=== PATIENT | male | born 1965 | race Caucasian/White ===

== ENCOUNTER 2016-10-07 21:38 | Observation (INO) | payer OTHER ==
[~2016-10-07] VITALS: Ht 182.9 cm; Wt 147.1 kg
[~2016-10-07 21:38] MED LIST: AMOXICILLIN500 M1 PO; ASPIR 8181 MG PO; ASPIRIN EC325 MG PO; ASPIRIN81 M2 PO; ATORVASTATIN CA20 MG PO; ATORVASTATIN CA40 MG PO; ATORVASTATIN CA80 M1 PO; AUGMENTIN 875-1 EACH PO; AUGMENTIN 875875 MG PO; BACTRIM DS 8001 TAB PO; BENTYL20 MG PO; CARDIZEM 30 MG30 MG PO; CARDIZEM CD120 MG PO; CLOPIDOGREL75 MG PO; COMBIVENT RESPI1 SPR INH; COMBIVENT1 ARO INH; DILTIAZEM HCL30 MG; DILTIAZEM30 MG PO; DIPHENOXYLATE-ATROP PO; ELIQUIS5 MG PO; FENOFIBRATE145 MG PO; FERROUS SULFAT325 M1 PO; FLU VACCINE 0.0.5 ML IM; FUROSEMIDE40 MG PO; GABAPENTIN300 MG PO; GEMFIBROZIL600 MG PO; IMODIUM A-1 MG/7.5 M PO; IMODIUM2 MG PO; JANUMET 1000 MG1 TAB PO; K-DUR 20MEQ TA20 MEQ PO; KEFLEX500 MG PO; KLOR-CON 10MEQ10 MEQ PO; LANTUS INS100 UNITS/ SC; LANTUS SOLOS100 U/ML SC; LANTUS100 U/ML SC; LASIX20 MG PO; LASIX40 M1 PO; LASIX40 MG PO; LASIX80 MG PO; LEVEMIR 10100 UNITS/ SC; LIDODERM 5% PAT1 PAT TOP; LISINOPRIL2.5 MG PO; LISINOPRIL20 MG PO; LOMOTIL 0.025 M1 TAB PO; LOPERAMIDE2 MG PO; LOPRESSOR 25MG25 MG PO; LOPRESSOR50 MG PO; LYRICA50 MG PO; LYRICA75 MG PO; MAGNESIUM OXID400 MG PO; METFORMIN1000 MG PO; METOPROLOL SUCC25 M1 PO; NITRO-BID OINT0.5 GM TOP; NITRO-BID2% TOP; NOVOLOG100 U/ML SC; Nitro-Bid TOP; OXYCODONE-ACET1 EACH PO; PERCOCET 325 MG-5 MG PO; PERCOCET 325 MG1 TA2 PO; PRILOSEC40 MG PO; PRINIVIL 5MG5 MG PO; PROTONIX 40MG T40 MG PO; SANTYL250 U/GM TOP; TYLENOL XSTR500 MG PO; ULTRAM(MONOGRAP50 MG PO; VENTOLIN1 PUF INH
--- NOTE | 2016-10-07 21:48 | ED CARDIAC/CP/PALPITATIONS ---
History of Present Illness General Chief Complaint: Chest Pain Stated Complaint: BIBA CHEST PAIN Source: patient, old records Exam Limitations: no limitations Vital Signs & Intake/Output Vital Signs & Intake/Output Vital Signs Date Time Temp Pulse Resp B/P Pulse O2 O2 Flow FiO2 Ox Delivery Rate 10/07 2250 68 114/55 10/07 2237 68 117/56 10/07 2159 97 Nasal 1.0L Cannula 10/07 2151 97.8 67 18 135/64 99 ED Intake and Output 10/08 0000 10/07 1200 Intake Total Output Total 400 Balance -400 Output, Urine 400 Allergies Coded Allergies: erythromycin base (Intermediate, ?GI UPSET 03/13/16) gluten (Intermediate, GI UPSET 03/13/16) venom-honey bee (BEE VENOM (HONEY BEE)) (Intermediate, VOMITING 03/13/16) lactose (Mild, GI UPSET 03/13/16) Reconcile Medications Acetaminophen (Tylenol Xstr) 500 MG TAB 2 TAB PO AD PRN Pain (Reported) Aspirin 81 MG TAB 1 TAB PO DAILY HEART HEALTH Atorvastatin Calcium 80 MG TABLET 80 MG PO 1700 HYPERLIPIDEMIA CLOPIDOGREL BISULFATE (Clopidogrel) 75 MG TABLET 1 TAB PO DAILY BLOOD THINNER (Reported) Collagenase (Santyl) 250 U/GM OIN 1 AMY TOP PRN PRN Skin ulcer Dicyclomine Hydrochloride (Bentyl) 20 MG TAB 1 TAB PO Q6P PRN ABD PAIN DILTIAZEM HCL (Cardizem Cd) 120 MG CER 1 CAP PO DAILY Heart (Reported) FENOFIBRATE NANOCRYSTALLIZED (Fenofibrate) 145 MG TABLET 1 TAB PO DAILY CHOLESTEROL (Reported) Ferrous Sulfate 325 MG TAB 1 TAB PO DAILY SUPPLEMENT Furosemide (Lasix) 40 MG TABLET 1 TAB PO DAILY leg edema Insulin Glargine, Recombinan (Lantus) 100 U/ML MINI 24 UNITS SC QAM DIABETES ( Reported) IPRATROPIUM/ALBUTEROL SULFATE (Combivent Inhaler) 14.7 GM AER.W.ADAP 2 PUF INH 4 TIMES/DAY PRN SOB (Reported) IPRATROPIUM/ALBUTEROL SULFATE (Combivent Respimat Inhal [place]) 1 SPR SPR 2 PUFF INH 4 TIMES/DAY RESPIRATORY (Reported) Lidocaine HCl (Lidoderm Patch) 5 % PAT 1 PAT TOP DAILY RIGHT BACK (Reported) may wear up to 12 hours Lisinopril (Prinivil) 5 MG TAB 1 TAB PO DAILY HYPERTENSION Metformin Hydrochloride/Nela (Janumet 1000 MG-50 MG) 1 TAB TAB 1 TAB PO DAILY DIABETES (Reported) Metoprolol Succinate 25 MG TAB 75 MG PO BID BLOOD PRESSURE Nitroglycerin (Nitro-Bid) 2% OIN 1 AMY TOP PRN ANGINA (Reported) Omeprazole (Prilosec) 40 MG ECC 1 TAB PO DAILY AC GI (Reported) Oxycodone HCl/Acetaminophen (Oxycodone-Acetaminophen 5-325) 1 EACH TABLET 1 TAB PO Q4 HRS NEEDED pain control (Reported) POTASSIUM CHLORIDE (KLOR-CON 10mEq TAB) (Unknown Strength) TAB (Unknown Dose) PO DAILY SUPPLEMENT (Reported) Pregabalin (Lyrica) 50 MG CAPSULE 1 CAP PO TID NEUROPATHIC PAIN Tramadol HCl (Ultram) 50 MG TAB 1 TAB PO Q6 PRN severe pain Triage Nurses Notes Reviewed? yes Onset: Abrupt Duration: better Timing: single episode today Quality/Severity: moderate, pressure Location: substernal Radiation: arms Activities at Onset: none Prior Chest Pain/Card Workup: stress test Modifying Factors: Improves With: nitroglycerin. Nitro Today/Relief: 0.4 mg x 2 Aspirin Today: 325 mg x 1 HPI: Patient is a 51-year-old male with a past medical history of CVA, TIA, peripheral neuropathy, chronic peripheral ulcers, paroxysmal atrial fibrillation , coronary artery disease, CHF, hypertension, hyperlipidemia myocardial infarction status post CABG in 2013, COPD obstructive sleep apnea, diabetes obesity in which patient was recently admitted to [facility] approximately 2 weeks ago for concerns of chest pain and elevated troponins however patient had cardiac stress test showing no ischemia concerns. Patient does state that currently he is in short-term rehabilitation at [facility] in which on September 30 a week ago patient was admitted for observation for concerns of recurrent chest pain he was discharged the following day patient presents today stating that one hour prior to arrival he had at rest substernal chest pressure with radiation of pain to his left upper extremity diaphoresis shortness of breath and nausea. Patient was given 2 sprays of nitroglycerin and 325 mg of aspirin in route and states that he feels significantly improved. Currently point to 1 out of 10 chest pain. (EDGAR PRIDE,HELENA) Past History Travel History Traveled to [place] past 21 day No Medical History Any Pertinent Medical History? 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 MOTHER (CAD, DM, DLD and HTN). Hx Contributory? No (HELENA CHAMPION) Review of Systems Review of Systems Constitutional: Reports: no symptoms. EENTM: Reports: no symptoms. Respiratory: Reports: see HPI, short of breath. Cardiovascular: Reports: see HPI, chest pain. GI: Reports: no symptoms. Genitourinary: Reports: no symptoms. Musculoskeletal: Reports: no symptoms. Skin: Reports: see HPI. Neurological/Psychological: Reports: no symptoms. Hematologic/Endocrine: Reports: no symptoms. Immunologic/Allergic: Reports: no symptoms. All Other Systems: Reviewed and Negative (HELENA CHAMPION) Physical Exam Physical Exam General Appearance: no apparent distress, obese Head: atraumatic Eyes: Bilateral: normal appearance, PERRL, EOMI. Ears, Nose, Throat: normal pharynx, normal ENT inspection Neck: normal inspection, supple, full range of motion Respiratory: normal breath sounds, chest non-tender, no respiratory distress Cardiovascular: regular rate/rhythm Gastrointestinal: normal bowel sounds, soft, non-tender Rectal: heme negative stool Extremities: pedal edema Neurologic/Psych: no motor/sensory deficits, awake, alert, oriented x 3 Skin: warm/dry Lymphatic: no anterior cervical charles Comments: Noted chronic 1 cm circular right foot ulcer 2 No active discharge no surrounding erythema Core Measures ACS in differential dx? Yes ASA ordered for poss ACS? ASPIRIN WAS ADMINISTERED PRIOR TO ARRIVAL Severe Sepsis Present: No Septic Shock Present: No (HELENA CHAMPION) Progress Differential Diagnosis: AMI, aortic dissection, atrial fibrillation, cholecystitis, CHF/pulm edema, costochondritis, hyperkalemia, hypovolemia, hyperthyroid, hyperventilation, intracranial hemorrhage, musculoskeletal pain, myocarditis, pancreatitis, pericarditis, pneumonia, pneumothorax, PSVT, pulmonary embolism, PUD/GERD, PVCs/PACs, respiratory failure, rib fracture, sepsis, unstable angina, V-fib/V-Tach, WPW syndrome Plan of Care: Orders Procedure Date/time Status Nothing by Mouth 10/08 B Active TROPONIN LEVEL 10/08 1000 Active EKG 10/08 1000 Active CBC WITHOUT DIFFERENTIAL 10/08 06 Active BASIC ELECTROLYTES PLUS BUN&CR 10/08 0600 Active TROPONIN LEVEL 10/08 0400 Active EKG 10/08 0400 Active Admit to inpatient 10/08 0012 Active Pathway - chart 10/07 2328 Active House Staff 10/07 2328 Active Patient Data 10/078 Active Code Status 10/07 2328 Active Patient Data 10/07 232 Active MAGNESIUM 10/07 2215 Complete Intake & Output 10/07 2156 Active D-DIMER 10/07 2154 Complete Telemetry/Vice President Quality 10/07 2153 Active TROPONIN LEVEL 10/07 215 Complete COMPREHENSIVE METABOLIC PANEL 10/07 2153 Complete CBC WITHOUT DIFFERENTIAL 10/07 2153 Complete EKG 10/07 2139 Active VTE Mechanical Prophylaxis 10/07 UNK Active Telemetry/Vice President Quality 10/07 UNK Active Current Medications Sig/Ysabel Start time Last Medication Dose Stop Time Status Admin Atorvastatin Calcium 80 MG 1700 10/08 1700 UNVr (Lipitor) Clopidogrel Bisulfate 75 MG DAILY 10/08 1000 UNVr (Plavix) Diltiazem HCl 120 MG DAILY 10/08 1000 UNVr (Cardizem CD) Fenofibrate 145 MG DAILY 10/08 1000 UNVr (Tricor) Ferrous Sulfate 325 MG DAILY 10/08 1000 UNVr (Feosol) Furosemide 40 MG DAILY 10/08 1000 UNVr (Lasix) Omeprazole 40 MG DAILY AC 10/08 0700 UNVr (Prilosec) Dicyclomine HCl 20 MG 4 TIMES/DAY PRN 10/08 0030 UNVr (Bentyl) Lidocaine 1 PAT DAILY PRN 10/08 0030 UNVr (Lidoderm) Oxycodone/ 1 TAB Q4 HRS NEEDED PRN 10/08 0030 UNVr Acetaminophen (Percocet) Tramadol HCl 50 MG Q6 PRN 10/08 003 UNVr (Ultram) Metoprolol Tartrate 75 MG BID 10/08 22 UNVr (Lopressor) Pregabalin 50 MG TID 10/08 22 UNVr (Lyrica) Acetaminophen 650 MG Q6P PRN 10/07 2330 AC (Tylenol) Magnesium Sulfate 1 GM Q1H 10/07 2330 AC (Mag Sulfate in D5) 10/08 128 Dextrose/Water 100 ML (D5W) Heparin Sodium 5,000 UNIT ONCE ONE 10/07 2315 UNVr (Porcine) 10/07 2316 (Heparin Bolus) Heparin Sodium 25,000 UNIT Q24H 10/07 2315 UNVr (Porcine) (Heparin) Sodium Chloride 500 ML Laboratory Tests 10/07/162214: Anion Gap 13, Estimated GFR 49 L, BUN/Creatinine Ratio 21.3, Glucose 118 H, Calcium 8.9, Magnesium 1.1 L, Total Bilirubin 0.8, AST 27, ALT 25, Alkaline Phosphatase 130 H, Troponin I 0.02, Total Protein 6.7, Albumin 3.8, Globulin 2.9, Albumin/Globulin Ratio 1.3, D-Dimer 372 H, CBC w Diff NO MAN DIFF REQ, RBC 3.74 L, MCV 78.2 L, MCH 25.8 L, RDW 19.4 H, MPV 10.4, Gran % 79.4 H, Lymphocytes % 8.8 L, Monocytes % 9.2, Eosinophils % 1.5, Basophils % 1.1, Absolute Granulocytes 7.6 H, Absolute Lymphocytes 0.8 L, Absolute Monocytes 0.9 H, Absolute Eosinophils 0.1, Absolute Basophils 0.1, PUBS MCHC 33.0 10/07/16 2154: Magnesium Cancelled Patient currently has concerns of unstable angina in which patient has had significant resolution of his chest pain with vasodilators of nitroglycerin. Nitroglycerin paste was administered due to persistent chest pain while in the emergency room. EKG was unremarkable cardiac enzyme unremarkable however d- dimer was elevated however creatinine levels were too high to obtain CT angiogram to rule out pulmonary embolism. Discussed patient with Dr. Sage since patient is going to telemetry He discussed admission with Dr. Downing who advised patient to be prophylactically anticoagulated with heparin (HELENA CHAMPION) Diagnostic Imaging: Viewed by Me: Radiology Read. CXR Impression: no acute abnormality, no infiltrates Initial ED EKG: SINUS RHYTHM NOTED AT 66 BPM UNCHANGED SINCE september Prior EKG: unchanged Comments: PATIENT: WILLIAM WRIGHT PRESENT AGE: 51 PATIENT ACCOUNT NO: [id number] : 64 LOCATION: [facility] ORDERING PHYSICIAN: HELENA PRIDE SERVICE DATE: 10/07/16 EXAM TYPE: RAD - XRY-CHEST XRAY, PA AND LATERAL EXAMINATION: XR CHEST CLINICAL INFORMATION: Chest pain. COMPARISON: CTA chest 09/14/2016. Portable chest x-ray 09/13/2016. TECHNIQUE: PA and lateral views of the chest were obtained. FINDINGS: AP and lateral views of the chest demonstrate mild pulmonary hypoinflation. There are linear opacities within the left midlung and lingula, favored to represent subsegmental atelectasis. No new airspace consolidation is identified. Cardiac mediastinal contours are stable and there is stable prominence of the cardiac silhouette, without overt pulmonary edema. Redemonstrated are median sternotomy wires and evidence of prior CABG. IMPRESSION: Stable cardiomegaly, without overt pulmonary edema. Subsegmental atelectasis within the left midlung and left lung base. (HELENA CHAMPION) Departure Departure Disposition: STILL A PATIENT Condition: Fair Clinical Impression Primary Impression: Unstable angina Secondary Impressions: Foot ulcer, Kidney failure Referrals: ARCELIA MARIA,TIM Hernandez (PCP/Family) Referred to [facility] as new patient No Departure Forms: Customer Survey General Discharge Information Admission Note Spoke With: MARIA T DOWNING MD Documentation of Exam: Documentation of any treatments & extenuating circumstances including Concerns Regarding Discharge (functional status, medication knowledge or non-compliance, living conditions, etc.) that warrant an admission rather than observation: [Dr. SAGE discussed admission with Dr. Downing and which HE ADVISED the patient TO BE ADMITTED under telemetry for concerns of unstable angina patient will be prophylactically administered heparin which patient requires cardiology consultation, repeat labs, telemetry monitoring, and further evaluation to rule out pulmonary embolism and possible cardiac catheterization. Outpatient treatment at this time would be medically harmful.] (HELENA CHAMPION) PA/[employer] Co-Sign Statement Statement: ED Attending supervision documentation- [x] I saw and evaluated the patient. I have also reviewed all the pertinent lab results and diagnostic results. I agree with the findings and the plan of care as documented in the PA's/[employer]'s documentation. 10/07/16, 23:00... Pt is chest pain free after supportive medications. dimer positive, but elevated cr precludes cta. Pt signed out to me. 10/07/16, 23:20... discussed with dr. downing who accepts patient... will start heparin given his unstable angina and elevated dimer. [] I have reviewed the ED Record and agree with the PA's/[employer]'s documentation. [] Additions or exceptions (if any) to the PAs/SUPER[employer]'s note and plan are summarized below: [] (RAY MARIA,LILIAN Pineda) Critical Care Note Critical Care Note Critical Care Time: 30-74 min (EDGAR PRIDE,HELENA)
--- NOTE | 2016-10-07 21:56 | NUR ---
51 YEAR OLD MALE BIBA FROM [facility] C/O SUBSTERNAL CHEST PAIN 5/10 RADIATING DOWN LEFT ARM. PT REPORTS MINIMAL PAIN AT THIS TIME 2/10. PT RECIEVED 1 ASPIRIN AND 2 SL NITRO EN ROUTE WITH MEDIC. PT ALERT AND ORIENTED X3, EKG IN PROGRESS.
--- NOTE | 2016-10-07 22:14 | NUR ---
PT BLOOD SENT TO THE LAB LAV ABEBA,BLUE
--- NOTE | 2016-10-07 22:17 | NUR ---
SHANNEN HERNÁNDEZ TO BEDSIDE TO EVALUATE PT.
[2016-10-07 22:32] LABS: ABSOLUTE BASOPHIL COUNT 0.1 /CUMM (0.0-0.2); ABSOLUTE EOSINOPHIL COUNT 0.1 /CUMM (0.0-0.7); ABSOLUTE GRANULOCYTE CT 7.6 /CUMM (1.4-6.5); ABSOLUTE LYMPH COUNT 0.8 /CUMM (1.2-3.4); ABSOLUTE MONOCYTE COUNT 0.9 /CUMM (0.10-0.60); BASOPHIL % 1.1 % (0.0-2.0); EOSINOPHIL % 1.5 % (0-5); GRANULOCYTE % 79.4 % (42.2-75.2); HEMATOCRIT 29.2 % (42-52); MEAN CORPUSCULAR HGB 25.8 PG (27.0-31.0); MEAN CORPUSCULAR VOLUME 78.2 FL (80.0-94.0); MEAN PLATELET VOLUME 10.4 FL (7.4-10.4); PLATELET COUNT 220 /CUMM (130-400); RBC DISTRIBUTION WIDTH 19.4 % (11.5-14.5); RED BLOOD CELL CT 3.74 /CUMM (4.70-6.10); WHITE BLOOD CELL COUNT 9.5 /CUMM (4.8-10.8)
--- NOTE | 2016-10-07 22:36 | NUR ---
NITRO PATCH APPLIED PER EMAR BP 117/56. PT TO RADIOLOGY FOR X-RAY.
--- NOTE | 2016-10-07 22:47 | NUR ---
PT RETURN FROM X-RAY VIA STRETCHER.
--- NOTE | 2016-10-07 23:25 | RADIOLOGY REPORT ---
EXAMINATION: XR CHEST CLINICAL INFORMATION: Chest pain. COMPARISON: CTA chest 09/14/2016. Portable chest x-ray 09/13/2016. TECHNIQUE: PA and lateral views of the chest were obtained. FINDINGS: AP and lateral views of the chest demonstrate mild pulmonary hypoinflation. There are linear opacities within the left midlung and lingula, favored to represent subsegmental atelectasis. No new airspace consolidation is identified. Cardiac mediastinal contours are stable and there is stable prominence of the cardiac silhouette, without overt pulmonary edema. Redemonstrated are median sternotomy wires and evidence of prior CABG. IMPRESSION: Stable cardiomegaly, without overt pulmonary edema. Subsegmental atelectasis within the left midlung and left lung base.
--- NOTE | 2016-10-08 01:00 | History & Physical ---
MARQUES MARIA,DAVID 10/08/16 0100: General Information and HPI MD Statement: I have seen and personally examined WILLIAM WRIGHT and documented this H&P. The patient is a 51 year old M who presented with a patient stated chief complaint of []. Source of Information: patient, old records Exam Limitations: no limitations History of Present Illness: Patient is a 51-year-old male with a significant past medical history of CVA, TIA, CAD, AR, CABG in May 2014, CHF, hypertension, hyperlipidemia,COPD, obstructive sleep apnea, chronic leg ulcer status post skin grafting, type 2 diabetes, diabetic peripheral neuropathy, obesity, presented with the chief complaints of sudden onset of chest pain. According to the patient, he was all right and was talking to nursing staff at facility and suudenly are having chest pain, 5/10, sharp in nature, radiating to the left arm, and Jaw. He was given 4 tablets of aspirin and 2 tablets at the nitroglycerin which made him more comfortable. But because of the chest pain he was brought here for further management. Patient is having cellulitis of both lower extremity. He claims that it is there since last 1 year.Even he had skin graft for ulcers on the left foot. Allergies - Dilaudid, erythromycin Allergies/Medications Allergies: Coded Allergies: erythromycin base (Intermediate, ?GI UPSET 03/13/16) gluten (Intermediate, GI UPSET 03/13/16) venom-honey bee (BEE VENOM (HONEY BEE)) (Intermediate, VOMITING 03/13/16) lactose (Mild, GI UPSET 03/13/16) Past History Travel History Traveled to [place] past 21 day No Medical History Neurological: CVA, TIA, PERIPHERAL NEUROPATHY EENT: NONE Cardiovascular: AFIB (paroxysmal), CAD, CHF, hypertension, hyperlipidemia, myocardial infarction (s/p AR) Respiratory: COPD, ANA USES CPAP Gastrointestinal: ENTERITIS Hepatic: NONE Renal: nephrolithiasis Musculoskeletal: LEG WOUNDS WOUND VAC SKIN GRAFTS TO R LEG Psychiatric: NONE Endocrine: diabetes (with neuropathy), obesity Blood Disorders: NONE Cancer(s): NONE 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 MOTHER (CAD, DM, DLD and HTN). Psychosocial History Who Do You Live With? sister Services at Home: Nursing, Oxygen, Physical Therapy Living Will? no Functional Ability ADLs Independent: eating. Needs Assist: dressing, toileting, bathing. Ambulation: walker IADLs Independent: telephone, medication admin. Needs Assist: shopping, housework, food prep, transportation. Unknown: finances. Review of Systems Review of Systems Constitutional: Reports: malaise, weakness. Denies: chills, diaphoresis, fever. EENTM: Denies: no symptoms, blurred vision, double vision. Cardiovascular: Reports: chest pain, edema, orthopena, palpitations, peripheral edema. Denies: syncope. Respiratory: Reports: orthopnea, short of breath. Denies: cough, hemoptysis, sputum production, stridor, wheezing. GI: Reports: distention, nausea. Denies: abdominal pain, bloating, constipation, diarrhea, bowel incontinence, melena, bloody stool, changes in stool, vomiting. Genitourinary: Denies: dysuria, frequency, hematuria, hesitation, nocturia. Musculoskeletal: Denies: back pain, gout, joint pain, muscle pain. Neurological/Psychological: Reports: anxiety, depressed, emotional problems. Exam & Diagnostic Data Last 24 Hrs of Vital Signs/I&O Vital Signs Date Time Temp Pulse Resp B/P Pulse O2 O2 Flow FiO2 Ox Delivery Rate 10/08 0122 Nasal 2.0L Cannula 10/08 0043 68 114/55 10/07 2250 68 114/55 10/07 2237 68 117/56 10/07 2159 97 Nasal 1.0L Cannula 10/07 2151 97.8 67 18 135/64 99 Intake & Output 10/08 0800 10/08 0000 10/07 1600 Intake Total Output Total 400 Balance -400 Output, Urine 400 Patient 150.593 kg Weight Physical Exam General Appearance Alert, Oriented X3, Cooperative, No Acute Distress Skin bilateral lower leg cellulitis, unstageable decubitus ulcer on bith bucttock HEENT Atraumatic, PERRLA, EOMI Neck Supple, No JVD Cardiovascular Regular Rate, Normal S1, Normal S2 Lungs Clear to Auscultation, Normal Air Movement Abdomen Soft, No Tenderness, distended Neurological Normal Speech Extremities edema,redness, tenderness, ozzing ulcer on the left foot Vascular Normal Pulses, Pulses Symmetrical Assessment/Plan Assessment: Assessment and plan - Vital signs at the time of admission-temperature 97.8, pulse 67, respiratory rate 18, blood pressure 135/64, SPO2 99%. CXR -Stable cardiomegaly, without overt pulmonary edema. Subsegmental atelectasis within the left midlung and left lung base Problem list - Acute coronary syndrome, coronary artery disease, AR, CABG in May 2014, Hypertension Hyperlipidemia Atrial fibrillation COPD Obstructive sleep apnea Bilateral lower leg cellulitis Type 2 diabetes, diabetic neuropathy Obesity Decubitus ulcer CVA/TIA Plan - Acute coronary syndrome * Patient presented with chest pain with a history of coronary artery disease and a CABG * We'll trend the troponins/EKG * We'll admit the patient to telemetry * Start the patient on IV heparin therapy * We'll discuss the patient with Dr. Downing. Anemia - * Hemoglobin is 9.6, hematocrit 29.2 * It seems that the patient is having iron deficiency anemia as MCV is only 78.2 * We will check stool for occult blood and also the iron indices to rule out iron deficiency anemia. * We will regularly follow H&H SPIKE * BUN is 32 and creatinine is 1.5 * It seems that the patient is having prerenal dehydration * We'll give gentle IV fluids * We will regularly follow BUN/creatinine * Strict intake output charting Hypomagnesemia - Mg -1.1 * We will supplement IV magnesium with the goal of 2 Type 2 diabetes * We will regularly check the blood sugar level. Pre-meal and at the bedtime * We'll adjust the blood sugar level by giving NovoLog according to sliding scale * Continue Levemir at the home dose Diet-diabetic carbohydrate 2. Diet DVT prophylaxis-ALP S/heparin Code Status - full code As Ranked By This Provider Problem List: 1. Foot ulcer 2. Chest pain at rest 3. Acute hypoxemic respiratory failure 4. CHF (congestive heart failure) 5. CVA (cerebral vascular accident) 6. Hypertension 7. Diabetes 8. Cellulitis 9. Atrial fibrillation 10. NSTEMI (non-ST elevated myocardial infarction) Core Measures/Miscellaneous Acute Coronary Syndrome ACS Diagnosis: No Cerebrovascular Accident CVA/TIA Diagnosis: No Congestive Heart Failure CHF Diagnosis: No Venous Thromboembolism VTE Risk Factors: Age > 40, Immobility, paresis, Obesity VTE Prophylaxis Ordered Inpt: Mechanical (ALPS/TEDS) No Mech VTE prophylaxis d/t: LE Edema, LE Injury, current, Peripheral vascular Dx No VTE Pharm Prophylaxis d/t: No contraindications VTE Diagnosis: No VTE Type: NONE VTE Confirmed by (Test): NONE Severe Sepsis Severe Sepsis Present: No Septic Shock Septic Shock Present: No Miscellaneous Documentation Attending Case Discussed With: MARIA T DOWNING MD Primary Care Physician: TIM PANIAGUA MD Patient sees these Specialists mds manager Level of Patient Care: Telemetry TAYLOR GREER 10/08/16 0153: Resident Review Statement Resident Statement: examined this patient, discussed with business development intern, agreed with business development intern Other Findings: Patient is a 51-year-old gentleman with a past medical history significant for CAD s/p PCI (LAD, RCA) & CABG(2013), HTN, HLD, paroxysmal A.fib not on anticoagulation,chronic diastolic heart failure, , TIA, ANA (not on CPAP), chronic leg wound status post skin grafting, diabetes complicated with neuropathy, obesity presented from [facility] with chief complaints of sudden onset chest discomfort. As per patient he was doing okay until this evening he started having chest discomfort on rest, substernal,without any radiation, associated with shortness of breath, nausea and palpitations. In the facility patient was given 1 dose of sublingual nitroglycerin, that's slightly relieved his chest discomfort.Patient also desaturated in the facility and was put on oxygen. Because of his extensive cardiac historyEMS was called and and he was brought to the ER for further assessment. On his way to the hospital he was given 325 mg of aspirin and 2 more doses of sublingual nitroglycerin and his symptoms improved. Of note patient was recently admitted to [facility] to unstable angina( elevated troponins), nuclear stress test was done that ruled out any underlying ischemia, Cardiac cath was not done due to acute kidney injury at that time and was discharged last ER. Patient reported that he had similar chest discomfort on September 30, he was seen in [facility], remained in the hospital for one day and was discharged to the [facility]. Patient denied any recent fever or infections. He has bilateral lower extremity weeping wounds, with swelling of the right foot seems to begin worse as per patient. Vitals on admission temperature 97.8, pulse 67, respiratory rate 18, blood pressure 135/64 on 2 L. General Appearance:alert oriented 3 not in acute distress. Skin: Grossly normal HEENT: PEERLA Neck: Supple, No JVD Cardiovascular: Regular Rate, Normal S1, Normal S2, systolic murmur in the second right intercostal space. Lungs: Equal breath sounds bilaterally on lung exam without any rhonchi or wheeze Abdomen: Normal Bowel Sounds, Soft, lower abdominal tenderness. Neurological: Normal Speech, Strength at 5/5 X4 Ext, Cranial Nerves 3-12 NL, Reflexes 2+ Extremities:bilateral lower externally swelling, Vascular: Normal Pulses. Pertinent labs on admission: WBC count normal, H&H: 9.6/24.2, d-dimer elevated at 372 limited BUN and creatinine 32/1.5(baseline creatinine 1.3). Chest x-ray:Stable cardiomegaly, without overt pulmonary edema. Subsegmental atelectasis within the left midlung and left lung base. Assessment 1. Acute onset chest discomfort at rest with hypoxia(possible acute pulmonary embolism/unstable angina) * we'll admit the patient to telemetry floor. * Elevated d-dimer on admission, he cannot have the CTA done due to acute kidney injury, and patient himself is refusing to avoid any damage to the kidney through contrast. We'll start the patient prophylactically on heparin for possible PE. * PERRY score 3,we will do serial troponin and EKG to running underlying ACS.patient recently had a nuclear stress test done that showed No EKG evidence of stress induced myocardial ischemia. * Cardiology was Dr. Downing has been obtained will follow the recommendations. * continue aspirin, beta dylon, high-dose statins. * Sublingual nitroglycerin as needed for chest discomfort. * Continue oxygen keep saturations above 92%. * Will reassess the patient in 24 hours/ * Watch for any hemodynamic instability. 2.History of paroxysmal atrial fibrillation, * Not on anticoagulation, currently sinus rhythm. * continue Cardizem and metoprolol. 3. History of diabetes mellitus resulted in neuropathy * Continue with NovoLog sliding scale hold oral hypoglycemics 4. Chronic Bilateral leg swellings/ulcers:(weeping wounds on the left leg, with right foot appears to be more swollen)-possible underlying cellulitis/venous stasis/vasculitis * Will send blood cultures, as there is no leukocytosis will hold off any antibiotics for now. * Monitor vitals every 4 hours. * continue leg elevation and Santyl ointment/dressing change regularly. * continue pain control withoxycodone/tramadol and Lyrica. 5.Acute on chronic kidney disease * Repeat BEP in the morning * Avoid any nephrotoxic agents. * continue with gentle hydration. 6. Unstageable coccyx decubitus skin wound/ulcer on admission: * continue wound care with clean dry dressings and santyl cream. 7.Moderate to severe painpathway with oxycodone and tramadol. 8.DVT prophylaxis with heparin 9. Heart healthy diet 10. Patient is full code SALINA MARIAMARIA T 10/08/16 1337: General Information and HPI Allergies/Medications Home Med list Acetaminophen 325 MG TABLET 2 TAB PO Q6H PRN CONSTIPATION (Reported) Ammonium Lactate (Amlactin) 12 % LOTION 1 AMY TOP BID SKIN (Reported) Apixaban (Eliquis) 5 MG TABLET 1 TAB PO Q12H BLOOD THINNER (Reported) Aspirin 81 MG TAB 1 TAB PO DAILY HEART HEALTH Atorvastatin Calcium 80 MG TABLET 80 MG PO 1700 HYPERLIPIDEMIA Bisacodyl 10 MG SUPP.RECT 1 SUP RC PRN GI (Reported) CLOPIDOGREL BISULFATE (Clopidogrel) 75 MG TABLET 1 TAB PO DAILY BLOOD THINNER (Reported) Collagenase Clostridium Hist. (Santyl) 250 UNIT/GRAM OINT...G. 1 AMY TOP QPM OUTER/INNER RIGHT FT & LFT LEG (Reported) Dextrose (Glucose Gel) (Unknown Strength) GEL..GRAM. 24 GM PO PRN HYPOGLYCEMIA (Reported) Dicyclomine Hydrochloride (Bentyl) 20 MG TAB 1 TAB PO Q6P PRN ABD PAIN DILTIAZEM HCL (Cardizem Cd) 120 MG CER 1 CAP PO DAILY Heart (Reported) FENOFIBRATE NANOCRYSTALLIZED (Fenofibrate) 145 MG TABLET 1 TAB PO DAILY CHOLESTEROL (Reported) Ferrous Sulfate 325 MG TAB 1 TAB PO DAILY SUPPLEMENT Furosemide 20 MG TABLET 60 MG PO DAILY DIURETIC (Reported) Glucagon,Human Recombinant (Glucagon Emergency Kit) 1 MG KIT 1 MG IM AD PRN HYPOGLYCEMIA (Reported) Insulin Glargine, Recombinan (Lantus) 100 U/ML MINI 24 UNITS SC QAM DIABETES ( Reported) Insulin Lispro (Humalog) 100 UNIT/ML CARTRIDGE DM (Reported) Ipratropium/Albuterol Sulfate (Iprat-Albut 0.5-3(2.5) MG/3 Ml) 0.5 MG-3 MG (2.5 MG BASE)/3 ML AMPUL.NEB 3 ML PO Q8 SOB (Reported) Lactulose 10 GRAM/15 ML SOLUTION 15 ML PO DAILY PRN CONSTIPATION (Reported) Lidocaine HCl (Lidoderm Patch) 5 % PAT 1 PAT TOP DAILY RIGHT BACK (Reported) may wear up to 12 hours Lisinopril (Prinivil) 5 MG TABLET 2 TAB PO DAILY BP (Reported) Loperamide HCl (Loperamide) 2 MG CAPSULE 1 CAP PO PRN DIARRHEA (Reported) Magnesium Hydroxide (Milk Of Magnesia) 400 MG/5 ML ORAL.SUSP 30 ML PO PRN CONSTIPATION (Reported) Metoprolol Tartrate (Lopressor) 50 MG TABLET 1 TAB PO BID HR (Reported) Na Phos,M-B/Na Phos,Di-Ba (Fleet Enema) 19 GRAM-7 GRAM/118 ML ENEMA 1 E RC PRN CONSTIPATION (Reported) Nitroglycerin (Nitrostat) 0.4 MG TAB.SUBL 1 TAB SL AD PRN CHEST PAIN ( Reported) 1st sign of attack; may repeat every 5 minutes until relief; if pain persists after 3 tablets in 15 minutes, prompt medical att Nitroglycerin (Nitroglycerin Patch) 0.4 MG/HOUR PATCH.TD24 0.4 MG TOP DAILY CHEST PAIN APPLY FOR 12 HOURS THEN REMOVE APPLY PATCH SAME TIME EACH DAY Oxycodone HCl/Acetaminophen (Percocet 5-325 MG Tablet) 5 MG-325 MG TABLET 1 TAB PO Q6H PRN PAIN (Reported) Pantoprazole Sodium 40 MG TABLET.DR 1 TAB PO DAILY GERD (Reported) Potassium Chloride 10 MEQ TABLET.ER 1 TAB PO DAILY SUPPLEMENT (Reported) Pregabalin (Lyrica) 50 MG CAPSULE 1 CAP PO BID PAIN (Reported) Saccharomyces Boulardii (Probiotic) 250 MG CAPSULE 1 CAP PO BID PROBIOTIC ( Reported) Sitagliptin Phos/Metformin HCl (Janumet 50-1,000 MG Tablet) 50 MG-1,000 MG TABLET 1 TAB PO BID DM (Reported) Sodium Chloride (Deep Sea) 0.65 % SPRAY 2 SPRAY MARCI Q4P PRN CONGESTION Sulfamethoxazole/Trimethoprim (Sulfamethoxazole-Tmp Ds Tablet) 800 MG-160 MG TABLET 1 TAB PO BID UTI starting from tomorrow Attending MD Review Statement Attending Statement Attending MD Statement: examined this patient, discuss w/resident/PA/LACROSSE COACH, agreed w/resident/PA/LACROSSE COACH, discussed with family, reviewed EMR data (avail), discussed with nursing, reviewed images, amended to note Attending Assessment/Plan: Agree with housestaff note above. 51-year-old male with history of CVA, CAD, CABG, paroxysmal atrial fibrillation, diastolic heart failure recently admitted September 14 with group B strep sepsis and non-ST elevation myocardial infarction. He developed contrast nephropathy after a small dose of IV contrast, and his creatinine increased to 2.0. He was discharged home on September 19, and was readmitted September 20 with chest discomfort. During the second admission he had a nuclear stress test which revealed a large fixed perfusion abnormality at the apex extending into the adjacent anteroapical and apical lateral crocker. There was no reversible ischemia. The LV ejection fraction was normal. He was discharged to short-term rehabilitation on September 26. On September 30 he had recurrent chest discomfort for which she was observed overnight of [facility] and discharge back to short-term rehabilitation. He was sent back to the hospital last night after he developed a sharp 5 out of 10 pain on the left side of his chest radiating to his left arm and jaw. He was brought to the emergency department almost immediately with the pain resolved after he was treated with aspirin and nitroglycerin. He reports feeling better since that time. He was started on IV heparin after a positive d-dimer. He now reports that he is feeling better. Review of systems: No fever. No chills. No rash. No tremor. All other systems reviewed and are noted to be negative. Gen: The patient is in no acute distress HEENT: Normal nose, ears, and oropharynx. Pupils equal bilaterally. Conjunctiva normal. Neck: Supple with no JVD, no masses, and no thyromegaly Lungs: Clear to auscultation with normal respiratory effort Heart: RRR, S1, S2, no murmurs. 1+ peripheral edema, 2+ pulses in the lower extremities bilaterally Abdomen: Soft, nontender, no masses. No hepatomegaly. No splenomegaly Extremities: No clubbing or cyanosis. Normal muscle strength in the upper and lower extremities. Skin: Normal skin turgor with no skin ulcers or lesions noted. Neuro: Cranial nerves intact. Sensation intact Psych: Alert and oriented 3 with appropriate affect EKG tracing is independently reviewed, and reveals normal sinus rhythm at 71, left atrial abnormality, inferior infarct age indeterminate, possible anterior infarct Assessment: 1CAD, status post CABG 2. Paroxysmal atrial fibrillation 3. Recent non ST elevation myocardial infarction 4. Chest pain, rule out acute coronary syndrome Plan: * Placed on observation * Serial troponin 3 * Oxygen saturation is currently 99% on 2 L. Please discontinue oxygen and monitor on room air. * Continue IV heparin for now, however the likelihood of pulmonary embolism appears to be low at this time. * Given the recent nuclear stress test which revealed no ischemia, and the recent contrast nephropathy, there is not a strong indication for cardiac catheterization at this time. * Possible discharge to short-term rehabilitation tomorrow if stable.
[2016-10-08 01:19] LABS: PTT 37 SEC (25-37)
[2016-10-08 05:05] LABS: ABSOLUTE BASOPHIL COUNT 0.1 /CUMM (0.0-0.2); ABSOLUTE EOSINOPHIL COUNT 0.2 /CUMM (0.0-0.7); ABSOLUTE GRANULOCYTE CT 6.2 /CUMM (1.4-6.5); ABSOLUTE MONOCYTE COUNT 0.9 /CUMM (0.10-0.60); BASOPHIL % 0.9 % (0.0-2.0); EOSINOPHIL % 1.8 % (0-5); GRANULOCYTE % 74.8 % (42.2-75.2); HEMATOCRIT 26.5 % (42-52); MEAN CORPUSCULAR HGB 25.6 PG (27.0-31.0); MEAN CORPUSCULAR HGB CONC 32.6 G/DL (33.0-37.0); MEAN CORPUSCULAR VOLUME 78.5 FL (80.0-94.0); MEAN PLATELET VOLUME 9.7 FL (7.4-10.4); PLATELET COUNT 196 /CUMM (130-400); RBC DISTRIBUTION WIDTH 19.2 % (11.5-14.5); RED BLOOD CELL CT 3.38 /CUMM (4.70-6.10); WHITE BLOOD CELL COUNT 8.3 /CUMM (4.8-10.8)
--- NOTE | 2016-10-08 07:23 | NUR ---
PT TO ROOM 112.
--- NOTE | 2016-10-08 08:03 | NUR ---
PT AWAKE, ALERT, ORIENTED THIS AM, DENIES CHEST PAIN OR SOB. PT MOVED FROM HOSP BED TO STRETCHER, TOLERATED WELL. IV HEPARIN MAINTAINED PER PROTOCOL, POTASSIUM 10MEQ IV INFUSING ORDERED AT THIS TIME.
--- NOTE | 2016-10-08 08:20 | NUR ---
REPORT CALLED TO TELE NURSE MILES, AWAITING BED 174 TO BE AVAILABLE, AWAITING RETURN CALL FROM TELE NURSE.
--- NOTE | 2016-10-08 08:26 | PN- Housestaff ---
Subjective Follow-up For: Unstable angina Ruling out ACS Diabetes mellitus type 2 Complaints: pain scale (0-10) Tele-Events Since Last Visit: no events Subjective: She was seen and examined this morning. He is alert, awake and oriented to time place and person. No acute events monitored overnight. He denied any chest pain or pressure, shortness of breath, racing of heart, cough, fever or chills this morning He offers no complaints. Vitals were stable. Afebrile. Heart rate 66, blood pressure 120/80, saturating at 98% on 2 L nasal oxygen Review of Systems Constitutional: Denies: see HPI. Objective Last 24 Hrs of Vital Signs/I&O Vital Signs Date Time Temp Pulse Resp B/P Pulse O2 O2 Flow FiO2 Ox Delivery Rate 10/08 1500 98.2 66 20 128/62 98 Nasal 2.0L Cannula 10/08 1049 62 122/60 10/08 0923 97.8 62 20 122/60 99 Nasal 2.0L Cannula 10/08 0800 Nasal 2.0L Cannula 10/08 0730 96.0 62 12 121/58 99 Nasal 2.0L Cannula 10/08 0122 Nasal 2.0L Cannula 10/08 0043 68 114/55 10/07 2250 68 114/55 10/07 2237 68 117/56 10/07 2159 97 Nasal 1.0L Cannula 10/07 215 97.8 67 18 135/64 99 Intake & Output 10/08 1600 10/08 0800 10/08 0000 Intake Total 1173.6 525 Output Total 350 850 400 Balance 823.6 -325 -400 Intake, IV 693.6 525 Intake, Oral 480 Output, Urine 350 850 400 Patient 147.077 kg 150.593 kg Weight Physical Exam General Appearance: Alert, Oriented X3, Cooperative, No Acute Distress Skin: No Rashes, No Breakdown HEENT: Atraumatic, Mucous Membr. moist/pink Neck: Supple, No JVD Cardiovascular: Normal S1, Normal S2 Lungs: Normal Air Movement Abdomen: Normal Bowel Sounds, Soft, No Tenderness Extremities: No Clubbing, No Cyanosis, bilateral lower extremity swelling Vascular: Normal Pulses Current Medications: Current Medications Sig/Ysabel Start time Last Medication Dose Route Stop Time Status Admin Acetaminophen 650 MG Q6P PRN 10/07 2330 AC PO Atorvastatin Calcium 80 MG 1700 10/08 1700 AC 10/08 PO 1702 Clopidogrel Bisulfate 75 MG DAILY 10/08 1000 AC 10/08 PO 1049 Dicyclomine HCl 20 MG 4 TIMES/DAY PRN 10/08 0030 CAN PO Diltiazem HCl 120 MG DAILY 10/08 1000 AC 10/08 PO 1048 Fenofibrate 145 MG DAILY 10/08 1000 AC 10/08 PO 1049 Ferrous Sulfate 325 MG DAILY 10/08 1000 AC 10/08 PO 1048 Furosemide 40 MG DAILY 10/08 1000 AC 10/08 PO 1049 Heparin Sodium 4,400 UNIT ONE ONE 10/08 1200 DC 10/08 (Porcine) IV 10/08 1201 1221 Heparin Sodium 0 .STK-MED ONE 10/08 0023 DC (Porcine) .ROUTE Heparin Sodium 5,000 UNIT ONCE ONE 10/075 DC 10/08 (Porcine) IV 10/07 2316 0057 Heparin Sodium 25,000 UNIT Q24H 10/07 2315 AC 10/08 (Porcine) IV 0225 Sodium Chloride 500 ML Insulin Aspart 0 TIDAC/HS 10/08 0800 AC SC Lidocaine 1 PAT DAILY NEEDED PRN 10/08 0030 AC EXT Magnesium Sulfate 0 .STK-MED ONE 10/08 0023 DC .ROUTE Magnesium Sulfate 1 GM Q1H 10/07 2330 DC 10/08 Dextrose/Water 100 ML IV 10/08 0129 0120 Metoprolol Tartrate 75 MG BID 10/08 1000 AC 10/08 PO 1049 Metoprolol Tartrate 75 MG BID 10/08 1000 CAN PO Metoprolol Tartrate 0 .STK-MED ONE 10/08 0030 DC PO Metoprolol Tartrate 0 .STK-MED ONE 10/08 0029 DC PO Metoprolol Tartrate 75 MG BID 10/08 0023 DC 10/08 PO 0043 Nitroglycerin 0 .STK-MED ONE 10/07 2234 DC TOP Nitroglycerin 1 GM ONCE ONE 10/07 2215 DC 10/07 TOP 10/07 2216 2236 Omeprazole 40 MG DAILY AC 10/08 0700 AC 10/08 PO 0631 Omeprazole 0 .STK-MED ONE 10/08 0624 DC PO Oxycodone HCl 0 .STK-MED ONE 10/08 0023 DC PO Oxycodone HCl 5 MG Q6P PRN 10/07 2330 DC PO Oxycodone/ 0 .STK-MED ONE 10/08 0041 DC Acetaminophen PO Oxycodone/ 1 TAB Q4 HRS NEEDED PRN 10/08 0030 AC 10/08 Acetaminophen PO 0043 Potassium Chloride 10 MEQ ONCE ONE 10/08 0730 DC 10/08 IV 10/08 0731 0802 Potassium Chloride 10 MEQ ONCE ONE 10/08 0730 DC 10/08 IV 10/08 0731 1050 Pregabalin 0 .STK-MED ONE 10/08 0042 DC PO Pregabalin 50 MG TID 10/08 0023 AC 10/08 PO 1702 Sodium Chloride 1,000 ML Q13H 10/08 0145 AC 10/08 IV 1701 Tramadol HCl 50 MG Q6P PRN 10/08 0030 AC PO Last 24 Hrs of Lab/Tanvir Results Last 24 Hrs of Labs/Mics: Laboratory Tests 10/08/16 1830: APTT Pending 10/08/16 1210: Troponin I 0.06 10/08/16 0835: APTT 47 H 10/08/16 0456: Troponin I 0.02 10/08/16 0456: Anion Gap 10, Estimated GFR 46 L, BUN/Creatinine Ratio 19.4, CBC w Diff NO MAN DIFF REQ, RBC 3.38 L, MCV 78.5 L, MCH 25.6 L, RDW 19.2 H, MPV 9.7, Gran % 74.8, Lymphocytes % 11.8 L, Monocytes % 10.7 H, Eosinophils % 1.8, Basophils % 0.9, Absolute Granulocytes 6.2, Absolute Lymphocytes 1.0 L, Absolute Monocytes 0.9 H, Absolute Eosinophils 0.2, Absolute Basophils 0.1, PUBS MCHC 32.6 L 10/07/16 2215: Anion Gap 13, Estimated GFR 49 L, BUN/Creatinine Ratio 21.3, Glucose 118 H, Calcium 8.9, Magnesium 1.1 L, Total Bilirubin 0.8, AST 27, ALT 25, Alkaline Phosphatase 130 H, Troponin I 0.02, Total Protein 6.7, Albumin 3.8, Globulin 2.9, Albumin/Globulin Ratio 1.3, APTT 37, D-Dimer 372 H, CBC w Diff NO MAN DIFF REQ, RBC 3.74 L, MCV 78.2 L, MCH 25.8 L, RDW 19.4 H, MPV 10.4, Gran % 79.4 H, Lymphocytes % 8.8 L, Monocytes % 9.2, Eosinophils % 1.5, Basophils % 1.1, Absolute Granulocytes 7.6 H, Absolute Lymphocytes 0.8 L, Absolute Monocytes 0.9 H, Absolute Eosinophils 0.1, Absolute Basophils 0.1, PUBS MCHC 33.0 10/07/16 2154: Magnesium Cancelled Microbiology 10/08 1211 UPPER RESP: Surveillance Culture - RECD 10/08 121 GI: Surveillance Culture - RECD Assessment/Plan Assessment: 1. Acute onset chest discomfort at rest with hypoxia (possible acute pulmonary embolism/unstable angina) * admitted the patient to telemetry floor. * Elevated d-dimer on admission, he cannot have the CTA done due to acute kidney injury, and patient himself is refusing to avoid any damage to the kidney through contrast. * started the patient prophylactically on heparin for possible PE as per cardio. * PERRY score 3, serial troponin and EKG ruled out underlying ACS. * patient recently had a nuclear stress test done that showed No EKG evidence of stress induced myocardial ischemia. * Cardiology was Dr. Poe has been obtained. will follow the recommendations. * continue aspirin, beta dylon, high-dose statins. * Sublingual nitroglycerin as needed for chest discomfort. * Continue oxygen keep saturations above 92%. * Observation for 24 more hours * DC'd oxygen, monitor oxygen saturations * Likely to go to [facility] tomorrow * Watch for any hemodynamic instability. 2.History of paroxysmal atrial fibrillation, * Not on anticoagulation, * currently sinus rhythm. * continue Cardizem and metoprolol. 3. History of diabetes mellitus resulted in neuropathy * Continue with NovoLog sliding scale * hold oral hypoglycemics 4. Chronic Bilateral leg swellings/ulcers: (weeping wounds on the left leg, with right foot appears to be more swollen)- possible underlying cellulitis/venous stasis/vasculitis * Will send blood cultures, * as there is no leukocytosis will hold off any antibiotics for now. * Monitor vitals * continue leg elevation and Santyl ointment/dressing change regularly. * continue pain control withoxycodone/tramadol and Lyrica. 5.Acute on chronic kidney disease BUN 31 and creatinine 1.6 on admission * Repeat BEP in the morning * Avoid any nephrotoxic agents. * continue with gentle hydration. 6.Moderate to severe painpathway with oxycodone and tramadol. 7.DVT prophylaxis with heparin 7. Heart healthy diet 8. Patient is full code Problem List: 1. Diabetes mellitus 2. ANA (obstructive sleep apnea) 3. COPD (chronic obstructive pulmonary disease) 4. Chest pain at rest Pain Ratin Pain Location: NONE Pain Goal: Remain pain free Pain Plan: TYLINOL Tomorrow's Labs & Rationales: CBC in the setting of anemia BEP in the setting of hypokalemia and acute renal insufficiency
--- NOTE | 2016-10-08 08:39 | NUR ---
PT DIFFICULT STICK, BLUE TOP TUBE OBTAINED/SENT TO LAB AT THIS TIME.
[2016-10-08 08:55] LABS: PTT 47 SEC (25-37)
--- NOTE | 2016-10-08 08:57 | NUR ---
TO ROOM # [id number] VIA STRETCHER.
[2016-10-08 09:23] VITALS: BP 122/60
--- NOTE | 2016-10-08 11:29 | NUR ---
PT BLOOD SUGAR 69. PT ASYMPTOMATIC. PT WAS NPO BUT NOW GETTING READY TO EAT LUNCH. ADY BLACKWELLDY AWARE AND SAID TO LET PT EAT AND TO RECHECK BLOOD SUGAR AFTER THAT. WILL CONTINUE TO MONITOR PT.
[2016-10-08 15:00] VITALS: BP 128/62
[2016-10-08 20:01] LABS: PTT 58 SEC (25-37)
[2016-10-08 23:00] VITALS: BP 154/68
[2016-10-09 03:21] LABS: ABSOLUTE BASOPHIL COUNT 0.1 /CUMM (0.0-0.2); ABSOLUTE EOSINOPHIL COUNT 0.1 /CUMM (0.0-0.7); ABSOLUTE GRANULOCYTE CT 6.5 /CUMM (1.4-6.5); ABSOLUTE MONOCYTE COUNT 0.5 /CUMM (0.10-0.60); BASOPHIL % 0.8 % (0.0-2.0); EOSINOPHIL % 1.6 % (0-5); GRANULOCYTE % 79.1 % (42.2-75.2); HEMATOCRIT 27.6 % (42-52); MEAN CORPUSCULAR HGB 26.1 PG (27.0-31.0); MEAN CORPUSCULAR HGB CONC 33.3 G/DL (33.0-37.0); MEAN CORPUSCULAR VOLUME 78.4 FL (80.0-94.0); MEAN PLATELET VOLUME 9.6 FL (7.4-10.4); PLATELET COUNT 198 /CUMM (130-400); RBC DISTRIBUTION WIDTH 19.6 % (11.5-14.5); RED BLOOD CELL CT 3.52 /CUMM (4.70-6.10); WHITE BLOOD CELL COUNT 8.3 /CUMM (4.8-10.8)
[2016-10-09 03:29] LABS: PTT 66 SEC (25-37)
[2016-10-09 09:03] VITALS: BP 158/90
--- NOTE | 2016-10-09 09:18 | PN- Housestaff ---
Subjective Follow-up For: Chest pain ACS rule out Tele-Events Since Last Visit: SR. HR 70-90s. No events. Subjective: No acute events overnight. Patient seen and examined this morning. He complains of intermittent episodes of throbbing chest pain, lasting for a few minutes, 3/ 10 in terms of severity and with radiation down the arm. He says that he feels clammy during these episodes. He endorses SOB and nonproductive cough. He was nauseous this morning and could not eat his breakfast. He reports loose stools. Review of Systems Constitutional: Denies: chills, fever. Cardiovascular: Reports: chest pain. Denies: palpitations. Respiratory: Reports: cough, short of breath. Denies: sputum production. Gastrointestinal: Reports: nausea, changes in stool. Denies: abdominal pain, constipation, vomiting. Objective Last 24 Hrs of Vital Signs/I&O Vital Signs Date Time Temp Pulse Resp B/P Pulse O2 O2 Flow FiO2 Ox Delivery Rate 10/10 0000 Nasal 2.0L Cannula 10/09 2313 97.7 60 18 132/78 100 Nasal 2.0L Cannula 10/09 2105 132/78 10/09 1600 100 Nasal 2.0L Cannula 10/09 1538 97.6 60 18 128/82 100 Nasal 2.0L Cannula 10/09 1024 73 158/90 10/09 0903 97.4 73 18 158/90 99 Room Air 10/09 0800 99 Room Air Intake & Output 10/10 0800 10/10 0000 10/09 1600 Intake Total 1100 1155.2 Output Total 200 925 Balance 900 230.2 Intake, IV 600 255.2 Intake, Oral 500 900 Number 1 Bowel Movements Output, Urine 200 925 Physical Exam General Appearance: Alert, Oriented X3, No Acute Distress HEENT: Mucous Membr. moist/pink Cardiovascular: Regular Rate, Normal S1, Normal S2, No Murmurs, Gallops, Rubs Lungs: Clear to Auscultation, Normal Air Movement Abdomen: Soft, No Tenderness, Positive Bowel Sounds Extremities: No Clubbing, No Cyanosis, 1+ Edema and Chronic Venous Stasis Changes on Bilateral Lower Extremities Current Medications: Current Medications Sig/Ysabel Start time Last Medication Dose Route Stop Time Status Admin Acetaminophen 650 MG .STK-MED ONE 10/09 601 DC PO 10/09 602 Acetaminophen 650 MG Q6P PRN 10/07 2330 AC 10/09 PO 0604 Atorvastatin Calcium 80 MG 1700 10/08 1700 AC 10/09 PO 1534 Clopidogrel Bisulfate 75 MG DAILY 10/08 1000 AC 10/09 PO 1024 Diltiazem HCl 120 MG DAILY 10/08 1000 AC 10/09 PO 1024 Fenofibrate 145 MG DAILY 10/08 1000 AC 10/09 PO 1024 Ferrous Sulfate 325 MG DAILY 10/08 1000 AC 10/09 PO 1024 Furosemide 40 MG DAILY 10/08 1000 AC 10/09 PO 1024 Heparin Sodium 25,000 UNIT Q24H 10/07 2315 AC 10/09 (Porcine) IV 1712 Sodium Chloride 500 ML Insulin Aspart 0 TIDAC/HS 10/08 0800 AC SC Lactobacillus 1 CAP DAILY 10/09 1000 AC 10/09 Acidophilus PO 1024 Lidocaine 1 PAT DAILY NEEDED PRN 10/08 0030 AC EXT Magnesium Oxide 400 MG Q2H 10/09 1800 DC 10/09 PO 10/09 2000 210 Metoprolol Tartrate 75 MG BID 10/08 1000 AC 10/09 PO 2105 Omeprazole 40 MG DAILY AC 10/08 0700 AC 10/09 PO 0527 Oxycodone/ 1 TAB Q4 HRS NEEDED PRN 10/08 0030 AC 10/09 Acetaminophen PO 1534 Pregabalin 50 MG TID 10/08 0023 AC 10/09 PO 2102 Sodium Chloride 1,000 ML Q13H 10/08 0145 AC 10/09 IV 1800 Tramadol HCl 50 MG Q6P PRN 10/08 0030 AC 10/09 PO 2102 Last 24 Hrs of Lab/Tanvir Results Last 24 Hrs of Labs/Mics: Laboratory Tests 10/09/16 1500: APTT 73 H 10/09/16 0300: Anion Gap 16, Estimated GFR > 60, BUN/Creatinine Ratio 23.3, Magnesium 1.5 L, APTT 66 H, CBC w Diff NO MAN DIFF REQ, RBC 3.52 L, MCV 78.4 L, MCH 26.1 L, RDW 19.6 H, MPV 9.6, Gran % 79.1 H, Lymphocytes % 11.9 L, Monocytes % 6.6, Eosinophils % 1.6, Basophils % 0.8, Absolute Granulocytes 6.5, Absolute Lymphocytes 1.0 L, Absolute Monocytes 0.5, Absolute Eosinophils 0.1, Absolute Basophils 0.1, PUBS MCHC 33.3 Microbiology Stool C diff (10/09): Negative Assessment/Plan Assessment: 51 y/o M with PMHx of CAD s/p CABG, PAF and diastolic CHF who presents with chest pain. #Chest pain: Troponins x 3 negative. EKG with no ST-T elevation abnormalities concerning for ischemia. Recent NSTEMI 1 month ago which was treated medically. Recent nuclear test with no evidence of stress-induced myocardial ischemia. * Continue to monitor patient on telemetry. * Discontinue oxygen and monitor saturations on room air. * Discontinue IV heparin. * Continue atorvastatin 80 mg PO QD, clopidogrel 75 mg PO QD and diltiazem 120 mg PO QD. * Per Dr. Poe, given nuclear stress test without evidence of ischemia and recent contrast nephropathy, there is no indication for cardiac catheterization at this time. * Potential discharge to [facility] tomorrow if patient remains clinically stable. #Positive VRE culture: Positive GI surveillance culture. * ID contacted. Per Dr. Carlos, no further work-up or treatment is necessary and that patient should be placed on contact precautions. Diet: Heart Healthy DVT PPx: HSQ and ALPs CODE: FULL Problem List: 1. Chest pain 2. Stool culture positive for vancomycin-resistant Enterococcus Pain Ratin Pain Location: Chest Pain Goal: Remain pain free Pain Plan: Percocet 1 tab PO Q4H PRN for severe pain (scale 7-10) Ultram 50 mg PO Q6H PRN for moderate pain (scale 4-6) Lidocaine patch Lyrica 50 mg PO TID Tylenol 650 mg PO Q6H PRN for mild pain (scale 1-3) Tomorrow's Labs & Rationales: CBC to monitor H/H in the setting of anemia BMP and Mg to monitor lytes and kidney function in the setting of SPIKE on CKD
--- NOTE | 2016-10-09 12:10 | NUR ---
LATE ENTRY 1100 PT STATES HE'S HAVING CP WITH INHAILATION THAT IS RADIATING TO LEFT ARM. VSS. BP 136/72, O2 99%RA, HR 74, RR 18. 1105 IMGE CHADDR AWARE AND IN TO ASSESS PT. WILL CONTINUE TO MONITOR PT.
--- NOTE | 2016-10-09 12:42 | PN- Cardiology ---
Subjective Subjective: The patient continues to have multiple sharp pains in left side of his chest. Pains last a few minutes in duration, however they radiate at times to the left arm and the jaw. States that he does not feel well enough to be discharged. No palpitations. No diaphoresis. No syncope. Objective Vital Signs and I&Os Vital Signs Date Time Temp Pulse Resp B/P Pulse O2 O2 Flow FiO2 Ox Delivery Rate 10/09 1024 73 158/90 10/09 0903 97.4 73 18 158/90 99 Room Air 10/09 0800 99 Room Air 10/08 2300 98.1 83 20 154/68 94 Room Air 10/08 2225 83 154/68 10/08 1500 98.2 66 20 128/62 98 Nasal 2.0L Cannula Intake & Output 10/09 1600 10/09 0800 10/09 0000 10/08 1600 10/08 0810/08 0000 Intake Total 554.4 1683.6 1173.6 525 Output Total 550 2150 350 850 400 Balance 4.4 -466.4 823.6 -325 -400 Intake, IV 254.4 703.6 693.6 525 Intake, Oral 300 980 480 Number 1 Bowel Movements Output, Urine 550 2150 350 850 400 Patient 324 lb 332 lb Weight Physical Exam: Gen: NAD HEENT: normal Lungs: clear to auscultation, normal resp. effort Heart: RRR, S1, S2, no murmurs Abdomen: Soft, nontender, no masses Extremities: 1+ edema with venous stasis changes Neuro: Alert and oriented x 3, cranial nerves intact Current Medications: Current Medications Sig/Ysabel Start time Last Medication Dose Route Stop Time Status Admin Acetaminophen 650 MG Q6P PRN 10/07 2330 AC 10/09 PO 0604 Atorvastatin Calcium 80 MG 1700 10/08 1700 AC 10/08 PO 1702 Clopidogrel Bisulfate 75 MG DAILY 10/08 1000 AC 10/09 PO 1024 Diltiazem HCl 120 MG DAILY 10/08 1000 AC 10/09 PO 1024 Fenofibrate 145 MG DAILY 10/08 1000 AC 10/09 PO 1024 Ferrous Sulfate 325 MG DAILY 10/08 1000 AC 10/09 PO 1024 Furosemide 40 MG DAILY 10/08 1000 AC 10/09 PO 1024 Heparin Sodium 25,000 UNIT Q24H 10/07 2315 AC 10/09 (Porcine) IV 0127 Sodium Chloride 500 ML Insulin Aspart 0 TIDAC/HS 10/08 0800 AC SC Lactobacillus 1 CAP DAILY 10/09 1000 AC 10/09 Acidophilus PO 1024 Lidocaine 1 PAT DAILY NEEDED PRN 10/08 0030 AC EXT Metoprolol Tartrate 75 MG BID 10/08 1000 AC 10/09 PO 1024 Omeprazole 40 MG DAILY AC 10/08 0700 AC 10/09 PO 0527 Oxycodone/ 1 TAB Q4 HRS NEEDED PRN 10/08 0030 AC 10/09 Acetaminophen PO 1028 Pregabalin 50 MG TID 10/08 0023 AC 10/09 PO 1025 Sodium Chloride 1,000 ML Q13H 10/08 0145 AC 10/09 IV 0545 Tramadol HCl 50 MG Q6P PRN 10/08 0030 AC PO Results Last 48 Hrs of Labs/Mics: Laboratory Tests 10/09/16 0300: Anion Gap 16, Estimated GFR > 60, BUN/Creatinine Ratio 23.3, APTT 66 H, CBC w Diff NO MAN DIFF REQ, RBC 3.52 L, MCV 78.4 L, MCH 26.1 L, RDW 19.6 H, MPV 9.6, Gran % 79.1 H, Lymphocytes % 11.9 L, Monocytes % 6.6, Eosinophils % 1.6, Basophils % 0.8, Absolute Granulocytes 6.5, Absolute Lymphocytes 1.0 L, Absolute Monocytes 0.5, Absolute Eosinophils 0.1, Absolute Basophils 0.1, PUBS MCHC 33.3 10/08/16 1830: APTT 58 H 10/08/16 1210: Troponin I 0.06 10/08/16 0835: APTT 47 H 10/08/16 0456: Troponin I 0.02 10/08/16 0456: Anion Gap 10, Estimated GFR 46 L, BUN/Creatinine Ratio 19.4, CBC w Diff NO MAN DIFF REQ, RBC 3.38 L, MCV 78.5 L, MCH 25.6 L, RDW 19.2 H, MPV 9.7, Gran % 74.8, Lymphocytes % 11.8 L, Monocytes % 10.7 H, Eosinophils % 1.8, Basophils % 0.9, Absolute Granulocytes 6.2, Absolute Lymphocytes 1.0 L, Absolute Monocytes 0.9 H, Absolute Eosinophils 0.2, Absolute Basophils 0.1, PUBS MCHC 32.6 L 10/07/16 2215: Anion Gap 13, Estimated GFR 49 L, BUN/Creatinine Ratio 21.3, Glucose 118 H, Calcium 8.9, Magnesium 1.1 L, Total Bilirubin 0.8, AST 27, ALT 25, Alkaline Phosphatase 130 H, Troponin I 0.02, Total Protein 6.7, Albumin 3.8, Globulin 2.9, Albumin/Globulin Ratio 1.3, APTT 37, D-Dimer 372 H, CBC w Diff NO MAN DIFF REQ, RBC 3.74 L, MCV 78.2 L, MCH 25.8 L, RDW 19.4 H, MPV 10.4, Gran % 79.4 H, Lymphocytes % 8.8 L, Monocytes % 9.2, Eosinophils % 1.5, Basophils % 1.1, Absolute Granulocytes 7.6 H, Absolute Lymphocytes 0.8 L, Absolute Monocytes 0.9 H, Absolute Eosinophils 0.1, Absolute Basophils 0.1, PUBS MCHC 33.0 10/07/16 2154: Magnesium Cancelled Microbiology 10/08 1211 GI: Surveillance Culture - COMP VANC RESIST ENTEROCOCCUS Assessment/Plan Assessment/Plan Assessment: 1. CAD, status post CABG 2. Paroxysmal atrial fibrillation 3. Stool culture positive for VRE 4. Chest pain, mostly atypical with negative troponin 3. Recent non-ST elevation myocardial infarction earlier this month treated medically, with no ischemia on stress Plan: * Discontinue oxygen * Check pulse ox off oxygen * Discontinue IV heparin * Discharge to short-term rehabilitation today if stable. At this time the patient does not feel safe for discharge given the significant pain, and he requests to see another day. * Check with ID regarding positive culture for VRE * Continue other cardiac medications Continue telemetry? Yes
[2016-10-09 15:38] VITALS: BP 128/82
[2016-10-09 16:25] LABS: PTT 73 SEC (25-37)
[2016-10-09 23:13] VITALS: BP 132/78
[2016-10-10 03:54] LABS: ABSOLUTE BASOPHIL COUNT 0.1 /CUMM (0.0-0.2); ABSOLUTE EOSINOPHIL COUNT 0.1 /CUMM (0.0-0.7); ABSOLUTE GRANULOCYTE CT 6.4 /CUMM (1.4-6.5); ABSOLUTE MONOCYTE COUNT 0.5 /CUMM (0.10-0.60); BASOPHIL % 0.9 % (0.0-2.0); EOSINOPHIL % 1.7 % (0-5); GRANULOCYTE % 79.2 % (42.2-75.2); HEMATOCRIT 26.8 % (42-52); MEAN CORPUSCULAR HGB 25.8 PG (27.0-31.0); MEAN CORPUSCULAR HGB CONC 32.9 G/DL (33.0-37.0); MEAN CORPUSCULAR VOLUME 78.6 FL (80.0-94.0); MEAN PLATELET VOLUME 10.4 FL (7.4-10.4); PLATELET COUNT 204 /CUMM (130-400); RBC DISTRIBUTION WIDTH 19.6 % (11.5-14.5); RED BLOOD CELL CT 3.41 /CUMM (4.70-6.10); WHITE BLOOD CELL COUNT 8.1 /CUMM (4.8-10.8)
[2016-10-10 04:03] LABS: PTT 84 SEC (25-37)
--- NOTE | 2016-10-10 06:40 | PN- Housestaff ---
Subjective Follow-up For: Chest pain ACS rule out Tele-Events Since Last Visit: Sinus rhythm/sinus bradycardia heart rate 56-73 no events overnight Subjective: Patient was seen and examined this morning, no overnight events reported by the patient or the nurses. No acute distress, vital signs are stable. Oxygen saturation on 2 L oxygen is 100%, patient started to complain of chest pain when the nurse turned off the oxygen, will try again this morning to measure pulse oximetry off nasal cannula Patient denied any chest pain overnight, no nausea or vomiting, no abdominal pain. He slept well and had breakfast this morning without any issues. patient is off heparin drip since 3 AM this morning. Review of Systems Constitutional: Denies: see HPI. Objective Last 24 Hrs of Vital Signs/I&O Vital Signs Date Time Temp Pulse Resp B/P Pulse O2 O2 Flow FiO2 Ox Delivery Rate 10/10 0000 Nasal 2.0L Cannula 10/09 2313 97.7 60 18 132/78 100 Nasal 2.0L Cannula 10/09 2105 132/78 10/09 1600 100 Nasal 2.0L Cannula 10/09 1538 97.6 60 18 128/82 100 Nasal 2.0L Cannula 10/09 1024 73 158/90 10/09 0903 97.4 73 18 158/90 99 Room Air Intake & Output 10/10 1600 10/10 0800 10/10 0000 Intake Total 850 1100 Output Total 400 200 Balance 450 900 Intake, IV 600 600 Intake, Oral 250 500 Number 0 Bowel Movements Output, Urine 400 200 Physical Exam General Appearance: Alert, Oriented X3, Cooperative, No Acute Distress Skin: No Rashes HEENT: Atraumatic, PERRLA, EOMI, Mucous Membr. moist/pink Neck: Supple Cardiovascular: Regular Rate, Normal S1, Normal S2, No Murmurs Lungs: Clear to Auscultation, Normal Air Movement Abdomen: Normal Bowel Sounds, Soft, No Tenderness Neurological: Normal Speech, Strength at 5/5 X4 Ext, Normal Tone Extremities: bilateral pitting edema, right foot in dressing after debridement Current Medications: Current Medications Sig/Ysabel Start time Last Medication Dose Route Stop Time Status Admin Acetaminophen 650 MG Q6P PRN 10/07 2330 AC 10/09 PO 0604 Atorvastatin Calcium 80 MG 1700 10/08 1700 AC 10/10 PO 1654 Clopidogrel Bisulfate 75 MG DAILY 10/08 1000 AC 10/10 PO 1033 Diltiazem HCl 120 MG DAILY 10/08 1000 AC 10/10 PO 1033 Fenofibrate 145 MG DAILY 10/08 1000 AC 10/10 PO 1037 Ferrous Sulfate 325 MG DAILY 10/08 1000 AC 10/10 PO 1033 Furosemide 40 MG DAILY 10/08 1000 AC 10/10 PO 1033 Heparin Sodium 25,000 UNIT Q24H 10/07 2315 DC 10/09 (Porcine) IV 1712 Sodium Chloride 500 ML Insulin Aspart 0 TIDAC/HS 10/08 0800 AC 10/10 SC 1756 Lactobacillus 1 CAP DAILY 10/09 1000 AC 10/10 Acidophilus PO 1037 Lidocaine 1 PAT DAILY NEEDED PRN 10/08 0030 AC EXT Magnesium Oxide 400 MG ONE ONE 10/10 0815 DC 10/10 PO 10/10 0816 1033 Metoprolol Tartrate 75 MG BID 10/08 1000 AC 10/10 PO 2048 Omeprazole 40 MG DAILY AC 10/08 0700 AC 10/10 PO 0623 Oxycodone/ 1 TAB Q4 HRS NEEDED PRN 10/08 0030 10/09 Acetaminophen PO 1534 Patient Medication 1 ED .STK-MED ONE 10/10 1414 GA Teaching ED 10/10 1415 Pregabalin 50 MG TID 10/08 0023 AC 10/10 PO 1654 Sodium Chloride 1,000 ML Q13H 10/08 0145 AC 10/10 IV 1039 Tramadol HCl 50 MG Q6P PRN 10/08 0030 10/09 PO 2102 Last 24 Hrs of Lab/Tanvir Results Last 24 Hrs of Labs/Mics: Laboratory Tests 10/10/16 0315: Anion Gap 12, Estimated GFR > 60, BUN/Creatinine Ratio 20.9, Magnesium 1.5 L, APTT 84 H, CBC w Diff NO MAN DIFF REQ, RBC 3.41 L, MCV 78.6 L, MCH 25.8 L, RDW 19.6 H, MPV 10.4, Gran % 79.2 H, Lymphocytes % 12.4 L, Monocytes % 5.8, Eosinophils % 1.7, Basophils % 0.9, Absolute Granulocytes 6.4, Absolute Lymphocytes 1.0 L, Absolute Monocytes 0.5, Absolute Eosinophils 0.1, Absolute Basophils 0.1, PUBS MCHC 32.9 L Assessment/Plan Assessment: 51 y/o M with PMHx of CAD s/p CABG, PAF and diastolic CHF who presents with chest pain. #Chest pain: Troponins x 3 negative. EKG with no ST-T elevation abnormalities concerning for ischemia. Recent NSTEMI 1 month ago which was treated medically. Recent nuclear test with no evidence of stress-induced myocardial ischemia. * Continue to monitor patient on telemetry. * Discontinue oxygen and monitor saturations on room air. * Off Heparin drip * Continue atorvastatin 80 mg PO QD, clopidogrel 75 mg PO QD and diltiazem 120 mg PO QD. * Patient for possible cardic cath tomorrow morning per Dr. Loaiza. #Positive VRE culture: Positive GI surveillance culture. * ID contacted. Per Dr. Carlos, no further work-up or treatment is necessary and that patient should be placed on contact precautions. Diet: Heart Healthy DVT PPx: HSQ and ALPs CODE: FULL Problem List: 1. Chest pain 2. Stool culture positive for vancomycin-resistant Enterococcus Pain Ratin Pain Location: none Pain Goal: Remain pain free Pain Plan: Percocet 1 tab PO Q4H PRN for severe pain (scale 7-10) Ultram 50 mg PO Q6H PRN for moderate pain (scale 4-6) Lidocaine patch Lyrica 50 mg PO TID Tylenol 650 mg PO Q6H PRN for mild pain (scale 1-3) Tomorrow's Labs & Rationales: CBC to monitor H/H in the setting of anemia BMP and Mg to monitor lytes and kidney function in the setting of SPIKE on CKD
[2016-10-10 08:26] VITALS: BP 156/80
--- NOTE | 2016-10-10 11:31 | Discharge Summary ---
See Addendum Visit Information Visit Dates Admission Date: 10/07/16 Discharge Date: 10/18/16 Hospital Course Course Attending Physician: SALNIA MARIA,DANNY Primary Care Physician: ARCELIA MARIA,SURINDER Hernandez Hospital Course: Jim is a 1-year-old man with history of CVA TIA known coronary artery disease with myocardial infarction and CABG 1 05/08/2014, congestive heart failure hypertension dyslipidemia COPD obstructive sleep apnea chronic leg ulcer post contrast grafting type 2 diabetes diabetic peripheral neuropathy obesity who presented with sudden onset chest pain. Additionally had an elevated d- dimer, but could not have a CT done due to underlying kidney injury the patient declined any further contrast loads. Restrictive aspirin beta dylon, high- intensity statin and sublingual nitroglycerin for chest pain as well as morphine , and intravenous heparin for anticoagulation.On continuous telemetry. Chest x- ray showed stable cardiomegaly with no signs of overt pulmonary edema. Serial enzymes and EKG were negative 3. PT evaluation recommends short-term rehabilitation. - Problems - Acute chest pain (atypical, noncardiac) CAD status post CABG History of Non-ST elevation myocardial infarction Paroxysmal atrial fibrillation Stool culture positive for VRE Morbid obesity Allergies: Coded Allergies: erythromycin base (Intermediate, ?GI UPSET 03/13/16) gluten (Intermediate, GI UPSET 03/13/16) venom-honey bee (BEE VENOM (HONEY BEE)) (Intermediate, VOMITING 03/13/16) lactose (Mild, GI UPSET 03/13/16) Disposition Summary Disposition Principal Diagnosis: Acute chest pain (atypical, noncardiac) Additional Diagnosis: CAD status post CABG History of Non-ST elevation myocardial infarction Paroxysmal atrial fibrillation Stool culture positive for VRE Discharge Disposition: STR Discharge Instructions General Discharge Information Code Status: Full Code Patient's Diet: Gluten-free diet Patient's Activity: Self limited Follow-Up Instructions/Appts: Follow-up Danny Poe MD (cardiology), Dr. Surinder Acevedo (primary medical doctor) Medications at Discharge Discharge Medications: Stop taking the following medications: Tramadol HCl (Ultram) 50 MG TAB ORAL EVERY SIX HOURS as needed for severe pain Qty = 30 POTASSIUM CHLORIDE (KLOR-CON 10mEq TAB) (Unknown Strength) TAB ORAL DAILY Qty = 30 Lisinopril (Prinivil) 5 MG TAB ORAL DAILY Qty = 30 Pregabalin (Lyrica) 50 MG CAPSULE ORAL THREE TIMES DAILY Qty = 90 Oxycodone HCl/Acetaminophen (Oxycodone-Acetaminophen 5-325) 1 EACH TABLET ORAL EVERY 4 HOURS NEEDED Furosemide (Lasix) 40 MG TABLET ORAL DAILY Days = 30 Continue taking these medications: CLOPIDOGREL BISULFATE (Clopidogrel) 75 MG TABLET 1 Tablet ORAL DAILY Qty = 60 Comments: Last Taken: 08/06/15 Time: 933 FENOFIBRATE NANOCRYSTALLIZED (Fenofibrate) 145 MG TABLET 1 Tablet ORAL DAILY Comments: PER MED LIST FROM [facility] Last Taken: 08/06/15 Time: 933 Insulin Glargine, Recombinan (Lantus) 100 U/ML MINI 24 Units Inject into fatty tissue Every Morning Days = 28 Comments: PER MED LIST FROM [facility] Last Taken: 08/06/15 Time: 933 LEVEMIR GIVEN Dicyclomine Hydrochloride (Bentyl) 20 MG TAB 1 Tablet ORAL EVERY SIX HOURS NEEDED as needed for ABD PAIN Qty = 30 Comments: PER MED LIST FROM [facility] Ferrous Sulfate (Ferrous Sulfate) 325 MG TAB 1 Tablet ORAL DAILY Qty = 30 Comments: [facility] Lidocaine HCl (Lidoderm Patch) 5 % PAT 1 Patch On the skin DAILY Instructions: may wear up to 12 hours Comments: PER MED LIST FROM [facility] NOT GIVEN IN HOSPITAL DILTIAZEM HCL (Cardizem Cd) 120 MG CER 1 Capsule ORAL DAILY Comments: Last Taken: 08/06/15 Time: 933 Aspirin (Aspirin) 81 MG TAB 1 Tablet ORAL DAILY Qty = 30 Atorvastatin Calcium (Atorvastatin Calcium) 80 MG TABLET 80 Milligram ORAL 5 PM Days = 30 Comments: Last Taken: 10/17/16 Time: 5:00 PM Copies To: ARCELIA MARIA,SURINDER Hernandez; SALINA MARIA,DANNY
[2016-10-10 15:30] VITALS: BP 132/60
--- NOTE | 2016-10-10 16:22 | Patient Discharge Instructions ---
Discharge Instructions General Discharge Information You were seen/treated for: CHEST PAIN Diet Recommended Diet: Diabetic, Heart Healthy Acute Coronary Syndrome Inclusion Criteria At DC or during hospital stay patient has or had the following: ACS DIAGNOSIS No Discharge Core Measures Meds if any: Prescribed or Continued at Discharge Meds if any: NOT Prescribed or Continued at Discharge Congestive Heart Failure Inclusion Criteria At DC or during hospital stay patient has or had the following: CHF DIAGNOSIS No Discharge Core Measures Meds if any: Prescribed or Continued at Discharge Meds if any: NOT Prescribed or Continued at Discharge Cerebrovascular accident Inclusion Criteria At DC or during hospital stay patient has or had the following: CVA/TIA Diagnosis No Discharge Core Measures Meds if any: Prescribed or Continued at Discharge Meds if any: NOT Prescribed or Continued at Discharge Venous thromboembolism Inclusion Criteria VTE Diagnosis No VTE Type NONE VTE Confirmed by (Test) NONE Discharge Core Measures - Per Current guidelines, there needs to be overlap - treatment for the first 5 days of Warfarin therapy. - If discharged on Warfarin prior to 5 days of - overlap therapy, the patient will need to be - assessed for post discharge needs including - *Post discharge parental anticoagulation - *Warfarin and/or parental anticoagulation education - *Follow up date to check INR post discharge At least 5 days overlap therapy as Inpatient No Meds if any: Prescribed or Continued at Discharge Note: Overlap Therapy is Warfarin and Anticoagulant Meds if any: NOT Prescribed or Continued at Discharge
[2016-10-10 20:59] VITALS: BP 170/78
[2016-10-11] VITALS: BP 122/62
--- NOTE | 2016-10-11 06:40 | PN- Housestaff ---
Subjective Follow-up For: Chest pain ACS rule out Tele-Events Since Last Visit: Sinus rhythm/sinus per ID Rate 50-60 No overnight events Subjective: Patient was seen and examined this morning, but no complaints, no overnight events reported by the patient or the nurses. No acute distress, vital signs are stable. Patient is nothing by mouth for cardiac cath this morning Review of Systems Constitutional: Denies: see HPI. Objective Last 24 Hrs of Vital Signs/I&O Vital Signs Date Time Temp Pulse Resp B/P Pulse O2 O2 Flow FiO2 Ox Delivery Rate 10/11 0830 97.8 70 20 136/66 100 Nasal 2.0L Cannula 10/11 08 68 122/62 10/11 0800 Nasal 2.0L Cannula 10/11 0000 Nasal 2.0L Cannula 10/11 0000 122/62 10/10 2058 97.5 68 20 170/78 97 Nasal 2.0L Cannula 10/10 2047 67 170/78 Intake & Output 10/11 1600 10/11 0800 10/11 0000 Intake Total 650 1240 Output Total 800 1250 Balance -150 -10 Intake, IV 600 600 Intake, Oral 50 640 Number 1 0 Bowel Movements Output, Urine 800 1250 Physical Exam General Appearance: Alert, Oriented X3, Cooperative, No Acute Distress Skin: No Rashes, No Breakdown, No Significant Lesion HEENT: Atraumatic, PERRLA, EOMI, Mucous Membr. moist/pink Neck: Supple Cardiovascular: Regular Rate, Normal S1, Normal S2, No Murmurs Lungs: Clear to Auscultation, Normal Air Movement Abdomen: Normal Bowel Sounds, Soft, No Tenderness Neurological: Normal Speech, Strength at 5/5 X4 Ext, Normal Tone, Sensation Intact, Cranial Nerves 3-12 NL, Reflexes 2+ Extremities: No Clubbing, No Cyanosis, bilateral pitting edema Assessment/Plan Assessment: 51 y/o M with PMHx of CAD s/p CABG, PAF and diastolic CHF who presents with chest pain. #Chest pain: Troponins x [address] negative[address] EKG with no ST-T elevation abnormalities concerning for ischemia. Recent NSTEMI 1 month ago which was treated medically. Recent nuclear test with no evidence of stress-induced myocardial ischemia. * Patient is scheduled for cardiac This morning * Continue atorvastatin 80 mg PO QD, clopidogrel 75 mg PO QD and diltiazem 120 mg PO QD. #Positive VRE culture: Positive GI surveillance culture. * ID contacted. Per Dr. Carlos, no further work-up or treatment is necessary and that patient should be placed on contact precautions. Diet: Heart Healthy DVT PPx: HSQ and ALPs CODE: FULL Problem List: 1. Stool culture positive for vancomycin-resistant Enterococcus 2. Foot ulcer 3. Chest pain Pain Ratin Pain Location: none Pain Goal: Remain pain free Pain Plan: Percocet 1 tab PO Q4H PRN for severe pain (scale 7-10) Ultram 50 mg PO Q6H PRN for moderate pain (scale 4-6) Lidocaine patch Lyrica 50 mg PO TID Tylenol 650 mg PO Q6H PRN for mild pain (scale 1-3) Tomorrow's Labs & Rationales: none
[2016-10-11 08:17] LABS: ABSOLUTE BASOPHIL COUNT 0 /CUMM (0.0-0.2); ABSOLUTE EOSINOPHIL COUNT 0.1 /CUMM (0.0-0.7); ABSOLUTE GRANULOCYTE CT 6.7 /CUMM (1.4-6.5); ABSOLUTE LYMPH COUNT 0.8 /CUMM (1.2-3.4); ABSOLUTE MONOCYTE COUNT 0.7 /CUMM (0.10-0.60); BASOPHIL % 0.5 % (0.0-2.0); EOSINOPHIL % 1.6 % (0-5); GRANULOCYTE % 79.7 % (42.2-75.2); HEMATOCRIT 26.7 % (42-52); MEAN CORPUSCULAR HGB 26.7 PG (27.0-31.0); MEAN CORPUSCULAR HGB CONC 33.8 G/DL (33.0-37.0); MEAN PLATELET VOLUME 10.5 FL (7.4-10.4); PLATELET COUNT 177 /CUMM (130-400); RBC DISTRIBUTION WIDTH 19.8 % (11.5-14.5); RED BLOOD CELL CT 3.38 /CUMM (4.70-6.10); WHITE BLOOD CELL COUNT 8.5 /CUMM (4.8-10.8)
[2016-10-11 08:30] VITALS: BP 136/66
== END 2016-10-11 09:53 | disposition short-term general hospital (02) ==
LOC: ERH 21:38 → 1NO 23:28 → ERH 23:28 → ERHI 23:28 → 1NO 10-08 00:17 → ERHI 10-08 09:05 → 1NO 10-08 09:05
PROVIDERS: Dermatology; Physician Assistant; Student in an Organized Health Care Education/Training Program; ADMIT Internal Medicine Cardiovascular Disease
DX: R07.89 Other chest pain (principal); I20.0 Unstable angina; E66.9 Obesity, unspecified; Z68.41 Body mass index [BMI] 40.0-44.9, adult; L98.499 Non-pressure chronic ulcer of skin of other sites with unspecified severity; E11.40 Type 2 diabetes mellitus with diabetic neuropathy, unspecified; L03.116 Cellulitis of left lower limb; L03.115 Cellulitis of right lower limb; L89.300 Pressure ulcer of unspecified buttock, unstageable; N17.9 Acute kidney failure, unspecified; E83.42 Hypomagnesemia; I11.0 Hypertensive heart disease with heart failure; I50.32 Chronic diastolic (congestive) heart failure; I21.3 ST elevation (STEMI) myocardial infarction of unspecified site; I48.91 Unspecified atrial fibrillation; N18.9 Chronic kidney disease, unspecified; Z86.73 Personal history of transient ischemic attack (TIA), and cerebral infarction without residual deficits; Z95.1 Presence of aortocoronary bypass graft
CPT/HCPCS: 1NP; 1NSP; ERO; 36415; 82436; 93005; 93010; 96374; 96375; 96376; 97001-GP; 97110-GO; 97110-GP; 97161-GP; 97530-GO; 97530-GP; G0378; J1644

== ENCOUNTER 2016-10-15 20:51 | Inpatient (IN) | payer OTHER ==
[~2016-10-15] VITALS: Ht 175.3 cm; Wt 144.7 kg
--- NOTE | 2016-10-15 20:59 | NUR ---
PT BIBA FROM [facility]. PT COMLAINS OF THROBBING IN LEFT SIDE OF CHEST THAT STARTED A FEW HRS AGO. CARDIAC HX.
--- NOTE | 2016-10-15 20:59 | NUR ---
DR BELL AT BEDSIDE FOR EVAL.
--- NOTE | 2016-10-15 21:00 | ED CARDIAC/CP/PALPITATIONS ---
History of Present Illness General Chief Complaint: Chest Pain Stated Complaint: BIBA FOR CP Source: patient Exam Limitations: no limitations Vital Signs & Intake/Output Vital Signs & Intake/Output Vital Signs Date Time Temp Pulse Resp B/P Pulse O2 O2 Flow FiO2 Ox Delivery Rate 10/15 2142 68 23 133/61 98 Room Air 10/15 2055 99.0 72 20 142/63 98 Room Air Allergies Coded Allergies: erythromycin base (Intermediate, ?GI UPSET 03/13/16) gluten (Intermediate, GI UPSET 03/13/16) venom-honey bee (BEE VENOM (HONEY BEE)) (Intermediate, VOMITING 03/13/16) lactose (Mild, GI UPSET 03/13/16) Reconcile Medications Acetaminophen 325 MG TABLET 2 TAB PO Q6H PRN CONSTIPATION (Reported) Ammonium Lactate (Amlactin) 12 % LOTION 1 AMY TOP BID SKIN (Reported) Apixaban (Eliquis) 5 MG TABLET 1 TAB PO Q12H BLOOD THINNER (Reported) Aspirin 81 MG TAB 1 TAB PO DAILY HEART HEALTH Atorvastatin Calcium 80 MG TABLET 80 MG PO 1700 HYPERLIPIDEMIA Bisacodyl 10 MG SUPP.RECT 1 SUP RC PRN GI (Reported) CLOPIDOGREL BISULFATE (Clopidogrel) 75 MG TABLET 1 TAB PO DAILY BLOOD THINNER (Reported) Collagenase Clostridium Hist. (Santyl) 250 UNIT/GRAM OINT...G. 1 AMY TOP QPM OUTER/INNER RIGHT FT & LFT LEG (Reported) Collagenase Clostridium Hist. (Santyl) 250 UNIT/GRAM OINT...G. 1 AMY TOP AD PRN SKIN ULCER (Reported) Dextrose (Glucose Gel) (Unknown Strength) GEL..GRAM. 24 GM PO PRN HYPOGLYCEMIA (Reported) Dicyclomine Hydrochloride (Bentyl) 20 MG TAB 1 TAB PO Q6P PRN ABD PAIN DILTIAZEM HCL (Cardizem Cd) 120 MG CER 1 CAP PO DAILY Heart (Reported) FENOFIBRATE NANOCRYSTALLIZED (Fenofibrate) 145 MG TABLET 1 TAB PO DAILY CHOLESTEROL (Reported) Ferrous Sulfate 325 MG TAB 1 TAB PO DAILY SUPPLEMENT Furosemide 20 MG TABLET 60 MG PO DAILY DIURETIC (Reported) Glucagon,Human Recombinant (Glucagon Emergency Kit) 1 MG KIT 1 MG IM AD PRN HYPOGLYCEMIA (Reported) Insulin Glargine, Recombinan (Lantus) 100 U/ML MINI 24 UNITS SC QAM DIABETES ( Reported) Insulin Lispro (Humalog) 100 UNIT/ML CARTRIDGE DM (Reported) Ipratropium/Albuterol Sulfate (Combivent Respimat Inhal [place]) (Unknown Strength ) MIST.INHAL 2 PUFF INH Q6H PRN ASTHMA (Reported) Lactulose 10 GRAM/15 ML SOLUTION 15 ML PO DAILY PRN CONSTIPATION (Reported) Lidocaine HCl (Lidoderm Patch) 5 % PAT 1 PAT TOP DAILY RIGHT BACK (Reported) may wear up to 12 hours Lisinopril (Prinivil) 5 MG TABLET 2 TAB PO DAILY BP (Reported) Loperamide HCl (Loperamide) 2 MG CAPSULE 1 CAP PO PRN DIARRHEA (Reported) Magnesium Hydroxide (Milk Of Magnesia) 400 MG/5 ML ORAL.SUSP 30 ML PO PRN CONSTIPATION (Reported) Metoprolol Tartrate (Lopressor) 50 MG TABLET 1 TAB PO BID HR (Reported) Na Phos,M-B/Na Phos,Di-Ba (Fleet Enema) 19 GRAM-7 GRAM/118 ML ENEMA 1 E RC PRN CONSTIPATION (Reported) Nitroglycerin (Nitrostat) 0.4 MG TAB.SUBL 1 TAB SL AD PRN CHEST PAIN ( Reported) 1st sign of attack; may repeat every 5 minutes until relief; if pain persists after 3 tablets in 15 minutes, prompt medical att Omeprazole (Prilosec) 40 MG ECC 1 TAB PO DAILY AC GI (Reported) Oxycodone HCl/Acetaminophen (Percocet 5-325 MG Tablet) 5 MG-325 MG TABLET 1 TAB PO Q6H PRN PAIN (Reported) Pantoprazole Sodium 40 MG TABLET.DR 1 TAB PO DAILY GERD (Reported) Potassium Chloride 10 MEQ TABLET.ER 1 TAB PO DAILY SUPPLEMENT (Reported) Pregabalin (Lyrica) 50 MG CAPSULE 1 CAP PO BID PAIN (Reported) Saccharomyces Boulardii (Probiotic) 250 MG CAPSULE 1 CAP PO BID PROBIOTIC ( Reported) Sitagliptin Phos/Metformin HCl (Janumet 50-1,000 MG Tablet) 50 MG-1,000 MG TABLET 1 TAB PO BID DM (Reported) Triage Note: [facility]. PT COMLAINS OF THROBBING IN LEFT SIDE OF CHEST THAT STARTED A FEW HRS AGO. CARDIAC HX. Triage Nurses Notes Reviewed? yes Onset: Gradual Duration: hour(s): Timing: recent history Quality/Severity: moderate Location: central Radiation: no radiation Activities at Onset: none Prior Chest Pain/Card Workup: angina, cardiac cath Modifying Factors: Improves With: nitroglycerin. Worsens With: palpation. Aspirin Today: 325 mg x 1, provided by ED Associated Symptoms: chest pain HPI: 51 yo gentleman h/o coronary artery disease had coronary angiogram 4 days ago with non-stentable disease, good flow, presents with 5-6/10 substernal chest pressure consistent with prior episodes of angina. He notes no shortness of breath, chills, wheezing.... "This feels like the chest pressure I have all the time." Past History Travel History Traveled to [place] past 21 day No Medical History Any Pertinent Medical History? 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 MOTHER (CAD, DM, DLD and HTN). Hx Contributory? No Review of Systems Review of Systems Constitutional: Reports: no symptoms. EENTM: Reports: no symptoms. Respiratory: Reports: no symptoms. Cardiovascular: Reports: no symptoms. GI: Reports: no symptoms. Genitourinary: Reports: no symptoms. Musculoskeletal: Reports: no symptoms. Skin: Reports: no symptoms. Neurological/Psychological: Reports: no symptoms. Hematologic/Endocrine: Reports: no symptoms. Immunologic/Allergic: Reports: no symptoms. All Other Systems: Reviewed and Negative Physical Exam Physical Exam General Appearance: well developed/nourished, mild distress Head: atraumatic, normal appearance Eyes: Bilateral: normal appearance. Ears, Nose, Throat: normal pharynx, normal ENT inspection Neck: normal inspection, supple, full range of motion, JVD Respiratory: normal breath sounds, no respiratory distress, quiet respiration, sternal tenderness to palpation Cardiovascular: regular rate/rhythm Gastrointestinal: normal bowel sounds, soft, non-tender, no organomegaly Back: normal inspection, normal range of motion Extremities: normal inspection, normal capillary refill, normal range of motion, 2+ pitting edema Neurologic/Psych: no motor/sensory deficits, awake, alert, oriented x 3 Skin: intact, normal color, warm/dry Core Measures ACS in differential dx? Yes Severe Sepsis Present: No Septic Shock Present: No Progress Differential Diagnosis: AMI, CHF/pulm edema, hyperventilation, musculoskeletal pain, unstable angina Plan of Care: Orders Procedure Date/time Status Nothing by Mouth 10/16 B Active Saline Lock 10/15 2321 Active Misc Message 10/15 2321 Active ED Holding Orders 10/15 2321 Active Vital Signs 10/15 2321 Active Code Status 10/15 2321 Active Admit to inpatient 10/15 2320 Active TROPONIN LEVEL 10/15 2056 Complete PARTIAL THROMBOPLASTIN TIME 10/15 2056 Complete PROTHROMBIN TIME 10/15 2056 Complete D-DIMER 10/15 2056 Complete COMPREHENSIVE METABOLIC PANEL 10/15 2055 Complete CBC WITHOUT DIFFERENTIAL 10/15 2055 Complete EKG 10/15 2052 Active Laboratory Tests 10/15/162121: Troponin I 0.01 10/15/162121: Anion Gap 16, Estimated GFR 49 L, BUN/Creatinine Ratio 12.7, Glucose 148 H, Calcium 9.1, Total Bilirubin 0.8, AST 25, ALT 22, Alkaline Phosphatase 111, Total Protein 7.1, Albumin 4.0, Globulin 3.1, Albumin/Globulin Ratio 1.3, PT 18.5 H, INR 1.77 H, APTT 35, D-Dimer 365 H, CBC w Diff NO MAN DIFF REQ, RBC 3.77 L, MCV 78.9 L, MCH 26.2 L, RDW 20.0 H, MPV 9.9, Gran % 85.6 H, Lymphocytes % 6.3 L, Monocytes % 5.7, Eosinophils % 1.4, Basophils % 1.0, Absolute Granulocytes 10.2 H, Absolute Lymphocytes 0.8 L, Absolute Monocytes 0.7 H, Absolute Eosinophils 0.2, Absolute Basophils 0.1, PUBS MCHC 33.3 10/15/16 2100: D-Dimer Cancelled Diagnostic Imaging: Viewed by Me: Nuclear Medicine. Discussed w/RAD: Nuclear Medicine. Radiology Impression: NUCLEAR STRESS TEST - 09/2016 - LARGE FIXED DEFICIT CXR Impression: no infiltrates, hypoventilation. Initial ED EKG: normal axis, normal intervals, normal p-waves, normal QRS complex, normal sinus rhythm Comments: PATIENT: WILLIAM WRIGHT PRESENT AGE: 51 PATIENT ACCOUNT NO: [id number] : 64 LOCATION: [facility] ORDERING PHYSICIAN: LILIAN BELL MD SERVICE DATE: 10/15/16 EXAM TYPE: RAD - XRY-PORTABLE CHEST XRAY EXAMINATION: XR PORTABLE CHEST CLINICAL INFORMATION: Chest pain. COMPARISON: Chest x-ray 10/07/2016. TECHNIQUE: Portable view of the chest was obtained. FINDINGS: The lungs are hypoinflated, without focal airspace consolidation. There is persistent discoid atelectasis within the lingula. No pleural effusions or pneumothoraces are identified. Cardiomediastinal contours are stable. Redemonstrated are median sternotomy wires. Soft tissues are unremarkable. No acute osseous abnormality is identified. IMPRESSION: Pulmonary hypoinflation. Otherwise, no acute pulmonary process. DICTATED BY: SULAIMAN EVANS MD DATE/TIME DICTATED:10/15/162223 DISPLAY COORDINATOR:MIKAEL DATE/TIME TRANSCRIBED:10/15/162223 CONFIDENTIAL, DO NOT COPY WITHOUT APPROPRIATE AUTHORIZATION. <Electronically signed in Other Vendor System> SIGNED BY: SULAIMAN EVANS MD 10/15/162228 PATIENT: WILLIAM WRIGHT PRESENT AGE: 51 PATIENT ACCOUNT NO: [id number] : 64 LOCATION: [facility] ORDERING PHYSICIAN: IVETT CARD MD PhD SERVICE DATE: 09/22/16 EXAM TYPE: NUC - MYOCARDIAL PERFUSION IMAGING PERSANTINE STRESS AND RESTING SPECT MYOCARDIAL PERFUSION IMAGING STUDY WITH GATED SPECT IMAGES: CLINICAL INDICATION: CABG, hypertension. PROCEDURE: Regional myocardial perfusion was assessed using a 2 day protocol. Stress images were obtained on 09/22/2016 following the intravenous administration of 54.9 mCi Tc 99m Myoview. Stress consisted of 60 mg Persantine given intravenously. Following the sestamibi injection, 125 mg aminophylline was given intravenously. Rest images were obtained 09/25/2016 following the intravenous administration of 53.9 mCi Technetium 99m Myoview. Single photon emission tomographic (SPECT) images were obtained. SPECT images were acquired in a 64 x 64 matrix of 64 projections over 180 degrees. These were reconstructed into standard short axis, horizontal and vertical long axis cardiac projections. FINDINGS: The post stress images show the left ventricular chamber to be normal in size. There is a large region of moderately diminished activity involving the apex and adjacent apical anterior wall. The abnormality also extends into the adjacent apical lateral wall. The activity in the other crocker appears normal. The rest images are not significantly changed from the post stress images. The images were obtained using a gated SPECT technique, which permits visualization of wall motion and calculation of the left ventricular ejection fraction. The left ventricular chamber is normal in size. There is moderately severe hypokinesis at the apex. The other crocker move normally. The calculated left ventricular ejection fraction is 53% on the stress study. Compared to the previous study dated 09/08/2011,, reversible abnormality at the apex and adjacent crocker on that previous study now appears to be a larger fixed abnormality. The other crocker appear unchanged. The gated images from the previous study are not available for review and the wall motion cannot be compared. Ejection fraction on the current study is slightly higher than on the previous study when it was 46%. IMPRESSION: A large fixed perfusion abnormality is present at the apex extending into the adjacent anteroapical and apical lateral crocker. This is associated with moderately severe hypokinesis. No regions of reversible ischemia are present. The left ventricular ejection fraction is normal. DICTATED BY: LUCIA BARROW MD DATE/TIME DICTATED:09/25/161503 DISPLAY COORDINATOR:MIKAEL DATE/TIME TRANSCRIBED:09/25/161503 CONFIDENTIAL, DO NOT COPY WITHOUT APPROPRIATE AUTHORIZATION. <Electronically signed in Other Vendor System> SIGNED BY: LUCIA BARROW MD 1532 Departure Departure Disposition: STILL A PATIENT Condition: Stable Clinical Impression Primary Impression: Unstable angina Referrals: ARCELIA MARIA,TIM Hernandez (PCP/Family) Departure Forms: Customer Survey General Discharge Information Admission Note Spoke With: KYAW MARIA PhD,IVETT Montano Documentation of Exam: Documentation of any treatments & extenuating circumstances including Concerns Regarding Discharge (functional status, medication knowledge or non-compliance, living conditions, etc.) that warrant an admission rather than observation: pt with known coronary artery disease, recent cath shows patent flow with small vessel disease... pt with nitro responsive chest pain... pt merits admission for medical optimization, increased nitrates, consider ranexa.... pt with elevated dimer likely related to recent catheterization... Pt on eliquis... I doubt PE... will defer cta given his elevated creatinine. Critical Care Note Critical Care Note Critical Care Time: 30-74 min Comments: pt required nitrates, aspirin, 02 for control of symptoms... pt chest pain free in ED.
[2016-10-15] MEDS ORDERED: PANTOPRAZOLE SO40 M1 PO (21:03)
[2016-10-15] MEDS ORDERED: SANTYL30 GM TOP ×2 (21:03→21:35)
[2016-10-15] MEDS ORDERED: PRINIVIL5 M1 PO (21:06)
[2016-10-15] MEDS ORDERED: LACTULOSE10 GM/153 PO (21:08)
[2016-10-15] MEDS ORDERED: LOPERAMIDE2 M2 PO (21:10)
[2016-10-15] MEDS ORDERED: COMBIVENT RESPIM4 GM INH (21:17)
[2016-10-15] MEDS ORDERED: PROBIOTIC250 MG PO (21:20)
[2016-10-15] MEDS ORDERED: AMLACTIN57 GM TOP (21:21)
[2016-10-15] MEDS ORDERED: HUMALOG100 UNIT/1 SC (21:23)
[2016-10-15] MEDS ORDERED: LOPRESSOR50 M1 PO (21:25)
[2016-10-15] MEDS ORDERED: PERCOCET 5-3251 EACH PO (21:27)
[2016-10-15] MEDS ORDERED: FUROSEMIDE20 M1 PO (21:28)
[2016-10-15] MEDS ORDERED: LYRICA50 M1 PO (21:31)
[2016-10-15] MEDS ORDERED: NITROSTAT0.4 M1 SL (21:32)
[2016-10-15] MEDS ORDERED: POTASSIUM CHLO10 ME4 PO (21:32)
[2016-10-15] MEDS ORDERED: ELIQUIS5 M1 PO (21:33)
[2016-10-15] MEDS ORDERED: JANUMET 50-1,01 EACH PO (21:33)
[2016-10-15] MEDS ORDERED: DICYCLOMINE HCL20 M1 PO (21:34)
[2016-10-15] MEDS ORDERED: FLEET ENEMA133 ML RC (21:35)
[2016-10-15] MEDS ORDERED: BISACODYL10 M1 RC (21:36)
[2016-10-15] MEDS ORDERED: MILK OF MA400 MG/52 PO (21:37)
[2016-10-15] MEDS ORDERED: ACETAMINOPHEN325 M2 PO (21:38)
[2016-10-15 21:39] LABS: ABSOLUTE BASOPHIL COUNT 0.1 /CUMM (0.0-0.2); ABSOLUTE EOSINOPHIL COUNT 0.2 /CUMM (0.0-0.7); ABSOLUTE GRANULOCYTE CT 10.2 /CUMM (1.4-6.5); ABSOLUTE LYMPH COUNT 0.8 /CUMM (1.2-3.4); ABSOLUTE MONOCYTE COUNT 0.7 /CUMM (0.10-0.60); EOSINOPHIL % 1.4 % (0-5); GRANULOCYTE % 85.6 % (42.2-75.2); HEMATOCRIT 29.8 % (42-52); MEAN CORPUSCULAR HGB 26.2 PG (27.0-31.0); MEAN CORPUSCULAR HGB CONC 33.3 G/DL (33.0-37.0); MEAN CORPUSCULAR VOLUME 78.9 FL (80.0-94.0); MEAN PLATELET VOLUME 9.9 FL (7.4-10.4); PLATELET COUNT 241 /CUMM (130-400); RED BLOOD CELL CT 3.77 /CUMM (4.70-6.10)
[2016-10-15] MEDS ORDERED: GLUCAGON EMERGEN1 M1 IM (21:39)
[2016-10-15] MEDS ORDERED: GLUCOSE GEL38 GM PO (21:40)
--- NOTE | 2016-10-15 21:41 | NUR ---
PT STATES CHEST THROBBING IS BEGINNING TO SUBSIDE. STATES PAIN IS 1/10 AT THIS TIME.
--- NOTE | 2016-10-15 21:41 | NUR ---
XRAY AT BEDSIDE.
[2016-10-15 21:49] LABS: PT 18.5 SEC (9.4-12.5); PTT 35 SEC (25-37)
[2016-10-15 21:56] LABS: WHITE BLOOD CELL COUNT 11.9 /CUMM (4.8-10.8)
--- NOTE | 2016-10-15 22:29 | RADIOLOGY REPORT ---
EXAMINATION: XR PORTABLE CHEST CLINICAL INFORMATION: Chest pain. COMPARISON: Chest x-ray 10/07/2016. TECHNIQUE: Portable view of the chest was obtained. FINDINGS: The lungs are hypoinflated, without focal airspace consolidation. There is persistent discoid atelectasis within the lingula. No pleural effusions or pneumothoraces are identified. Cardiomediastinal contours are stable. Redemonstrated are median sternotomy wires. Soft tissues are unremarkable. No acute osseous abnormality is identified. IMPRESSION: Pulmonary hypoinflation. Otherwise, no acute pulmonary process.
--- NOTE | 2016-10-15 22:59 | NUR ---
PT RESTING ON STRETCHER WATCHING TELEVISION. NO APPARENT DISTRESS NOTED.
--- NOTE | 2016-10-15 23:50 | NUR ---
CALLED NURSING SUPP FOR BED ASSIGNMENT HE STATES PATIENT WILL BE A HOLD UNLESS THEY CAN GET AN ICU BED
--- NOTE | 2016-10-16 00:50 | NUR ---
PT RESTING ON STRETCHER.
--- NOTE | 2016-10-16 01:32 | NUR ---
HOUSE STAFF AT BEDSIDE FOR EVAL.
--- NOTE | 2016-10-16 03:05 | NUR ---
SST DRAWN AND SENT TO LAB.
--- NOTE | 2016-10-16 03:23 | NUR ---
PHARMACY CALLED FOR MEDICATION.
--- NOTE | 2016-10-16 04:03 | NUR ---
PT STATES HIS NOSE BLEEDS WHEN HE BLOWS IT. HOUSE STAFF NOTIFIED. PER HOUSESTAFF MADISON CASTELLON, DAMIAN ASTUDILLO AT THIS TIME.
[2016-10-16 06:21] LABS: ABSOLUTE BASOPHIL COUNT 0 /CUMM (0.0-0.2); ABSOLUTE EOSINOPHIL COUNT 0.2 /CUMM (0.0-0.7); ABSOLUTE GRANULOCYTE CT 9.8 /CUMM (1.4-6.5); ABSOLUTE LYMPH COUNT 0.9 /CUMM (1.2-3.4); ABSOLUTE MONOCYTE COUNT 0.6 /CUMM (0.10-0.60); BASOPHIL % 0.4 % (0.0-2.0); HEMATOCRIT 28.1 % (42-52); MEAN CORPUSCULAR HGB 25.9 PG (27.0-31.0); MEAN CORPUSCULAR HGB CONC 32.9 G/DL (33.0-37.0); MEAN CORPUSCULAR VOLUME 78.7 FL (80.0-94.0); MEAN PLATELET VOLUME 9.8 FL (7.4-10.4); PLATELET COUNT 230 /CUMM (130-400); RBC DISTRIBUTION WIDTH 19.8 % (11.5-14.5); RED BLOOD CELL CT 3.57 /CUMM (4.70-6.10); WHITE BLOOD CELL COUNT 11.5 /CUMM (4.8-10.8)
[2016-10-16 06:22] LABS: GRANULOCYTE % 85.2 % (42.2-75.2)
--- NOTE | 2016-10-16 06:23 | NUR ---
BLOODWORK,AND 1ST SET OF BLOOD CULTURES DRAWN AND SENT OFF TO THE LAB.
--- NOTE | 2016-10-16 08:30 | NUR ---
PT NAPPING COMFORTABLY THIS AM, EASILY AROUSABLE. PT GIVEN AM MED "I TAKE THEM USUALLY EARLY, AROUND 7 OR 8AM", TOLERATED WELL. NO SLIDING SCALE COVERAGE NEEDED FOR ACCUCHECK: 108. PT STATING "I DON'T KNOW WHY THEY HAVE ME ON THE LIDODERM PATCH, I HAVEN'T BEEN ON THAT IN A LONG TIME".
--- NOTE | 2016-10-16 08:44 | NUR ---
pt admitted to room 103. floor will call when ready
--- NOTE | 2016-10-16 08:51 | NUR ---
HOUSE STAFF AT BEDSIDE FOR EVAL AT THIS TIME.
--- NOTE | 2016-10-16 08:55 | NUR ---
HOUSE STAFF EVAL PATIENT AND CHECKING FOR LICE, PER HOUSE STAFF PT NEGATIVE FOR LICE.
--- NOTE | 2016-10-16 09:05 | History & Physical ---
CANDE MARIA,[facility] 10/16/16 0902: General Information and HPI History of Present Illness: This is a 51-year-old male with past medical history of CVA, TIA, peripheral neuropathy, paroxysmal atrial fibrillation, coronary artery disease, diastolic congestive heart failure, hypertension, hyperlipidemia, it is post AL, CABG in May 2014, COPD, obstructive sleep apnea, enteritis, chronic leg wound status post skin grafting, diabetes complicated with neuropathy, obesity, recent ( 2weeks ago) hospitalization at [facility] where he developed chest pain and positive troponin, an unremarkable cardiac cath on 10/09 presents with complaints of chest pain. Patient localizes the pain to his left side of his chest, describes it as stabbing and rates it as a 4-10. Pt reports nausea as an associated symptoms. He does deny any associated diaphoresis, pain radiation, or shortness of breath. Patient states that his chest pain is not new, of note, on Sunday he presented with the same symptoms at [facility] where he was discharged without hospitalization. Patient denies any palpitation, cough, fever, chills, recent URI, recent chest trauma, new onset of calf pain. Allergies/Medications Allergies: Coded Allergies: erythromycin base (Intermediate, ?GI UPSET 03/13/16) gluten (Intermediate, GI UPSET 03/13/16) venom-honey bee (BEE VENOM (HONEY BEE)) (Intermediate, VOMITING 03/13/16) lactose (Mild, GI UPSET 03/13/16) Home Med list Acetaminophen 325 MG TABLET 2 TAB PO Q6H PRN CONSTIPATION (Reported) Ammonium Lactate (Amlactin) 12 % LOTION 1 AMY TOP BID SKIN (Reported) Apixaban (Eliquis) 5 MG TABLET 1 TAB PO Q12H BLOOD THINNER (Reported) Aspirin 81 MG TAB 1 TAB PO DAILY HEART HEALTH Atorvastatin Calcium 80 MG TABLET 80 MG PO 1700 HYPERLIPIDEMIA Bisacodyl 10 MG SUPP.RECT 1 SUP RC PRN GI (Reported) CLOPIDOGREL BISULFATE (Clopidogrel) 75 MG TABLET 1 TAB PO DAILY BLOOD THINNER (Reported) Collagenase Clostridium Hist. (Santyl) 250 UNIT/GRAM OINT...G. 1 AMY TOP QPM OUTER/INNER RIGHT FT & LFT LEG (Reported) Collagenase Clostridium Hist. (Santyl) 250 UNIT/GRAM OINT...G. 1 AMY TOP AD PRN SKIN ULCER (Reported) Dextrose (Glucose Gel) (Unknown Strength) GEL..GRAM. 24 GM PO PRN HYPOGLYCEMIA (Reported) Dicyclomine Hydrochloride (Bentyl) 20 MG TAB 1 TAB PO Q6P PRN ABD PAIN DILTIAZEM HCL (Cardizem Cd) 120 MG CER 1 CAP PO DAILY Heart (Reported) FENOFIBRATE NANOCRYSTALLIZED (Fenofibrate) 145 MG TABLET 1 TAB PO DAILY CHOLESTEROL (Reported) Ferrous Sulfate 325 MG TAB 1 TAB PO DAILY SUPPLEMENT Furosemide 20 MG TABLET 60 MG PO DAILY DIURETIC (Reported) Glucagon,Human Recombinant (Glucagon Emergency Kit) 1 MG KIT 1 MG IM AD PRN HYPOGLYCEMIA (Reported) Insulin Glargine, Recombinan (Lantus) 100 U/ML MINI 24 UNITS SC QAM DIABETES ( Reported) Insulin Lispro (Humalog) 100 UNIT/ML CARTRIDGE DM (Reported) Ipratropium/Albuterol Sulfate (Combivent Respimat Inhal [place]) (Unknown Strength ) MIST.INHAL 2 PUFF INH Q6H PRN ASTHMA (Reported) Lactulose 10 GRAM/15 ML SOLUTION 15 ML PO DAILY PRN CONSTIPATION (Reported) Lidocaine HCl (Lidoderm Patch) 5 % PAT 1 PAT TOP DAILY RIGHT BACK (Reported) may wear up to 12 hours Lisinopril (Prinivil) 5 MG TABLET 2 TAB PO DAILY BP (Reported) Loperamide HCl (Loperamide) 2 MG CAPSULE 1 CAP PO PRN DIARRHEA (Reported) Magnesium Hydroxide (Milk Of Magnesia) 400 MG/5 ML ORAL.SUSP 30 ML PO PRN CONSTIPATION (Reported) Metoprolol Tartrate (Lopressor) 50 MG TABLET 1 TAB PO BID HR (Reported) Na Phos,M-B/Na Phos,Di-Ba (Fleet Enema) 19 GRAM-7 GRAM/118 ML ENEMA 1 E RC PRN CONSTIPATION (Reported) Nitroglycerin (Nitrostat) 0.4 MG TAB.SUBL 1 TAB SL AD PRN CHEST PAIN ( Reported) 1st sign of attack; may repeat every 5 minutes until relief; if pain persists after 3 tablets in 15 minutes, prompt medical att Omeprazole (Prilosec) 40 MG ECC 1 TAB PO DAILY AC GI (Reported) Oxycodone HCl/Acetaminophen (Percocet 5-325 MG Tablet) 5 MG-325 MG TABLET 1 TAB PO Q6H PRN PAIN (Reported) Pantoprazole Sodium 40 MG TABLET.DR 1 TAB PO DAILY GERD (Reported) Potassium Chloride 10 MEQ TABLET.ER 1 TAB PO DAILY SUPPLEMENT (Reported) Pregabalin (Lyrica) 50 MG CAPSULE 1 CAP PO BID PAIN (Reported) Saccharomyces Boulardii (Probiotic) 250 MG CAPSULE 1 CAP PO BID PROBIOTIC ( Reported) Sitagliptin Phos/Metformin HCl (Janumet 50-1,000 MG Tablet) 50 MG-1,000 MG TABLET 1 TAB PO BID DM (Reported) Past History Travel History Traveled to [place] past 21 day No Medical History Neurological: CVA, TIA, PERIPHERAL NEUROPATHY EENT: NONE Cardiovascular: AFIB (paroxysmal), CAD, CHF, hypertension, hyperlipidemia, myocardial infarction (s/p AL) Respiratory: COPD, ANA USES CPAP Gastrointestinal: ENTERITIS Hepatic: NONE Renal: nephrolithiasis Musculoskeletal: LEG WOUNDS WOUND VAC SKIN GRAFTS TO R LEG Psychiatric: NONE Endocrine: diabetes (with neuropathy), obesity Blood Disorders: NONE Cancer(s): NONE 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 MOTHER (CAD, DM, DLD and HTN). Psychosocial History Who Do You Live With? sister Services at Home: Nursing, Oxygen, Physical Therapy ETOH Use: denies use Illicit Drug Use: denies illicit drug use Living Will? no Functional Ability ADLs Independent: eating. Needs Assist: dressing, toileting, bathing. Ambulation: walker IADLs Independent: telephone, medication admin. Needs Assist: shopping, housework, food prep, transportation. Unknown: finances. Review of Systems Review of Systems Constitutional: Denies: diaphoresis, fever, malaise. EENTM: Denies: blurred vision, double vision, visual changes. Cardiovascular: Reports: chest pain. Denies: orthopena, palpitations. Respiratory: Denies: hemoptysis, short of breath, sputum production. GI: Denies: abdominal pain, bloating, constipation, diarrhea. Genitourinary: Denies: dysuria, frequency, hematuria. Musculoskeletal: Denies: joint pain, joint swelling, muscle pain. Skin: Reports: erythema. Neurological/Psychological: Denies: cognitive dysfunction, confusion, depressed. Hematologic/Endocrine: Reports: no symptoms. Immunologic/Allergic: Reports: no symptoms. All Other Systems: Reviewed and Negative Exam & Diagnostic Data Last 24 Hrs of Vital Signs/I&O Vital Signs Date Time Temp Pulse Resp B/P Pulse O2 O2 Flow FiO2 Ox Delivery Rate 10/16 1015 97.0 72 16 142/82 97 Room Air 10/16 0926 98.1 76 20 134/81 98 Room Air Room Air 10/16 0843 97.2 77 18 139/70 10/16 0843 97.2 77 18 139/70 10/16 0621 97.2 77 18 139/70 98 Room Air 10/15 2334 77 155/67 10/15 2142 68 23 133/61 98 Room Air 10/15 2056 99.0 72 20 142/63 98 Room Air Intake & Output 10/16 1600 10/16 0800 10/16 0000 Intake Total 0 Output Total 525 Balance -525 0 Intake, Oral 0 Output, Urine 525 Patient 99.79 kg Weight Assessment/Plan Assessment: This is a 51-year-old male with extensive cardiac history including , paroxysmal atrial fibrillation, coronary artery disease, diastolic congestive heart failure , hypertension, presents with complaints of chest pain. Pt had an cardiac cath less than 7 days ago which was unremrkable for any new findings. Impression * Chest pain. Less likley to be ACS as patinet trops are unremarkable, no new ischemic EKG changes and a recent unremarkable cath. * Acute kidney injury * History of lower extreity venous insufficiency * Hx of Atrial fibrillation * Hx of Diabetes Plan * Admit to telemetry for close cardiac monitoring * Will trend troponin and EKG * Will continue cardiac meds * Will trend BEP * Accu check tid & hs * Novolog SSC * F/u cultures * Will consider vascular consult for his chronic lower extremity venous insufficency. As Ranked By This Provider Problem List: 1. Chest pain Core Measures/Miscellaneous Acute Coronary Syndrome ACS Diagnosis: No Cerebrovascular Accident CVA/TIA Diagnosis: No Congestive Heart Failure CHF Diagnosis: No Venous Thromboembolism VTE Risk Factors: Age > 40 VTE Prophylaxis Ordered Inpt: Pharm- Eliquis No Mech VTE prophylaxis d/t: No contraindications, Dermatitis No VTE Pharm Prophylaxis d/t: No contraindications VTE Diagnosis: No VTE Type: NONE VTE Confirmed by (Test): NONE Severe Sepsis Severe Sepsis Present: No Septic Shock Septic Shock Present: No Miscellaneous Documentation Attending Case Discussed With: KYAW MARIA PhD,IVETT Montano Primary Care Physician: TIM PANIAGUA MD Patient sees these Specialists nursing care attendant Level of Patient Care: Telemetry MONISHA POPE 10/16/16 1908: Resident Review Statement Resident Statement: examined this patient, discussed with purchasing intern, agreed with purchasing intern, reviewed EMR data (avail), discussed with nursing, reviewed images Other Findings: Mr May is a 51-year-old gentleman with extensive past medical history including paroxysmal atrial fibrillation, CAD, CABG (May 2014), LVEF 60% on echocardiogram from 09/14/2016, normal dipyridamole stress test (09/22/16 ), CVA, TIA, peripheral neuropathy, HTN, HLD, or say, chronic lower extremity ulcers S/P grafting, DM and obesity who presents with complaints of substernal chest pain. During his most recent admission to [facility] in September the patient was transferred for cardiac catheterization with no vessel occlusion found. He experienced a recurrence of chest pain on Sunday10/11/2016 but due to [facility] being on diversion he was evaluated at [facility] with no specific findings on workup. He currently reports a new onset of nonexertional nonradiating substernal chest pain 5/10, similar in nature to previous episodes. He denies any fevers or chills during this time but does report one day duration of burning sensation with urination on Sunday night. VS on admission: BP 142/63, HR 72, RR 20, SPO2 98% on RA, T 99.0 Physical exam: AAO 3 in no acute distress. Pertinent labs: WBC 11.9, H&H 10.9/29.8, platelets 241K, BUN/Cr CR 19/1.5 INR: 1.77 UA: Large amount leukocyte esterase, WBCs 15-25, large amount of hemoglobin CXR: Pulmonary hypoinflation. Otherwise, no acute pulmonary process Problem list: 1. Angina 2. UTI 3. Acute kidney injury 4. Lower extremity edema 5. Atrial fibrillation 6. Diabetes Plan: * Admit to telemetry for continuous cardiac monitoring. Serial troponins and EKGs to rule out ACS * We will continue the patient on Eliquis 5 mg twice a day, dual antiplatelet therapy (aspirin, Plavix) for history of TIA CVA. Monitor for bleeding, thrombocytopenia * UA shows evidence of UTI. Follow-up urine cultures and will start the patient on ceftriaxone. No record of resistant bacteuria * Follow-up blood cultures in the setting of lower extremity ulcers * Accu-Cheks and sliding scale. Diabetic diet * Patient EMR shows he is on Prilosec and pantoprazole. Confirm need for dual GI prophylaxis prior to discharge * Follow-up repeat creatinine in the a.m. and consider NS hydration for SPIKE. LVEF from September 2016 60%
--- NOTE | 2016-10-16 09:12 | NUR ---
MED WITH ROCEPHIN 1GM IV, TOLERATED WELL.
--- NOTE | 2016-10-16 09:23 | NUR ---
REPORT CALLED TO ICU NURSE (PT TELE OVERFLOW) LOIDA. [facility] CALLED FOR TRANSPORT TO ROOM # 103.
[2016-10-16 10:15] VITALS: BP 142/82
[2016-10-16 16:00] VITALS: BP 140/70
--- NOTE | 2016-10-16 17:53 | Cons- Cardiology ---
General Information and HPI Consulting Request Date of Consult: 10/16/16 Requested By: KYAW MARIA PhD,IVETT Montano History of Present Illness: Jim is a 51-year-old male with history of hypertension, dyslipidemia, coronary artery disease status post MT with multiple angioplasties CABG in 2013. He has undergone multiple recent surgical procedures for vascular insufficiency and osteomyelitis of the right heel. This patient was recently discharged from [facility] after being treated for group B strep related sepsis. His hospital course was complicated by shortness of breath attributed to mild heart failure and chest discomfort accompanied by a NSTEMI. He also developed renal insufficiency after receiving IV contrast during a CT angiogram to assess for a possible PE. In consideration of his prior chest discomfort I performed a cardiac catheterization that showed patent bypass grafts and no change in his [place] coronaries. Yesterday, this patient noted palpitations described as a hard and slightly fast, but even, heartbeat. This discomfort wa associated with mild nausea and lightheadedness. There was no chest pain, pressure or tightness and the patient denies shortness of breath. He ruled out for an MT and has remained in a NSR. He recently also presented to [facility] for the same symptoms and was monitored prior to being discharged without any concerning diagnosis. He does have some orthopnea and leg swelling but his renal function is improved. At baseline he sleeps with his head elevated on a hospital bed. He does have occasional palpitations that are very brief at baseline. He has been diagnosed with a diabetic polyneuropathy. In consideration of prior reports of chest discomfort this patient was risk stratified with a stress test that was positive for ischemia. He is now s/p PCI done a year ago in February. Prior to that this patient was admitted for pneumonia and ruled in to [id number] MT. After risk stratification with a stress test, which was positive for ischemia, he underwent cardiac catheterization. This study showed 3-vessel coronary artery disease. He is now status post coronary artery bypass grafting by Dr. Perdomo. To review this patient's past history, Jim has undergone stent placement to his mid LAD in 07/2003. This was in the setting of a myocardial infarction. In 2003, the patient was noted to have an in-stent restenosis of the LAD as well as a stenosis of the ostium of a large septal grinding room inspector branch. At that time, the left circumference parented a first marginal branch which also harbored a 70% stenosis beginning at the ostium and extending proximally. The right coronary artery has had a 30% ostial stenosis. A 50% to 60% PDA lesion was noted, and he has no problem with the 60%. In consideration of the above, a cardiac balloon dilatation was performed on the in-stent stenosis of the LAD, and the ostial septal branch was dilated with a 2.5 x 20 mm balloon. Post catheterization, there was a 10% residual stenosis in the LAD and a 40% residual stenosis at the ostium of the septal branch. In 2010, the patient again had chest pressure radiating to his arms of moderate severity. He was noted to have ST elevations in leads II, III, and F consistent with an acute inferior MT. He was therefore brought back to the [facility], and at that time a 3.0 x 20 mm drug-coated IM stent was placed in the patient's RCA. At that time his coronary anatomy consisted of a normal left main, 60% ostial proximal stenosis of the LAD, a 20% mid in-stent stenosis. Left circumflex had a 30% proximal [id number] proximal stenosis. The obtuse marginal 2 was a large patent vessel, and the right coronary artery was dominant with a 50% ostial stenosis, and a 90% distal stenosis prior to the bifurcation. Finally, there was a 40% mid PDA lesion. It was the 90% stenosis that underwent the most recent stenting. While at [facility] recently, the patient did have an echocardiogram performed. This study showed an overall normal EF of 55% with moderate left ventricular hypertrophy, and mild to moderate tricuspid regurgitation. Allergies/Medications Allergies: Coded Allergies: erythromycin base (Intermediate, ?GI UPSET 03/13/16) gluten (Intermediate, GI UPSET 03/13/16) venom-honey bee (BEE VENOM (HONEY BEE)) (Intermediate, VOMITING 03/13/16) lactose (Mild, GI UPSET 03/13/16) Home Med List: Acetaminophen 325 MG TABLET 2 TAB PO Q6H PRN CONSTIPATION (Reported) Ammonium Lactate (Amlactin) 12 % LOTION 1 AMY TOP BID SKIN (Reported) Apixaban (Eliquis) 5 MG TABLET 1 TAB PO Q12H BLOOD THINNER (Reported) Aspirin 81 MG TAB 1 TAB PO DAILY HEART HEALTH Atorvastatin Calcium 80 MG TABLET 80 MG PO 1700 HYPERLIPIDEMIA Bisacodyl 10 MG SUPP.RECT 1 SUP RC PRN GI (Reported) CLOPIDOGREL BISULFATE (Clopidogrel) 75 MG TABLET 1 TAB PO DAILY BLOOD THINNER (Reported) Collagenase Clostridium Hist. (Santyl) 250 UNIT/GRAM OINT...G. 1 AMY TOP QPM OUTER/INNER RIGHT FT & LFT LEG (Reported) Collagenase Clostridium Hist. (Santyl) 250 UNIT/GRAM OINT...G. 1 AMY TOP AD PRN SKIN ULCER (Reported) Dextrose (Glucose Gel) (Unknown Strength) GEL..GRAM. 24 GM PO PRN HYPOGLYCEMIA (Reported) Dicyclomine Hydrochloride (Bentyl) 20 MG TAB 1 TAB PO Q6P PRN ABD PAIN DILTIAZEM HCL (Cardizem Cd) 120 MG CER 1 CAP PO DAILY Heart (Reported) FENOFIBRATE NANOCRYSTALLIZED (Fenofibrate) 145 MG TABLET 1 TAB PO DAILY CHOLESTEROL (Reported) Ferrous Sulfate 325 MG TAB 1 TAB PO DAILY SUPPLEMENT Furosemide 20 MG TABLET 60 MG PO DAILY DIURETIC (Reported) Glucagon,Human Recombinant (Glucagon Emergency Kit) 1 MG KIT 1 MG IM AD PRN HYPOGLYCEMIA (Reported) Insulin Glargine, Recombinan (Lantus) 100 U/ML MINI 24 UNITS SC QAM DIABETES ( Reported) Insulin Lispro (Humalog) 100 UNIT/ML CARTRIDGE DM (Reported) Ipratropium/Albuterol Sulfate (Combivent Respimat Inhal [place]) (Unknown Strength ) MIST.INHAL 2 PUFF INH Q6H PRN ASTHMA (Reported) Lactulose 10 GRAM/15 ML SOLUTION 15 ML PO DAILY PRN CONSTIPATION (Reported) Lidocaine HCl (Lidoderm Patch) 5 % PAT 1 PAT TOP DAILY RIGHT BACK (Reported) may wear up to 12 hours Lisinopril (Prinivil) 5 MG TABLET 2 TAB PO DAILY BP (Reported) Loperamide HCl (Loperamide) 2 MG CAPSULE 1 CAP PO PRN DIARRHEA (Reported) Magnesium Hydroxide (Milk Of Magnesia) 400 MG/5 ML ORAL.SUSP 30 ML PO PRN CONSTIPATION (Reported) Metoprolol Tartrate (Lopressor) 50 MG TABLET 1 TAB PO BID HR (Reported) Na Phos,M-B/Na Phos,Di-Ba (Fleet Enema) 19 GRAM-7 GRAM/118 ML ENEMA 1 E RC PRN CONSTIPATION (Reported) Nitroglycerin (Nitrostat) 0.4 MG TAB.SUBL 1 TAB SL AD PRN CHEST PAIN ( Reported) 1st sign of attack; may repeat every 5 minutes until relief; if pain persists after 3 tablets in 15 minutes, prompt medical att Omeprazole (Prilosec) 40 MG ECC 1 TAB PO DAILY AC GI (Reported) Oxycodone HCl/Acetaminophen (Percocet 5-325 MG Tablet) 5 MG-325 MG TABLET 1 TAB PO Q6H PRN PAIN (Reported) Pantoprazole Sodium 40 MG TABLET.DR 1 TAB PO DAILY GERD (Reported) Potassium Chloride 10 MEQ TABLET.ER 1 TAB PO DAILY SUPPLEMENT (Reported) Pregabalin (Lyrica) 50 MG CAPSULE 1 CAP PO BID PAIN (Reported) Saccharomyces Boulardii (Probiotic) 250 MG CAPSULE 1 CAP PO BID PROBIOTIC ( Reported) Sitagliptin Phos/Metformin HCl (Janumet 50-1,000 MG Tablet) 50 MG-1,000 MG TABLET 1 TAB PO BID DM (Reported) Review of Systems Review of Systems: A twelve point review of systems is unremarkable. Past History Travel History Traveled to [place] past 21 day No Medical History Blood Transfusion Hx: Yes Neurological: CVA, TIA, PERIPHERAL NEUROPATHY EENT: NONE Cardiovascular: CAD, diastolic CHF, hyperlipidemia, myocardial infarction (s/p MT), PVD, systolic CHF, AFIB on eloquis (paroxysmal) Respiratory: COPD, ANA (no cpap) Gastrointestinal: GERD, lactose intolerance, ENTERITIS Hepatic: NONE Renal: nephrolithiasis, acute kidney failure Musculoskeletal: hx WOUND VAC leg wounds SKIN GRAFTS TO R LEG R & L hand contractures R inner foot-st 3 ulcer gait impairment Psychiatric: major depressive disorder Endocrine: diabetes (with neuropathy), obesity Blood Disorders: anemia Cancer(s): NONE 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 MOTHER (CAD, DM, DLD and HTN). Psychosocial History Where Do You Live? [facility] Who Do You Live With? sister Services at Home: Nursing, Oxygen, Physical Therapy Smoking Status: Former Smoker ETOH Use: denies use Illicit Drug Use: denies illicit drug use Living Will? no Functional Ability ADLs Independent: eating. Needs Assist: dressing, toileting, bathing. Ambulation: walker IADLs Independent: telephone, medication admin. Needs Assist: shopping, housework, food prep, transportation. Unknown: finances. Exam & Diagnostic Data Vital Signs and I&O Vital Signs Date Time Temp Pulse Resp B/P Pulse O2 O2 Flow FiO2 Ox Delivery Rate 10/16 1600 97.3 68 18 140/70 97 Room Air 10/16 1015 97.0 72 16 142/82 97 Room Air 10/16 1000 97 Room Air 10/16 0926 98.1 76 20 134/81 98 Room Air Room Air 10/16 0843 97.2 77 18 139/70 10/16 0843 97.2 77 18 139/70 10/16 0621 97.2 77 18 139/70 98 Room Air 10/15 2334 77 155/67 10/15 2142 68 23 133/61 98 Room Air 10/15 2056 99.0 72 20 142/63 98 Room Air Intake & Output 10/16 1600 10/16 0800 10/16 0000 10/15 1600 10/15 0800 10/15 0000 Intake Total 420 0 Output Total 1650 525 Balance -1230 -525 0 Intake, Oral 420 0 Output, Urine 1650 525 Patient 319 lb 220 lb Weight Physical Exam: General: WD/ Obese male in NAD: alert and oriented x 3 HEENT: NC/AT, PERRL, EOMI, clear oropharynx Neck: thick without obvious JVD, no carotid bruits Heart: RRR without murmur Lungs: clear bilaterally Abdomen: soft, obese, NT, +ve bowel sounds Extremities: 2+ bilateral lower extremity edema with venous stasis changes Assessment/Plan Assessment/Plan * This patient has no symptoms of myocardial ischemia or decompensated congestive heart failure. He may well have some intermittent palpitations which are disconcerting to him but for the most part he is in a stable sinus rhythm. This patient has a normal EF and no ischemia and is unlikely to have a malignant ventricular dysrhythmia. He does tend to feel better with NTG. It is reasonable to begin a NTG patch at 0.4mg/hr for 12 hours daily which may also help his blood pressure. His does have some small vessel disease that is not amenable to revascularization and he may have a better exercise tolerance with NTG due to this disease. We will continue to monitor this patient for another day. If there are no dysrhythmia's then we will discharge him back to his rehab facility. No changes in his other pre-admission medications. Consult Acknowledgment - Thank you for your consult request.
[2016-10-17] VITALS: BP 150/80
[2016-10-17 04:57] LABS: ABSOLUTE BASOPHIL COUNT 0.1 /CUMM (0.0-0.2); ABSOLUTE EOSINOPHIL COUNT 0.2 /CUMM (0.0-0.7); ABSOLUTE GRANULOCYTE CT 8.4 /CUMM (1.4-6.5); ABSOLUTE LYMPH COUNT 0.7 /CUMM (1.2-3.4); ABSOLUTE MONOCYTE COUNT 0.6 /CUMM (0.10-0.60); BASOPHIL % 0.8 % (0.0-2.0); EOSINOPHIL % 1.6 % (0-5); GRANULOCYTE % 84.4 % (42.2-75.2); HEMATOCRIT 27.6 % (42-52); MEAN CORPUSCULAR HGB 25.9 PG (27.0-31.0); MEAN CORPUSCULAR HGB CONC 32.6 G/DL (33.0-37.0); MEAN CORPUSCULAR VOLUME 79.4 FL (80.0-94.0); MEAN PLATELET VOLUME 9.8 FL (7.4-10.4); PLATELET COUNT 211 /CUMM (130-400); RBC DISTRIBUTION WIDTH 19.9 % (11.5-14.5); RED BLOOD CELL CT 3.48 /CUMM (4.70-6.10); WHITE BLOOD CELL COUNT 9.9 /CUMM (4.8-10.8)
[2016-10-17 08:00] VITALS: BP 130/80
--- NOTE | 2016-10-17 11:58 | PN- Housestaff ---
Subjective Follow-up For: Chest pain/palpitations/nausea Subjective: Patient seen and examined. He is seen sitting upright in bed resting comfortably. He reports that he slept well last night but does admit to have some repeat episodes of a "funny feeling" in his chest with associated nausea. He denies any chest pain or discomfort. Additionally he denies any headache, fever, chills, shortness of breath, vomiting, diarrhea. No overnight events other than as above. Review of Systems Constitutional: Reports: see HPI. Objective Last 24 Hrs of Vital Signs/I&O Vital Signs Date Time Temp Pulse Resp B/P Pulse O2 O2 Flow FiO2 Ox Delivery Rate 10/17 0851 97.8 64 21 130/80 10/17 0850 97.8 64 21 130/80 10/17 08 98.1 64 20 130/80 97 Room Air 10/17 0000 97.8 65 21 150/80 97 Room Air 10/16 2154 80 150/80 10/16 1600 97 Room Air 10/16 1600 97.3 68 18 140/70 97 Room Air Intake & Output 10/17 1600 10/17 0800 10/17 0000 Intake Total 240 600 Output Total 400 1000 Balance -160 -400 Intake, IV 0 0 Intake, Oral 240 600 Number 0 0 Bowel Movements Output, Urine 400 1000 Patient 144.696 kg Weight Physical Exam General Appearance: Alert, Oriented X3, Cooperative, No Acute Distress Other Physical Findings: General -well-developed, obese middle-aged male in no acute distress HEENT - NCAT, PERRL, EOMI, anicteric sclera Cardio - S1, S2 w/o murmurs/gallops/rubs Resp - CTA bilaterally w/o wheezing/rhochi/crackles GI -soft, obese, nontender, nondistended, bowel sounds present Neuro - Awake and alert, CN II - XII grossly intact Extremities-1+ bilateral lower extremity edema, distal pulses intact Current Medications: Current Medications Sig/Ysabel Start time Last Medication Dose Route Stop Time Status Admin Acetaminophen 650 MG Q6-PRN PRN 10/16 2030 AC PO Ammonium Lactate 1 AMY BID 10/16 1000 AC 10/17 TOP 0851 Apixaban 5 MG BID 10/17 1000 AC 10/17 PO 0849 Apixaban 5 MG Q12H 10/16 0345 DC 10/16 PO 1713 Aspirin 81 MG DAILY 10/16 999 AC 10/17 PO 0849 Atorvastatin Calcium 80 MG 1700 10/16 1700 AC 10/16 PO 1713 Ceftriaxone Sodium 1,000 MG DAILY 10/16 1000 AC 10/17 IV 0848 Clopidogrel Bisulfate 75 MG DAILY 10/16 1000 AC 10/17 PO 0850 Collagenase 1 AMY 2200 10/16 2200 AC 10/16 TOP 2141 Diltiazem HCl 120 MG DAILY 10/16 1000 AC 10/17 PO 0849 Fenofibrate 145 MG DAILY 10/16 1000 AC 10/17 PO 0851 Ferrous Sulfate 325 MG DAILY 10/16 1000 AC 10/17 PO 0850 Furosemide 60 MG DAILY 10/16 1000 AC 10/17 PO 0850 Insulin Aspart 0 TIDAC 10/16 0800 AC 10/17 SC 0852 Insulin Detemir 24 UNITS QPM 10/16 2200 AC 10/16 SC 2147 Lactobacillus 1 CAP BID 10/16 1000 AC 10/17 Acidophilus PO 0851 Lidocaine 1 PAT DAILY 10/16 1000 AC EXT Lisinopril 10 MG DAILY 10/16 1000 AC 10/17 PO 0851 Magnesium Sulfate 1 GM Q2H 10/17 0730 AC 10/17 Dextrose/Water 100 ML IV 10/17 1129 1030 Metoprolol Tartrate 50 MG BID 10/16 1000 AC 10/17 PO 0850 Nitroglycerin 0.4 MG DAILY 10/16 1800 AC 10/17 TOP 0849 Nitroglycerin 0.4 MG Q 5 MINUTES X 3 DO.. 10/16 0230 AC SL Omeprazole 40 MG DAILY AC 10/16 0700 AC 10/17 PO 0635 Oxycodone/ 1 TAB Q6P PRN 10/16 021 AC 10/16 Acetaminophen PO 2000 Oxycodone/ 2 TAB Q6P PRN 10/16 0215 AC 10/16 Acetaminophen PO 2229 Potassium Chloride 40 MEQ ONCE ONE 10/17 0730 DC 10/17 PO 10/17 0731 0848 Potassium Chloride 10 MEQ DAILY 10/16 1000 AC 10/17 PO 0850 Pregabalin 50 MG BID 10/16 1000 AC 10/17 PO 0851 Sodium Chloride 2 SPRAY Q4P PRN 10/16 1830 AC 10/16 MARCI 1840 Last 24 Hrs of Lab/Tanvir Results Last 24 Hrs of Labs/Mics: Laboratory Tests 10/17/16 0419: Anion Gap 14, Estimated GFR > 60, Glucose 169 H, Calcium 8.9, Phosphorus 4.0, Magnesium 1.1 L, Total Bilirubin 0.7, AST 20, ALT 21, Albumin 3.5, CBC w Diff NO MAN DIFF REQ, RBC 3.48 L, MCV 79.4 L, MCH 25.9 L, RDW 19.9 H, MPV 9.8, Gran % 84.4 H, Lymphocytes % 7.5 L, Monocytes % 5.7, Eosinophils % 1.6, Basophils % 0.8, Absolute Granulocytes 8.4 H, Absolute Lymphocytes 0.7 L, Absolute Monocytes 0.6, Absolute Eosinophils 0.2, Absolute Basophils 0.1, PUBS MCHC 32.6 L Assessment/Plan Assessment: Patient reports feeling well today, but admits to several episodes of a "funny feeling" in his chest last night. A nitro patch was applied around 7pm last night and removed 12 hours later, however a second patch was applied around 9AM and subsequently removed around 11:30AM to allow for an adequate wash out period. It will be resume again tonight at 7pm. Telemetry overnight did not demonstrate any obvious dysrhythmia. Consideration to discharge back to [facility] will be made later today. Chest Pain/Discomfort possible secondary to small vessel disease: Patient with an extensive cardiac history and recent hospitalizations. Recently admitted to [facility] from 10/08/16 - 10/10/16 for NSTEMI resulting angioplasty demonstrating small vessel disease. -Telemetry -NTG patch 0.4mg/hr TOP Daily 12 hour on/12 hour off -Nitrostat 0.4 mg sublingual as needed for chest pain -Cardiology consult following Urinary tract infection: Patient reports only minimal urinary discomforts. Urinalysis was positive upon initial evaluation. -Ceftriaxone 1 g IV daily -Follow-up blood/urine cultures History of paroxysmal atrial fibrillation: EKG on admission demonstrated normal sinus rhythm. -Eliquis 5 mg by mouth twice a day -Cardizem CD 120 mg by mouth daily CAD s/p OK/Angioplasties/CABG: -Aspirin 81 mg by mouth daily -Plavix 75 mg by mouth daily Hypertension: -Lisinopril 10 mg by mouth daily -Metoprolol 50 mg by mouth twice a day Hyperlipidemia: -Atorvastatin 80 mg by mouth daily -Fenofibrate 145 mg by mouth daily Insulin-dependent diabetes mellitus/peripheral neuropathy: -Accu-Cheks -NovoLog sliding scale insulin 3 times a day before meals -Levemir 24 units SC before bed -Lyrica 50 mg by mouth twice a day Chronic diastolic congestive heart failure-stable, continue Lasix 80 mg by mouth daily GERD-stable, continue omeprazole 40 mg by mouth daily History of anemia-stable, continue ferrous sulfate 325 mg by mouth daily Pain plan: -Acetaminophen 650 mg by mouth every 6 hours as needed for pain 1-3 -Percocet 1 tablet by mouth every 6 hours as needed for pain 4-6 -Percocet 2 tablets by mouth every 6 hours as needed for pain 7-10 Diet - Gluten Free Diet DVT PPx - on Eliquis Code Status - FULL CODE Problem List: 1. Chest pain Pain Ratin Pain Location: Chest Pain Goal: Pain 4 or less Pain Plan: As noted in plan Tomorrow's Labs & Rationales: CBC - UTI Magnesium - Hypomagnesemia
--- NOTE | 2016-10-17 15:25 | PN- Cardiology ---
Subjective Subjective: * This patient continues to feel palpitations that do not correlate with any dysrhythmia on telemetry. No other symptoms. Objective Vital Signs and I&Os Vital Signs Date Time Temp Pulse Resp B/P Pulse O2 O2 Flow FiO2 Ox Delivery Rate 10/17 0851 97.8 64 21 130/80 10/17 0850 97.8 64 21 130/80 10/17 0800 98.1 64 20 130/80 97 Room Air 10/17 0000 97.8 65 21 150/80 97 Room Air 10/16 2154 80 150/80 10/16 1600 97 Room Air 10/16 1600 97.3 68 18 140/70 97 Room Air Intake & Output 10/17 1600 10/17 0800 10/17 0000 10/16 1600 10/16 0000 Intake Total 1000 240 600 420 0 Output Total 031 692 5611 1650 525 Balance 600 -160 -400 -1230 -525 0 Intake, IV 200 0 0 Intake, Oral 800 240 600 420 0 Number 0 0 Bowel Movements Output, Urine 775 651 0631 1650 525 Patient 319 lb 319 lb 220 lb Weight Physical Exam: General: WD/ Obese male in NAD: alert and oriented x 3 Neck: thick without obvious JVD, no carotid bruits Heart: RRR without murmur Lungs: clear bilaterally Extremities: 1+ bilateral lower extremity edema with venous stasis changes Assessment/Plan Assessment/Plan * This patient is doing well on his current drug regimen. There is no evidence of ischemia or decompensated CHF and he is free of any dysrhythmia of the heart. We will discharge him back to his SNF. Discharge on NTG patch 0.4mg/hr for 12 hours daily. no change in other pre-admission medications. Continue telemetry? Yes
--- NOTE | 2016-10-17 15:34 | NUR ---
NURSING NOTE: PATIENT C/O THROBBING CHEST PAIN. EKG DONE PER MD ORDER. EKG HANDED TO DR. CARD.
[2016-10-17 16:00] VITALS: BP 130/70
--- NOTE | 2016-10-17 16:50 | NUR ---
WOUND CARE: REQUESTED BY NURSING TO EVALUATE PT FOR SKIN ALTERATIONS PRESENT ON ADMISSION - HX OBTAINED FROM CHART AND PT - PT HAS HEALED SKIN GRAFT TO RIGHT HEEL WITH 0.3 X 0.2 CM AREA OF SUPERFICIAL BREAKDOWN AT CENTER - RECOMMEND LEAVE OPEN TO AIR MOIST WOUND CARE MAY CAUSE FURTHER MACERATION - RIGHT FOOT INNER ASPECT PT PRESENTS WITH AN UNSTAGEABLE PRESSURE INJURY ULCER 1.4 X 1.3 X 1 CM WITH CLEAN RED GRANULAR FILL AFTER CLEANSING - NO PERIWOUND ERYTHEMA OR EVIDENCE OF INFECTION AT THIS TIME - LEFT LATERAL LEG PARTIAL THICKNESS WOUND 0.3 X 0.3 CM CLEAN RED BASE WIHT EPITHELIALIZED EDGES IMPRESSION: UNSTAGEABLE PRESSURE INJURY PRESENTS STAGE 3 RIGHT INNER FOOR - VENOUS STASIS ULCER LEFT LATERAL LEG RECOMMENDATION: APPLY MOIST PROMOGRAN DRESSING TO RIGHT INNER FOOT WOUND DAILY AND PRN FB DPD DRESSING - F/U [facility] P[facility] - MAY APPLEY PROMOGRAN TO LEFT LATERAL LEG WELL AND ENCOURAGE ELEVATION - PLEASE ELEVATE HEELS ON PILLOW TO ALLOW 100% OFFLOADING OF FORMER SKIN GRAFTED AREA
[2016-10-17] MEDS ORDERED: NITROGLYCERIN1 EACH TOP (16:55)
[2016-10-18] VITALS: BP 130/78
--- NOTE | 2016-10-18 02:27 | NUR ---
PT FORCIBLY BLOWING NOSE, USING SALINE SPRAY. HAS EPISODES OF COUGHING EXPECTORATES CLEAR INTO WASH BASIN REFUSING SELF SUCTION WITH YANKOWER. ALL DRSG D/I LOTION APPLIED TO LEGS ORDERED.
[2016-10-18 07:59] LABS: ABSOLUTE BASOPHIL COUNT 0.1 /CUMM (0.0-0.2); ABSOLUTE EOSINOPHIL COUNT 0.1 /CUMM (0.0-0.7); ABSOLUTE GRANULOCYTE CT 7.7 /CUMM (1.4-6.5); ABSOLUTE LYMPH COUNT 0.9 /CUMM (1.2-3.4); ABSOLUTE MONOCYTE COUNT 0.6 /CUMM (0.10-0.60); BASOPHIL % 0.8 % (0.0-2.0); EOSINOPHIL % 1.5 % (0-5); GRANULOCYTE % 81.9 % (42.2-75.2); HEMATOCRIT 27.5 % (42-52); MEAN CORPUSCULAR HGB CONC 32.8 G/DL (33.0-37.0); MEAN CORPUSCULAR VOLUME 79.3 FL (80.0-94.0); MEAN PLATELET VOLUME 10.5 FL (7.4-10.4); PLATELET COUNT 206 /CUMM (130-400); RBC DISTRIBUTION WIDTH 19.9 % (11.5-14.5); RED BLOOD CELL CT 3.47 /CUMM (4.70-6.10); WHITE BLOOD CELL COUNT 9.4 /CUMM (4.8-10.8)
[2016-10-18 08:00] VITALS: BP 150/80
--- NOTE | 2016-10-18 08:00 | NUR ---
PATIENT HAS NOT HAD BOWEL MOVEMENT DURING THIS ADMISSION. PATIENT REFUSING LAXATIVES, NOTIFIED BOOKSTORE CLERK DR MEHTA. WILL CONTINUE TO MONITOR.
--- NOTE | 2016-10-18 08:21 | Patient Discharge Instructions ---
Discharge Instructions General Discharge Information Special Instructions: Continue all your previous medications. Stay taking Nitroglycerin Patch 0.4mg every day for 12 hours. Be sure to remove this patch 12 hours after removing it. Apply patch same time each day. Take Bactrim one tablet by mouth twice a day for four days starting tomorrow (09/23). Acute Coronary Syndrome Inclusion Criteria At DC or during hospital stay patient has or had the following: ACS DIAGNOSIS No Discharge Core Measures Meds if any: Prescribed or Continued at Discharge Meds if any: NOT Prescribed or Continued at Discharge Congestive Heart Failure Inclusion Criteria At DC or during hospital stay patient has or had the following: CHF DIAGNOSIS No Discharge Core Measures Meds if any: Prescribed or Continued at Discharge Meds if any: NOT Prescribed or Continued at Discharge Cerebrovascular accident Inclusion Criteria At DC or during hospital stay patient has or had the following: CVA/TIA Diagnosis No Discharge Core Measures Meds if any: Prescribed or Continued at Discharge Meds if any: NOT Prescribed or Continued at Discharge Venous thromboembolism Inclusion Criteria VTE Diagnosis No VTE Type NONE VTE Confirmed by (Test) NONE Discharge Core Measures - Per Current guidelines, there needs to be overlap - treatment for the first 5 days of Warfarin therapy. - If discharged on Warfarin prior to 5 days of - overlap therapy, the patient will need to be - assessed for post discharge needs including - *Post discharge parental anticoagulation - *Warfarin and/or parental anticoagulation education - *Follow up date to check INR post discharge At least 5 days overlap therapy as Inpatient No Meds if any: Prescribed or Continued at Discharge Note: Overlap Therapy is Warfarin and Anticoagulant Meds if any: NOT Prescribed or Continued at Discharge
--- NOTE | 2016-10-18 09:39 | Discharge Summary ---
See Addendum Visit Information Visit Dates Admission Date: 10/15/16 Discharge Date: 10/18/16 Hospital Course Course Attending Physician: KYAW MARIA PhD,IVETT Montano Primary Care Physician: ARCELIA MARIA,TIM Hernandez Hospital Course: Jim is a 51-year-old male with history of hypertension, dyslipidemia, coronary artery disease status post MT with multiple angioplasties CABG in 2013. He has undergone multiple recent surgical procedures for vascular insufficiency and osteomyelitis of the right heel. This patient was recently discharged from [facility] after being treated for group B strep related sepsis. His hospital course was complicated by shortness of breath attributed to mild heart failure and chest discomfort accompanied by a NSTEMI. He also developed renal insufficiency after receiving IV contrast during a CT angiogram to assess for a possible PE. Patient was transferred for cardiac catheterization with no vessel occlusion found. He experienced a recurrence of chest pain on Sunday10/11/2016 but due to [facility] being on diversion he was evaluated at [facility] with no specific findings on workup. He was admitted this time because he reported a new onset of nonexertional nonradiating substernal chest pain 02/14, similar in nature to previous episodes. He denied any fevers or chills during this time but did report one day duration of burning sensation with urination. off note: At baseline he sleeps with his head elevated on a hospital bed. He does have occasional palpitations that are very brief at baseline. He has been diagnosed with a diabetic polyneuropathy. In consideration of prior reports of chest discomfort this patient was risk stratified with a stress test that was positive for ischemia. He is now s/p PCI done a year ago in February. Prior to that this patient was admitted for pneumonia and ruled in to [id number] MT. After risk stratification with a stress test, which was positive for ischemia, he underwent cardiac catheterization. This study showed 3-vessel coronary artery disease. He is now status post coronary artery bypass grafting by Dr. Perdomo. To review this patient's past history, Jim has undergone stent placement to his mid LAD in 07/2003. This was in the setting of a myocardial infarction. In 2003, the patient was noted to have an in-stent restenosis of the LAD as well as a stenosis of the ostium of a large septal electric mule driver branch. At that time, the left circumference parented a first marginal branch which also harbored a 70% stenosis beginning at the ostium and extending proximally. The right coronary artery has had a 30% ostial stenosis. A 50% to 60% PDA lesion was noted, and he has no problem with the 60%. In consideration of the above, a cardiac balloon dilatation was performed on the in-stent stenosis of the LAD, and the ostial septal branch was dilated with a 2.5 x 20 mm balloon. Post catheterization, there was a 10% residual stenosis in the LAD and a 40% residual stenosis at the ostium of the septal branch. In 2010, the patient again had chest pressure radiating to his arms of moderate severity. He was noted to have ST elevations in leads II, III, and F consistent with an acute inferior MT. He was therefore brought back to the clinical lab technologist, and at that time a 3.0 x 20 mm drug-coated IM stent was placed in the patient's RCA. At that time his coronary anatomy consisted of a normal left main, 60% ostial proximal stenosis of the LAD, a 20% mid in-stent stenosis. Left circumflex had a 30% proximal [id number] proximal stenosis. The obtuse marginal 2 was a large patent vessel, and the right coronary artery was dominant with a 50% ostial stenosis, and a 90% distal stenosis prior to the bifurcation. Finally, there was a 40% mid PDA lesion. It was the 90% stenosis that underwent the most recent stenting. While at [facility] recently, the patient did have an echocardiogram performed. This study showed an overall normal EF of 55% with moderate left ventricular hypertrophy, and mild to moderate tricuspid regurgitation. VS on admission: BP 142/63, HR 72, RR 20, SPO2 98% on RA, T 99.0 Pertinent labs: WBC 11.9, H&H 10.9/29.8, platelets 241K, BUN/Cr CR 19/1.5 INR: 1.77 UA: Large amount leukocyte esterase, WBCs 15-25, large amount of hemoglobin CXR: Pulmonary hypoinflation. Otherwise, no acute pulmonary process. In ER he was given aspirin and nitroglycerin and felt better. Patient was admitted on telemetry floor. He was seen by a paste up artist apprentice, Dr. Loaiza who did not feel that patient is having symptoms of myocardial ischemia or decompensated congestive heart failure. He thought that patient may have some intermittent palpitations which are disconcerting to him but for the most part he is in a stable sinus rhythm. This patient has a normal EF and no ischemia and is unlikely to have a malignant ventricular dysrhythmia. He felt better with NTG so per cardio It was reasonable to begin a NTG patch at 0.4mg/hr for 12 hours daily. For UTI he was started on IV ceftriaxone, urine culture grew Enterobacter aerogenes. IV ceftriaxone was later changed to Bactrim DS according to sensitivities. Blood cultures remained negative to date. Patient continued to feel brief episodes of palpitations but no episodes of dysrhythmia were noted on telemetry. So plan was to discharge him back to his SNF. All his home medications were continued and he was started on NTG patch 0.4mg/hr for 12 hours daily and he was also advised to take Bactrim DS for 4 days. Allergies: Coded Allergies: erythromycin base (Intermediate, ?GI UPSET 03/13/16) gluten (Intermediate, GI UPSET 03/13/16) venom-honey bee (BEE VENOM (HONEY BEE)) (Intermediate, VOMITING 03/13/16) lactose (Mild, GI UPSET 03/13/16) Disposition Summary Disposition Principal Diagnosis: Chest Pain/Discomfort possible secondary to small vessel disease Additional Diagnosis: UTI Discharge Disposition: SNF Discharge Instructions General Discharge Information Code Status: Full Code Patient's Diet: Gluten-free lactose-free diet Patient's Activity: With assistance Follow-Up Instructions/Appts: Continue all your previous medications. Please follow-up with your primary care provider and your paste up artist apprentice in 1 week after discharge. Stay taking Nitroglycerin Patch 0.4mg every day for 12 hours. Be sure to remove this patch 12 hours after removing it. Apply patch same time each day. Medications at Discharge Discharge Medications: Continue taking these medications: CLOPIDOGREL BISULFATE (Clopidogrel) 75 MG TABLET 1 Tablet ORAL DAILY Qty = 60 Comments: Last Taken: 08/06/15 Time: 933 FENOFIBRATE NANOCRYSTALLIZED (Fenofibrate) 145 MG TABLET 1 Tablet ORAL DAILY Comments: PER MED LIST FROM [facility] Last Taken: 08/06/15 Time: 933 Insulin Glargine, Recombinan (Lantus) 100 U/ML MINI 24 Units Inject into fatty tissue Every Morning Days = 28 Comments: PER MED L[facility] Last Taken: 08/06/15 Time: 933 LEVEMIR GIVEN Omeprazole (Prilosec) 40 MG ECC 1 Tablet ORAL DAILY BEFORE BREAKFAST Comments: PER MED LIST [facility] Last Taken: 08/06/15 Time: 0538 Dicyclomine Hydrochloride (Bentyl) 20 MG TAB 1 Tablet ORAL EVERY SIX HOURS NEEDED as needed for ABD PAIN Qty = 30 Comments: PER MED LIST FROM [facility] Ferrous Sulfate (Ferrous Sulfate) 325 MG TAB 1 Tablet ORAL DAILY Qty = 30 Comments: PER MED LIST [facility] Lidocaine HCl (Lidoderm Patch) 5 % PAT 1 Patch On the skin DAILY Instructions: may wear up to 12 hours Comments: PER MED L[facility] NOT GIVEN IN HOSPITAL DILTIAZEM HCL (Cardizem Cd) 120 MG CER 1 Capsule ORAL DAILY Comments: Last Taken: 08/06/15 Time: 933 Aspirin (Aspirin) 81 MG TAB 1 Tablet ORAL DAILY Qty = 30 Atorvastatin Calcium (Atorvastatin Calcium) 80 MG TABLET 80 Milligram ORAL 5 PM Days = 30 Comments: Last Taken: 10/10/16 Time: 5 PM Collagenase Clostridium Hist. (Santyl) 250 UNIT/GRAM OINT...G. 1 Application On the skin Every night Comments: PER W-10 Pantoprazole Sodium (Pantoprazole Sodium) 40 MG TABLET.DR 1 Tablet ORAL DAILY Comments: PER W-10 Lisinopril (Prinivil) 5 MG TABLET 2 Tablet ORAL DAILY Comments: PER W-10 Lactulose (Lactulose) 10 GRAM/15 ML SOLUTION 15 Milliliters ORAL DAILY as needed for CONSTIPATION Comments: PER W-10 Loperamide HCl (Loperamide) 2 MG CAPSULE 1 Capsule ORAL as needed for DIARRHEA Comments: PRN FOR NIGHTLY DIARRHEA PER W-10 Ipratropium/Albuterol Sulfate (Combivent Respimat Inhal [place]) (Unknown Strength ) MIST.INHAL 2 PUFF Inhale through mouth Q6H as needed for ASTHMA Comments: PER W-10 STRENGTH IS 18-103 MCG/ACT Saccharomyces Boulardii (Probiotic) 250 MG CAPSULE 1 Capsule ORAL TWICE DAILY Comments: UNTIL 10/26/2016 PER W-10 Ammonium Lactate (Amlactin) 12 % LOTION 1 Application On the skin TWICE DAILY Comments: PER W-10 Insulin Lispro (Humalog) 100 UNIT/ML CARTRIDGE Units Inject into fatty tissue BEFORE MEALS AND AT BEDTIME Comments: PER W-10 Metoprolol Tartrate (Lopressor) 50 MG TABLET 1 Tablet ORAL TWICE DAILY Comments: PREVIOUSLY NOTED 75MG PO BID; PER W-10 Oxycodone HCl/Acetaminophen (Percocet 5-325 MG Tablet) 5 MG-325 MG TABLET 1 Tablet ORAL Q6H as needed for PAIN Comments: PER W-10 Furosemide (Furosemide) 20 MG TABLET 60 Milligram ORAL DAILY Comments: PER W-10 Pregabalin (Lyrica) 50 MG CAPSULE 1 Capsule ORAL TWICE DAILY Comments: PER W-10 Nitroglycerin (Nitrostat) 0.4 MG TAB.SUBL 1 Tablet SUBLINGUAL As Directed as needed for CHEST PAIN Instructions: 1st sign of attack; may repeat every 5 minutes until relief; if pain persists after 3 tablets in 15 minutes, prompt medical att Comments: PER W-10 Potassium Chloride (Potassium Chloride) 10 MEQ TABLET.ER 1 Tablet ORAL DAILY Comments: PER W-10 Sitagliptin Phos/Metformin HCl (Janumet 50-1,000 MG Tablet) 50 MG-1,000 MG TABLET 1 Tablet ORAL TWICE DAILY Comments: PER W-10 Apixaban (Eliquis) 5 MG TABLET 1 Tablet ORAL Q12H Comments: PER W-10 Collagenase Clostridium Hist. (Santyl) 250 UNIT/GRAM OINT...G. 1 Application On the skin As Directed as needed for SKIN ULCER Comments: PER W-10 Na Phos,M-B/Na Phos,Di-Ba (Fleet Enema) 19 GRAM-7 GRAM/118 ML ENEMA 1 Enema RECTAL as needed for CONSTIPATION Comments: PER W-10 Bisacodyl (Bisacodyl) 10 MG SUPP.RECT 1 Suppository RECTAL as needed for GI Comments: PER W-10 Magnesium Hydroxide (Milk Of Magnesia) 400 MG/5 ML ORAL.SUSP 30 Milliliters ORAL as needed for CONSTIPATION Comments: PER W-10 Acetaminophen (Acetaminophen) 325 MG TABLET 2 Tablet ORAL Q6H as needed for CONSTIPATION Comments: PER W-10 Glucagon,Human Recombinant (Glucagon Emergency Kit) 1 MG KIT 1 Milligram INTRAMUSC As Directed as needed for HYPOGLYCEMIA Comments: PER W-10 Dextrose (Glucose Gel) (Unknown Strength) GEL..GRAM. 24 Gram ORAL as needed for HYPOGLYCEMIA Comments: LISTED 77.4% PER W-10 Start taking the following new medications: Sulfamethoxazole/Trimethoprim (Sulfamethoxazole-Tmp Ds Tablet) 800 MG-160 MG TABLET 1 Tablet ORAL TWICE DAILY Days = 4 No Refills Instructions: starting from tomorrow Nitroglycerin (Nitroglycerin Patch) 0.4 MG/HOUR PATCH.TD24 0.4 Milligram On the skin DAILY Qty = 30 No Refills Instructions: APPLY FOR 12 HOURS THEN REMOVE APPLY PATCH SAME TIME EACH DAY Copies To: ARCELIA MARIA,TIM Hernandez
[2016-10-18] MEDS ORDERED: DEEP SEA44 ML NAS (11:27)
[2016-10-18 11:44] VITALS: BP 150/80
[2016-10-18 12:15] VITALS: BP 136/76
--- NOTE | 2016-10-18 12:15 | NUR ---
PATIENT REPORTED FEELING COLD AND CLAMMY, NO COMPLAINTS OF CHEST PAIN, VITALS: BP 136/76, P 65, NSR ON MONITOR, TEMP 97.7, ROOM AIR SATURATION = 97%; BLOOD SUGAR = 158. NOTIFIED TILESETTER DR MEHTA, WHO CAME TO SEE PATIENT. PER TILESETTER OKAY FOR DISCHARGE. PATIENT REPORTS FEELING BETTER, "I DON'T KNOW WHY IT HAPPENED".
[2016-10-18] MEDS ORDERED: SULFAMETHOXAZO1 EAC1 PO (12:34)
--- NOTE | 2016-10-18 13:22 | PN- Housestaff ---
Subjective Follow-up For: Chest pain/palpitations/nausea Subjective: Patient seen and examined. He is seen sitting upright in bed resting comfortably. Appears to be in no acute distress. He reports no further episodes of palpitations since the episode yesterday afternoon and otherwise has no complaints. Additionally he denies any headache, fever, chills, chest pain, shortness of breath, vomiting, diarrhea. No overnight events reported. Review of Systems Constitutional: Reports: see HPI. Objective Last 24 Hrs of Vital Signs/I&O Vital Signs Date Time Temp Pulse Resp B/P Pulse O2 O2 Flow FiO2 Ox Delivery Rate 10/18 1144 97.9 67 22 150/80 10/18 1000 67 150/80 10/18 0800 97.9 74 22 150/80 100 Room Air 10/18 0000 98.0 69 22 130/78 95 Room Air 10/17 2243 63 134/64 10/17 1600 97.7 77 20 130/70 99 Room Air Intake & Output 10/18 1600 10/18 0800 10/18 0000 Intake Total 100 150 Output Total 350 300 Balance -250 -150 Intake, Oral 100 150 Output, Urine 350 300 Physical Exam General Appearance: Alert, Oriented X3, Cooperative, No Acute Distress Other Physical Findings: General -well-developed, well-nourished obese male in no acute distress HEENT - NCAT, PERRL, EOMI, anicteric sclera Cardio - S1, S2 w/o murmurs/gallops/rubs Resp - CTA bilaterally w/o wheezing/rhochi/crackles GI -soft, obese, nondistended, nontender, bowel sounds present Neuro - Awake and alert, CN II - XII grossly intact Extremities-right lower extremity wrapped in gauze without any obvious drainage, mild erythema/chronic skin changes, distal pulses intact bilaterally Current Medications: Current Medications Sig/Ysabel Start time Last Medication Dose Route Stop Time Status Admin Acetaminophen 650 MG Q6-PRN PRN 10/16 2030 AC PO Ammonium Lactate 1 AMY BID 10/16 1000 AC 10/17 TOP 2247 Apixaban 5 MG BID 10/17 1000 AC 10/18 PO 1000 Aspirin 81 MG DAILY 10/16 1000 AC 10/18 PO 0959 Atorvastatin Calcium 80 MG 1700 10/16 1700 AC 10/17 PO 1715 Ceftriaxone Sodium 1,000 MG DAILY 10/16 1000 DC 10/18 IV 0957 Clopidogrel Bisulfate 75 MG DAILY 10/16 1000 AC 10/18 PO 1000 Collagenase 1 AMY 2200 10/16 2200 AC 10/16 TOP 2141 Diltiazem HCl 120 MG DAILY 10/16 1000 AC 10/18 PO 1000 Fenofibrate 145 MG DAILY 10/16 1000 AC 10/18 PO 1000 Ferrous Sulfate 325 MG DAILY 10/16 1000 AC 10/18 PO 1000 Furosemide 60 MG DAILY 10/16 1000 AC 10/18 PO 1000 Insulin Aspart 0 TIDAC 10/16 08 AC 10/18 SC 1204 Insulin Detemir 24 UNITS QPM 10/16 2200 AC 10/17 SC 2240 Lactobacillus 1 CAP BID 10/16 1000 AC 10/18 Acidophilus PO 0959 Lidocaine 1 PAT DAILY 10/16 999 AC EXT Lisinopril 10 MG DAILY 10/16 1000 AC 10/18 PO 1000 Magnesium Oxide 400 MG ONE ONE 10/18 899 DC 10/18 PO 10/18 0901 1001 Metoprolol Tartrate 50 MG BID 10/16 1000 AC 10/18 PO 1000 Nitroglycerin 0.4 MG 1900 10/17 1900 AC 10/17 TOP 1852 Nitroglycerin 0.4 MG Q 5 MINUTES X 3 DO.. 10/16 0230 AC SL Omeprazole 40 MG DAILY AC 10/16 0700 AC 10/18 PO 0642 Ondansetron HCl 4 MG Q6P PRN 10/17 1730 AC 10/17 IV 1735 Oxycodone/ 1 TAB Q6P PRN 10/16 0215 AC 10/18 Acetaminophen PO 1005 Oxycodone/ 2 TAB Q6P PRN 10/16 0215 AC 10/17 Acetaminophen PO 1407 Potassium Chloride 40 MEQ ONCE ONE 10/18 899 DC 10/18 PO 10/18 0901 1001 Potassium Chloride 10 MEQ DAILY 10/16 1000 AC 10/18 PO 1000 Pregabalin 50 MG BID 10/16 1000 AC 10/18 PO 1003 Sodium Chloride 2 SPRAY Q4P PRN 10/16 1830 AC 10/16 MARCI 1840 Trimethoprim/ 1 TAB BID 10/18 220 AC Sulfamethoxazole PO Last 24 Hrs of Lab/Tanvir Results Last 24 Hrs of Labs/Mics: Laboratory Tests 10/18/16 0630: Magnesium 1.6, CBC w Diff NO MAN DIFF REQ, RBC 3.47 L, MCV 79.3 L, MCH 26.0 L , RDW 19.9 H, MPV 10.5 H, Gran % 81.9 H, Lymphocytes % 9.9 L, Monocytes % 5.9, Eosinophils % 1.5, Basophils % 0.8, Absolute Granulocytes 7.7 H, Absolute Lymphocytes 0.9 L, Absolute Monocytes 0.6, Absolute Eosinophils 0.1, Absolute Basophils 0.1, PUBS MCHC 32.8 L Assessment/Plan Assessment: Patient continues to feel fine with the addition of the nitroglycerin patch. Later in the morning he admits to a brief moment of cold sweats/tremor. Vital signs at this time were within normal limits and telemetry readings did not demonstrate any dysrhythmia. Physical examination did not demonstrate any diaphoresis and was unremarkable for any cardiopulmonary changes. He is to be discharged back to [facility] with addition of the nitroglycerin patch to his regimen and 4 days of antibiotics. Chest Pain/Discomfort possible secondary to small vessel disease: Patient with an extensive cardiac history and recent hospitalizations. Recently admitted to [facility] from 10/08/16 - 10/10/16 for NSTEMI resulting angioplasty demonstrating small vessel disease. -Telemetry -NTG patch 0.4mg/hr TOP Daily 12 hour on/12 hour off -Nitrostat 0.4 mg sublingual as needed for chest pain -Cardiology consult following Urinary tract infection: Patient reports only minimal urinary discomforts. Urinalysis was positive upon initial evaluation. -Ceftriaxone 1 g IV daily -Follow-up blood/urine cultures History of paroxysmal atrial fibrillation: EKG on admission demonstrated normal sinus rhythm. -Eliquis 5 mg by mouth twice a day -Cardizem CD 120 mg by mouth daily CAD s/p HI/Angioplasties/CABG: -Aspirin 81 mg by mouth daily -Plavix 75 mg by mouth daily Hypertension: -Lisinopril 10 mg by mouth daily -Metoprolol 50 mg by mouth twice a day Hyperlipidemia: -Atorvastatin 80 mg by mouth daily -Fenofibrate 145 mg by mouth daily Insulin-dependent diabetes mellitus/peripheral neuropathy: -Accu-Cheks -NovoLog sliding scale insulin 3 times a day before meals -Levemir 24 units SC before bed -Lyrica 50 mg by mouth twice a day Chronic diastolic congestive heart failure-stable, continue Lasix 80 mg by mouth daily GERD-stable, continue omeprazole 40 mg by mouth daily History of anemia-stable, continue ferrous sulfate 325 mg by mouth daily Pain plan: -Acetaminophen 650 mg by mouth every 6 hours as needed for pain 1-3 -Percocet 1 tablet by mouth every 6 hours as needed for pain 4-6 -Percocet 2 tablets by mouth every 6 hours as needed for pain 7-10 Diet - Gluten Free Diet DVT PPx - on Eliquis Code Status - FULL CODE Problem List: 1. Chest pain Pain Ratin Pain Location: Chest Pain Goal: Pain 4 or less Pain Plan: As noted in plan Tomorrow's Labs & Rationales: None Discharge Plan Discharge Disposition: STR/NH Stable for Discharge? Yes Anticipated Discharge (Day): today
== END 2016-10-18 13:20 | DRG 198 ==
LOC: ERH 20:51 → CRI 23:21 → ERHI 23:21 → ENPENDDIS 23:21 → CRI 10-16 09:56
PROVIDERS: Internal Medicine; Internal Medicine Interventional Cardiology; Pediatrics; ADMIT Internal Medicine Interventional Cardiology
DX: I25.10 Atherosclerotic heart disease of native coronary artery without angina pectoris (principal); I11.0 Hypertensive heart disease with heart failure; I50.32 Chronic diastolic (congestive) heart failure; E66.9 Obesity, unspecified; Z68.42 Body mass index [BMI] 45.0-49.9, adult; E11.40 Type 2 diabetes mellitus with diabetic neuropathy, unspecified; Z79.4 Long term (current) use of insulin; N17.9 Acute kidney failure, unspecified; I48.0 Paroxysmal atrial fibrillation; E78.5 Hyperlipidemia, unspecified; Z95.1 Presence of aortocoronary bypass graft; J44.9 Chronic obstructive pulmonary disease, unspecified; G47.33 Obstructive sleep apnea (adult) (pediatric); N39.0 Urinary tract infection, site not specified
CPT/HCPCS: CCU; ERO; 36415; 81001; 82436; 87040; 87086; 93005; 93010; 97110-GO; 97161-GP; 97530-GO; J0696; J2405; J3490

== ENCOUNTER 2016-10-20 14:56 | Emergency (ER) | payer OTHER ==
[~2016-10-20] VITALS: Ht 182.9 cm; Wt 147.4 kg
[~2016-10-20 14:56] MED LIST changes: +ACETAMINOPHEN325 M2 PO; +AMLACTIN57 GM TOP; +BISACODYL10 M1 RC; +COMBIVENT RESPIM4 GM INH; +DEEP SEA44 ML NAS; +DICYCLOMINE HCL20 M1 PO; +ELIQUIS5 M1 PO; +FLEET ENEMA133 ML RC; +FUROSEMIDE20 M1 PO; +GLUCAGON EMERGEN1 M1 IM; +GLUCOSE GEL38 GM PO; +HUMALOG100 UNIT/1 SC; +JANUMET 50-1,01 EACH PO; +LACTULOSE10 GM/153 PO; +LOPERAMIDE2 M2 PO; +LOPRESSOR50 M1 PO; +LYRICA50 M1 PO; +MILK OF MA400 MG/52 PO; +NITROGLYCERIN1 EACH TOP; +NITROSTAT0.4 M1 SL; +PANTOPRAZOLE SO40 M1 PO; +PERCOCET 5-3251 EACH PO; +POTASSIUM CHLO10 ME4 PO; +PRINIVIL5 M1 PO; +PROBIOTIC250 MG PO; +SANTYL30 GM TOP; +SULFAMETHOXAZO1 EAC1 PO
[2016-10-20] MEDS ORDERED: IPRAT-ALBUT 0.5-3 ML PO (15:23)
--- NOTE | 2016-10-20 15:40 | ED CARDIAC/CP/PALPITATIONS ---
History of Present Illness General Chief Complaint: Chest Pain Stated Complaint: BIBA CHEST PAIN Source: patient Exam Limitations: no limitations Vital Signs & Intake/Output Vital Signs & Intake/Output Vital Signs Date Time Temp Pulse Resp B/P Pulse O2 O2 Flow FiO2 Ox Delivery Rate 10/20 2111 67 18 132/63 100 Room Air 10/20 1903 98.2 66 18 130/70 100 Room Air 10/20 1726 98.2 65 16 138/66 100 Room Air 10/20 1505 97.6 67 18 118/58 100 Room Air Allergies Coded Allergies: erythromycin base (Intermediate, ?GI UPSET 03/13/16) gluten (Intermediate, GI UPSET 03/13/16) venom-honey bee (BEE VENOM (HONEY BEE)) (Intermediate, VOMITING 03/13/16) lactose (Mild, GI UPSET 03/13/16) Reconcile Medications Acetaminophen 325 MG TABLET 2 TAB PO Q6H PRN CONSTIPATION (Reported) Ammonium Lactate (Amlactin) 12 % LOTION 1 AMY TOP BID SKIN (Reported) Apixaban (Eliquis) 5 MG TABLET 1 TAB PO Q12H BLOOD THINNER (Reported) Aspirin 81 MG TAB 1 TAB PO DAILY HEART HEALTH Atorvastatin Calcium 80 MG TABLET 80 MG PO 1700 HYPERLIPIDEMIA Bisacodyl 10 MG SUPP.RECT 1 SUP RC PRN GI (Reported) CLOPIDOGREL BISULFATE (Clopidogrel) 75 MG TABLET 1 TAB PO DAILY BLOOD THINNER (Reported) Collagenase Clostridium Hist. (Santyl) 250 UNIT/GRAM OINT...G. 1 AMY TOP QPM OUTER/INNER RIGHT FT & LFT LEG (Reported) Dextrose (Glucose Gel) (Unknown Strength) GEL..GRAM. 24 GM PO PRN HYPOGLYCEMIA (Reported) Dicyclomine Hydrochloride (Bentyl) 20 MG TAB 1 TAB PO Q6P PRN ABD PAIN DILTIAZEM HCL (Cardizem Cd) 120 MG CER 1 CAP PO DAILY Heart (Reported) FENOFIBRATE NANOCRYSTALLIZED (Fenofibrate) 145 MG TABLET 1 TAB PO DAILY CHOLESTEROL (Reported) Ferrous Sulfate 325 MG TAB 1 TAB PO DAILY SUPPLEMENT Furosemide 20 MG TABLET 60 MG PO DAILY DIURETIC (Reported) Glucagon,Human Recombinant (Glucagon Emergency Kit) 1 MG KIT 1 MG IM AD PRN HYPOGLYCEMIA (Reported) Insulin Glargine, Recombinan (Lantus) 100 U/ML MINI 24 UNITS SC QAM DIABETES ( Reported) Insulin Lispro (Humalog) 100 UNIT/ML CARTRIDGE DM (Reported) Ipratropium/Albuterol Sulfate (Iprat-Albut 0.5-3(2.5) MG/3 Ml) 0.5 MG-3 MG (2.5 MG BASE)/3 ML AMPUL.NEB 3 ML PO Q8 SOB (Reported) Lactulose 10 GRAM/15 ML SOLUTION 15 ML PO DAILY PRN CONSTIPATION (Reported) Lidocaine HCl (Lidoderm Patch) 5 % PAT 1 PAT TOP DAILY RIGHT BACK (Reported) may wear up to 12 hours Lisinopril (Prinivil) 5 MG TABLET 2 TAB PO DAILY BP (Reported) Loperamide HCl (Loperamide) 2 MG CAPSULE 1 CAP PO PRN DIARRHEA (Reported) Magnesium Hydroxide (Milk Of Magnesia) 400 MG/5 ML ORAL.SUSP 30 ML PO PRN CONSTIPATION (Reported) Metoprolol Tartrate (Lopressor) 50 MG TABLET 1 TAB PO BID HR (Reported) Na Phos,M-B/Na Phos,Di-Ba (Fleet Enema) 19 GRAM-7 GRAM/118 ML ENEMA 1 E RC PRN CONSTIPATION (Reported) Nitroglycerin (Nitrostat) 0.4 MG TAB.SUBL 1 TAB SL AD PRN CHEST PAIN ( Reported) 1st sign of attack; may repeat every 5 minutes until relief; if pain persists after 3 tablets in 15 minutes, prompt medical att Nitroglycerin (Nitroglycerin Patch) 0.4 MG/HOUR PATCH.TD24 0.4 MG TOP DAILY CHEST PAIN APPLY FOR 12 HOURS THEN REMOVE APPLY PATCH SAME TIME EACH DAY Oxycodone HCl/Acetaminophen (Percocet 5-325 MG Tablet) 5 MG-325 MG TABLET 1 TAB PO Q6H PRN PAIN (Reported) Pantoprazole Sodium 40 MG TABLET.DR 1 TAB PO DAILY GERD (Reported) Potassium Chloride 10 MEQ TABLET.ER 1 TAB PO DAILY SUPPLEMENT (Reported) Pregabalin (Lyrica) 50 MG CAPSULE 1 CAP PO BID PAIN (Reported) Saccharomyces Boulardii (Probiotic) 250 MG CAPSULE 1 CAP PO BID PROBIOTIC ( Reported) Sitagliptin Phos/Metformin HCl (Janumet 50-1,000 MG Tablet) 50 MG-1,000 MG TABLET 1 TAB PO BID DM (Reported) Sodium Chloride (Deep Sea) 0.65 % SPRAY 2 SPRAY MARCI Q4P PRN CONGESTION Sulfamethoxazole/Trimethoprim (Sulfamethoxazole-Tmp Ds Tablet) 800 MG-160 MG TABLET 1 TAB PO BID UTI starting from tomorrow Triage Note: PT BIBA FROM [facility] FOR CP X 1 MONTH. STATES HE HAD A NTG PATCH ON CW AND WHEN IT WAS TAKEN OFF TODAY HIS PAIN STARTED AGAIN. 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 PT APPEARS IN NAD. PT ALSO C/O BLOOD IN URINE BUT WAS DX WITH UTI YESTERDAY AND TAKING ANTIBIOTICS FOR INFECTION Triage Nurses Notes Reviewed? yes HPI: Patient presents for evaluation of a left chest pain that began today, described as a sharp throbbing pain that sometimes worsens with movement and deep inspiration. Patient has been having episodes of this nature over the past 2 weeks at least although he has a more distant history of prior coronary artery disease CABG and stenting. (KRISSY MARIA,ROSA Quesada) Past History Travel History Traveled to [place] past 21 day No Medical History Neurological: CVA, TIA, PERIPHERAL NEUROPATHY EENT: NONE Cardiovascular: CAD, diastolic CHF, hyperlipidemia, myocardial infarction (s/p ND), PVD, systolic CHF, AFIB on eloquis (paroxysmal) Respiratory: COPD, ANA (no cpap) Gastrointestinal: GERD, lactose intolerance, ENTERITIS Hepatic: NONE Renal: nephrolithiasis, acute kidney failure Musculoskeletal: hx WOUND VAC leg wounds SKIN GRAFTS TO R LEG R & L hand contractures R inner foot-st 3 ulcer gait impairment Psychiatric: major depressive disorder Endocrine: diabetes (with neuropathy), obesity Blood Disorders: anemia Cancer(s): NONE HAULAGE BOSS/Reproductive: NONE History of MRSA: No History of VRE: Yes History of CDIFF: No Tetanus Vaccine: 03/28/12 Surgical History Surgical History: CABG,R FOOT X9 CARDIAC STENTS tonsillectomy Psychosocial History Who do you live with [facility] Services at Home Nursing, Oxygen, Physical Therapy What is your primary language Guyanese Tobacco Use: Quit >30 days ago ETOH Use: denies use Illicit Drug Use: denies illicit drug use Family History Family History, If Any: FATHER ( in his 70's of heart disease). MOTHER (CAD, DM, DLD and HTN). (KRISSY MARIA,ROSA Quesada) Medical History Any Pertinent Medical History? see below for history Family History Hx Contributory? No (RAY MARIA,LILIAN Pineda) Review of Systems Review of Systems Constitutional: Denies: no symptoms, see HPI, chills, diaphoresis, fever, malaise, weakness, unexplained weight loss. (RAY MARIA,LILIAN Pineda) Physical Exam Physical Exam Cardiovascular: see below Comments: Gen.: Well-nourished, well-developed, no acute respiratory distress (patient was asleep upon my arrival) Head: Normocephalic, atraumatic. Eyes: Normal inspection bilaterally Ears: Normal inspection bilaterally Nose: Normal inspection Throat/mouth : Moist mucosa Neck: Supple, full range of motion, no goiter Heart: Regular rate and rhythm, no murmurs rubs or gallops Lungs: Clear to auscultation bilaterally with normal air entry Chest: Nontender Back: Normal range of motion Abdomen: Soft, nontender, nondistended, normal bowel sounds Extremities: Normal range of motion grossly, equal radial pulses, no cyanosis, bilateral 3+ pitting lower extremity edema with chronic skin changes Neurologic: Cranial nerves grossly intact, speech is clear Skin: warm and dry Psychiatric: Calm, cooperative, no apparent delusions or hallucinations (KRISSY MARIA,ROSA Quesada) Physical Exam General Appearance: well developed/nourished, no apparent distress, alert, awake , comfortable Head: atraumatic, normal appearance Eyes: Bilateral: normal appearance. Ears, Nose, Throat: normal pharynx, normal ENT inspection Neck: normal inspection, supple, full range of motion Respiratory: normal breath sounds, chest non-tender, no respiratory distress, quiet respiration, lungs clear Cardiovascular: regular rate/rhythm Gastrointestinal: normal bowel sounds, soft, non-tender Back: normal inspection Extremities: chronic edematous changes of lower extremities Neurologic/Psych: no motor/sensory deficits, awake, alert, oriented x 3 Skin: intact, normal color, warm/dry Core Measures ACS in differential dx? Yes Severe Sepsis Present: No Septic Shock Present: No (RAY MARIA,LILIAN Pineda) Progress Plan of Care: Orders Procedure Date/time Status TROPONIN LEVEL 10/20 1999 Complete EKG 10/20 1999 Active TROPONIN LEVEL 10/20 1539 Complete MAGNESIUM 10/20 1539 Complete CBC WITHOUT DIFFERENTIAL 10/20 1539 Complete BASIC METABOLIC PANEL 10/20 1539 Complete EKG 10/20 1458 Active Laboratory Tests 10/20/16 1957: Troponin I 0.02 10/20/16 1615: Anion Gap 20 H, Estimated GFR 35 L, BUN/Creatinine Ratio 19.0, Glucose 117 H, Calcium 9.2, Magnesium 1.4 L, Troponin I 0.02, CBC w Diff NO MAN DIFF REQ, RBC 3.42 L, MCV 80.6, MCH 26.8 L, RDW 20.5 H, MPV 11.8 H, Gran % 84.2 H, Lymphocytes % 8.3 L, Monocytes % 5.9, Eosinophils % 1.1, Basophils % 0.5, Absolute Granulocytes 6.9 H, Absolute Lymphocytes 0.7 L, Absolute Monocytes 0.5, Absolute Eosinophils 0.1, Absolute Basophils 0, PUBS MCHC 33.3 Initial ED EKG: NSR, rate (66) Prior EKG: unchanged Repeat EKG: unchanged Comments: 10/20/2016 5:51:36 PM patient's case discussed with Dr. Loaiza. Patient has had a number of recent hospitalization for chest pain syndrome. Although the patient does have legitimate coronary artery disease, he has been stable on medical management. Dr. Loaiza agrees with a repeat EKG and troponin and reevaluation in the emergency department. 10/20/2016 8:08:19 PM patient signed out to Dr. Sage. Repeat troponin pending. (KRISSY MARIA,ROSA Quesada) Differential Diagnosis: chronic chest pain, unstable angina vs other. (RAY MARIA,LILIAN Pineda) Departure Departure Condition: Stable Referrals: ARCELIA MARIA,TIM Hernandez (PCP/Family) Departure Forms: Customer Survey General Discharge Information (KRISSY MARIA,ROSA Quesada) Departure Disposition: HOME OR SELF CARE Clinical Impression Primary Impression: Chest pain Comments 10/20/16, 21:30.... I have seen and evaluated patient. pt feeling well... trop neg x 2, ekg unchanged... pt feels well in ED... pt stable for discharge back to [facility] as per conversation with dr. loaiza. (RAY MARIA,LILIAN Pineda) Critical Care Note Critical Care Note Critical Care Time: non-applicable (RAY MARIA,LILIAN Pineda)
[2016-10-20 16:45] LABS: ABSOLUTE BASOPHIL COUNT 0 /CUMM (0.0-0.2); ABSOLUTE EOSINOPHIL COUNT 0.1 /CUMM (0.0-0.7); ABSOLUTE GRANULOCYTE CT 6.9 /CUMM (1.4-6.5); ABSOLUTE LYMPH COUNT 0.7 /CUMM (1.2-3.4); ABSOLUTE MONOCYTE COUNT 0.5 /CUMM (0.10-0.60); BASOPHIL % 0.5 % (0.0-2.0); EOSINOPHIL % 1.1 % (0-5); HEMATOCRIT 27.6 % (42-52); MEAN CORPUSCULAR HGB 26.8 PG (27.0-31.0); MEAN CORPUSCULAR HGB CONC 33.3 G/DL (33.0-37.0); MEAN CORPUSCULAR VOLUME 80.6 FL (80.0-94.0); MEAN PLATELET VOLUME 11.8 FL (7.4-10.4); PLATELET COUNT 183 /CUMM (130-400); RBC DISTRIBUTION WIDTH 20.5 % (11.5-14.5); RED BLOOD CELL CT 3.42 /CUMM (4.70-6.10); WHITE BLOOD CELL COUNT 8.3 /CUMM (4.8-10.8)
[2016-10-20 16:49] LABS: GRANULOCYTE % 84.2 % (42.2-75.2)
[2016-10-20 21:11] VITALS: BP 132/63
== END 2016-10-20 21:57 ==
LOC: ERH 14:56
PROVIDERS: Emergency Medicine
DX: R07.9 Chest pain, unspecified (principal)
CPT/HCPCS: 36415; 93005; 93010; 96374; J3101

== ENCOUNTER 2016-12-02 15:19 | Emergency (ER) | payer OTHER ==
[~2016-12-02] VITALS: Ht 182.9 cm; Wt 151.5 kg
[~2016-12-02 15:19] MED LIST changes: +IPRAT-ALBUT 0.5-3 ML PO
--- NOTE | 2016-12-02 15:40 | ED CARDIAC/CP/PALPITATIONS ---
History of Present Illness General Chief Complaint: General Adult Stated Complaint: LESLY WANTS TO SPEAK TO ROUGH PATCHER Source: patient, old records Exam Limitations: no limitations Allergies Coded Allergies: hydromorphone (UNKNOWN PER 12/02/16) erythromycin base (Intermediate, ?GI UPSET 03/13/16) gluten (Intermediate, GI UPSET 03/13/16) venom-honey bee (BEE VENOM (HONEY BEE)) (Intermediate, VOMITING 03/13/16) lactose (Mild, GI UPSET 03/13/16) Reconcile Medications Acetaminophen 325 MG TABLET 2 TAB PO Q6H PRN PAIN/TEMP/>101 (Reported) Ammonium Lactate (Amlactin) 12 % LOTION 1 AMY TOP BID SKIN (Reported) Apixaban (Eliquis) 5 MG TABLET 1 TAB PO Q12H BLOOD THINNER (Reported) Aspirin (Ecotrin*) 81 MG TABLET.DR 1 TAB PO DAILY HEART (Reported) Atorvastatin Calcium 80 MG TABLET 80 MG PO 1700 HYPERLIPIDEMIA Bisacodyl 10 MG SUPP.RECT 1 SUP RC PRN GI (Reported) Clopidogrel Bisulfate (Clopidogrel) 75 MG TABLET 1 TAB PO DAILY ANTICOAGULATION (Reported) Collagenase Clostridium Hist. (Santyl) 250 UNIT/GRAM OINT...G. 1 AMY TOP QPM R MEDIAL FOOT (Reported) Dextrose (Glucose Gel) (Unknown Strength) GEL..GRAM. 24 GM PO PRN HYPOGLYCEMIA (Reported) Dicyclomine HCl 20 MG TABLET 1 TAB PO Q6H PRN PAIN (Reported) Diltiazem HCl (Cardizem Cd) 180 MG CAP.ER.24H 1 CAP PO DAILY CHF (Reported) Diltiazem HCl (Diltiazem 24HR ER) 120 MG CAP.ER.24H 1 CAP PO DAILY HR ( Reported) Diphenoxylate HCl/Atropine (Lomotil 2.5-0.025 MG Tablet) 2.5 MG-0.025 MG TABLET 1 TAB PO Q6H PRN DIARRHEA (Reported) Doxycycline Hyclate 100 MG CAPSULE 1 CAP PO BID CELLULITIS BILATERAL LE ( Reported) Fenofibrate Nanocrystallized (Fenofibrate) 145 MG TABLET 1 TAB PO DAILY HPL ( Reported) Furosemide (Lasix) 80 MG TABLET 1 TAB PO BID CHF (Reported) Glucagon,Human Recombinant (Glucagon Emergency Kit) 1 MG KIT 1 MG IM AD PRN HYPOGLYCEMIA (Reported) Guaifenesin/Dextromethorphan (Q-Tussin Dm Syrup) 100 MG-10 MG/5 ML SYRUP 10 ML PO Q4H PRN COUGH (Reported) Insulin Glargine,Hum.rec.anlog (Lantus Solostar) 100 UNIT/ML (3 ML) INSULN.PEN 24 UNIT SC QAM DM (Reported) Insulin Lispro (Humalog) 100 UNIT/ML CARTRIDGE DM (Reported) Ipratropium/Albuterol Sulfate (Iprat-Albut 0.5-3(2.5) MG/3 Ml) 0.5 MG-3 MG (2.5 MG BASE)/3 ML AMPUL.NEB 3 ML PO Q8H PRN SOB (Reported) Lactobacillus Acidophilus (Acidophilus) 1 EACH CAPSULE 1 CAP PO BID PROBIOTIC (Reported) Lactulose 10 GRAM/15 ML SOLUTION 15 ML PO DAILY PRN CONSTIPATION (Reported) Lidocaine (Lidoderm) 5 % ADH..PATCH 1 PAT TOP QHS LEFT HIP (Reported) may wear up to 12 hours Lisinopril (Prinivil) 5 MG TABLET 2 TAB PO DAILY BP (Reported) Loperamide HCl (Loperamide) 2 MG CAPSULE 4 MG PO Q6H PRN DIARRHEA (Reported) Magnesium Hydroxide (Milk Of Magnesia) 400 MG/5 ML ORAL.SUSP 30 ML PO PRN CONSTIPATION (Reported) Metoprolol Tartrate (Lopressor) 50 MG TABLET 1 TAB PO BID HR (Reported) Na Phos,M-B/Na Phos,Di-Ba (Fleet Enema) 19 GRAM-7 GRAM/118 ML ENEMA 1 E RC PRN CONSTIPATION (Reported) Nitroglycerin (Nitrostat) 0.4 MG TAB.SUBL 1 TAB SL AD PRN CHEST PAIN ( Reported) 1st sign of attack; may repeat every 5 minutes until relief; if pain persists after 3 tablets in 15 minutes, prompt medical att Nitroglycerin (Nitroglycerin Patch) 0.4 MG/HOUR PATCH.TD24 0.4 MG TOP DAILY CHEST PAIN APPLY FOR 12 HOURS THEN REMOVE APPLY PATCH SAME TIME EACH DAY Ondansetron HCl (Zofran) 4 MG TABLET 1 TAB PO Q8H PRN NAUSEA (Reported) Oxycodone HCl/Acetaminophen (Percocet 5-325 MG Tablet) 5 MG-325 MG TABLET 1 TAB PO Q6H PRN PAIN (Reported) Pantoprazole Sodium 40 MG TABLET. 1 TAB PO DAILY GERD (Reported) Potassium Chloride 10 MEQ TABLET.ER 1 TAB PO DAILY SUPPLEMENT (Reported) Pregabalin (Lyrica) 50 MG CAPSULE 1 CAP PO BID NEUROPATHY (Reported) Sitagliptin Phos/Metformin HCl (Janumet 50-1,000 MG Tablet) 50 MG-1,000 MG TABLET 1 TAB PO BID DM (Reported) Sodium Chloride (Deep Sea) 0.65 % SPRAY 2 SPRAY MARCI Q4P PRN CONGESTION Triage Note: 51 YO MALE THEAA FROM [facility]. PT STATES HE WAS SEEN BY THE EXTRUDING PRESS ADJUSTER TODAY WHO WANTED TO INCREASE HIS CARDIZEM DOSE. PT REQUESTING TO SPEAK TO CARDIOLOGY PRIOR TO DOSE CHANGE SO HE WANTED TO COME HERE TO SEE CARDIOLOGY. PT C/O NOT EATING MUCH HE USED TO BE AND NOT SLEEING WELL AT NIGHT. DENIES CHEST PAIN/SOB. STATES HE DID HAVE A COUGH BUT ITS GONE NOW. Triage Nurses Notes Reviewed? yes HPI: 51-year-old male with multiple medical complaints with significant cardiac history, status post CABG, history of CHF, on ELIQUIS, aspirin Plavix and Lasix, SEES DR CARD, who presents from nursing facility with complaints of intermittent chest pain for the last several days which is mild and anterior pressure sensation nonradiating last for about an hour and resolved spontaneously, decreased appetite, generalized weakness. He states the assisted EXTRUDING PRESS ADJUSTER wanted to increase his Cardizem dose and he was uncomfortable with this and wanted to speak to his land measurer. He is concerned he might have CHF. He denies any dyspnea on exertion. He has chronic lower extremity cellulitis and edema which he feels the edemas may be mildly worse.. Last episode of chest pain was earlier this morning lasting about an hour that relieved when he went outside to get some fresh air Patient is asymptomatic at this time (THEODORE JONES) Vital Signs & Intake/Output Vital Signs & Intake/Output Vital Signs Date Time Temp Pulse Resp B/P Pulse O2 O2 Flow FiO2 Ox Delivery Rate 12/020 96.9 70 18 144/75 99 Room Air 12/02 1718 97.9 70 18 139/74 96 Room Air 12/02 1524 98.4 68 18 124/60 98 Room Air ED Intake and Output 12/03 0000 12/02 1200 Intake Total 0 Output Total Balance 0 Intake, Oral 0 Patient 334 lb Weight Past History Travel History Traveled to [place] past 21 day No Medical History Any Pertinent Medical History? see below for history Neurological: CVA, TIA, PERIPHERAL NEUROPATHY EENT: NONE Cardiovascular: CAD, diastolic CHF, hyperlipidemia, myocardial infarction (s/p NH), PVD, systolic CHF, AFIB on eloquis (paroxysmal) Respiratory: COPD, ANA (no cpap) Gastrointestinal: GERD, lactose intolerance, ENTERITIS Hepatic: NONE Renal: nephrolithiasis, acute kidney failure Musculoskeletal: hx WOUND VAC leg wounds SKIN GRAFTS TO R LEG R & L hand contractures R inner foot-st 3 ulcer gait impairment Psychiatric: major depressive disorder Endocrine: diabetes (with neuropathy), obesity Blood Disorders: anemia Cancer(s): NONE BARREL LEVELER/Reproductive: NONE History of MRSA: No History of VRE: Yes History of CDIFF: No Tetanus Vaccine: 03/28/12 Surgical History Surgical History: CABG,R FOOT X9 CARDIAC STENTS tonsillectomy Psychosocial History Who do you live with [facility] Services at Home Nursing, Oxygen, Physical Therapy What is your primary language Azeri Tobacco Use: Quit >30 days ago Family History Family History, If Any: FATHER ( in his 70's of heart disease). MOTHER (CAD, DM, DLD and HTN). Hx Contributory? Yes (THEODORE JONES) Review of Systems Review of Systems Constitutional: Reports: see HPI. EENTM: Reports: no symptoms. Respiratory: Reports: no symptoms. Cardiovascular: Reports: see HPI. GI: Reports: no symptoms. Genitourinary: Reports: no symptoms. Musculoskeletal: Reports: no symptoms. Skin: Reports: see HPI. Neurological/Psychological: Reports: no symptoms. Hematologic/Endocrine: Reports: no symptoms. Immunologic/Allergic: Reports: no symptoms. All Other Systems: Reviewed and Negative (THEODORE JONES) Physical Exam Physical Exam Cardiovascular: regular rate/rhythm Comments: Well-developed well-nourished person in no acute distress HEENT: Normal EENT exam, extraocular motion intact, no nystagmus. Pupils equally round and reactive to light. Nose is atraumatic. Pharynx normal. No swelling or edema. Neck: Supple, no lymphadenopathy, normal range of motion without pain or tenderness Back: Nontender, no CVA tenderness. Full range of motion Cardiovascular: Regular rate and rhythms no murmurs, normal JVP Respiratory: Chest nontender. No respiratory distress. Breath sounds clear to auscultation bilaterally Abdomen: Obese, Soft, nontender nondistended, no appreciable organomegaly. Normal bowel sounds. No ascites Extremity: 3+ pitting bilateral lower extremity edema from the mid distal thigh distally , no lower legs and feet are wrapped with dressings. Erythema noted left anterior pretibial region. Neuro: Alert oriented x3, motor sensory normal, cranial nerves II through XII grossly intact. Skin: No appreciable rash on exposed skin, skin is warm and dry. Psych: Mood and affect is normal, memory and judgment is normal. Core Measures ACS in differential dx? Yes ASA ordered for poss ACS? No-ACS ruled out Severe Sepsis Present: No Septic Shock Present: No (THEODORE JONES) Progress Differential Diagnosis: AMI, aortic dissection, atrial fibrillation, cholecystitis, CHF/pulm edema, costochondritis, hyperkalemia, hypovolemia, hyperthyroid, hyperventilation, intracranial hemorrhage, musculoskeletal pain, myocarditis, pancreatitis, pericarditis, pneumonia, pneumothorax, PSVT, pulmonary embolism, PUD/GERD, PVCs/PACs, respiratory failure, rib fracture, sepsis, unstable angina, V-fib/V-Tach, WPW syndrome Initial ED EKG: NSR, rate (66), no ST T wave changes, abnormal Q waves (III) Prior EKG: unchanged Rhythm Strip: normal sinus rhythm Comments: Patient's cardiac workup is unremarkable, his EKG is unchanged, his troponin is 0.01 and his BNP is around his baseline at 5200. Chest x-ray does not show any significant increase in CHF. I discussed the case with Dr. Monahan who recommends giving magnesium IV and then repeating magnesium and if increased, patient may be discharged home. Also recommends changing his Cardizem to 120 mg CD and this was discussed with the patient. Noted on his W-10 as well. After 1 g of magnesium IV, his magnesium is rechecked at 1.1, troponin recheck is negative We will give him another gram of magnesium and he may be discharged home with follow-up to have this rechecked and instructions for assisted to continue the magnesium by mouth. (THEODORE JONES) Plan of Care: Orders Procedure Date/time Status TROPONIN LEVEL 12/02 1759 Complete MAGNESIUM 12/02 1759 Complete Telemetry/Manager Study 12/02 1546 Active TROPONIN LEVEL 12/02 1534 Complete MAGNESIUM 12/02 1534 Complete COMPREHENSIVE METABOLIC PANEL 12/02 1534 Complete CBC WITHOUT DIFFERENTIAL 12/02 1534 Complete B-TYPE NATRIURETIC PEP (BNP) 12/02 1534 Complete EKG 12/02 1529 Active Laboratory Tests 12/02/16 1926: Magnesium 1.1 L, Troponin I < 0.01 12/02/16 1545: Anion Gap 13, Estimated GFR 43 L, BUN/Creatinine Ratio 15.9, Glucose 100 H, Calcium 7.9 L, Magnesium 0.9 *L, Total Bilirubin 0.7, AST 42, ALT 28, Alkaline Phosphatase 81, Troponin I 0.01, Cuz-I-Safvvxibqwb Pept 5150 H, Total Protein 6.1 L, Albumin 3.5, Globulin 2.6, Albumin/Globulin Ratio 1.3, CBC w Diff NO MAN DIFF REQ, RBC 3.42 L, MCV 80.3, MCH 25.9 L, RDW 20.7 H, MPV 10.6 H, Gran % 81.6 H, Lymphocytes % 7.7 L, Monocytes % 6.8, Eosinophils % 2.2, Basophils % 1.7, Absolute Granulocytes 7.6 H, Absolute Lymphocytes 0.7 L, Absolute Monocytes 0.6, Absolute Eosinophils 0.2, Absolute Basophils 0.2, PUBS MCHC 32.2 L Departure Departure Disposition: HOME OR SELF CARE Condition: Stable Clinical Impression Primary Impression: Hypomagnesemia Referrals: ARCELIA MARIA,TIM Hernandez (PCP/Family) Departure Forms: Customer Survey General Discharge Information (THEODORE JONES) PA/FINISH REPAIRER Co-Sign Statement Statement: ED Attending supervision documentation- [] I saw and evaluated the patient. I have also reviewed all the pertinent lab results and diagnostic results. I agree with the findings and the plan of care as documented in the PA's/FINISH REPAIRER's documentation. [X] I have reviewed the ED Record and agree with the PA's/FINISH REPAIRER's documentation. [] Additions or exceptions (if any) to the PAs/FINISH REPAIRER's note and plan are summarized below: [] (DENISE MARIA,PATRICK Simpson) Critical Care Note Critical Care Note Critical Care Time: non-applicable (DENISE MARIA,PATRICK Simpson)
[2016-12-02 15:56] LABS: ABSOLUTE BASOPHIL COUNT 0.2 /CUMM (0.0-0.2); ABSOLUTE EOSINOPHIL COUNT 0.2 /CUMM (0.0-0.7); ABSOLUTE GRANULOCYTE CT 7.6 /CUMM (1.4-6.5); ABSOLUTE LYMPH COUNT 0.7 /CUMM (1.2-3.4); ABSOLUTE MONOCYTE COUNT 0.6 /CUMM (0.10-0.60); BASOPHIL % 1.7 % (0.0-2.0); EOSINOPHIL % 2.2 % (0-5); GRANULOCYTE % 81.6 % (42.2-75.2); HEMATOCRIT 27.5 % (42-52); MEAN CORPUSCULAR HGB 25.9 PG (27.0-31.0); MEAN CORPUSCULAR HGB CONC 32.2 G/DL (33.0-37.0); MEAN CORPUSCULAR VOLUME 80.3 FL (80.0-94.0); MEAN PLATELET VOLUME 10.6 FL (7.4-10.4); PLATELET COUNT 224 /CUMM (130-400); RBC DISTRIBUTION WIDTH 20.7 % (11.5-14.5); RED BLOOD CELL CT 3.42 /CUMM (4.70-6.10); WHITE BLOOD CELL COUNT 9.3 /CUMM (4.8-10.8)
--- NOTE | 2016-12-02 16:13 | RADIOLOGY REPORT ---
EXAMINATION: XR PORTABLE CHEST CLINICAL INFORMATION: Congestive heart failure, chest pain. COMPARISON: Portable chest x-ray 10/15/2016. TECHNIQUE: Portable AP view of the chest was obtained. FINDINGS: The lungs are hypoinflated, without focal airspace consolidation. Streaky bibasilar and lingula linear opacities could reflect subsegmental atelectasis. No pleural effusions or pneumothoraces are identified. Cardiomediastinal contours are stable, and there is stable prominence of the cardiac silhouette, without overt pulmonary edema. There is mild to moderate central venous congestion.. Soft tissues are unremarkable. No acute osseous abnormality is identified. IMPRESSION: No acute pulmonary process. Stable prominence of the cardiac silhouette with mild to moderate central venous congestion. No overt pulmonary edema. Linear opacities within the bilateral lung bases and lingula could reflect subsegmental atelectasis.
[2016-12-02] MEDS ORDERED: CARDIZEM CD180 M1 PO (17:21)
[2016-12-02] MEDS ORDERED: ACIDOPHILUS1 EACH PO (17:23)
[2016-12-02] MEDS ORDERED: DOXYCYCLINE HY100 M2 PO (17:24)
[2016-12-02] MEDS ORDERED: Q-TUSSIN DM SY473 ML PO (17:28)
[2016-12-02] MEDS ORDERED: LIDODERM1 EACH TOP (17:28)
[2016-12-02] MEDS ORDERED: LASIX80 M1 PO (17:30)
[2016-12-02] MEDS ORDERED: LOMOTIL 2.5-0.1 EACH PO (17:32)
[2016-12-02] MEDS ORDERED: ZOFRAN4 M2 PO (17:32)
[2016-12-02] MEDS ORDERED: AMLACTIN57 GM TOP (17:33)
[2016-12-02] MEDS ORDERED: NITRO-DUR1 EAC3 TOP (17:34)
[2016-12-02] MEDS ORDERED: CLOPIDOGREL75 M1 PO (17:36)
[2016-12-02] MEDS ORDERED: GLUCOSE GEL38 GM PO (17:37)
[2016-12-02] MEDS ORDERED: ASPIRIN EC81 M1 PO (17:39)
[2016-12-02] MEDS ORDERED: LANTUS SOL100 UNIT/1 SC (17:40)
[2016-12-02] MEDS ORDERED: DILTIAZEM 24HR120 MG PO (17:42)
[2016-12-02] MEDS ORDERED: FENOFIBRATE145 M1 PO (17:42)
[2016-12-02] MEDS ORDERED: DICYCLOMINE HCL20 M1 PO (17:44)
[2016-12-02 21:20] VITALS: BP 144/75
== END 2016-12-02 22:10 ==
LOC: ERH 15:19
PROVIDERS: Physician Assistant Surgical
DX: R07.89 Other chest pain (principal); E83.42 Hypomagnesemia
CPT/HCPCS: 93005; 93010; 96374

== ENCOUNTER 2017-01-24 20:14 | Emergency (ER) | payer OTHER ==
[~2017-01-24] VITALS: Ht 182.9 cm; Wt 149.7 kg
[~2017-01-24 20:14] MED LIST changes: +ACIDOPHILUS1 EACH PO; +ASPIRIN EC81 M1 PO; +CARDIZEM CD180 M1 PO; +CLOPIDOGREL75 M1 PO; +DILTIAZEM 24HR120 MG PO; +DOXYCYCLINE HY100 M2 PO; +FENOFIBRATE145 M1 PO; +LANTUS SOL100 UNIT/1 SC; +LASIX80 M1 PO; +LIDODERM1 EACH TOP; +LOMOTIL 2.5-0.1 EACH PO; +NITRO-DUR1 EAC3 TOP; +Q-TUSSIN DM SY473 ML PO; +ZOFRAN4 M2 PO
--- NOTE | 2017-01-24 20:30 | ED UPPER/LOWER EXTREMITY COMPL ---
History of Present Illness General Chief Complaint: Lower Extremity Problems Stated Complaint: LOWER EXTREMITY PAIN, RASH Source: patient, old records Exam Limitations: no limitations Vital Signs & Intake/Output Vital Signs & Intake/Output Vital Signs Date Time Temp Pulse Resp B/P B/P Pulse O2 O2 Flow FiO2 Mean Ox Delivery Rate 01/24 2231 97.8 78 18 148/91 99 Room Air 01/24 2018 97.2 77 18 146/93 99 Room Air Allergies Coded Allergies: hydromorphone (UNKNOWN PER 12/02/16) erythromycin base (Intermediate, ?GI UPSET 03/13/16) gluten (Intermediate, GI UPSET 03/13/16) venom-honey bee (BEE VENOM (HONEY BEE)) (Intermediate, VOMITING 03/13/16) lactose (Mild, GI UPSET 03/13/16) Reconcile Medications Acetaminophen 325 MG TABLET 2 TAB PO Q6H PRN PAIN/TEMP/>101 (Reported) Ammonium Lactate (Amlactin) 12 % LOTION 1 AMY TOP BID SKIN (Reported) Apixaban (Eliquis) 5 MG TABLET 1 TAB PO Q12H BLOOD THINNER (Reported) Aspirin (Ecotrin*) 81 MG TABLET.DR 1 TAB PO DAILY HEART (Reported) Atorvastatin Calcium 80 MG TABLET 80 MG PO 1700 HYPERLIPIDEMIA Bisacodyl 10 MG SUPP.RECT 1 SUP RC PRN GI (Reported) Clopidogrel Bisulfate (Clopidogrel) 75 MG TABLET 1 TAB PO DAILY ANTICOAGULATION (Reported) Collagenase Clostridium Hist. (Santyl) 250 UNIT/GRAM OINT...G. 1 AMY TOP QPM R MEDIAL FOOT (Reported) Dextrose (Glucose Gel) (Unknown Strength) GEL..GRAM. 24 GM PO PRN HYPOGLYCEMIA (Reported) Dicyclomine HCl 20 MG TABLET 1 TAB PO Q6H PRN PAIN (Reported) Diltiazem HCl (Cardizem Cd) 180 MG CAP.ER.24H 1 CAP PO DAILY CHF (Reported) Diltiazem HCl (Diltiazem 24HR ER) 120 MG CAP.ER.24H 1 CAP PO DAILY HR ( Reported) Diphenoxylate HCl/Atropine (Lomotil 2.5-0.025 MG Tablet) 2.5 MG-0.025 MG TABLET 1 TAB PO Q6H PRN DIARRHEA (Reported) Doxycycline Hyclate 100 MG CAPSULE 1 CAP PO BID CELLULITIS BILATERAL LE ( Reported) Fenofibrate Nanocrystallized (Fenofibrate) 145 MG TABLET 1 TAB PO DAILY HPL ( Reported) Furosemide (Lasix) 80 MG TABLET 1 TAB PO BID CHF (Reported) Glucagon,Human Recombinant (Glucagon Emergency Kit) 1 MG KIT 1 MG IM AD PRN HYPOGLYCEMIA (Reported) Guaifenesin/Dextromethorphan (Q-Tussin Dm Syrup) 100 MG-10 MG/5 ML SYRUP 10 ML PO Q4H PRN COUGH (Reported) Insulin Glargine,Hum.rec.anlog (Lantus Solostar) 100 UNIT/ML (3 ML) INSULN.PEN 24 UNIT SC QAM DM (Reported) Insulin Lispro (Humalog) 100 UNIT/ML CARTRIDGE DM (Reported) Ipratropium/Albuterol Sulfate (Iprat-Albut 0.5-3(2.5) MG/3 Ml) 0.5 MG-3 MG (2.5 MG BASE)/3 ML AMPUL.NEB 3 ML PO Q8H PRN SOB (Reported) Lactobacillus Acidophilus (Acidophilus) 1 EACH CAPSULE 1 CAP PO BID PROBIOTIC (Reported) Lactulose 10 GRAM/15 ML SOLUTION 15 ML PO DAILY PRN CONSTIPATION (Reported) Lidocaine (Lidoderm) 5 % ADH..PATCH 1 PAT TOP QHS LEFT HIP (Reported) may wear up to 12 hours Lisinopril (Prinivil) 5 MG TABLET 2 TAB PO DAILY BP (Reported) Loperamide HCl (Loperamide) 2 MG CAPSULE 4 MG PO Q6H PRN DIARRHEA (Reported) Magnesium Hydroxide (Milk Of Magnesia) 400 MG/5 ML ORAL.SUSP 30 ML PO PRN CONSTIPATION (Reported) Metoprolol Tartrate (Lopressor) 50 MG TABLET 1 TAB PO BID HR (Reported) Na Phos,M-B/Na Phos,Di-Ba (Fleet Enema) 19 GRAM-7 GRAM/118 ML ENEMA 1 E RC PRN CONSTIPATION (Reported) Nitroglycerin (Nitrostat) 0.4 MG TAB.SUBL 1 TAB SL AD PRN CHEST PAIN ( Reported) 1st sign of attack; may repeat every 5 minutes until relief; if pain persists after 3 tablets in 15 minutes, prompt medical att Nitroglycerin (Nitroglycerin Patch) 0.4 MG/HOUR PATCH.TD24 0.4 MG TOP DAILY CHEST PAIN APPLY FOR 12 HOURS THEN REMOVE APPLY PATCH SAME TIME EACH DAY Ondansetron HCl (Zofran) 4 MG TABLET 1 TAB PO Q8H PRN NAUSEA (Reported) Oxycodone HCl/Acetaminophen (Percocet 5-325 MG Tablet) 5 MG-325 MG TABLET 1 TAB PO Q6H PRN PAIN (Reported) Pantoprazole Sodium 40 MG TABLET.DR 1 TAB PO DAILY GERD (Reported) Potassium Chloride 10 MEQ TABLET.ER 1 TAB PO DAILY SUPPLEMENT (Reported) Pregabalin (Lyrica) 50 MG CAPSULE 1 CAP PO BID NEUROPATHY (Reported) Sitagliptin Phos/Metformin HCl (Janumet 50-1,000 MG Tablet) 50 MG-1,000 MG TABLET 1 TAB PO BID DM (Reported) Sodium Chloride (Deep Sea) 0.65 % SPRAY 2 SPRAY MARCI Q4P PRN CONGESTION Triage Note: PT BIBA FROM [facility] C/O RASH TO LEGS, GROIN, AND BUTTOCKS. PT ALSO STATES HE WAS JUST ADMITTED AT [place] FOR CELLULITIS TO BOTH LEGS. PT ATTENDS WOUND CLINIC AT [place]. PT STATES PAIN IS 10/10. PT ALSO STATES THAT HE IS NOT HAPPY AT [facility] AND WANTS TO DO WHATEVER HE CAN TO GET INTO [facility] [place]. "YOU NEED TO GET YOUR CASE MANAGEMENT INVOLVED BECAUSE IM NOT HAPPY". Triage Nurses Notes Reviewed? yes Onset: Abrupt Duration: unknown duration Severity: moderate No Modifying Factors: none HPI: This is a 51-year-old male who presents to the ER via EMS from [facility] stating that he doesn't want stay there anymore and he wants to be transferred to Hospital. He was just discharged from [facility] after extremity cellulitis. He states that they don't clean him well, they wanted to use aware lift transfer him and that he can't lie down on his bed. He states that they don't treat him well and wants to go to [facility]. Past History Travel History Traveled to [place] past 21 day No Medical History Any Pertinent Medical History? see below for history Neurological: CVA, TIA, PERIPHERAL NEUROPATHY EENT: NONE Cardiovascular: CAD, diastolic CHF, hyperlipidemia, myocardial infarction (s/p MA), PVD, systolic CHF, AFIB on eloquis (paroxysmal) Respiratory: COPD, ANA (no cpap) Gastrointestinal: GERD, lactose intolerance, ENTERITIS Hepatic: NONE Renal: nephrolithiasis, acute kidney failure Musculoskeletal: hx WOUND VAC leg wounds SKIN GRAFTS TO R LEG R & L hand contractures R inner foot-st 3 ulcer gait impairment Psychiatric: major depressive disorder Endocrine: diabetes (with neuropathy), obesity Blood Disorders: anemia Cancer(s): NONE 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 MOTHER (CAD, DM, DLD and HTN). Hx Contributory? No Review of Systems Review of Systems Constitutional: Denies: chills, fever. EENTM: Reports: no symptoms. Respiratory: Denies: cough. Cardiovascular: Reports: no symptoms. Gastrointestinal/Abdominal: Reports: no symptoms. Genitourinary: Reports: see HPI (GROIN PAIN). Musculoskeletal: Reports: no symptoms. Skin: Reports: no symptoms. Neurological/Psychological: Reports: ataxia, depressed. Hematologic/Endocrine: Denies: polyuria. Immunological: Reports: no symptoms. All Other Systems: Reviewed and Negative Physical Exam Physical Exam General Appearance: well developed/nourished, alert, awake, anxious, mild distress, obese Head: atraumatic Eyes: Bilateral: pale conjunctivae. Ears, Nose, Throat: normal pharynx, abnormal Tympanic (R) Neck: normal inspection, supple, full range of motion Cardiovascular/Respiratory: normal breath sounds Gastrointestinal: SOFT NONTENDER NORMAL GENITALIA Neurologic/Tendon: normal motor functions Skin: intact, warm/dry Progress Differential Diagnosis: PATIENT UNHAPPY WITH CURRENT ACCOMODATIONS, REQUESTING TRANSFER TO DIFFERENT FACILITY Plan of Care: CASE MANAGEMENT INVOLVED. PATIENT TO BE TRANSFERRED BACK TO [facility]. NO INDICATION FOR ADMISSION. WILL ATTEMPT TO HAVE HIM TRANSFERRED FROM [facility] TO [facility]. Departure Departure Time of Disposition: 2224 Disposition: ACUTE REHAB FACILITY Condition: Stable Clinical Impression Primary Impression: Cellulitis Referrals: ARCELIA MARIA,TIM Hernandez (PCP/Family) Departure Forms: Customer Survey General Discharge Information
[2017-01-24 22:31] VITALS: BP 148/91
== END 2017-01-24 22:39 ==
LOC: ERH 20:14
DX: L03.90 Cellulitis, unspecified (principal)

== ENCOUNTER 2017-05-06 06:30 | Emergency (ER) | payer OTHER ==
[~2017-05-06] VITALS: Ht 182.9 cm; Wt 149.7 kg
--- NOTE | 2017-05-06 06:33 | ED GENERAL ADULT ---
History of Present Illness General Chief Complaint: Chest Pain Stated Complaint: BIBA FOR CP Source: patient Exam Limitations: no limitations Vital Signs & Intake/Output Vital Signs & Intake/Output Vital Signs Date Time Temp Pulse Resp B/P B/P Pulse O2 O2 Flow FiO2 Mean Ox Delivery Rate 05/06 1233 98.4 85 20 158/67 100 Nasal 2.0L Cannula 05/06 1034 98.6 81 20 126/60 99 Nasal 3.0L Cannula 05/06 0750 Nasal 3.0L Cannula 05/06 0728 86 22 138/63 98 Nasal 3.0L Cannula 05/06 0637 98.9 83 24 140/63 88 Room Air Room Air Allergies Coded Allergies: hydromorphone (UNKNOWN PER 12/02/16) erythromycin base (Intermediate, ?GI UPSET 03/13/16) gluten (Intermediate, GI UPSET 03/13/16) venom-honey bee (BEE VENOM (HONEY BEE)) (Intermediate, VOMITING 03/13/16) lactose (Mild, GI UPSET 03/13/16) Reconcile Medications Acetaminophen 325 MG TABLET 2 TAB PO Q6H PRN PAIN/TEMP/>101 (Reported) Ammonium Lactate (Amlactin) 12 % LOTION 1 AMY TOP BID SKIN (Reported) Apixaban (Eliquis) 5 MG TABLET 1 TAB PO Q12H BLOOD THINNER (Reported) Aspirin (Ecotrin*) 81 MG TABLET.DR 1 TAB PO DAILY HEART (Reported) Atorvastatin Calcium 80 MG TABLET 80 MG PO 1700 HYPERLIPIDEMIA Bisacodyl 10 MG SUPP.RECT 1 SUP RC PRN GI (Reported) Clopidogrel Bisulfate (Clopidogrel) 75 MG TABLET 1 TAB PO DAILY ANTICOAGULATION (Reported) Collagenase Clostridium Hist. (Santyl) 250 UNIT/GRAM OINT...G. 1 AMY TOP QPM R MEDIAL FOOT (Reported) Dextrose (Glucose Gel) (Unknown Strength) GEL..GRAM. 24 GM PO PRN HYPOGLYCEMIA (Reported) Dicyclomine HCl 20 MG TABLET 1 TAB PO Q6H PRN PAIN (Reported) Diltiazem HCl (Cardizem Cd) 180 MG CAP.ER.24H 1 CAP PO DAILY CHF (Reported) Diltiazem HCl (Diltiazem 24HR ER) 120 MG CAP.ER.24H 1 CAP PO DAILY HR ( Reported) Diphenoxylate HCl/Atropine (Lomotil 2.5-0.025 MG Tablet) 2.5 MG-0.025 MG TABLET 1 TAB PO Q6H PRN DIARRHEA (Reported) Doxycycline Hyclate 100 MG CAPSULE 1 CAP PO BID CELLULITIS BILATERAL LE ( Reported) Fenofibrate Nanocrystallized (Fenofibrate) 145 MG TABLET 1 TAB PO DAILY HPL ( Reported) Furosemide (Lasix) 80 MG TABLET 1 TAB PO BID CHF (Reported) Glucagon,Human Recombinant (Glucagon Emergency Kit) 1 MG KIT 1 MG IM AD PRN HYPOGLYCEMIA (Reported) Guaifenesin/Dextromethorphan (Q-Tussin Dm Syrup) 100 MG-10 MG/5 ML SYRUP 10 ML PO Q4H PRN COUGH (Reported) Insulin Glargine,Hum.rec.anlog (Lantus Solostar) 100 UNIT/ML (3 ML) INSULN.PEN 24 UNIT SC QAM DM (Reported) Insulin Lispro (Humalog) 100 UNIT/ML CARTRIDGE DM (Reported) Ipratropium/Albuterol Sulfate (Iprat-Albut 0.5-3(2.5) MG/3 Ml) 0.5 MG-3 MG (2.5 MG BASE)/3 ML AMPUL.NEB 3 ML PO Q8H PRN SOB (Reported) Lactobacillus Acidophilus (Acidophilus) 1 EACH CAPSULE 1 CAP PO BID PROBIOTIC (Reported) Lactulose 10 GRAM/15 ML SOLUTION 15 ML PO DAILY PRN CONSTIPATION (Reported) Lidocaine (Lidoderm) 5 % ADH..PATCH 1 PAT TOP QHS LEFT HIP (Reported) may wear up to 12 hours Lisinopril (Prinivil) 5 MG TABLET 2 TAB PO DAILY BP (Reported) Loperamide HCl (Loperamide) 2 MG CAPSULE 4 MG PO Q6H PRN DIARRHEA (Reported) Magnesium Hydroxide (Milk Of Magnesia) 400 MG/5 ML ORAL.SUSP 30 ML PO PRN CONSTIPATION (Reported) Metoprolol Tartrate (Lopressor) 50 MG TABLET 1 TAB PO BID HR (Reported) Na Phos,M-B/Na Phos,Di-Ba (Fleet Enema) 19 GRAM-7 GRAM/118 ML ENEMA 1 E RC PRN CONSTIPATION (Reported) Nitroglycerin (Nitrostat) 0.4 MG TAB.SUBL 1 TAB SL AD PRN CHEST PAIN ( Reported) 1st sign of attack; may repeat every 5 minutes until relief; if pain persists after 3 tablets in 15 minutes, prompt medical att Nitroglycerin (Nitroglycerin Patch) 0.4 MG/HOUR PATCH.TD24 0.4 MG TOP DAILY CHEST PAIN APPLY FOR 12 HOURS THEN REMOVE APPLY PATCH SAME TIME EACH DAY Ondansetron HCl (Zofran) 4 MG TABLET 1 TAB PO Q8H PRN NAUSEA (Reported) Oxycodone HCl/Acetaminophen (Percocet 5-325 MG Tablet) 5 MG-325 MG TABLET 1 TAB PO Q6H PRN PAIN (Reported) Pantoprazole Sodium 40 MG TABLET.DR 1 TAB PO DAILY GERD (Reported) Potassium Chloride 10 MEQ TABLET.ER 1 TAB PO DAILY SUPPLEMENT (Reported) Pregabalin (Lyrica) 50 MG CAPSULE 1 CAP PO BID NEUROPATHY (Reported) Sitagliptin Phos/Metformin HCl (Janumet 50-1,000 MG Tablet) 50 MG-1,000 MG TABLET 1 TAB PO BID DM (Reported) Sodium Chloride (Deep Sea) 0.65 % SPRAY 2 SPRAY MARCI Q4P PRN CONGESTION Triage Nurses Notes Reviewed? yes Onset: Abrupt Duration: hour(s): Timing: recent history HPI: 05/06/17 7 AM 52-year-old man presents to the emergency department for chest pain and difficulty breathing According to the patient he was in his usual state of health until earlier today when he was at his senior living facility and he developed left sided chest pain. He said it woke him up from sleep. He also admits to difficulty breathing. The onset of the symptoms was abrupt, the duration was just this morning, the severity was significant as his symptoms required him to come to the emergency department for care (ROSA QUINN DO) Past History Travel History Traveled to [place] past 21 day No Medical History Any Pertinent Medical History? 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 MOTHER (CAD, DM, DLD and HTN). Hx Contributory? No (ROSA QUINN DO) Review of Systems Review of Systems Constitutional: Reports: no symptoms. EENTM: Reports: no symptoms. Respiratory: Reports: cough, short of breath. Cardiovascular: Reports: chest pain, edema. GI: Reports: no symptoms. Genitourinary: Reports: no symptoms. Musculoskeletal: Reports: no symptoms, back pain. Skin: Reports: rash. Neurological/Psychological: Reports: no symptoms. Hematologic/Endocrine: Reports: no symptoms. Immunologic/Allergic: Reports: no symptoms. All Other Systems: Reviewed and Negative (ROSA QUINN DO) Physical Exam Physical Exam General Appearance: alert, awake, anxious, moderate distress Head: atraumatic, normal appearance Eyes: Bilateral: normal appearance, PERRL, EOMI. Ears, Nose, Throat: normal pharynx, normal ENT inspection Neck: normal inspection, supple Respiratory: decreased breath sounds Cardiovascular: regular rate/rhythm Peripheral Pulses: 2+ dorsalis pedis (R), 2+ dorsalis pedis (L) Gastrointestinal: non-tender Back: decreased range of motion Extremities: pedal edema Neurologic/Psych: no motor/sensory deficits, awake, alert, oriented x 3 Skin: rash, staisis dermatitis Core Measures ACS in differential dx? Yes CVA/TIA Diagnosis: No Severe Sepsis Present: No Septic Shock Present: No (ROSA QUINN DO) Progress Differential Diagnoses I considered the following diagnoses in my evaluation of the patient: [Acute coronary syndrome, CHF, pneumonia, pulmonary embolism] Plan of Care: Orders Procedure Date/time Status Consistent Carbohydrate 1 05/06 L Active TROPONIN LEVEL 05/06 1030 Complete EKG 05/06 1030 Active Add-on Test (ER Only) 05/06 0711 Active Add-on Test (ER Only) 05/06 0658 Active D-DIMER 07/30 0646 Complete TROPONIN LEVEL 05/06 642 Complete PROTHROMBIN TIME 05/06 642 Complete COMPREHENSIVE METABOLIC PANEL 05/06 642 Complete CBC WITHOUT DIFFERENTIAL 05/06 642 Complete B-TYPE NATRIURETIC PEP (BNP) 05/06 642 Complete EKG 05/06 632 Active Current Medications Sig/Ysabel Start time Last Medication Dose Stop Time Status Admin Aspirin 81 MG ONCE ONE 05/06 0700 CAN (Aspirin) 05/06 07 Laboratory Tests 05/06/17 1020: Troponin I 0.02 05/06/17 0646: Anion Gap 11, Estimated GFR 42 L, BUN/Creatinine Ratio 15.9, Glucose 108 H, Calcium 9.0, Total Bilirubin 1.2, AST 50, ALT 28, Alkaline Phosphatase 82, Troponin I 0.02, Opu-G-Illwjdxwhch Pept 4220 H, Total Protein 6.4, Albumin 3.6, Globulin 2.8, Albumin/Globulin Ratio 1.3, PT 27.7 H, INR 2.66 H, D-Dimer High Sensitivty 738 H, CBC w Diff NO MAN DIFF REQ, RBC 3.52 L, MCV 83.5, MCH 27.0, RDW 19.9 H, MPV 9.8, Gran % 78.4 H, Lymphocytes % 6.6 L, Monocytes % 11.5 H, Eosinophils % 2.5, Basophils % 1.0, Absolute Granulocytes 4.6, Absolute Lymphocytes 0.4 L, Absolute Monocytes 0.7 H, Absolute Eosinophils 0.1, Absolute Basophils 0.1, PUBS MCHC 32.4 L 7:15 AM Patient signed out to me by Dr. Quinn. Pending abscess, x-ray. TROPONIN X 2 NEGATIVE. NO ACUTE DISTRESS. (ANA MARIA,SIVA) Initial ED EKG: NSR, poor R wave progression, no change Prior EKG: unchanged (ROSA QUINN DO) Diagnostic Imaging: Viewed by Me: Radiology Read. Discussed w/RAD: Radiology Read. CXR Impression: PATIENT: WILLIAM WRIGHT PRESENT AGE: 52 PATIENT ACCOUNT NO: [id number] : 64 LOCATION: [facility] ORDERING PHYSICIAN: ROSA QUINN DO SERVICE DATE: 05/06/17 EXAM TYPE: RAD - XRY- PORTABLE CHEST XRAY EXAMINATION: XR PORTABLE CHEST CLINICAL INFORMATION: 52-year -old male patient with hypoxia and shortness of breath. COMPARISON: Chest x-rays done 10/15/2016 and 12/02/2016. TECHNIQUE: Portable AP semierect view of the chest was obtained. FINDINGS: The heart remains enlarged. There is evidence of early interstitial pulmonary edema without evidence of airspace edema. Areas of platelike atelectasis persist in the left lower lobe. Sternotomy wires are in place. There is no pleural effusion. IMPRESSION: Early perivascular edema attributed to CHF. DICTATED BY: XOCHILT JENNINGS MD DATE/TIME DICTATED:05/06/17722 CHEMICAL INSPECTOR:MIKAEL DATE/TIME TRANSCRIBED:05/06/17722 CONFIDENTIAL, DO NOT COPY WITHOUT APPROPRIATE AUTHORIZATION. <Electronically signed in Other Vendor System> SIGNED BY: XOCHILT JENNINGS MD 05/06/17 0734 Repeat EKG: unchanged (SIVA BENJAMIN MD) Departure Departure Condition: Stable Clinical Impression Primary Impression: Chest pain Secondary Impressions: Dyspnea Referrals: ARCELIA MARIA,TIM Hernandez (PCP/Family) Departure Forms: Customer Survey General Discharge Information Comments Patient was placed on a monitor. Labs were sent. Aspirin was given. Chest x- ray was ordered EKG was done and reveals no acute changes. The patient was signed out to Dr. Benjamin at 7 AM. (ROSA QUINN DO) Departure Disposition: [facility] (ACUTE) (SIVA BENJAMIN MD) Critical Care Note Critical Care Note Critical Care Time: non-applicable (ROSA QUINN DO)
[2017-05-06 06:54] LABS: ABSOLUTE BASOPHIL COUNT 0.1 /CUMM (0.0-0.2); ABSOLUTE EOSINOPHIL COUNT 0.1 /CUMM (0.0-0.7); ABSOLUTE GRANULOCYTE CT 4.6 /CUMM (1.4-6.5); ABSOLUTE LYMPH COUNT 0.4 /CUMM (1.2-3.4); ABSOLUTE MONOCYTE COUNT 0.7 /CUMM (0.10-0.60); EOSINOPHIL % 2.5 % (0-5); GRANULOCYTE % 78.4 % (42.2-75.2); HEMATOCRIT 29.4 % (42-52); MEAN CORPUSCULAR HGB CONC 32.4 G/DL (33.0-37.0); MEAN CORPUSCULAR VOLUME 83.5 FL (80.0-94.0); MEAN PLATELET VOLUME 9.8 FL (7.4-10.4); PLATELET COUNT 178 /CUMM (130-400); RBC DISTRIBUTION WIDTH 19.9 % (11.5-14.5); RED BLOOD CELL CT 3.52 /CUMM (4.70-6.10); WHITE BLOOD CELL COUNT 5.9 /CUMM (4.8-10.8)
[2017-05-06 07:01] LABS: PT 27.7 SEC (9.4-12.5)
--- NOTE | 2017-05-06 07:34 | RADIOLOGY REPORT ---
EXAMINATION: XR PORTABLE CHEST CLINICAL INFORMATION: 52-year-old male patient with hypoxia and shortness of breath. COMPARISON: Chest x-rays done 10/15/2016 and 12/02/2016. TECHNIQUE: Portable AP semierect view of the chest was obtained. FINDINGS: The heart remains enlarged. There is evidence of early interstitial pulmonary edema without evidence of airspace edema. Areas of platelike atelectasis persist in the left lower lobe. Sternotomy wires are in place. There is no pleural effusion. IMPRESSION: Early perivascular edema attributed to CHF.
[2017-05-06 12:33] VITALS: BP 158/67
== END 2017-05-06 12:37 ==
LOC: ERH 06:30
PROVIDERS: Emergency Medicine
DX: R07.9 Chest pain, unspecified (principal); R06.00 Dyspnea, unspecified
CPT/HCPCS: 93005; 93010; 96372; 96374; J2405

== ENCOUNTER 2017-10-10 17:17 | Inpatient (IN) | payer OTHER ==
[~2017-10-10] VITALS: Ht 182.9 cm; Wt 153.8 kg
[~2017-10-10 17:17] MED LIST changes: -Q-TUSSIN DM SY473 ML PO; +TUSSIN DM COUG237 ML PO
--- NOTE | 2017-10-10 17:33 | ED AMS/SEIZURE/WEAK/DIZZY ---
History of Present Illness General Chief Complaint: General Adult Stated Complaint: BIBA AKF AND WEAKNESS, LEG PAIN, ABD PAIN Source: patient, old records Exam Limitations: no limitations Vital Signs & Intake/Output Vital Signs & Intake/Output Vital Signs Date Time Temp Pulse Resp B/P B/P Pulse O2 O2 Flow FiO2 Mean Ox Delivery Rate 10/10 2116 97.2 71 18 121/57 100 Nasal 2.0L Cannula 10/10 194 97.0 71 18 121/58 100 Nasal 2.0L Cannula 10/10 172 99 Nasal 2.5L Cannula 10/10 172 97.9 74 18 94/51 100 Nasal 2.5L Cannula Allergies Coded Allergies: hydromorphone (UNKNOWN PER 12/02/16) erythromycin base (Intermediate, ?GI UPSET 03/13/16) gluten (Intermediate, GI UPSET 03/13/16) venom-honey bee (BEE VENOM (HONEY BEE)) (Intermediate, VOMITING 03/13/16) lactose (Mild, GI UPSET 03/13/16) Reconcile Medications Acetaminophen 325 MG TABLET 2 TAB PO Q6H PRN PAIN/TEMP/>101 (Reported) Acetaminophen (Acephen) 650 MG SUPP.RECT 1 SUP DC Q6H PRN PAIN/TEMP/>101 ( Reported) Albuterol Sulfate 2.5 MG/3 ML (0.083 %) VIAL.NEB 1 Vial INH/MINI Q4P PRN SOB ( Reported) Apixaban (Eliquis) 5 MG TABLET 1 TAB PO BID BLOOD THINNER (Reported) Ascorbic Acid (Vitamin C) 500 MG CAPSULE 1 CAP PO DAILY SUPPLEMENT (Reported) Aspirin (Ecotrin*) 81 MG TABLET.DR 1 TAB PO DAILY HEART/BLOOD (Reported) Bisacodyl 10 MG SUPP.RECT 1 SUP RC PRN GI (Reported) Cholecalciferol (Vitamin D3) (Vitamin D) 2,000 UNIT TABLET 2 TAB PO DAILY SUPPLEMENT (Reported) Clopidogrel Bisulfate (Clopidogrel) 75 MG TABLET 1 TAB PO DAILY ANTICOAGULATION (Reported) Dextrose (Glucose Gel) (Unknown Strength) GEL..GRAM. (Unknown Dose) PO AD PRN HYPOGLYCEMIA (Reported) Dicyclomine HCl 20 MG TABLET 1 TAB PO Q6H PRN GERD (Reported) Diltiazem HCl (Diltiazem 24HR ER) 120 MG CAP.ER.24H 1 CAP PO DAILY HEART/BP ( Reported) Diphenoxylate HCl/Atropine (Lomotil 2.5-0.025 MG Tablet) 2.5 MG-0.025 MG TABLET 1 TAB PO Q8H PRN DIARRHEA (Reported) Epoetin Tony (Epogen) 10,000 UNIT/ML VIAL 10,000 UNIT SC QFRI CKD (Reported) Fenofibrate Nanocrystallized (Fenofibrate) 145 MG TABLET 1 TAB PO DAILY HPL ( Reported) Ferrous Sulfate 325 MG (65 MG IRON) TABLET 1 TAB PO BID SUPPLEMENT (Reported) Furosemide (Lasix) 80 MG TABLET 1 TAB PO DAILY HEART FAILURE (Reported) Furosemide (Lasix) 80 MG TABLET 1 TAB PO BID DIURETIC (Reported) Glucagon,Human Recombinant (Glucagon Emergency Kit) 1 MG KIT 1 MG IM AD PRN HYPOGLYCEMIA (Reported) Guaifenesin/Dextromethorphan (Tussin Dm Cough & Chest Liquid) 100 MG-10 MG/5 ML SYRUP 10 ML PO Q4H PRN COUGH (Reported) Insulin Glargine,Hum.rec.anlog (Lantus Solostar) 100 UNIT/ML (3 ML) INSULN.PEN 52 UNIT SC QAM DM (Reported) Insulin Lispro (Humalog) 100 UNIT/ML CARTRIDGE DM (Reported) Lactobacillus Acidophilus (Acidophilus) 1 EACH CAPSULE 1 CAP PO Q12H PROBIOTIC (Reported) Lactulose 10 GRAM/15 ML SOLUTION 15 ML PO DAILY PRN CONSTIPATION (Reported) Lidocaine (Lidoderm) 5 % ADH..PATCH 1 PAT TOP QHS LEFT HIP (Reported) may wear up to 12 hours Loperamide HCl (Loperamide) 2 MG CAPSULE 4 MG PO Q6H PRN LOOSE STOOLS ( Reported) Magnesium Hydroxide (Milk Of Magnesia) 400 MG/5 ML ORAL.SUSP 30 ML PO PRN CONSTIPATION (Reported) Magnesium Oxide 400 MG TABLET 1 TAB PO DAILY SUPPLEMENT (Reported) Metoprolol Tartrate (Lopressor) 50 MG TABLET 1 TAB PO BID HR (Reported) Miconazole 5 GM POWDER 1 AMY TOP AD AFFECTED AREA(S) (Reported) Multiple Vitamin (Multivitamins) 1 EACH TABLET 1 TAB PO DAILY SUPPLEMENT ( Reported) Na Phos,M-B/Na Phos,Di-Ba (Fleet Enema) 19 GRAM-7 GRAM/118 ML ENEMA 1 E RC PRN CONSTIPATION (Reported) Nitrofurantoin Macrocrystal (Nitrofurantoin) 50 MG CAPSULE 1 CAP PO BID UTI ( Reported) Nitroglycerin (Nitroglycerin Patch) 0.4 MG/HOUR PATCH.TD24 0.4 MG TOP DAILY CHEST PAIN APPLY FOR 12 HOURS THEN REMOVE APPLY PATCH SAME TIME EACH DAY Ondansetron HCl (Zofran) 4 MG TABLET 1 TAB PO Q8H PRN NAUSEA (Reported) Oxycodone HCl/Acetaminophen (Percocet 5-325 MG Tablet) 5 MG-325 MG TABLET 1 TAB PO Q6H PRN PAIN (Reported) Pantoprazole Sodium 40 MG TABLET.DR 1 TAB PO DAILY GERD (Reported) Potassium Chloride 20 MEQ TAB.ER.PRT 1 TAB PO DAILY SUPPLEMENT (Reported) Pregabalin (Lyrica) 100 MG CAPSULE 1 CAP PO Q12H NERVE PAIN (Reported) Ranolazine (Ranexa) 500 MG TAB.ER.12H 1 TAB PO Q12H ANGINA (Reported) Sitagliptin Phosphate (Januvia) 50 MG TABLET 1 TAB PO QAM DM (Reported) Sodium Chloride (Clarence Saline) 0.65 % DROPS 2 GTT NASB Q4H PRN CONGESTION ( Reported) Triage Note: [facility] PT STAES HE HAD HIS RIGHT HEEL REMOVED AND [facility]. PT IS HYPOTENSIVE UPON ARRIVAL 94/50 PT STATES HIS FEET HAVE BEEN HURTING AND "I GUESS THEY SAID THERE IS SOMETHING WRONG WITH MY KIDNEYS. Triage Nurses Notes Reviewed? yes Onset: Abrupt Duration: day(s): Timing: recent history Injury Environment: home No Modifying Factors: none HPI: 52-year-old male comes into the emergency room for further evaluation sent by care home for her worsening renal failure. Patient has a history of chronic kidney disease. Patient reports that he feels generally weak but denies any chest pain shortness of breath fever chills vomiting. He has chronic pain and vascular issues in his lower legs. Denies any other associated symptoms. (Dez Avalos) Past History Travel History Traveled to [place] past 21 day No Medical History Any Pertinent Medical History? see below for history Neurological: CVA, TIA, PERIPHERAL NEUROPATHY EENT: NONE Cardiovascular: CAD, diastolic CHF, hyperlipidemia, myocardial infarction (s/p OK), NSTEMI, PVD, systolic CHF, AFIB on eloquis (paroxysmal) Respiratory: COPD, ANA (no cpap) Gastrointestinal: GERD, lactose intolerance, ENTERITIS Hepatic: NONE Renal: nephrolithiasis, acute kidney failure CKD Musculoskeletal: hx WOUND VAC leg wounds SKIN GRAFTS TO R LEG R & L hand contractures R inner foot-st 3 ulcer gait impairment Psychiatric: anxiety, major depressive disorder Endocrine: diabetes (with neuropathy), obesity Blood Disorders: anemia 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 MOTHER (CAD, DM, DLD and HTN). Hx Contributory? No (Dez Avalos) Review of Systems Review of Systems Constitutional: Reports: see HPI. EENTM: Reports: no symptoms. Respiratory: Reports: no symptoms. Cardiovascular: Reports: no symptoms. GI: Reports: no symptoms. Genitourinary: Reports: see HPI. Musculoskeletal: Reports: no symptoms. Skin: Reports: no symptoms. Neurological/Psychological: Reports: no symptoms. Hematologic/Endocrine: Reports: no symptoms. Immunologic/Allergic: Reports: no symptoms. All Other Systems: Reviewed and Negative (Dez Avalos) Physical Exam Physical Exam General Appearance: alert, awake, comfortable Head: atraumatic Eyes: Bilateral: normal appearance. Ears, Nose, Throat: normal ENT inspection, hearing grossly normal Neck: normal inspection Respiratory: no respiratory distress Cardiovascular: regular rate/rhythm Gastrointestinal: soft Back: decreased range of motion Extremities: limited range of motion, tenderness, erythema, Neurologic/Psych: awake, alert, oriented x 3 Skin: intact Core Measures ACS in differential dx? Yes CVA/TIA Diagnosis No Sepsis Present: No Sepsis Focused Exam Completed? No (Dez Avalos) Progress Differential Diagnosis: arrythmia, anemia, benign positional vertigo, CVA/stroke , dehydration, encephalitis, electrolyte imbalance, hypoglycemia, pneumonia, presyncope, sepsis Plan of Care: Orders Procedure Date/time Status Regular Diet 10/11 B Active OXYGEN SETUP (GEN) 10/10 2109 Active Saline Lock 10/10 2109 Active Admit to inpatient 10/10 2109 Active Vital Signs 10/10 2109 Active Activity/Ambulation 10/10 2109 Active Code Status 10/10 2109 Active LEUKOCYTE POOR (PACKED CELLS) 10/10 194 Active Add-on Test (ER Only) 10/10 1905 Active TYPE & SCREEN (NOT X-MATCH) 10/10 190 Active BLOOD CULTURE 10/10 173 Active URINALYSIS 10/10 173 Complete LACTIC ACID 10/10 173 Complete HEPATIC FUNCTION PANEL 10/10 173 Complete CBC WITHOUT DIFFERENTIAL 10/10 173 Complete BASIC METABOLIC PANEL 10/10 1732 Complete EKG 10/10 173 Active Current Medications Sig/Ysabel Start time Last Medication Dose Stop Time Status Admin Sodium Chloride 1,000 ML ONCE ONE 10/10 1745 AC 10/10 (Normal Saline 0.9%) 10/11 0704 1750 Laboratory Tests 10/10/172031: Lactic Acid Cancelled 10/10/172002: Urinalysis LIGHT H, Urine Color STRAW, Urine Clarity CLDY H, Urine pH 5.5, Ur Specific [place] 1.020, Urine Protein TRACE H, Urine Ketones NEG, Urine Nitrite POS H, Urine Bilirubin NEG, Urine Urobilinogen 1.0, Ur Leukocyte Esterase LARGE H, Ur Microscopic SEDIMENT EXAMINED, Urine WBC > 75 H, Ur Epithelial Cells FEW , Urine Bacteria MANY H, Urine Hemoglobin MOD H, Urine Glucose NEG 10/10/17 180: Anion Gap 13, Estimated GFR 18 L, BUN/Creatinine Ratio 28.6 H, Glucose 208 H, Lactic Acid 1.6, Calcium 8.7, Total Bilirubin 1.2, Direct Bilirubin 1.1 H, AST 65 H, ALT 46, Alkaline Phosphatase 155 H, Total Protein 6.4, Albumin 3.0 L, CBC w Diff NO MAN DIFF REQ, RBC 3.02 L, MCV 81.5, MCH 26.9 L, RDW 19.6 H, MPV 11.4 H, Gran % 79.8 H, Lymphocytes % 7.9 L, Monocytes % 8.9, Eosinophils % 3.1, Basophils % 0.3, Absolute Granulocytes 7.3 H, Absolute Lymphocytes 0.7 L, Absolute Monocytes 0.8 H, Absolute Eosinophils 0.3, Absolute Basophils 0, PUBS MCHC 33.0 Microbiology 10/10 1841 BLOOD: Blood Culture - RECD 10/10 173 BLOOD: Blood Culture - ORD Diagnostic Imaging: Viewed by Me: Radiology Read. Discussed w/RAD: Radiology Read. Radiology Impression: PATIENT: JIM WRIGHT PRESENT AGE: 52 PATIENT ACCOUNT NO: [id number] : 64 LOCATION: [facility] ORDERING PHYSICIAN: Dez PRIDE SERVICE DATE: 10/10/17 EXAM TYPE: RAD - XRY-PORTABLE CHEST XRAY EXAMINATION: CHEST 1 VIEW CLINICAL INFORMATION: Hypotension. COMPARISON: 05/06/2017. TECHNIQUE: An AP view of the chest is provided. FINDINGS: The cardiac silhouette is prominent, though stable. Intact midline sternal wires are present. The mediastinal and hilar contours are unremarkable. There are neither pleural effusions nor pneumothoraces. There is streaky opacification within the left lower lung zone. The osseous structures are unremarkable. IMPRESSION: Streaky opacification within the left lower lung zone. This is nonspecific, but could correspond to atelectasis, though a developing infiltrate is difficult to exclude. Recommendation is for a followup chest series to be obtained following treatment and/or resolution of symptoms to assure resolution of this appearance. DICTATED BY: Jim Mendoza MD DATE/TIME DICTATED:10/10/171808 AGRICULTURAL SPECIALIST:MIKAEL DATE/TIME TRANSCRIBED:1808 CONFIDENTIAL, DO NOT COPY WITHOUT APPROPRIATE AUTHORIZATION. < Electronically signed in Other Vendor System> SIGNED BY: Jim Mendoza MD 10/10/171812 Initial ED EKG: normal sinus rhythm, rate (72), nonspecific ST T wave chg (Rober PRIDE,Dez) Departure Departure Disposition: STILL A PATIENT Condition: Stable Clinical Impression Primary Impression: Acute kidney injury Secondary Impressions: Symptomatic anemia Referrals: Meghan MARIA,Surinder Hernandez (PCP/Family) Departure Forms: Customer Survey General Discharge Information Admission Note Spoke With: Jamshid Krause MD Documentation of Exam: Documentation of any treatments & extenuating circumstances including Concerns Regarding Discharge (functional status, medication knowledge or non-compliance, living conditions, etc.) that warrant an admission rather than observation: Patient will require blood transfusion. Gentle IV hydration. Nephrology consultation. Close observation of vital signs. Repeat labs. High risk. Medically not safe for discharge. (Dez Avalos) PA/PRODUCTION TOOL ENGINEER Co-Sign Statement Statement: ED Attending supervision documentation- x I saw and evaluated the patient. I have also reviewed all the pertinent lab results and diagnostic results. I agree with the findings and the plan of care as documented in the PA's/PRODUCTION TOOL ENGINEER's documentation. [] I have reviewed the ED Record and agree with the PA's/PRODUCTION TOOL ENGINEER's documentation. [] Additions or exceptions (if any) to the PAs/PRODUCTION TOOL ENGINEER's note and plan are summarized below: [] (Charles MARIA,Otto)
--- NOTE | 2017-10-10 18:13 | RADIOLOGY REPORT ---
EXAMINATION: CHEST 1 VIEW CLINICAL INFORMATION: Hypotension. COMPARISON: 05/06/2017. TECHNIQUE: An AP view of the chest is provided. FINDINGS: The cardiac silhouette is prominent, though stable. Intact midline sternal wires are present. The mediastinal and hilar contours are unremarkable. There are neither pleural effusions nor pneumothoraces. There is streaky opacification within the left lower lung zone. The osseous structures are unremarkable. IMPRESSION: Streaky opacification within the left lower lung zone. This is nonspecific, but could correspond to atelectasis, though a developing infiltrate is difficult to exclude. Recommendation is for a followup chest series to be obtained following treatment and/or resolution of symptoms to assure resolution of this appearance.
[2017-10-10 18:17] LABS: ABSOLUTE BASOPHIL COUNT 0 /CUMM (0.0-0.2); ABSOLUTE EOSINOPHIL COUNT 0.3 /CUMM (0.0-0.7); ABSOLUTE GRANULOCYTE CT 7.3 /CUMM (1.4-6.5); ABSOLUTE LYMPH COUNT 0.7 /CUMM (1.2-3.4); ABSOLUTE MONOCYTE COUNT 0.8 /CUMM (0.10-0.60); BASOPHIL % 0.3 % (0.0-2.0); EOSINOPHIL % 3.1 % (0-5); GRANULOCYTE % 79.8 % (42.2-75.2); HEMATOCRIT 24.6 % (42-52); MEAN CORPUSCULAR HGB 26.9 PG (27.0-31.0); MEAN CORPUSCULAR VOLUME 81.5 FL (80.0-94.0); MEAN PLATELET VOLUME 11.4 FL (7.4-10.4); PLATELET COUNT 180 /CUMM (130-400); RBC DISTRIBUTION WIDTH 19.6 % (11.5-14.5); RED BLOOD CELL CT 3.02 /CUMM (4.70-6.10); WHITE BLOOD CELL COUNT 9.1 /CUMM (4.8-10.8)
[2017-10-10] MEDS ORDERED: NITROFURANTOIN50 M1 PO (18:18)
[2017-10-10] MEDS ORDERED: AYR SALINE50 M1 NASB (18:23)
[2017-10-10] MEDS ORDERED: ALBUTEROL2.5 MG/3 M INH/SOL (18:24)
[2017-10-10] MEDS ORDERED: JANUVIA50 M1 PO (18:27)
[2017-10-10] MEDS ORDERED: LYRICA100 M1 PO (18:28)
[2017-10-10] MEDS ORDERED: FERROUS SULFAT325 M3 PO (18:28)
[2017-10-10] MEDS ORDERED: EPOGEN10000 UNIT SC (18:33)
[2017-10-10] MEDS ORDERED: MAGNESIUM OXID400 M1 PO (18:37)
[2017-10-10] MEDS ORDERED: CLOPIDOGREL75 M1 PO (18:38)
[2017-10-10] MEDS ORDERED: VITAMIN D2000 UNI1 PO (18:38)
[2017-10-10] MEDS ORDERED: POTASSIUM CHLO20 ME2 PO (18:39)
[2017-10-10] MEDS ORDERED: DILTIAZEM 12HR120 MG PO (18:40)
[2017-10-10] MEDS ORDERED: VITAMIN C500 M9 PO (18:41)
[2017-10-10] MEDS ORDERED: MULTIVITAMINS1 EAC9 PO (18:41)
[2017-10-10] MEDS ORDERED: MICONAZOLE5 GM TOP (18:42)
[2017-10-10] MEDS ORDERED: RANEXA500 M1 PO (18:44)
[2017-10-10] MEDS ORDERED: LASIX80 M1 PO (18:45)
[2017-10-10] MEDS ORDERED: GLUCOSE GEL38 GM PO (18:53)
[2017-10-10] MEDS ORDERED: ACEPHEN650 M1 PR (18:56)
--- NOTE | 2017-10-10 22:37 | History & Physical ---
Almas MARIA,[facility] 10/10/17 2767: General Information and HPI MD Statement: I have seen and personally examined WILLIAM MAY and documented this H&P. The patient is a 52 year old M who presented with a patient stated chief complaint of [SPIKE]. Source of Information: patient, W10 Exam Limitations: no limitations History of Present Illness: Mr. May is a 51-year-old gentleman with past medical history significant for CVA, TIA, peripheral neuropathy, paroxysmal atrial fibrillation, coronary artery disease, diastolic congestive heart failure, hypertension, hyperlipidemia, PR status post CABG in May 2014, COPD(on oxygen), obstructive sleep apnea(not on CPAP), enteritis, chronic leg wound status post skin grafting, diabetes complicated with neuropathy, obesity, was sent in from the long-term for her worsening renal failure. According to the patient, he has recently been feeling weak, lethargic and was bedbound(even though he has been on wheelchair for the past 2 years). He had 2 episodes of diarrhea which stopped after taking Lomotil. Also reports weeping and redness of left lower extremities for the past couple of days. Denies any fevers/chills, nausea, vomiting, chest pain, shortness of breath, lightheadedness/dizziness, recent change in medications or recent antibiotic use. Patient states he uses oxygen off when lying down. Per the long-term, patient was sent to the hospital as he had a MAXIMUM TEMPERATURE of 101.9 on October 07, urine culture grew ESBL Escherichia coli and was found to have a creatinine level of 3.5. Allergies/Medications Allergies: Coded Allergies: hydromorphone (UNKNOWN PER 12/02/16) erythromycin base (Intermediate, ?GI UPSET 03/13/16) gluten (Intermediate, GI UPSET 03/13/16) venom-honey bee (BEE VENOM (HONEY BEE)) (Intermediate, VOMITING 03/13/16) lactose (Mild, GI UPSET 03/13/16) Home Med list Acetaminophen 325 MG TABLET 2 TAB PO Q6H PRN PAIN/TEMP/>101 (Reported) Acetaminophen (Acephen) 650 MG SUPP.RECT 1 SUP AK Q6H PRN PAIN/TEMP/>101 ( Reported) Albuterol Sulfate 2.5 MG/3 ML (0.083 %) VIAL.NEB 1 Vial INH/MINI Q4P PRN SOB ( Reported) Apixaban (Eliquis) 5 MG TABLET 1 TAB PO BID BLOOD THINNER (Reported) Ascorbic Acid (Vitamin C) 500 MG CAPSULE 1 CAP PO DAILY SUPPLEMENT (Reported) Aspirin (Ecotrin*) 81 MG TABLET.DR 1 TAB PO DAILY HEART/BLOOD (Reported) Bisacodyl 10 MG SUPP.RECT 1 SUP RC PRN GI (Reported) Cholecalciferol (Vitamin D3) (Vitamin D) 2,000 UNIT TABLET 2 TAB PO DAILY SUPPLEMENT (Reported) Clopidogrel Bisulfate (Clopidogrel) 75 MG TABLET 1 TAB PO DAILY ANTICOAGULATION (Reported) Dextrose (Glucose Gel) (Unknown Strength) GEL..GRAM. (Unknown Dose) PO AD PRN HYPOGLYCEMIA (Reported) Dicyclomine HCl 20 MG TABLET 1 TAB PO Q6H PRN GERD (Reported) Diltiazem HCl (Diltiazem 24HR ER) 120 MG CAP.ER.24H 1 CAP PO DAILY HEART/BP ( Reported) Diphenoxylate HCl/Atropine (Lomotil 2.5-0.025 MG Tablet) 2.5 MG-0.025 MG TABLET 1 TAB PO Q8H PRN DIARRHEA (Reported) Epoetin Tony (Epogen) 10,000 UNIT/ML VIAL 10,000 UNIT SC QFRI CKD (Reported) Fenofibrate Nanocrystallized (Fenofibrate) 145 MG TABLET 1 TAB PO DAILY HPL ( Reported) Ferrous Sulfate 325 MG (65 MG IRON) TABLET 1 TAB PO BID SUPPLEMENT (Reported) Furosemide (Lasix) 80 MG TABLET 1 TAB PO DAILY HEART FAILURE (Reported) Furosemide (Lasix) 80 MG TABLET 1 TAB PO BID DIURETIC (Reported) Glucagon,Human Recombinant (Glucagon Emergency Kit) 1 MG KIT 1 MG IM AD PRN HYPOGLYCEMIA (Reported) Guaifenesin/Dextromethorphan (Tussin Dm Cough & Chest Liquid) 100 MG-10 MG/5 ML SYRUP 10 ML PO Q4H PRN COUGH (Reported) Insulin Glargine,Hum.rec.anlog (Lantus Solostar) 100 UNIT/ML (3 ML) INSULN.PEN 52 UNIT SC QAM DM (Reported) Insulin Lispro (Humalog) 100 UNIT/ML CARTRIDGE DM (Reported) Lactobacillus Acidophilus (Acidophilus) 1 EACH CAPSULE 1 CAP PO Q12H PROBIOTIC (Reported) Lactulose 10 GRAM/15 ML SOLUTION 15 ML PO DAILY PRN CONSTIPATION (Reported) Lidocaine (Lidoderm) 5 % ADH..PATCH 1 PAT TOP QHS LEFT HIP (Reported) may wear up to 12 hours Loperamide HCl (Loperamide) 2 MG CAPSULE 4 MG PO Q6H PRN LOOSE STOOLS ( Reported) Magnesium Hydroxide (Milk Of Magnesia) 400 MG/5 ML ORAL.SUSP 30 ML PO PRN CONSTIPATION (Reported) Magnesium Oxide 400 MG TABLET 1 TAB PO DAILY SUPPLEMENT (Reported) Metoprolol Tartrate (Lopressor) 50 MG TABLET 1 TAB PO BID HR (Reported) Miconazole 5 GM POWDER 1 AMY TOP AD AFFECTED AREA(S) (Reported) Multiple Vitamin (Multivitamins) 1 EACH TABLET 1 TAB PO DAILY SUPPLEMENT ( Reported) Na Phos,M-B/Na Phos,Di-Ba (Fleet Enema) 19 GRAM-7 GRAM/118 ML ENEMA 1 E RC PRN CONSTIPATION (Reported) Nitrofurantoin Macrocrystal (Nitrofurantoin) 50 MG CAPSULE 1 CAP PO BID UTI ( Reported) Nitroglycerin (Nitroglycerin Patch) 0.4 MG/HOUR PATCH.TD24 0.4 MG TOP DAILY CHEST PAIN APPLY FOR 12 HOURS THEN REMOVE APPLY PATCH SAME TIME EACH DAY Ondansetron HCl (Zofran) 4 MG TABLET 1 TAB PO Q8H PRN NAUSEA (Reported) Oxycodone HCl/Acetaminophen (Percocet 5-325 MG Tablet) 5 MG-325 MG TABLET 1 TAB PO Q6H PRN PAIN (Reported) Pantoprazole Sodium 40 MG TABLET.DR 1 TAB PO DAILY GERD (Reported) Potassium Chloride 20 MEQ TAB.ER.PRT 1 TAB PO DAILY SUPPLEMENT (Reported) Pregabalin (Lyrica) 100 MG CAPSULE 1 CAP PO Q12H NERVE PAIN (Reported) Ranolazine (Ranexa) 500 MG TAB.ER.12H 1 TAB PO Q12H ANGINA (Reported) Sitagliptin Phosphate (Januvia) 50 MG TABLET 1 TAB PO QAM DM (Reported) Sodium Chloride ([place] Saline) 0.65 % DROPS 2 GTT NASB Q4H PRN CONGESTION ( Reported) Past History Travel History Traveled to [place] past 21 day No Medical History Neurological: CVA, TIA, PERIPHERAL NEUROPATHY EENT: NONE Cardiovascular: CAD, diastolic CHF, hyperlipidemia, myocardial infarction (s/p PR), NSTEMI, PVD, systolic CHF, AFIB on eloquis (paroxysmal) Respiratory: COPD, ANA (no cpap) Gastrointestinal: GERD, lactose intolerance, ENTERITIS Hepatic: NONE Renal: nephrolithiasis, acute kidney failure CKD Musculoskeletal: hx WOUND VAC leg wounds SKIN GRAFTS TO R LEG R & L hand contractures R inner foot-st 3 ulcer gait impairment Psychiatric: anxiety, major depressive disorder Endocrine: diabetes (with neuropathy), obesity Blood Disorders: anemia Cancer(s): NONE 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 MOTHER (CAD, DM, DLD and HTN). Psychosocial History Where do you live? Residential Facility Who Do You Live With? sister Services at Home: Nursing, Oxygen, Physical Therapy Smoking Status: Current Everyday Smoker ETOH Use: occasional use Illicit Drug Use: marijuana (in past) Living Will? no Functional Ability ADLs Independent: eating. Needs Assist: dressing, toileting, bathing. Ambulation: walker IADLs Independent: telephone, medication admin. Needs Assist: shopping, housework, food prep, transportation. Unknown: finances. Review of Systems Review of Systems Constitutional: Reports: malaise, weakness. EENTM: Reports: no symptoms. Cardiovascular: Reports: no symptoms. Respiratory: Reports: no symptoms. GI: Reports: no symptoms. Genitourinary: Reports: no symptoms. Musculoskeletal: Reports: see HPI. Skin: Reports: erythema. Neurological/Psychological: Reports: no symptoms. Hematologic/Endocrine: Reports: no symptoms. Immunologic/Allergic: Reports: no symptoms. All Other Systems: Reviewed and Negative Exam & Diagnostic Data Last 24 Hrs of Vital Signs/I&O Vital Signs Date Time Temp Pulse Resp B/P B/P Pulse O2 O2 Flow FiO2 Mean Ox Delivery Rate 10/11 0302 98.1 80 18 126/74 99 Nasal 2.0L Cannula 10/11 0230 Nasal 2.5L Cannula 10/11 0049 100 Room Air 10/11 0048 96.3 77 20 115/57 100 Room Air 10/107 97.0 86 18 117/58 100 Nasal 2.0L Cannula 10/10 2116 97.2 71 18 121/57 100 Nasal 2.0L Cannula 10/10 194 97.0 71 18 121/58 100 Nasal 2.0L Cannula 10/10 1726 99 Nasal 2.5L Cannula 10/10 172 97.9 74 18 94/51 100 Nasal 2.5L Cannula Intake & Output 10/11 0800 10/11 0000 10/10 1600 Intake Total 690 0 Output Total 550 Balance 140 0 Intake, Blood 350 Product Intake, Oral 340 0 Output, Urine 550 Patient 340 lb 332 lb Weight Weight Bed scale Reported by Patient Measurement Method Physical Exam General Appearance Alert, Oriented X3, Cooperative, No Acute Distress Skin No Rashes, No Breakdown HEENT Atraumatic, PERRLA, EOMI, dry mmucous membranes Neck Supple, No JVD, No thryomegaly Cardiovascular Regular Rate, Normal S1, Normal S2 Lungs Clear to Auscultation, Normal Air Movement Abdomen Normal Bowel Sounds, Soft, No Tenderness Extremities No Clubbing, chronic venous stasis changes bilaterally , erythema or tenderness and oozing wounds on the left leg Last 24 Hrs of Labs/Tanvir: Laboratory Tests 10/10/172241: Ur Random Creatinine Cancelled, Ur Random Sodium Cancelled, Ur Random Potassium Cancelled, Fraction Sodium Excret Cancelled 10/10/172031: Lactic Acid Cancelled 10/10/172002: Urinalysis LIGHT H, Urine Color STRAW, Urine Clarity CLDY H, Urine pH 5.5, Ur Specific [place] 1.020, Urine Protein TRACE H, Urine Ketones NEG, Urine Nitrite POS H, Urine Bilirubin NEG, Urine Urobilinogen 1.0, Ur Leukocyte Esterase LARGE H, Ur Microscopic SEDIMENT EXAMINED, Urine WBC > 75 H, Ur Epithelial Cells FEW , Urine Bacteria MANY H, Urine Hemoglobin MOD H, Urine Glucose NEG 10/10/172002: Urine Osmolality 384, Ur Random Creatinine 72.4, Ur Random Sodium 27 L, Ur Random Potassium 32.4, Fraction Sodium Excret 0.9 10/10/17 180: Anion Gap 13, Estimated GFR 18 L, BUN/Creatinine Ratio 28.6 H, Glucose 208 H, Lactic Acid 1.6, Calcium 8.7, Total Bilirubin 1.2, Direct Bilirubin 1.1 H, AST 65 H, ALT 46, Alkaline Phosphatase 155 H, Total Protein 6.4, Albumin 3.0 L, CBC w Diff NO MAN DIFF REQ, RBC 3.02 L, MCV 81.5, MCH 26.9 L, RDW 19.6 H, MPV 11.4 H, Gran % 79.8 H, Lymphocytes % 7.9 L, Monocytes % 8.9, Eosinophils % 3.1, Basophils % 0.3, Absolute Granulocytes 7.3 H, Absolute Lymphocytes 0.7 L, Absolute Monocytes 0.8 H, Absolute Eosinophils 0.3, Absolute Basophils 0, PUBS MCHC 33.0 Microbiology 10/10 2346 URINE ROUT: Urine Culture - ORD 10/10 1841 BLOOD: Blood Culture - RECD 10/10 1732 BLOOD: Blood Culture - COLB Assessment/Plan Assessment: Mr. May is a 51-year-old gentleman with past medical history significant for CVA, TIA, peripheral neuropathy, paroxysmal atrial fibrillation, coronary artery disease, diastolic congestive heart failure, hypertension, hyperlipidemia, PR status post CABG in May 2014, COPD(on oxygen), obstructive sleep apnea(not on CPAP), enteritis, chronic leg wound status post skin grafting, diabetes complicated with neuropathy, obesity, was sent in from the long-term for her worsening renal failure. A/P; 1. Acute kidney injury; likely prerenal -Start gentle IV hydration at a rate of 75 ML's per hour - Hold Lasix for now - We'll check urine electrolytes, FeNa - Renal ultrasound; patient reports difficulty initiating urination, could be an enlarged prostate causing obstruction. - Nephrology consult 2. Anemia - Patient has an H&H of 8.5/24.6 - Serum iron 27, TIBC 443, ferritin 66.1 - We will transfuse 1 unit of blood and monitor H&H - Positive stool guaiac - GI consult 3. Urinary tract infection - Patient's urine culture grew ESBL positive Escherichia coli sensitive to nitrofurantoin. -We'll hold off on nitrofurantoin as the patient is currently asymptomatic. 4. Cellulitis - We'll hold off on the antibiotics for now, if the patient spikes fever or has a white count, we will start him on antibiotics. 5. Sacral decubitus ulcer - Wound care consult 6. Diabetes - We'll hold oral hypoglycemic - Start the patient on insulin sliding scale and Accu-Cheks 7. Chronic medical conditions; - We will continue home medications DVT prophylaxis; Alps Patient is full code As Ranked By This Provider Problem List: 1. SPIKE (acute kidney injury) 2. Cellulitis Core Measures/Misc (06/24) Acute Coronary Syndrome ACS Diagnosis: No Congestive Heart Failure Congestive Heart Failure Diagnosis No Cerebrovascular Accident CVA/TIA Diagnosis: No VTE (View Protocol) VTE Risk Factors Age>40 No Mechanical VTE Prophylaxis d/t Physical Contraindication No VTE Pharm Prophylaxis d/t NA PharmProphylax ordered Sepsis (View protocol) Sepsis Present: No Clotilde Alba 10/11/17 0447: Resident Review Statement Resident Statement: examined this patient, discussed with internal specialist, agreed with internal specialist Other Findings: Patient is a 51-year-old gentleman with a past medical significan for CAD s/p PCI (LAD, RCA) & CABG(2013), HTN, HLD, paroxysmal A.fib not on anticoagulation, chronic diastolic heart failure, , TIA, ANA (not on CPAP),chronic leg wound status post skin grafting, diabetes complicated with neuropathy, obesity presented from [facility] with a chief complaints of worsening weakness and lethargy. As per patient he has been feeling weak and lethargic for the last couple of days. Reported 2 episodes of diarrhea the facility that resolved after taking Lomotil. His appetite has been poor as well. Also patient mentioned that he has been having worsening redness in the right lower extremity with open weeping wounds for the last 5 days. Reported chills without any fever. He had a vascular procedure done last month by Dr. Rodriguez and usually goes to wound clinic every week for debridement of his chronic wounds. He is bedbound for the last 2 years and has chronic back/coccyx wounds. Denies any chest discomfort or breathing palpitations denied any nausea vomiting abdominal discomfort, no urinary complaints. Upon inquiring from nursing staff, patient had a documented temperature of 101.9 at the facility blood work done at the facility revealed evidence of SPIKE with urine cultures positive for ESBL ( he was started on nitrofurantoin-didn't take the yet). Initial vitals on admission to be 97.9, pulse 74, respiratory rate 18, blood pressure 194/51 on 2.5 l ru nasal cannula. On examination General Appearance:alert oriented 3 not in acute distress. Skin: Grossly normal HEENT: PEERLA Neck: Supple, No JVD Cardiovascular: Regular Rate, Normal S1, Normal S2, systolic murmur in the second right intercostal space. Lungs: Equal breath sounds bilaterally on lung exam without any rhonchi or wheeze Abdomen: Normal Bowel Sounds, Soft, lower abdominal tenderness. Neurological: Normal Speech, Strength at 5/5 X4 Ext, Cranial Nerves 3-12 NL, Reflexes 2+ Extremities: Bilateral leg swelling 2+ with open weeping wounds , foul smelling on the right lower extremity covered in wraps. Pertinent labs on admission No evidence of leukocytosis H&H low at 8.1/24.6 with MCV of 81.5 and elevated RDW 19.6(positive guaiac), BUN and creatinine 100/3.5 elevated ALP 155 Urinalysis positive for leukocyte esterase, Chest x-ray: Streaky opacification within the left lower lung zone. This is nonspecific, but could correspond to atelectasis, though a developing infiltrate is difficult to exclude. Problem list Acute kidney injury(prerenal) in the setting of severe dehydration and diuretic use. Acute on chronic blood loss anemia Right lower extremity swelling and redness with open foul smelling weeping wounds(?cellulitis/venous stasis/vasculitis). Asymptomatic bacteriuria (ESBL positive urine cultures) History of paroxysmal atrial fibrillation on anticoagulation Unstageable coccyx decubitus skin wound/ulcer on admission History of diabetes mellitus resulted in neuropathy Plan Acute kidney injury(prerenal) in the setting of severe dehydration and diuretic use. * Admit the patient [facility] floor. * Hold Lasix. * Continue gentle hydration 75 mL per hour(1 L only), to prevent fluid overload due to the history of heart failure. * Obtain nephrology consult * Obtaining an ultrasound to rule out any underlying hydronephrosis/obstruction/ BPH. Acute on chronic anemia(iron deficiency anemia/GI bleeding) * Guaiac positive for blood. * Iron studies showed(iron 27, TIBC 443, ferritin 66.1) * Patient has been transfused 1 unit of packed RBC, continue to monitor H&H watch for any active signs of bleed. * Patient refused to see tourist information officer while in the hospital. Right lower extremity swelling and redness with open foul smelling weeping wounds(?cellulitis/venous stasis/vasculitis). * Start the patient on IV Unasyn. * obtain wound consult. * Will obtain wound consult obtained soft tissue ultrasound and arterial ultrasound to further investigate peripheral vascular disease. * consider vascular consult. * vitals every 4 hrs. Asymptomatic bacteriuria (ESBL positive urine cultures) * As patient is currently afebrile without evidence of leukocytosis, will hold off nitrofurantoin History of paroxysmal atrial fibrillation * Decrease the dose of elliquis to 2.5 mg twice a day. * continue Cardizem and metoprolol. History of diabetes mellitus resulted in neuropathy: * Start the patient on NovoLog sliding scale with Levemir 25 mg twice a day * Continue Accu-Cheks Unstageable coccyx decubitus skin wound/ulcer on admission * Obtain wound consult. * continue wound care with clean dry dressings and santyl cream DVT prophylaxis:elliquis Pain control with IV Tylenol oxycodone Patient is full code Jamshid Krause 10/11/17 0629: Attending MD Review Statement Attending Statement Attending MD Statement: examined this patient, discuss w/resident/PA/GROCERY SACKER, agreed w/resident/PA/GROCERY SACKER, reviewed EMR data (avail), reviewed images, amended to note Attending Assessment/Plan: CC: Weakness PMH: COPD on intermittent oxygen, HTN, CVA, HF, paroxysmal A. fib, HLD, CAD S/P PR S/P CABG and stents, DM, ANA, lactose intolerance, ?history of VRE Patient is poor historian and states that he was sent from long-term for elevated creatinine. Patient follows up with cyber policy and strategy planner, desktop support engineer, vascular surgeon/wound care for multiple comorbidities. Other than elevated kidney function patient does not provide any complaints. Upon further probing patient endorses diarrhea approximately 2 days back, stopped after low motility, he had several watery bowel movements. Then he also mentions that he had a fever that was treated with Tylenol the long-term. When we called long-term they suggested that patient has been having simply weakness, lethargy since last 2 days, had fever of 101.5 so blood cultures and urine cultures were sent and labs were obtained which showed worsening of creatinine so patient was sent to ER. Meanwhile his urine culture showing ESBL Escherichia coli but sensitive to nitrofurantoin, today patient was started on nitrofurantoin. Of note patient is not aware of any recent antibiotic use. He states that approximately a month back he underwent a vascular procedure for right lower extremity, he goes for debridement every week to the clinic and has chronic nonhealing right heel ulcer , multiple superficial lesions on the right lower extremity with swelling and redness which has been chronic and off and on. Patient states that he has on and off blood in his stool because of his hemorrhoids. He states that he has a chronic nonhealing wounds on his buttocks may be bleeding from that area as well. Vitals: T max 97.9, pulse 74, RR 18, blood pressure 94/51 on arrival improved to 121/58, saturation 100% on 2.5 L nasal cannula On exam: A O 3, cooperative, morbidly obese, no acute distress, neck supple, JVD normal, no lymphadenopathy, mucosa dry, bilateral lower extremities decreased strength 4/5, bilateral lower extremity edema, right lower extremity more edematous than her left lower extremity, grade, superficial punctate posing , few ulcers with sloughed skin on leg and dorsum of foot, stage III heel ulcer, bilateral medial aspect of thighs, lower buttock area discoloration and unstageable ulcer (probably pressure ulcer secondary to wheelchair) CVS: S1-S2, RRR. RS: Clear to auscultate bilaterally. Abdomen: Soft, obese, NT, ND, bowel sounds present. Rectal exam brown colored stool, fecal occult positive, blood stains on the sheet around sacral area. Labs: WBC 9.1, hemoglobin 8.1, hematocrit 24.6, platelet 180, MCV 81, RDW 19.6, sodium 138, potassium 5.1, chloride 101, bicarbonate 23, BUN 100, creatinine 3.5 , glucose 208, , calcium 8.7, lactate 1.6, direct bilirubin 1.1, total bilirubin 1.2, AST 65, ALT 46, alkaline phosphatase 155, albumin 3.0 CXR: Streaky opacification within the left lower lung zone. This is nonspecific, but could correspond to atelectasis, though a developing infiltrate is difficult to exclude. Assessment and plan 52 year old male with extensive past medical history presented in ER from long-term for lethargy, weakness since last 2 days, fever spike of 101.5, diarrhea 2 days back which resolved with Lomotil, ESBL Escherichia coli in urine and worsening of kidney function. Patient's baseline creatinine is 2.3 which is increased to 3.5, elevated BUN which appears secondary to dehydration, prerenal with recent episode of diarrhea and continued diuresis with that. He also has drop in H&H from 9.5 to 8.1, recent iron studies shows elevated TIBC, decreased iron and ferritin, anemia could be secondary to chronic kidney disease and iron deficiency anemia. Fecal occult blood positive, patient on aspirin, Plavix and Eliquis. Patient may be having chronic blood loss from GI but currently refusing GI investigation and colonoscopy. A unit of PRBC transfused in ER. Patient had an episode of nosebleed while in the ER. Patient also has bilateral lower extremity edema, right lower extremity more edematous than her left lower extremity, grade, superficial punctate posing, few ulcers with sloughed skin on leg and dorsum of foot, stage III heel ulcer, bilateral medial aspect of thighs, lower buttock area discoloration and unstageable ulcer (probably pressure ulcer secondary to wheelchair). Right lower extremity appears to have secondary infection, but patient doesn't have significant fevers right now, no leukocytosis this would need ID and wound consult opinion we will continue Unasyn empirically at this time. Patient also was found to have ESBL Escherichia coli in urine cultures which is done at the long-term. Patient does not have any urinary symptoms, no CVA tenderness on palpation, no fever or leukocytosis even though UA positive for nitrites and leukocyte esterase. At this point we will hold off antibiotics for treating UTI, repeat cultures and obtain ID opinion. + Acute kidney injury and chronic kidney disease + Anemia secondary to chronic kidney disease and iron deficiency, suspect chronic blood loss + Suspected diabetic foot infection of the right lower extremity history + Pressure ulcer bilateral gluteal folds, medial aspect of thigh + Urine culture positive for ESBL Escherichia coli, no urinary symptoms + History of COPD on intermittent oxygen, HTN, CVA, HF, paroxysmal A. fib, HLD, CAD S/P PR S/P CABG and stents, DM, ANA, lactose intolerance, history of VRE - Admit to general medicine - Blood culture, urine culture - Continue gentle hydration - Hold Lasix - Renal ultrasound, rule out obstruction - Nephrology consult - Strict I's and O's - Soft tissue ultrasound right lower extremity, arterial Doppler right upper extremity - Obtain records from outpatient vascular/wound clinic - Wound care consult - ID consult - IV Unasyn - Patient refuses gastroenterology consult for dropping H&H and fecal occult blood positive - Cardiology consult to reconsider combination of aspirin Plavix and Eliquis: With current dropping H&H - Hold oral hypoglycemic - Continue insulin Levemir and sliding scale - Discontinue Lomotil, if persistent diarrhea then check C. difficile
[2017-10-11 03:02] VITALS: BP 126/74
[2017-10-11 06:24] VITALS: BP 128/74
--- NOTE | 2017-10-11 06:31 | Admission Certification ---
Admission Certification Certification Statement - As attending physician, I certify that at the time of - admission, based on clinical presentation, severity of - symptoms, need for further diagnostic testing and - therapeutic interventions, and risk of adverse outcomes - without in-hospital treatment, in my clinical assessment, - this patient requires an acute hospital stay for a minimum - of two nights or longer. I have also considered psychsocial - factors such as support system, advanced age, financial - issues, cognitive issues, and failed out-patient treatments, - past re-admission history, safety of patient, and lack of - compliance as applicable. Specific rationale supporting this admission is: Acute kidney injury and chronic kidney disease, suspected diabetic foot infection with chronic nonhealing ulcer on right heel, anemia
--- NOTE | 2017-10-11 07:34 | PN- Housestaff ---
EddieBoothbay 10/11/17 0734: Subjective Follow-up For: Acute on chronic kidney injury Acute on chronic anemia Right leg cellulitis Decubitus ulcers Subjective: No overnight events. Patient remained afebrile overnight. Patient seen and examined this morning. He denied any chest pain, short of breath, nausea, vomiting, abdominal pain, chills, fever and dysuria. Patient has tenderness of right leg with redness of the leg. Review of Systems Constitutional: Reports: weakness. EENTM: Reports: no symptoms. Cardiovascular: Reports: no symptoms. Respiratory: Reports: no symptoms. Gastrointestinal: Reports: no symptoms. Genitourinary: Reports: no symptoms. Musculoskeletal: Reports: see HPI. Neurological/Psychological: Reports: no symptoms. Objective Last 24 Hrs of Vital Signs/I&O Vital Signs Date Time Temp Pulse Resp B/P B/P Pulse O2 O2 Flow FiO2 Mean Ox Delivery Rate 10/11 0800 Nasal 2.5L Cannula 10/11 0624 98.0 78 18 128/74 98 Nasal 2.0L Cannula 10/11 0302 98.1 80 18 126/74 99 Nasal 2.0L Cannula 10/11 0230 Nasal 2.5L Cannula 10/11 0049 100 Room Air 10/11 0048 96.3 77 20 115/57 100 Room Air 10/10 2237 97.0 86 18 117/58 100 Nasal 2.0L Cannula 10/10 2117 97.2 71 18 121/57 100 Nasal 2.0L Cannula 10/10 1945 97.0 71 18 121/58 100 Nasal 2.0L Cannula 10/10 1726 99 Nasal 2.5L Cannula 10/10 1723 97.9 74 18 94/51 100 Nasal 2.5L Cannula Intake & Output 10/11 1600 10/11 0800 10/11 0000 Intake Total 1290 0 Output Total 550 Balance 740 0 Intake, Blood 350 Product Intake, IV 300 Intake, Oral 640 0 Output, Urine 550 Patient 340 lb 332 lb Weight Weight Bed scale Reported by Patient Measurement Method Physical Exam General Appearance: Alert, Oriented X3, Cooperative, No Acute Distress Skin Temp/Moisture Exam: Warm/Dry HEENT: Atraumatic, PERRLA, EOMI Neck: Supple Cardiovascular: Normal S1, Normal S2 Lungs: Clear to Auscultation Abdomen: Soft, No Tenderness Neurological: Normal Speech, Strength at 5/5 X4 Ext, Normal Tone, Sensation Intact Extremities: b/l venous insufficincy changes, right leg redness with weeping wounds. purulent discharge with tenderness. Assessment/Plan Assessment: 51-year-old gentleman with a past medical significan for CAD s/p PCI (LAD, RCA) & CABG(2013), HTN, HLD, paroxysmal A.fib not on anticoagulation,chronic diastolic heart failure, , TIA, ANA (not on CPAP),chronic leg wound status post skin grafting, diabetes complicated with neuropathy, obesity presented from [facility] with a chief complaints of worsening weakness and lethargy for last 2 days. Patient had a history of fever 101.5 and diarrhea 2 days back which resolved with Tylenol and Lomotil respectively. History of ESRD Escherichia coli in urine and worsening of kidney function. Patient's baseline creatinine is 2.3. Fecal occult blood positive and patient is on aspirin and Plavix With Eliquis. Patient already got one blood transfusion in ED due to acute on chronic anemia. We will admit the patient under medicine floor to treat his cellulitis and acute on Chronic kidney injury. Acute on chronic kidney injury; -Possibly due to prerenal, due to dehydration and use of Lasix. -We will hold the Lasix for now that patient was using for CHF. -We'll follow nephrology recommendation. -Avoid nephrotoxins medication -Gentle IV hydration -We will check input and output Acute on chronic anemia: -Possibly multifactorial considering chronic kidney injury, iron deficiency for chronic blood loss. -We will follow the iron studies.(Iron 27, total iron binding capacity 443, ferritin 66.1) -Patient already received 1 unit of blood in ED. -We will keep the HP more than 8. -A she'll refuse to see learn to swim instructor while in the hospital. -Stool guaiac is positive. Right leg cellulitis: -Patient has chronic venous insufficiency with wounds on right leg. Possibility of secondary infection and its ascending to thigh. There is redness and tenderness of right leg. -We will treat with IV Unasyn -We'll follow the wound care consult -We will follow the ID recommendations -Daily dressing -Leg elevation -Patient had recent vascular procedure and he is following wound care at [facility] for once a week. -We will follow the results of ultrasound of soft tissue of right leg. And Doppler study. Asymptomatic bacteriuria: -Patient has ESBL positive urine culture. -There are no patient is asymptomatic. History of paroxysmal A. fib; -Patient is on 2.5 Eliquis twice a day -Patient is on rate control with Cardizem and metoprolol. we will continue that. History of coronary artery disease status post stent placement and CABG: -We will continue aspirin and Plavix. -Last echo was done in 2006 that showing 60% ejection fraction with moderate left ventricular hypertrophy. -We will follow Dr. Loaiza's recommendation as patient is following Dr. Loaiza as outpatient. History of obstructive sleep apnea: -Patient is using 2.5 L of oxygen usually at nighttime and on exertion. -He is intolerant to CPAP. History of diabetes with neuropathy: -We will hold the oral medications. -We will start NovoLog on sliding scale with Levemir 25 units twice a day -Accu-Cheks Decubitus ulcers: -Patient has decubitus ulcers on buttock and thighs. -We will follow the wound care consultation recommendations. DVT prophylaxis: -Patient is already on Eliquis CODE STATUS: -Full code Problem List: 1. [id number] kidney injury 2. Cellulitis 3. Anemia Pain Ratin Pain Location: NONE Pain Goal: Remain pain free Pain Plan: TYLENOL FOR MILD PAIN Tomorrow's Labs & Rationales: CBC/BEP Jim Clark MD 10/11/17 0088: Attending MD Review Statement Attending Statement Attending Statement: examined this patient, discuss w/resident/PA/SCREEN HANDLER, agreed w/resident/PA/SCREEN HANDLER, reviewed EMR data (avail), amended to note Attending Assessment/Plan: The patient was seen and discussed with house staff. Appreciate Nephrology, Cardiology, & Vascular Surgery (PA) input. Creatinine decreased from 3.5-2.7 with hydration and no obstruction on US. No fever on Unasyn for cellulitis. Note - ID suggested current dose, Nephrology suggests decreased dose (will discuss with them tomorrow). Will discontinue Plavix/ASA as per Dr. Loaiza as well.
[2017-10-11 09:25] LABS: ABSOLUTE BASOPHIL COUNT 0 /CUMM (0.0-0.2); ABSOLUTE EOSINOPHIL COUNT 0.3 /CUMM (0.0-0.7); ABSOLUTE LYMPH COUNT 0.6 /CUMM (1.2-3.4); ABSOLUTE MONOCYTE COUNT 0.5 /CUMM (0.10-0.60); BASOPHIL % 0.5 % (0.0-2.0); EOSINOPHIL % 3.2 % (0-5); GRANULOCYTE % 82.7 % (42.2-75.2); HEMATOCRIT 27.2 % (42-52); MEAN CORPUSCULAR HGB CONC 33.3 G/DL (33.0-37.0); MEAN CORPUSCULAR VOLUME 81.2 FL (80.0-94.0); MEAN PLATELET VOLUME 11.6 FL (7.4-10.4); RBC DISTRIBUTION WIDTH 19.6 % (11.5-14.5); RED BLOOD CELL CT 3.35 /CUMM (4.70-6.10); WHITE BLOOD CELL COUNT 8.4 /CUMM (4.8-10.8)
[2017-10-11 10:26] LABS: PLATELET COUNT 162 /CUMM (130-400)
--- NOTE | 2017-10-11 12:55 | Cons- Vascular Surgery ---
Andrey Guo 10/11/17 1249: General Information and HPI Consulting Request Date of Consult: 10/11/17 Requested By: Solitario Santos MD Reason for Consult: RLE CELLULITIS. Source of Information: patient, old records Exam Limitations: no limitations History of Present Illness: 52 -year-old male with chronic edema right lower extremity, multiple comorbidities including coronary artery disease status post CABG, diabetes, CVA, TIA, peripheral neuropathy, paroxysmal atrial fibrillation, congestive heart failure, hypertension, hyperlipidemia, WI, COPD(on oxygen), chronic right lower extremity leg wound status post skin grafting, admitted for cellulitis of the right lower extremity and acute on chronic kidney injury. Patient complains of feeling weak, lethargic foul smelling discharge from the right leg. He has had history of a right lower extremity calcaneal debridement and most recently, approximately 2 weeks ago, had some type of venous ablation procedure of the right lower extremity however patient is unsure and I do not have access to the records, this was done by Dr. Gabbie Rodriguez as outpatient. Patient was admitted secondary to the cellulitis and acute on chronic renal insufficiency and his multiple comorbidities. Vascular surgery was consulted regards to the cellulitis and vascular status of his right lower extremity. He has been in the wound care center for his chronic wounds of his heel venous stasis ulcers Allergies/Medications Allergies: Coded Allergies: hydromorphone (UNKNOWN PER 12/02/16) erythromycin base (Intermediate, ?GI UPSET 03/13/16) gluten (Intermediate, GI UPSET 03/13/16) venom-honey bee (BEE VENOM (HONEY BEE)) (Intermediate, VOMITING 03/13/16) lactose (Mild, GI UPSET 03/13/16) Home Med List: Acetaminophen 325 MG TABLET 2 TAB PO Q6H PRN PAIN/TEMP/>101 (Reported) Acetaminophen (Acephen) 650 MG SUPP.RECT 1 SUP MI Q6H PRN PAIN/TEMP/>101 ( Reported) Albuterol Sulfate 2.5 MG/3 ML (0.083 %) VIAL.NEB 1 Vial INH/MINI Q4P PRN SOB ( Reported) Apixaban (Eliquis) 5 MG TABLET 1 TAB PO BID BLOOD THINNER (Reported) Ascorbic Acid (Vitamin C) 500 MG CAPSULE 1 CAP PO DAILY SUPPLEMENT (Reported) Aspirin (Ecotrin*) 81 MG TABLET.DR 1 TAB PO DAILY HEART/BLOOD (Reported) Bisacodyl 10 MG SUPP.RECT 1 SUP RC PRN GI (Reported) Cholecalciferol (Vitamin D3) (Vitamin D) 2,000 UNIT TABLET 2 TAB PO DAILY SUPPLEMENT (Reported) Clopidogrel Bisulfate (Clopidogrel) 75 MG TABLET 1 TAB PO DAILY ANTICOAGULATION (Reported) Dextrose (Glucose Gel) (Unknown Strength) GEL..GRAM. (Unknown Dose) PO AD PRN HYPOGLYCEMIA (Reported) Dicyclomine HCl 20 MG TABLET 1 TAB PO Q6H PRN GERD (Reported) Diltiazem HCl (Diltiazem 24HR ER) 120 MG CAP.ER.24H 1 CAP PO DAILY HEART/BP ( Reported) Diphenoxylate HCl/Atropine (Lomotil 2.5-0.025 MG Tablet) 2.5 MG-0.025 MG TABLET 1 TAB PO Q8H PRN DIARRHEA (Reported) Epoetin Tony (Epogen) 10,000 UNIT/ML VIAL 10,000 UNIT SC QFRI CKD (Reported) Fenofibrate Nanocrystallized (Fenofibrate) 145 MG TABLET 1 TAB PO DAILY HPL ( Reported) Ferrous Sulfate 325 MG (65 MG IRON) TABLET 1 TAB PO BID SUPPLEMENT (Reported) Furosemide (Lasix) 80 MG TABLET 1 TAB PO DAILY HEART FAILURE (Reported) Furosemide (Lasix) 80 MG TABLET 1 TAB PO BID DIURETIC (Reported) Glucagon,Human Recombinant (Glucagon Emergency Kit) 1 MG KIT 1 MG IM AD PRN HYPOGLYCEMIA (Reported) Guaifenesin/Dextromethorphan (Tussin Dm Cough & Chest Liquid) 100 MG-10 MG/5 ML SYRUP 10 ML PO Q4H PRN COUGH (Reported) Insulin Glargine,Hum.rec.anlog (Lantus Solostar) 100 UNIT/ML (3 ML) INSULN.PEN 52 UNIT SC QAM DM (Reported) Insulin Lispro (Humalog) 100 UNIT/ML CARTRIDGE DM (Reported) Lactobacillus Acidophilus (Acidophilus) 1 EACH CAPSULE 1 CAP PO Q12H PROBIOTIC (Reported) Lactulose 10 GRAM/15 ML SOLUTION 15 ML PO DAILY PRN CONSTIPATION (Reported) Lidocaine (Lidoderm) 5 % ADH..PATCH 1 PAT TOP QHS LEFT HIP (Reported) may wear up to 12 hours Loperamide HCl (Loperamide) 2 MG CAPSULE 4 MG PO Q6H PRN LOOSE STOOLS ( Reported) Magnesium Hydroxide (Milk Of Magnesia) 400 MG/5 ML ORAL.SUSP 30 ML PO PRN CONSTIPATION (Reported) Magnesium Oxide 400 MG TABLET 1 TAB PO DAILY SUPPLEMENT (Reported) Metoprolol Tartrate (Lopressor) 50 MG TABLET 1 TAB PO BID HR (Reported) Miconazole 5 GM POWDER 1 AMY TOP AD AFFECTED AREA(S) (Reported) Multiple Vitamin (Multivitamins) 1 EACH TABLET 1 TAB PO DAILY SUPPLEMENT ( Reported) Na Phos,M-B/Na Phos,Di-Ba (Fleet Enema) 19 GRAM-7 GRAM/118 ML ENEMA 1 E RC PRN CONSTIPATION (Reported) Nitrofurantoin Macrocrystal (Nitrofurantoin) 50 MG CAPSULE 1 CAP PO BID UTI ( Reported) Nitroglycerin (Nitroglycerin Patch) 0.4 MG/HOUR PATCH.TD24 0.4 MG TOP DAILY CHEST PAIN APPLY FOR 12 HOURS THEN REMOVE APPLY PATCH SAME TIME EACH DAY Ondansetron HCl (Zofran) 4 MG TABLET 1 TAB PO Q8H PRN NAUSEA (Reported) Oxycodone HCl/Acetaminophen (Percocet 5-325 MG Tablet) 5 MG-325 MG TABLET 1 TAB PO Q6H PRN PAIN (Reported) Pantoprazole Sodium 40 MG TABLET.DR 1 TAB PO DAILY GERD (Reported) Potassium Chloride 20 MEQ TAB.ER.PRT 1 TAB PO DAILY SUPPLEMENT (Reported) Pregabalin (Lyrica) 100 MG CAPSULE 1 CAP PO Q12H NERVE PAIN (Reported) Ranolazine (Ranexa) 500 MG TAB.ER.12H 1 TAB PO Q12H ANGINA (Reported) Sitagliptin Phosphate (Januvia) 50 MG TABLET 1 TAB PO QAM DM (Reported) Sodium Chloride ([place] Saline) 0.65 % DROPS 2 GTT NASB Q4H PRN CONGESTION ( Reported) Past History Medical History Blood Transfusion Hx: Yes Neurological: CVA, TIA, PERIPHERAL NEUROPATHY EENT: NONE Cardiovascular: CAD, diastolic CHF, hyperlipidemia, myocardial infarction (s/p WI), NSTEMI, PVD, systolic CHF, AFIB on eloquis (paroxysmal) Respiratory: COPD, ANA (no cpap) Gastrointestinal: GERD, lactose intolerance, ENTERITIS Hepatic: NONE Renal: nephrolithiasis, acute kidney failure CKD Musculoskeletal: hx WOUND VAC leg wounds SKIN GRAFTS TO R LEG R & L hand contractures R inner foot-st 3 ulcer gait impairment Psychiatric: anxiety, major depressive disorder Endocrine: diabetes (with neuropathy), obesity Blood Disorders: anemia Cancer(s): NONE PIPE CHANGER/Reproductive: NONE Surgical History Pertinent Surgical History: CABG,R FOOT X9 CARDIAC STENTS tonsillectomy Family History Relations & Conditions If Any: FATHER ( in his 70's of heart disease). MOTHER (CAD, DM, DLD and HTN). Psychosocial History Where Do You Live? Snf Facility Who Do You Live With? sister Services at Home: Nursing, Oxygen, Physical Therapy Smoking Status: Current Everyday Smoker ETOH Use: occasional use Illicit Drug Use: marijuana (in past) Living Will? no Functional Ability ADLs Independent: eating. Needs Assist: dressing, toileting, bathing. Ambulation: walker IADLs Independent: telephone, medication admin. Needs Assist: shopping, housework, food prep, transportation. Unknown: finances. Review of Systems Review of Systems Constitutional: Reports: fever. EENTM: Reports: no symptoms. Cardiovascular: Reports: no symptoms. Respiratory: Reports: no symptoms, see HPI. GI: Reports: no symptoms. Genitourinary: Reports: no symptoms. Musculoskeletal: Reports: see HPI. Skin: Reports: see HPI. Neurological/Psychological: Reports: no symptoms. Exam & Diagnostic Data Vital Signs and I&O Vital Signs Date Time Temp Pulse Resp B/P B/P Pulse O2 O2 Flow FiO2 Mean Ox Delivery Rate 10/11 0800 Nasal 2.5L Cannula 10/11 0624 98.0 78 18 128/74 98 Nasal 2.0L Cannula 10/11 0302 98.1 80 18 126/74 99 Nasal 2.0L Cannula 10/11 0230 Nasal 2.5L Cannula 10/11 0049 100 Room Air 10/11 0048 96.3 77 20 115/57 100 Room Air 10/10 2237 97.0 86 18 117/58 100 Nasal 2.0L Cannula 10/107 97.2 71 18 121/57 100 Nasal 2.0L Cannula 10/10 1945 97.0 71 18 121/58 100 Nasal 2.0L Cannula 10/10 1726 99 Nasal 2.5L Cannula 10/10 1723 97.9 74 18 94/51 100 Nasal 2.5L Cannula Intake & Output 10/11 1600 10/11 0800 10/11 0000 10/10 1600 10/10 0800 10/10 0000 Intake Total 1290 0 Output Total 550 Balance 740 0 Intake, Blood 350 Product Intake, IV 300 Intake, Oral 640 0 Output, Urine 550 Patient 340 lb 332 lb Weight Weight Bed scale Reported by Patient Measurement Method Physical Exam: Obese male, sitting in stretcher, Well-developed well-nourished no apparent distress. HEENT: Atraumatic, extraocular motion intact Respiratory: No respiratory distress Extremities: Right lower extremity with 3+ pitting edema, multiple chronic venous stasis ulcers noted throughout the lower leg and foot. There is a lateral heel wound noted, full thickness, foul-smelling thin serous discharge noted. There is redness throughout the right lower extremity the knee down encompassing the foot and toes as well that extends to the medial aspect of the thigh into the proximal groin region. It is indurated and warm and erythematous and tender to touch. He has dopplerable dorsal pedal and posterior tibial pulses and capillary refill less than 2 seconds of the toes. Neuro: Alert and oriented x3 Psych: Mood affect normal, normal memory normal judgment. Skin: Warm and dry, no rash on exposed skin Last 24 Hours of Labs: Laboratory Tests 10/11 10/10 10/10 0827 2 2031 Chemistry Sodium (137 - 145 mmol/L) 142 Potassium (3.5 - 5.1 mmol/L) 4.2 Chloride (98 - 107 mmol/L) 108 H Carbon Dioxide (22 - 30 mmol/L) 22 Anion Gap (5 - 16) 12 BUN (9 - 20 mg/dL) 86 H Creatinine (0.7 - 1.2 mg/dL) 2.7 H Estimated GFR (>60 ml/min) 25 L BUN/Creatinine Ratio (7 - 25 %) 31.9 H Lactic Acid Cancelled Hematology CBC w Diff NO MAN DIFF REQ WBC (4.8 - 10.8 /CUMM) 8.4 RBC (4.70 - 6.10 /CUMM) 3.35 L Hgb (14.0 - 18.0 G/DL) 9.1 L Hct (42 - 52 %) 27.2 L MCV (80.0 - 94.0 FL) 81.2 MCH (27.0 - 31.0 PG) 27.0 RDW (11.5 - 14.5 %) 19.6 H Plt Count (130 - 400 /CUMM) 162 MPV (7.4 - 10.4 FL) 11.6 H Gran % (42.2 - 75.2 %) 82.7 H Lymphocytes % (20.5 - 51.1 %) 7.7 L Monocytes % (1.7 - 9.3 %) 5.9 Eosinophils % (0 - 5 %) 3.2 Basophils % (0.0 - 2.0 %) 0.5 Absolute Granulocytes (1.4 - 6.5 /CUMM) 7.0 H Absolute Lymphocytes (1.2 - 3.4 /CUMM) 0.6 L Absolute Monocytes (0.10 - 0.60 /CUMM) 0.5 Absolute Eosinophils (0.0 - 0.7 /CUMM) 0.3 Absolute Basophils (0.0 - 0.2 /CUMM) 0 PUBS MCHC (33.0 - 37.0 G/DL) 33.3 Urines Ur Random Creatinine Cancelled Ur Random Sodium Cancelled Ur Random Potassium Cancelled Fraction Sodium Excret Cancelled 10/10 Urines Urinalysis LIGHT H Urine Color (YEL,AMB,STR) STRAW Urine Clarity (CLEAR) CLDY H Urine pH (5.0 - 8.0) 5.5 Ur Specific Cascade (1.001 - 1.035) 1.020 Urine Protein (NEG,<30 MG/DL) TRACE H Urine Ketones (NEG) NEG Urine Nitrite (NEG) POS H Urine Bilirubin (NEG) NEG Urine Urobilinogen (0.1 - 1.0 EU/dl) 1.0 Ur Leukocyte Esterase (NEG) LARGE H Ur Microscopic SEDIMENT EXAMINED Urine WBC (0 - 2 /HPF) > 75 H Ur Epithelial Cells (NONE,FEW) FEW Urine Bacteria (NEG/NONE) MANY H Urine Hemoglobin (NEG) MOD H Urine Osmolality (300 - 1000 MOSM/KG) 384 Ur Random Creatinine (mg/dL) 72.4 Ur Random Sodium (30 - 90 mmol/L) 27 L Ur Random Potassium (mmol/L) 32.4 Fraction Sodium Excret (<1% %) 0.9 Urine Glucose (N MG/DL) NEG 10/10 1801 Chemistry Sodium (137 - 145 mmol/L) 138 Potassium (3.5 - 5.1 mmol/L) 5.1 Chloride (98 - 107 mmol/L) 101 Carbon Dioxide (22 - 30 mmol/L) 23 Anion Gap (5 - 16) 13 BUN (9 - 20 mg/dL) 100 H Creatinine (0.7 - 1.2 mg/dL) 3.5 H Estimated GFR (>60 ml/min) 18 L BUN/Creatinine Ratio (7 - 25 %) 28.6 H Glucose (65 - 99 mg/dL) 208 H Lactic Acid (0.7 - 2.1 mmol/L) 1.6 Calcium (8.4 - 10.2 mg/dL) 8.7 Total Bilirubin (0.2 - 1.3 mg/dL) 1.2 Direct Bilirubin (< 0.4 mg/dL) 1.1 H AST (17 - 59 U/L) 65 H ALT (21 - 72 U/L) 46 Alkaline Phosphatase (< 127 U/L) 155 H Total Protein (6.3 - 8.2 g/dL) 6.4 Albumin (3.5 - 5.0 g/dL) 3.0 L Hematology CBC w Diff NO MAN DIFF REQ WBC (4.8 - 10.8 /CUMM) 9.1 RBC (4.70 - 6.10 /CUMM) 3.02 L Hgb (14.0 - 18.0 G/DL) 8.1 L Hct (42 - 52 %) 24.6 L MCV (80.0 - 94.0 FL) 81.5 MCH (27.0 - 31.0 PG) 26.9 L RDW (11.5 - 14.5 %) 19.6 H Plt Count (130 - 400 /CUMM) 180 MPV (7.4 - 10.4 FL) 11.4 H Gran % (42.2 - 75.2 %) 79.8 H Lymphocytes % (20.5 - 51.1 %) 7.9 L Monocytes % (1.7 - 9.3 %) 8.9 Eosinophils % (0 - 5 %) 3.1 Basophils % (0.0 - 2.0 %) 0.3 Absolute Granulocytes (1.4 - 6.5 /CUMM) 7.3 H Absolute Lymphocytes (1.2 - 3.4 /CUMM) 0.7 L Absolute Monocytes (0.10 - 0.60 /CUMM) 0.8 H Absolute Eosinophils (0.0 - 0.7 /CUMM) 0.3 Absolute Basophils (0.0 - 0.2 /CUMM) 0 PUBS MCHC (33.0 - 37.0 G/DL) 33.0 Assessment/Plan Assessment/Plan Patient has cellulitis of the right lower extremity with chronic venous insufficiency with wounds on right leg as well as an open right heel wound. He is approximately 2 weeks status post venous ablation procedure per patient. Vascular status of the leg is intact by bedside portable Doppler flow and physical examination Continue IV antibiotics for cellulitis, elevate the leg, wound care consult, ID consult, daily dressing changes with Xeroform, warm compresses, follow results of venous Doppler to rule out DVT as well as arterial Doppler. No immediate vascular surgery/procedure recommended, discussed with Dr. BURK. Venous Doppler is negative for DVT and arterial Doppler shows acceptable blood flow, would recommend follow-up as outpatient with Dr. Rodriguez Consult Acknowledgment - Thank you for your consult request. Elliot Burk MD 10/15/17 0614: Assessment/Plan Consult Acknowledgment - Thank you for your consult request. Attending Review Statement Attending Statement Attending MD Statement: agreed w/resident/PA/POWER NUT RUNNER OPERATOR Attending Assessment/Plan: Patient has acute cellulitis with known hx of venous insufficiency and open wounds. Treat cellulitis with antibiotics. Venous and arterial studies show no evidence of acute thrombosis or critical limb ischemia. Follow up with Dr. Rodriguez as outpatient.
--- NOTE | 2017-10-11 14:29 | Cons- Nephrology ---
General Information and HPI Consulting Request Date of Consult: 10/11/17 Requested By: Solitairo Santos MD Reason for Consult: SPIKE Source of Information: patient, old records Exam Limitations: no limitations History of Present Illness: The patient is a 51-year-old man with an extensive past medical history including chronic kidney disease secondary to hypertension and diabetes mellitus with a baseline creatinine has been variable but generally between 1.5 and 2.1. He was now admitted yesterday because of an elevated serum creatinine of 3.5 with a BUN of 100. He has been feeling very weak and lethargic recently unable to even get up and uses wheelchair. He had several episodes of diarrhea which stopped after taking Lomotil but no nausea or vomiting. There was no shortness of breath or chest pain. He did note increasing redness and weeping of his lower extremities having had bouts of cellulitis in the past. He is currently in a rehabilitation facility and is said to have had a temperature of 101.9 several days ago with urine culture growing ESBL Escherichia coli. He has been afebrile since admission and there has been no exposure to parenteral contrast, NSAIDs or antibiotics. Blood and urine cultures are negative thus far and chest x-ray shows some streakiness in the left lower lung field. Past medical history is significant for hypertension, diabetes mellitus, CVA, TIA, peripheral neuropathy, paroxysmal atrial fibrillation (on apixaban), coronary artery disease status post CABG 2013, diastolic congestive heart failure, hyperlipidemia, COPD (on oxygen), obstructive sleep apnea (not on CPAP) , enteritis, GERD, chronic lower extremity leg wounds with recurrent cellulitis, status post skin grafting, obesity and chronic kidney disease as noted above. Medications: see below Allergies: Multiple including erythromycin, hydromorphone, lactose, gluten, bee venom. Family history: Positive for heart disease and diabetes mellitus in his parents, negative for kidney disease in any family members. Social history: Currently living at a prison facility, active smoker, no history of alcohol abuse. Allergies/Medications Allergies: Coded Allergies: hydromorphone (UNKNOWN PER 12/02/16) erythromycin base (Intermediate, ?GI UPSET 03/13/16) gluten (Intermediate, GI UPSET 03/13/16) venom-honey bee (BEE VENOM (HONEY BEE)) (Intermediate, VOMITING 03/13/16) lactose (Mild, GI UPSET 03/13/16) Home Med List: Acetaminophen 325 MG TABLET 2 TAB PO Q6H PRN PAIN/TEMP/>101 (Reported) Acetaminophen (Acephen) 650 MG SUPP.RECT 1 SUP NE Q6H PRN PAIN/TEMP/>101 ( Reported) Albuterol Sulfate 2.5 MG/3 ML (0.083 %) VIAL.NEB 1 Vial INH/MINI Q4P PRN SOB ( Reported) Apixaban (Eliquis) 5 MG TABLET 1 TAB PO BID BLOOD THINNER (Reported) Ascorbic Acid (Vitamin C) 500 MG CAPSULE 1 CAP PO DAILY SUPPLEMENT (Reported) Aspirin (Ecotrin*) 81 MG TABLET.DR 1 TAB PO DAILY HEART/BLOOD (Reported) Bisacodyl 10 MG SUPP.RECT 1 SUP RC PRN GI (Reported) Cholecalciferol (Vitamin D3) (Vitamin D) 2,000 UNIT TABLET 2 TAB PO DAILY SUPPLEMENT (Reported) Clopidogrel Bisulfate (Clopidogrel) 75 MG TABLET 1 TAB PO DAILY ANTICOAGULATION (Reported) Dextrose (Glucose Gel) (Unknown Strength) GEL..GRAM. (Unknown Dose) PO AD PRN HYPOGLYCEMIA (Reported) Dicyclomine HCl 20 MG TABLET 1 TAB PO Q6H PRN GERD (Reported) Diltiazem HCl (Diltiazem 24HR ER) 120 MG CAP.ER.24H 1 CAP PO DAILY HEART/BP ( Reported) Diphenoxylate HCl/Atropine (Lomotil 2.5-0.025 MG Tablet) 2.5 MG-0.025 MG TABLET 1 TAB PO Q8H PRN DIARRHEA (Reported) Epoetin Tony (Epogen) 10,000 UNIT/ML VIAL 10,000 UNIT SC QFRI CKD (Reported) Fenofibrate Nanocrystallized (Fenofibrate) 145 MG TABLET 1 TAB PO DAILY HPL ( Reported) Ferrous Sulfate 325 MG (65 MG IRON) TABLET 1 TAB PO BID SUPPLEMENT (Reported) Furosemide (Lasix) 80 MG TABLET 1 TAB PO DAILY HEART FAILURE (Reported) Furosemide (Lasix) 80 MG TABLET 1 TAB PO BID DIURETIC (Reported) Glucagon,Human Recombinant (Glucagon Emergency Kit) 1 MG KIT 1 MG IM AD PRN HYPOGLYCEMIA (Reported) Guaifenesin/Dextromethorphan (Tussin Dm Cough & Chest Liquid) 100 MG-10 MG/5 ML SYRUP 10 ML PO Q4H PRN COUGH (Reported) Insulin Glargine,Hum.rec.anlog (Lantus Solostar) 100 UNIT/ML (3 ML) INSULN.PEN 52 UNIT SC QAM DM (Reported) Insulin Lispro (Humalog) 100 UNIT/ML CARTRIDGE DM (Reported) Lactobacillus Acidophilus (Acidophilus) 1 EACH CAPSULE 1 CAP PO Q12H PROBIOTIC (Reported) Lactulose 10 GRAM/15 ML SOLUTION 15 ML PO DAILY PRN CONSTIPATION (Reported) Lidocaine (Lidoderm) 5 % ADH..PATCH 1 PAT TOP QHS LEFT HIP (Reported) may wear up to 12 hours Loperamide HCl (Loperamide) 2 MG CAPSULE 4 MG PO Q6H PRN LOOSE STOOLS ( Reported) Magnesium Hydroxide (Milk Of Magnesia) 400 MG/5 ML ORAL.SUSP 30 ML PO PRN CONSTIPATION (Reported) Magnesium Oxide 400 MG TABLET 1 TAB PO DAILY SUPPLEMENT (Reported) Metoprolol Tartrate (Lopressor) 50 MG TABLET 1 TAB PO BID HR (Reported) Miconazole 5 GM POWDER 1 AMY TOP AD AFFECTED AREA(S) (Reported) Multiple Vitamin (Multivitamins) 1 EACH TABLET 1 TAB PO DAILY SUPPLEMENT ( Reported) Na Phos,M-B/Na Phos,Di-Ba (Fleet Enema) 19 GRAM-7 GRAM/118 ML ENEMA 1 E RC PRN CONSTIPATION (Reported) Nitrofurantoin Macrocrystal (Nitrofurantoin) 50 MG CAPSULE 1 CAP PO BID UTI ( Reported) Nitroglycerin (Nitroglycerin Patch) 0.4 MG/HOUR PATCH.TD24 0.4 MG TOP DAILY CHEST PAIN APPLY FOR 12 HOURS THEN REMOVE APPLY PATCH SAME TIME EACH DAY Ondansetron HCl (Zofran) 4 MG TABLET 1 TAB PO Q8H PRN NAUSEA (Reported) Oxycodone HCl/Acetaminophen (Percocet 5-325 MG Tablet) 5 MG-325 MG TABLET 1 TAB PO Q6H PRN PAIN (Reported) Pantoprazole Sodium 40 MG TABLET.DR 1 TAB PO DAILY GERD (Reported) Potassium Chloride 20 MEQ TAB.ER.PRT 1 TAB PO DAILY SUPPLEMENT (Reported) Pregabalin (Lyrica) 100 MG CAPSULE 1 CAP PO Q12H NERVE PAIN (Reported) Ranolazine (Ranexa) 500 MG TAB.ER.12H 1 TAB PO Q12H ANGINA (Reported) Sitagliptin Phosphate (Januvia) 50 MG TABLET 1 TAB PO QAM DM (Reported) Sodium Chloride ([place] Saline) 0.65 % DROPS 2 GTT NASB Q4H PRN CONGESTION ( Reported) Review of Systems Review of Systems: Review of Systems Constitutional: Reports: malaise, weakness. EENTM: Reports: no symptoms. Cardiovascular: Reports: no symptoms. Respiratory: Reports: no symptoms. GI: Reports: no symptoms. Genitourinary: Reports: no symptoms. Musculoskeletal: Reports: see HPI. Skin: Reports: erythema. Neurological/Psychological: Reports: no symptoms. Hematologic/Endocrine: Reports: no symptoms. Immunologic/Allergic: Reports: no symptoms. All Other Systems: Reviewed and Negative Past History Travel History Traveled to [place] past 21 day No Medical History Blood Transfusion Hx: Yes Neurological: CVA, TIA, PERIPHERAL NEUROPATHY EENT: NONE Cardiovascular: CAD, diastolic CHF, hyperlipidemia, myocardial infarction (s/p AL), NSTEMI, PVD, systolic CHF, AFIB on eloquis (paroxysmal) Respiratory: COPD, ANA (no cpap) Gastrointestinal: GERD, lactose intolerance, ENTERITIS Hepatic: NONE Renal: nephrolithiasis, acute kidney failure CKD Musculoskeletal: hx WOUND VAC leg wounds SKIN GRAFTS TO R LEG R & L hand contractures R inner foot-st 3 ulcer gait impairment Psychiatric: anxiety, major depressive disorder Endocrine: diabetes (with neuropathy), obesity Blood Disorders: anemia Cancer(s): NONE MEDICAL BILLER/Reproductive: NONE Surgical History Surgical History: CABG,R FOOT X9 CARDIAC STENTS tonsillectomy Family History Relations & Conditions If Any: FATHER ( in his 70's of heart disease). MOTHER (CAD, DM, DLD and HTN). Psychosocial History Where Do You Live? Retirement Facility Who Do You Live With? sister Services at Home: Nursing, Oxygen, Physical Therapy Smoking Status: Current Everyday Smoker ETOH Use: occasional use Illicit Drug Use: marijuana (in past) Living Will? no Functional Ability ADLs Independent: eating. Needs Assist: dressing, toileting, bathing. Ambulation: walker IADLs Independent: telephone, medication admin. Needs Assist: shopping, housework, food prep, transportation. Unknown: finances. Exam & Diagnostic Data Vital Signs and I&O Vital Signs Date Time Temp Pulse Resp B/P B/P Pulse O2 O2 Flow FiO2 Mean Ox Delivery Rate 10/11 0800 Nasal 2.5L Cannula 10/11 0624 98.0 78 18 128/74 98 Nasal 2.0L Cannula 10/11 0302 98.1 80 18 126/74 99 Nasal 2.0L Cannula 10/11 0230 Nasal 2.5L Cannula 10/11 0049 100 Room Air 10/11 0048 96.3 77 20 115/57 100 Room Air 10/10 2237 97.0 86 18 117/58 100 Nasal 2.0L Cannula 10/10 2117 97.2 71 18 121/57 100 Nasal 2.0L Cannula 10/10 1945 97.0 71 18 121/58 100 Nasal 2.0L Cannula 10/10 1726 99 Nasal 2.5L Cannula 10/10 1723 97.9 74 18 94/51 100 Nasal 2.5L Cannula Intake & Output 10/11 1600 10/11 0400 10/10 1600 10/10 0400 10/09 1600 10/09 0400 Intake Total 600 690 Output Total 550 Balance 600 140 Intake, Blood 350 Product Intake, IV 300 Intake, Oral 300 340 Output, Urine 550 Patient 340 lb Weight Weight Bed scale Measurement Method Physical Exam: General: Well-developed, somewhat unkempt, obese white male in NAD Skin: Erythema of both lower extremities below the knees, no rash or jaundice HEENT: Conjunctivae pink, sclerae anicteric, mucous membranes moist Neck: Without masses or thyromegaly, no supraclavicular or cervical adenopathy Chest: Clear with diminished breath sounds at bases Heart: Irregular rhythm without S3 or rub Abdomen: Obese, soft and nontender without palpable masses or organomegaly Extremities: 3+ lower extremity edema with overlying erythema, right lower extremity dressing intact Neuro: No lateralizing findings, no asterixis or myoclonus Assessment/Plan Assessment/Recommendations Assessment: 52-year-old gentleman with multiple comorbidities as noted above including chronic kidney disease stage III secondary to hypertension and diabetes mellitus who now comes in with worsening renal function possibly on a prerenal basis given his recent poor intake and febrile illness. He also had several episodes of diarrhea. The improvement in his renal function since admission and treatment with IV fluids supports a diagnosis of prerenal azotemia. His lower extremity edema may be on the basis of congestive heart failure but there is almost certainly a component of venous insufficiency and chronic inflammation/ recurrent cellulitis. Of course an obstructive component needs to be considered and ruled out. Recommendations: 1. Renal ultrasound 2. Follow-up on all culture - negative thus far 3. Continue gentle hydration with IV normal saline 4. Continue antibiotic therapy for his cellulitis but would decrease Unasyn dose to every 12 hours 5. Check serum phosphorus and magnesium levels Thank you. Will follow along with you.
--- NOTE | 2017-10-11 14:41 | Cons- Cardiology ---
General Information and HPI Consulting Request Date of Consult: 10/11/17 Requested By: Solitario Santos MD History of Present Illness: Jim is a 52 year old male with history of hypertension, dyslipidemia, coronary artery disease status post NE with multiple angioplasties recent CABG. He also had recent peripheral revasculazation to hopefully help a poorly healing right leg wound. He does have bilateral leg swelling. He is mostly in a wheelchair and otherwise walks slowly. I suspect that higher levels of activity would elicit shortness of breath. At present he denies any chest discomfort, lightheadedness or palpitations. He was sent to the ER for evaluation of generalized weakness with a borderline blood pressure. In the ER he was found to have an elevated BUN and creatinine and erythematous legs suggestive of cellulitis. At baseline, when on 80 BID of lasix, he seems to do well but we are needing to acheive a balance between adequate diuresis and maintenance of his renal function. To review this patient's prior history, Kyler has been admitted to [facility] multiple times recently for chest discomfort. He also underwent a recent cardiac catheterization that showed patent grafts although he does have a long diffusely diseased OM2 branch that I did not feel would get a good angioplasty result. This is not a life-threatening lesion but is a vessel that could give him some angina. I feel the best option is to treat this medically. In that regard we started him on a NTG patch that appears to be helping. He has undergone multiple recent surgical procedures for vascular insufficiency and osteomyelitis of the right heal. After these procedures he was anemic an received mulitiple blood transfusions. A recent echo showed a normal EF with restrictive hemodynamics. A couple years ago Jim was admitted for pneumonia and ruled in to non-ST- elevation NE. After risk stratification with a stress test, which was positive for ischemia, he underwent cardiac catheterization. This study showed 3-vessel coronary artery disease. He is now status post coronary artery bypass grafting by Dr. Perdomo. this was followed by a stress test showing inverior, apical and lateral ischemia so I placed another stent in his AV groove LCX which was noted to be patent on his most recent cardiac catheterization. He also has two lesions in his PDA after the anastomosis of the SVG with the RCA that could be limiting flow. To review this patient's past history, Jim has undergone stent placement to his mid LAD in 07/2003. This was in the setting of a myocardial infarction. In 2003, the patient was noted to have an in-stent restenosis of the LAD as well as a stenosis of the ostium of a large septal wet char conveyor tender branch. At that time, the left circumference parented a first marginal branch which also harbored a 70% stenosis beginning at the ostium and extending proximally. The right coronary artery has had a 30% ostial stenosis. A 50% to 60% PDA lesion was noted, and he has no problem with the 60%. In consideration of the above, a cardiac balloon dilatation was performed on the in-stent stenosis of the LAD, and the ostial septal branch was dilated with a 2.5 x 20 mm balloon. Post catheterization, there was a 10% residual stenosis in the LAD and a 40% residual stenosis at the ostium of the septal branch. In 2010, the patient again had chest pressure radiating to his arms of moderate severity. He was noted to have ST elevations in leads II, III, and F consistent with an acute inferior NE. He was therefore brought back to the shop laborer, and at that time a 3.0 x 20 mm drug-coated IM stent was placed in the patient's RCA. At that time his coronary anatomy consisted of a normal left main, 60% ostial proximal stenosis of the LAD, a 20% mid in-stent stenosis. Left circumflex had a 30% proximal [id number] proximal stenosis. The obtuse marginal 2 was a large patent vessel, and the right coronary artery was dominant with a 50% ostial stenosis, and a 90% distal stenosis prior to the bifurcation. Finally, there was a 40% mid PDA lesion. It was the 90% stenosis that underwent the most recent stenting. While at [facility] recently, the patient did have an echocardiogram performed. hypertrophy, and mild to moderate tricuspid regurgitation Allergies/Medications Allergies: Coded Allergies: hydromorphone (UNKNOWN PER 12/02/16) erythromycin base (Intermediate, ?GI UPSET 03/13/16) gluten (Intermediate, GI UPSET 03/13/16) venom-honey bee (BEE VENOM (HONEY BEE)) (Intermediate, VOMITING 03/13/16) lactose (Mild, GI UPSET 03/13/16) Home Med List: Acetaminophen 325 MG TABLET 2 TAB PO Q6H PRN PAIN/TEMP/>101 (Reported) Acetaminophen (Acephen) 650 MG SUPP.RECT 1 SUP SC Q6H PRN PAIN/TEMP/>101 ( Reported) Albuterol Sulfate 2.5 MG/3 ML (0.083 %) VIAL.NEB 1 Vial INH/MINI Q4P PRN SOB ( Reported) Apixaban (Eliquis) 5 MG TABLET 1 TAB PO BID BLOOD THINNER (Reported) Ascorbic Acid (Vitamin C) 500 MG CAPSULE 1 CAP PO DAILY SUPPLEMENT (Reported) Aspirin (Ecotrin*) 81 MG TABLET.DR 1 TAB PO DAILY HEART/BLOOD (Reported) Bisacodyl 10 MG SUPP.RECT 1 SUP RC PRN GI (Reported) Cholecalciferol (Vitamin D3) (Vitamin D) 2,000 UNIT TABLET 2 TAB PO DAILY SUPPLEMENT (Reported) Clopidogrel Bisulfate (Clopidogrel) 75 MG TABLET 1 TAB PO DAILY ANTICOAGULATION (Reported) Dextrose (Glucose Gel) (Unknown Strength) GEL..GRAM. (Unknown Dose) PO AD PRN HYPOGLYCEMIA (Reported) Dicyclomine HCl 20 MG TABLET 1 TAB PO Q6H PRN GERD (Reported) Diltiazem HCl (Diltiazem 24HR ER) 120 MG CAP.ER.24H 1 CAP PO DAILY HEART/BP ( Reported) Diphenoxylate HCl/Atropine (Lomotil 2.5-0.025 MG Tablet) 2.5 MG-0.025 MG TABLET 1 TAB PO Q8H PRN DIARRHEA (Reported) Epoetin Tony (Epogen) 10,000 UNIT/ML VIAL 10,000 UNIT SC QFRI CKD (Reported) Fenofibrate Nanocrystallized (Fenofibrate) 145 MG TABLET 1 TAB PO DAILY HPL ( Reported) Ferrous Sulfate 325 MG (65 MG IRON) TABLET 1 TAB PO BID SUPPLEMENT (Reported) Furosemide (Lasix) 80 MG TABLET 1 TAB PO DAILY HEART FAILURE (Reported) Furosemide (Lasix) 80 MG TABLET 1 TAB PO BID DIURETIC (Reported) Glucagon,Human Recombinant (Glucagon Emergency Kit) 1 MG KIT 1 MG IM AD PRN HYPOGLYCEMIA (Reported) Guaifenesin/Dextromethorphan (Tussin Dm Cough & Chest Liquid) 100 MG-10 MG/5 ML SYRUP 10 ML PO Q4H PRN COUGH (Reported) Insulin Glargine,Hum.rec.anlog (Lantus Solostar) 100 UNIT/ML (3 ML) INSULN.PEN 52 UNIT SC QAM DM (Reported) Insulin Lispro (Humalog) 100 UNIT/ML CARTRIDGE DM (Reported) Lactobacillus Acidophilus (Acidophilus) 1 EACH CAPSULE 1 CAP PO Q12H PROBIOTIC (Reported) Lactulose 10 GRAM/15 ML SOLUTION 15 ML PO DAILY PRN CONSTIPATION (Reported) Lidocaine (Lidoderm) 5 % ADH..PATCH 1 PAT TOP QHS LEFT HIP (Reported) may wear up to 12 hours Loperamide HCl (Loperamide) 2 MG CAPSULE 4 MG PO Q6H PRN LOOSE STOOLS ( Reported) Magnesium Hydroxide (Milk Of Magnesia) 400 MG/5 ML ORAL.SUSP 30 ML PO PRN CONSTIPATION (Reported) Magnesium Oxide 400 MG TABLET 1 TAB PO DAILY SUPPLEMENT (Reported) Metoprolol Tartrate (Lopressor) 50 MG TABLET 1 TAB PO BID HR (Reported) Miconazole 5 GM POWDER 1 AMY TOP AD AFFECTED AREA(S) (Reported) Multiple Vitamin (Multivitamins) 1 EACH TABLET 1 TAB PO DAILY SUPPLEMENT ( Reported) Na Phos,M-B/Na Phos,Di-Ba (Fleet Enema) 19 GRAM-7 GRAM/118 ML ENEMA 1 E RC PRN CONSTIPATION (Reported) Nitrofurantoin Macrocrystal (Nitrofurantoin) 50 MG CAPSULE 1 CAP PO BID UTI ( Reported) Nitroglycerin (Nitroglycerin Patch) 0.4 MG/HOUR PATCH.TD24 0.4 MG TOP DAILY CHEST PAIN APPLY FOR 12 HOURS THEN REMOVE APPLY PATCH SAME TIME EACH DAY Ondansetron HCl (Zofran) 4 MG TABLET 1 TAB PO Q8H PRN NAUSEA (Reported) Oxycodone HCl/Acetaminophen (Percocet 5-325 MG Tablet) 5 MG-325 MG TABLET 1 TAB PO Q6H PRN PAIN (Reported) Pantoprazole Sodium 40 MG TABLET.DR 1 TAB PO DAILY GERD (Reported) Potassium Chloride 20 MEQ TAB.ER.PRT 1 TAB PO DAILY SUPPLEMENT (Reported) Pregabalin (Lyrica) 100 MG CAPSULE 1 CAP PO Q12H NERVE PAIN (Reported) Ranolazine (Ranexa) 500 MG TAB.ER.12H 1 TAB PO Q12H ANGINA (Reported) Sitagliptin Phosphate (Januvia) 50 MG TABLET 1 TAB PO QAM DM (Reported) Sodium Chloride ([place] Saline) 0.65 % DROPS 2 GTT NASB Q4H PRN CONGESTION ( Reported) Review of Systems Review of Systems: leg discomfort Past History Travel History Traveled to [place] past 21 day No Medical History Blood Transfusion Hx: Yes Neurological: CVA, TIA, PERIPHERAL NEUROPATHY EENT: NONE Cardiovascular: CAD, diastolic CHF, hyperlipidemia, myocardial infarction (s/p NE), NSTEMI, PVD, systolic CHF, AFIB on eloquis (paroxysmal) Respiratory: COPD, ANA (no cpap) Gastrointestinal: GERD, lactose intolerance, ENTERITIS Hepatic: NONE Renal: nephrolithiasis, acute kidney failure CKD Musculoskeletal: hx WOUND VAC leg wounds SKIN GRAFTS TO R LEG R & L hand contractures R inner foot-st 3 ulcer gait impairment Psychiatric: anxiety, major depressive disorder Endocrine: diabetes (with neuropathy), obesity Blood Disorders: anemia Cancer(s): NONE 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 MOTHER (CAD, DM, DLD and HTN). Psychosocial History Where [facility] You [facility] Who Do You Live With? sister Services at Home: Nursing, Oxygen, Physical Therapy Smoking Status: Current Everyday Smoker ETOH Use: occasional use Illicit Drug Use: marijuana (in past) Living Will? no Functional Ability ADLs Independent: eating. Needs Assist: dressing, toileting, bathing. Ambulation: walker IADLs Independent: telephone, medication admin. Needs Assist: shopping, housework, food prep, transportation. Unknown: finances. Exam & Diagnostic Data Vital Signs and I&O Vital Signs Date Time Temp Pulse Resp B/P B/P Pulse O2 O2 Flow FiO2 Mean Ox Delivery Rate 10/11 1537 97.5 76 18 130/74 100 Nasal 2.5L Cannula 10/11 0800 Nasal 2.5L Cannula 10/11 0624 98.0 78 18 128/74 98 Nasal 2.0L Cannula 10/11 0302 98.1 80 18 126/74 99 Nasal 2.0L Cannula 10/11 0230 Nasal 2.5L Cannula 10/11 0049 100 Room Air 10/11 0048 96.3 77 20 115/57 100 Room Air 10/10 2237 97.0 86 18 117/58 100 Nasal 2.0L Cannula 10/107 97.2 71 18 121/57 100 Nasal 2.0L Cannula 10/10 1945 97.0 71 18 121/58 100 Nasal 2.0L Cannula 10/10 172 99 Nasal 2.5L Cannula 10/10 172 97.9 74 18 94/51 100 Nasal 2.5L Cannula Intake & Output 10/11 0800 10/11 0000 10/10 1600 10/10 0810/10 0000 Intake Total 1290 0 Output Total 550 Balance 740 0 Intake, Blood 350 Product Intake, IV 300 Intake, Oral 640 0 Output, Urine 550 Patient 340 lb 332 lb Weight Weight Bed scale Reported by Patient Measurement Method Physical Exam: General: WD/obese male in NAD; alert and oriented x 3 HEENT: NC/AT, PERRL, EOMI Neck: no JVD, no carotid bruit Heart: irregularly irregular w/o murmur Lungs: clear bilaterally Abdomen: soft, obese, NT, +ve bowel sounds Extremities: 2+ bilateral leg edema with venous stasis changes and tenderness to palpation of the RLE Assessment/Plan Assessment/Plan * This patient is much improved following bypass surgery and his angioplasty to his OM. He nevertheless continues to harbor some PDA disease that could potentially cause ischemic chest pain. He also has a diffusely diseased OM2. This will undoubtedly also cause his inferior reversible ischemia. These lesions may not be easily amenable to PCI. The patient is currently pain free and the ischemia is not in a life threatening territory. He should continue on his current drug regimen including NTG which I think is helping. If he has recurrent chest pain we can consider repeat cardiac catheterization with PCI of the OM2 but I don't think it will get good results. In addition, I would like to avoid contrast loads due to his renal insufficiency. In consideration of his bleeding aspirin and Plavix can be discontinued at this point in time. * He has significant peripheral edema but this may be dependent edema due to his morbid obesity along with inflammation from cellulitis. Weight loss has been strongly recommended. His echo was consistent with restrictive heart disease which can also cause leg edema from increased RV pressures. Unfortunately, the treatment for this would be diuresis which he can be intolerant of due to its creating a pre-renal state. For now I would hold diuretics. Consult Acknowledgment - Thank you for your consult request.
--- NOTE | 2017-10-11 14:47 | RADIOLOGY REPORT ---
EXAMINATION: XR TIBIA AND FIBULA, RIGHT CLINICAL INFORMATION: Leg swelling and redness with pus coming from wounds. COMPARISON: None TECHNIQUE: AP and lateral views of the right tibia and fibula were obtained. FINDINGS: No fracture or cortical disruption. Anatomic alignment at the knee and ankle. There is diffuse soft tissue swelling. No gross evidence of soft tissue gas. No erosive osseous changes. Heel spurs are noted. Surgical clips at the medial knee soft tissues. IMPRESSION: Diffuse soft tissue edema. No gross evidence of soft tissue gas. No acute osseous abnormality.
--- NOTE | 2017-10-11 14:49 | ULTRASOUND REPORT ---
EXAMINATION: RENAL ULTRASOUND CLINICAL INFORMATION: Acute renal injury. COMPARISON: None. TECHNIQUE: Real-time imaging of the kidneys and bladder. FINDINGS: RIGHT KIDNEY: There is neither hydronephrosis nor nephrolithiasis. The right kidney measures 14.7 cm. LEFT KIDNEY: There is neither hydronephrosis nor nephrolithiasis. The left kidney measures 11.4 cm. BLADDER: The urinary bladder is well distended and unremarkable. The prevoid volume is 385 mL. There is a post void residual of 0 mL. There is no wall thickening. There is no pelvic free fluid. IMPRESSION: Normal renal and bladder ultrasound.
--- NOTE | 2017-10-11 14:49 | ULTRASOUND REPORT ---
EXAMINATION: US TRIPLEX LOWER EXTREMITY, RIGHT CLINICAL INFORMATION: Right lower extremity edema and pain. Swelling. COMPARISON: None TECHNIQUE: Color-flow triplex imaging with spectral analysis and compression Doppler were performed on the lower extremity. FINDINGS: Evaluation is significantly limited due to patient body habitus and tolerance of compression. Respiratory variation and augmented flow are noted throughout the lower extremity. Areas of normal compression are also seen, although compression is limited due to patient tolerance. The visualized common femoral vein, superficial femoral vein, profunda femoral vein, popliteal vein and midcalf peroneal and posterior tibial venous segments show no evidence of deep venous thrombosis. There is no Rahman's cyst. IMPRESSION: No evidence of deep venous thrombosis involving the right lower extremity.
--- NOTE | 2017-10-11 15:22 | ULTRASOUND REPORT ---
EXAMINATION: US-RIGHT lower EXTREMITY ARTERIAL DOP CLINICAL INFORMATION: 52-year-old male with peripheral vascular disease and weeping wounds in the right lower extremity. COMPARISON: None TECHNIQUE: Real-time ultrasound and Doppler techniques (integrating B-mode 2-D vascular images, Doppler spectral analysis and color flow Doppler imaging) were utilized to interrogate the lower extremities. FINDINGS: Extremely limited evaluation secondary to patient body habitus and bandages overlying the lower calf and toes. Multiphasic waveforms are noted throughout the femoral arteries. There was difficulty visualizing the popliteal artery secondary to patient body habitus. The popliteal appears patent with monophasic waveforms. Posterior tibial and anterior tibial arteries were patent. Peroneal artery was not visualized. The dorsalis pedis was not visualized secondary to overlying bandages. IMPRESSION: Extremely limited evaluation secondary to patient body habitus and bandages overlying the lower calf and toes. Peroneal and dorsalis pedis arteries were not visualized. The femoral and tibial arteries are patent. Greater sensitivity and specificity can be obtained with pre-and post exercise PVRs with JANEL calculations. Also consider dedicated CTA for further anatomical detail.
[2017-10-11 15:37] VITALS: BP 130/74
[2017-10-11 22:05] VITALS: BP 124/70
--- NOTE | 2017-10-12 07:03 | PN- Housestaff ---
[facility] 0703: Subjective Follow-up For: Acute on chronic kidney injury Acute on chronic anemia Right leg cellulitis Decubitus ulcers Subjective: No overnight events. Patient remained afebrile overnight. Seen and examined this morning. He denied any chest pain, short of breath, nausea, vomiting, chills, fever, abdominal pain dysuria. Patient reported pain in right leg that' s 8/10. Patient reported that he used to use Percocet for pain when he was in [facility] that helped him a little bit. Patient wants to see his vascular doctor, Dr. Cartwright. Review of Systems Constitutional: Reports: no symptoms. EENTM: Reports: no symptoms. Cardiovascular: Reports: no symptoms. Respiratory: Reports: no symptoms. Gastrointestinal: Reports: no symptoms. Genitourinary: Reports: no symptoms. Musculoskeletal: Reports: see HPI. Neurological/Psychological: Reports: no symptoms. Objective Last 24 Hrs of Vital Signs/I&O Vital Signs Date Time Temp Pulse Resp B/P B/P Pulse O2 O2 Flow FiO2 Mean Ox Delivery Rate 10/12 0706 97.7 86 20 134/70 98 Nasal 2.5L Cannula 10/12 0044 89 140/78 10/12 0000 Nasal 2.5L Cannula 10/11 2205 97.8 83 20 124/70 99 10/11 1600 Nasal 2.5L Cannula 10/11 1537 97.5 76 18 130/74 100 Nasal 2.5L Cannula Intake & Output 10/12 1600 10/12 0800 10/12 0000 Intake Total 240 640 Output Total 1450 1200 Balance -1210 -560 Intake, IV 120 400 Intake, Oral 120 240 Output, Urine 1450 1200 Physical Exam General Appearance: Alert, Oriented X3, Cooperative, No Acute Distress Skin Temp/Moisture Exam: Warm/Dry HEENT: Atraumatic, PERRLA, EOMI Neck: Supple Cardiovascular: Normal S1, Normal S2 Lungs: Clear to Auscultation Abdomen: Soft, No Tenderness Neurological: Normal Speech, Normal Tone Extremities: Right leg is swollen. Redness and tenderness ids present up to mid thigh., weeping wounds on right leg. purulent discharge with foul smell., left leg edema. chronic venous changes. Assessment/Plan Assessment: 51-year-old gentleman with a past medical significan for CAD s/p PCI (LAD, RCA) & CABG(2014), HTN, HLD, paroxysmal A.fib not on anticoagulation,chronic diastolic heart failure, , TIA, ANA (not on CPAP),chronic leg wound status post skin grafting, diabetes complicated with neuropathy, obesity presented from [facility] with a chief complaints of worsening weakness and lethargy for last 2 days. Patient had a history of fever 101.5 and diarrhea 2 days back which resolved with Tylenol and Lomotil respectively. History of ESRD Escherichia coli in urine and worsening of kidney function. Patient's baseline creatinine is 2.3. Fecal occult blood positive and patient is on aspirin and Plavix With Eliquis. Patient already got one blood transfusion in ED due to acute on chronic anemia. We will admit the patient under medicine floor to treat his cellulitis and acute on Chronic kidney injury. Acute on chronic kidney injury; -Possibly due to prerenal, due to dehydration and use of Lasix. -We will hold the Lasix for now that patient was using for CHF. -We'll follow nephrology recommendation. -Avoid nephrotoxins medication -Patient creatinine level is 2.7 it's coming down towards baseline. -We will check input and output -Patient is getting Epogen on Fridays but he is not on dialysis. -Renal ultrasound is negative for any obstructive uropathy. Acute on chronic anemia: -Possibly multifactorial considering chronic kidney injury, iron deficiency for chronic blood loss. -We will follow the iron studies.(Iron 27, total iron binding capacity 443, ferritin 66.1) -Patient already received 1 unit of blood in ED. -We will keep the HP more than 8. -A she'll refuse to see traveling buyer while in the hospital. -Stool guaiac is positive. Right leg cellulitis: -Patient has chronic venous insufficiency with wounds on right leg. Possibility of secondary infection and its ascending to thigh. There is redness and tenderness of right leg. -We'll follow the wound care consult -ID recommended yesterday to start 3 g of IV Unasyn to cover the infection. -We will follow the blood cultures results. -Daily dressing -Leg elevation -Patient had recent vascular procedure and he is following wound care at [facility] for once a week. -Right leg Doppler study for DVT is negative. Soft tissue x-ray of right leg is negative for gas gangrene. Arterial Doppler study showed patent popliteal artery but no visibility of the dorsalis pedis and posterior tibial. Asymptomatic bacteriuria: -Patient has ESBL positive urine culture. -There are no patient is asymptomatic. History of paroxysmal A. fib; -Patient is on 2.5 Eliquis twice a day -Patient is on rate control with Cardizem and metoprolol. we will continue that. History of coronary artery disease status post stent placement and CABG: -We'll discontinue his aspirin and Plavix considering his recent acute on chronic anemia as recommended by Dr. Loaiza. -Last echo was done in 2006 that showing 60% ejection fraction with moderate left ventricular hypertrophy. History of obstructive sleep apnea: -Patient is using 2.5 L of oxygen usually at nighttime and on exertion. -He is intolerant to CPAP. History of diabetes with neuropathy: -We will hold the oral medications. -We will start NovoLog on sliding scale with Levemir 25 units twice a day -Accu-Cheks Decubitus ulcers: -Patient has decubitus ulcers on buttock and thighs. -We will follow the wound care consultation recommendations. DVT prophylaxis: -Patient is already on Eliquis CODE STATUS: -Full code Problem List: 1. Anemia 2. Ibgtk-fq-nerubli kidney injury 3. Cellulitis Pain Ratin Pain Location: right leg Pain Goal: Pain 4 or less Pain Plan: tylenol for mild pain percocet for moderate pain Tomorrow's Labs & Rationales: cbc/bep/lfts Solitario Santos MD 10/12/17 1254: Attending MD Review Statement Attending Statement Attending MD Statement: examined this patient, discuss w/resident/PA/HOUSEKEEPING ROOM ATTENDANT, agreed w/resident/PA/HOUSEKEEPING ROOM ATTENDANT, reviewed EMR data (avail) Attending Assessment/Plan: 52M with extensive PMH admitted for lethargy, fever, acute kidney injury, recent diarrhea now resolved, anemia requiring transfusion, and RLE cellulitis superimposed on chronic venous stasis. Patient had some diarrhea prior to admission which resolved, had poor PO intake, was on Lasix, and presented dehydrated, like the etiology of his SPIKE. This is improving after IV hydration. His anemia is likely multifactorial and related to his CKD, with hemoccult stool positive, and ASA and Plavix have been stopped by cardiology due to bleeding. His Hgb is stable following transfusion of 1 unit pRBC. His right leg is erythematous, tender, and weeping, with a right heel ulcer appearing erythematous and likely the source of infection, with multiple lower leg ulcers present on the right side. He was febrile initially 102, afebrile since. Today he remains lethargic, answers basic questions, complains of right leg pain. Pulses are difficult to palpate on the right. 1. RLE cellulitis 2. Fever 3. Acute on chronic stage 3 kidney injury 4. Chronic anemia secondary to iron deficiency and CKD 5. Hemoccult positive stool 6. Metabolic encephalopathy 7. Bilateral lower extremity chronic venous stasis Plan - Continue on general medicine - Continue Unasyn - Wound consult - Monitor CBC - Monitor BEP - Follow cultures - Vascular surgery consult - Continue home medications - DVT PPx
[2017-10-12 07:06] VITALS: BP 134/70
[2017-10-12 09:34] LABS: ABSOLUTE BASOPHIL COUNT 0 /CUMM (0.0-0.2); ABSOLUTE EOSINOPHIL COUNT 0.3 /CUMM (0.0-0.7); ABSOLUTE GRANULOCYTE CT 7.8 /CUMM (1.4-6.5); ABSOLUTE LYMPH COUNT 0.6 /CUMM (1.2-3.4); ABSOLUTE MONOCYTE COUNT 0.6 /CUMM (0.10-0.60); BASOPHIL % 0.4 % (0.0-2.0); EOSINOPHIL % 2.9 % (0-5); HEMATOCRIT 27.1 % (42-52); MEAN CORPUSCULAR HGB CONC 32.9 G/DL (33.0-37.0); MEAN CORPUSCULAR VOLUME 81.9 FL (80.0-94.0); MEAN PLATELET VOLUME 10.2 FL (7.4-10.4); PLATELET COUNT 178 /CUMM (130-400); RBC DISTRIBUTION WIDTH 20.1 % (11.5-14.5); RED BLOOD CELL CT 3.31 /CUMM (4.70-6.10); WHITE BLOOD CELL COUNT 9.3 /CUMM (4.8-10.8)
[2017-10-12 10:56] LABS: GRANULOCYTE % 84.4 % (42.2-75.2)
[2017-10-12 14:54] VITALS: BP 138/70
--- NOTE | 2017-10-12 16:22 | PN- Nephrology ---
Assessment/Plan Assessment: 1. Acute kidney injury - improving with hydration with renal function now at or near baseline; no obstruction by imaging studies 2. CKD stage III secondary to hypertensive/diabetic nephrosclerosis 3. Peripheral vascular disease with multiple ulcers right lower extremity 4. Lower extremity cellulitis with weeping edema in part related to right sided CHF but also to local pathology 5. Coronary artery disease Suggestion: 1. Can discontinue IV fluids as long as he is taking by mouth well 2. Decrease fenofibrate to 48 mg by mouth daily 3. Continue antibiotic therapy 4. Consider wound care and ID consults 5. Vascular surgery now following 6. Monitor chemistries, intake and output daily Subjective Subjective: Patient has discomfort primarily in the form of numbness in his right foot. He offers no other specific complaints and remains afebrile. Urine culture positive for gram-negative rods. Creatinine has come down to 2.0 which is very close to his baseline level. Electrolytes okay as are his calcium, phosphorus and magnesium levels. Objective Vital Signs and I&Os Vital Signs Date Time Temp Pulse Resp B/P B/P Pulse O2 O2 Flow FiO2 Mean Ox Delivery Rate 10/12 1454 97.2 92 20 138/70 99 Nasal 3.0L Cannula 10/12 1352 86 130/76 10/12 0800 95 Nasal 2.5L Cannula 10/12 0706 97.7 86 20 134/70 98 Nasal 2.5L Cannula 10/12 0044 89 140/78 10/12 0000 Nasal 2.5L Cannula 10/11 2205 97.8 83 20 124/70 99 Intake & Output 10/12 1600 10/12 0400 10/11 1600 10/11 0400 10/10 1600 10/10 0400 Intake Total 240 640 600 690 Output Total 1500 2250 550 Balance -1260 -1610 600 140 Intake, Blood 350 Product Intake, IV 120 400 300 Intake, Oral 120 240 300 340 Output, Urine 1500 2250 550 Patient 339 lb 340 lb Weight Weight Bed scale Measurement Method Physical Exam: General: Well-developed, obese white male in NAD Skin: Erythema of both lower extremities below the knees, no rash or jaundice HEENT: Conjunctivae pink, sclerae anicteric, mucous membranes moist Neck: Without masses or thyromegaly, no supraclavicular or cervical adenopathy Chest: Clear with diminished breath sounds at bases Heart: Irregular rhythm without S3 or rub Abdomen: Obese, soft and nontender without palpable masses or organomegaly Extremities: 3+ lower extremity edema with overlying erythema, right lower extremity dressing intact Neuro: No lateralizing findings, no asterixis or myoclonus Results Pertinent Lab Results: Laboratory Tests 10/12 10/11 0720 0827 Chemistry Sodium (137 - 145 mmol/L) 145 142 Potassium (3.5 - 5.1 mmol/L) 4.2 4.2 Chloride (98 - 107 mmol/L) 110 H 108 H Carbon Dioxide (22 - 30 mmol/L) 25 22 Anion Gap (5 - 16) 10 12 BUN (9 - 20 mg/dL) 63 H 86 H Creatinine (0.7 - 1.2 mg/dL) 2.0 H 2.7 H Estimated GFR (>60 ml/min) 35 L 25 L BUN/Creatinine Ratio (7 - 25 %) 31.5 H 31.9 H Phosphorus (2.5 - 4.5 mg/dL) 3.7 Magnesium (1.6 - 2.3 mg/dL) 2.1 Total Bilirubin (0.2 - 1.3 mg/dL) 1.4 H Direct Bilirubin (< 0.4 mg/dL) 1.1 H AST (17 - 59 U/L) 54 ALT (21 - 72 U/L) 35 Alkaline Phosphatase (< 127 U/L) 149 H Creatine Kinase (55 - 170 U/L) 38 L C-Reactive Prot, Quant (<1.0 mg/dL) > 9.0 H Total Protein (6.3 - 8.2 g/dL) 5.5 L Albumin (3.5 - 5.0 g/dL) 2.5 L Hematology CBC w Diff NO MAN DIFF REQ NO MAN DIFF REQ WBC (4.8 - 10.8 /CUMM) 9.3 8.4 RBC (4.70 - 6.10 /CUMM) 3.31 L 3.35 L Hgb (14.0 - 18.0 G/DL) 8.9 L 9.1 L Hct (42 - 52 %) 27.1 L 27.2 L MCV (80.0 - 94.0 FL) 81.9 81.2 MCH (27.0 - 31.0 PG) 27.0 27.0 RDW (11.5 - 14.5 %) 20.1 H 19.6 H Plt Count (130 - 400 /CUMM) 178 162 MPV (7.4 - 10.4 FL) 10.2 11.6 H Gran % (42.2 - 75.2 %) 84.4 H 82.7 H Lymphocytes % (20.5 - 51.1 %) 6.0 L 7.7 L Monocytes % (1.7 - 9.3 %) 6.3 5.9 Eosinophils % (0 - 5 %) 2.9 3.2 Basophils % (0.0 - 2.0 %) 0.4 0.5 Absolute Granulocytes (1.4 - 6.5 /CUMM) 7.8 H 7.0 H Absolute Lymphocytes (1.2 - 3.4 /CUMM) 0.6 L 0.6 L Absolute Monocytes (0.10 - 0.60 /CUMM) 0.6 0.5 Absolute Eosinophils (0.0 - 0.7 /CUMM) 0.3 0.3 Absolute Basophils (0.0 - 0.2 /CUMM) 0 0 PUBS MCHC (33.0 - 37.0 G/DL) 32.9 L 33.3 10/10 Chemistry Lactic Acid Cancelled Urines Ur Random Creatinine Cancelled Ur Random Sodium Cancelled Ur Random Potassium Cancelled Fraction Sodium Excret Cancelled 10/10 Urines Urinalysis LIGHT H Urine Color (YEL,AMB,STR) STRAW Urine Clarity (CLEAR) CLDY H Urine pH (5.0 - 8.0) 5.5 Ur Specific [place] (1.001 - 1.035) 1.020 Urine Protein (NEG,<30 MG/DL) TRACE H Urine Ketones (NEG) NEG Urine Nitrite (NEG) POS H Urine Bilirubin (NEG) NEG Urine Urobilinogen (0.1 - 1.0 EU/dl) 1.0 Ur Leukocyte Esterase (NEG) LARGE H Ur Microscopic SEDIMENT EXAMINED Urine WBC (0 - 2 /HPF) > 75 H Ur Epithelial Cells (NONE,FEW) FEW Urine Bacteria (NEG/NONE) MANY H Urine Hemoglobin (NEG) MOD H Urine Osmolality (300 - 1000 MOSM/KG) 384 Ur Random Creatinine (mg/dL) 72.4 Ur Random Sodium (30 - 90 mmol/L) 27 L Ur Random Potassium (mmol/L) 32.4 Fraction Sodium Excret (<1% %) 0.9 Urine Glucose (N MG/DL) NEG 10/10 1801 Chemistry Sodium (137 - 145 mmol/L) 138 Potassium (3.5 - 5.1 mmol/L) 5.1 Chloride (98 - 107 mmol/L) 101 Carbon Dioxide (22 - 30 mmol/L) 23 Anion Gap (5 - 16) 13 BUN (9 - 20 mg/dL) 100 H Creatinine (0.7 - 1.2 mg/dL) 3.5 H Estimated GFR (>60 ml/min) 18 L BUN/Creatinine Ratio (7 - 25 %) 28.6 H Glucose (65 - 99 mg/dL) 208 H Lactic Acid (0.7 - 2.1 mmol/L) 1.6 Calcium (8.4 - 10.2 mg/dL) 8.7 Total Bilirubin (0.2 - 1.3 mg/dL) 1.2 Direct Bilirubin (< 0.4 mg/dL) 1.1 H AST (17 - 59 U/L) 65 H ALT (21 - 72 U/L) 46 Alkaline Phosphatase (< 127 U/L) 155 H Total Protein (6.3 - 8.2 g/dL) 6.4 Albumin (3.5 - 5.0 g/dL) 3.0 L Hematology CBC w Diff NO MAN DIFF REQ WBC (4.8 - 10.8 /CUMM) 9.1 RBC (4.70 - 6.10 /CUMM) 3.02 L Hgb (14.0 - 18.0 G/DL) 8.1 L Hct (42 - 52 %) 24.6 L MCV (80.0 - 94.0 FL) 81.5 MCH (27.0 - 31.0 PG) 26.9 L RDW (11.5 - 14.5 %) 19.6 H Plt Count (130 - 400 /CUMM) 180 MPV (7.4 - 10.4 FL) 11.4 H Gran % (42.2 - 75.2 %) 79.8 H Lymphocytes % (20.5 - 51.1 %) 7.9 L Monocytes % (1.7 - 9.3 %) 8.9 Eosinophils % (0 - 5 %) 3.1 Basophils % (0.0 - 2.0 %) 0.3 Absolute Granulocytes (1.4 - 6.5 /CUMM) 7.3 H Absolute Lymphocytes (1.2 - 3.4 /CUMM) 0.7 L Absolute Monocytes (0.10 - 0.60 /CUMM) 0.8 H Absolute Eosinophils (0.0 - 0.7 /CUMM) 0.3 Absolute Basophils (0.0 - 0.2 /CUMM) 0 PUBS MCHC (33.0 - 37.0 G/DL) 33.0
--- NOTE | 2017-10-12 20:20 | PN- Cardiology ---
Subjective Subjective: * No chest discomfort or shortness of breath. Legs are very tender. * creatinine improved to 2.0 Objective Vital Signs and I&Os Vital Signs Date Time Temp Pulse Resp B/P B/P Pulse O2 O2 Flow FiO2 Mean Ox Delivery Rate 10/12 1454 97.2 92 20 138/70 99 Nasal 3.0L Cannula 10/12 1352 86 130/76 10/12 0800 95 Nasal 2.5L Cannula 10/12 0706 97.7 86 20 134/70 98 Nasal 2.5L Cannula 10/12 0044 89 140/78 10/12 0000 Nasal 2.5L Cannula 10/11 2205 97.8 83 20 124/70 99 Intake & Output 10/12 1600 10/12 0800 10/12 0000 10/11 1600 10/11 0810/11 0000 Intake Total 190 854 9405 0 Output Total 1100 1450 1200 550 Balance -1100 -1210 -560 740 0 Intake, Blood 350 Product Intake, IV 120 400 300 Intake, Oral 120 240 640 0 Output, Urine 1100 1450 1200 550 Patient 339 lb 340 lb 332 lb Weight Weight Bed scale Reported by Patient Measurement Method Physical Exam: General: WD/obese male in NAD; alert and oriented x 3 HEENT: NC/AT, PERRL, EOMI Neck: no JVD, no carotid bruit Heart: irregularly irregular w/o murmur Lungs: clear bilaterally Abdomen: soft, obese, NT, +ve bowel sounds Extremities: 2+ bilateral leg edema with venous stasis changes and tenderness to palpation of the RLE Assessment/Plan Assessment/Plan * This patient is much improved following bypass surgery and his angioplasty to his OM. He nevertheless continues to harbor some PDA disease that could potentially cause ischemic chest pain. He also has a diffusely diseased OM2. This will undoubtedly also cause his inferior reversible ischemia. These lesions may not be easily amenable to PCI. The patient is currently pain free and the ischemia is not in a life threatening territory. He should continue on his current drug regimen including NTG which I think is helping. If he has recurrent chest pain we can consider repeat cardiac catheterization with PCI of the OM2 but I don't think it will get good results. In addition, I would like to avoid contrast loads due to his renal insufficiency. In consideration of his bleeding aspirin and Plavix can be discontinued at this point in time. * He has significant peripheral edema but this may be dependent edema due to his morbid obesity along with inflammation from cellulitis. Weight loss has been strongly recommended. His echo was consistent with restrictive heart disease which can also cause leg edema from increased RV pressures. Unfortunately, the treatment for this would be diuresis which he can be intolerant of due to its creating a pre-renal state. For now I would hold diuretics. Continue telemetry? No
[2017-10-12 22:27] VITALS: BP 160/70
[2017-10-13 06:00] VITALS: BP 138/70
[2017-10-13 08:05] LABS: ABSOLUTE BASOPHIL COUNT 0 /CUMM (0.0-0.2); ABSOLUTE EOSINOPHIL COUNT 0.3 /CUMM (0.0-0.7); ABSOLUTE GRANULOCYTE CT 5.7 /CUMM (1.4-6.5); ABSOLUTE LYMPH COUNT 0.7 /CUMM (1.2-3.4); ABSOLUTE MONOCYTE COUNT 0.6 /CUMM (0.10-0.60); BASOPHIL % 0.6 % (0.0-2.0); EOSINOPHIL % 3.7 % (0-5); GRANULOCYTE % 78.7 % (42.2-75.2); MEAN CORPUSCULAR HGB 26.6 PG (27.0-31.0); MEAN CORPUSCULAR HGB CONC 32.5 G/DL (33.0-37.0); MEAN CORPUSCULAR VOLUME 81.8 FL (80.0-94.0); MEAN PLATELET VOLUME 10.2 FL (7.4-10.4); PLATELET COUNT 204 /CUMM (130-400); RBC DISTRIBUTION WIDTH 20.5 % (11.5-14.5); RED BLOOD CELL CT 3.31 /CUMM (4.70-6.10); WHITE BLOOD CELL COUNT 7.2 /CUMM (4.8-10.8)
[2017-10-13 14:52] VITALS: BP 134/70
--- NOTE | 2017-10-13 20:25 | PN- Att Addend ---
Attending Addendum Attending Brief Note S: The patient still notes RLE discomfort, however does feel slight improvement. O: VS: Vital Signs Date Time Temp Pulse Resp B/P B/P Pulse O2 O2 Flow FiO2 Mean Ox Delivery Rate 10/13 1452 98.5 99 20 134/70 93 Current Medications Sig/Ysabel Start time Last Medication Dose Route Stop Time Status Admin Acetaminophen 1,000 MG .STK-MED ONE 10/12 2021 DC IV 10/12 2022 Acetaminophen 650 MG Q6H PRN 10/11 0015 AC PO Acetaminophen 650 MG Q6P PRN 10/10 2345 AC 10/12 PO 0544 Acetaminophen 1,000 MG Q6P PRN 10/10 2345 AC 10/12 IV 2024 Ampicillin Sodium/ 3,000 MG Q8 10/11 1400 AC 10/13 Sulbactam Sodium IV 1407 Sodium Chloride 100 ML Apixaban 2.5 MG BID 10/11 1000 AC 10/13 PO 0926 Dicyclomine HCl 20 MG 4 TIMES/DAY PRN 10/11 0015 AC PO Diltiazem HCl 120 MG DAILY 10/11 1000 AC 10/13 PO 0926 Epoetin Tony 10,000 UNIT QFRI 10/12 0700 AC 10/12 SC 0540 Fenofibrate 48 MG DAILY 10/13 1000 AC 10/13 PO 0926 Ferrous Sulfate 325 MG BID 10/11 1000 AC 10/13 PO 0926 Guaifenesin/ 10 ML Q4H PRN 10/11 0015 AC Dextromethorphan PO Insulin Aspart 0 TIDAC/HS 10/11 0800 AC 10/13 SC 1800 Insulin Detemir 25 UNITS BID 10/11 0101 AC 10/13 SC 1241 Lactobacillus 1 CAP DAILY 10/11 1000 AC 10/13 Acidophilus PO 0926 Magnesium Oxide 400 MG DAILY 10/11 1000 AC 10/13 PO 0926 Multivitamins 1 TAB DAILY 10/11 1000 AC 10/13 Therapeutic PO 0926 Nitroglycerin 0.4 MG DAILY 10/11 1000 AC 10/13 TOP 0926 Nystatin 1 AMY TID 10/12 2307 AC 10/13 TOP 1800 Oxycodone/ 1 TAB Q8P PRN 10/12 1445 AC 10/13 Acetaminophen PO 1405 Potassium Chloride 20 MEQ DAILY 10/11 1000 AC 10/13 PO 0926 Pregabalin 100 MG Q12H 10/11 14 AC 10/13 PO 1241 Ranolazine 500 MG Q12H 10/11 14 AC 10/13 PO 1241 Physical Exam: Chest: diminished BS at bases, clear Cor: RRR nl S1, S2 w/o murm Abd: obese, BS+, soft, NT Ext: + significant RLE edema, warmth, erythema- perhaps slightly less edema than noted 2 days ago; + 2+ LLE edema with stasis changes Labs: Laboratory Tests 10/13/17 0737: Anion Gap 10, Estimated GFR 45 L, BUN/Creatinine Ratio 30.0 H, Total Bilirubin 1.2, Direct Bilirubin 1.0 H, AST 52, ALT 31, Alkaline Phosphatase 167 H, Total Protein 5.8 L, Albumin 2.7 L, CBC w Diff NO MAN DIFF REQ, RBC 3.31 L, MCV 81.8, MCH 26.6 L, RDW 20.5 H, MPV 10.2, Gran % 78.7 H, Lymphocytes % 9.2 L, Monocytes % 7.8, Eosinophils % 3.7, Basophils % 0.6, Absolute Granulocytes 5.7, Absolute Lymphocytes 0.7 L, Absolute Monocytes 0.6, Absolute Eosinophils 0.3, Absolute Basophils 0, PUBS MCHC 32.5 L, ESR Westergren 108 H Impression/Plan: #SPIKE/CKD- Creatinine decreased to 1.6 which is lower than his baseline. Appreciate Nephrology input. Plan: Will continue to follow. #RLE Cellulitis- only minimal improvement. Did have PA from surgery input, however patient requesting Dr. Rodriguez to see. On Unasyn. Growing EBSL from urine with no significant pyuria. Plan: ID consult mentioned in prior notes, however not seen as of yet. #Anemia- responded to transfusion. Plan: Follow H/H.
[2017-10-14 06:39] VITALS: BP 136/68
--- NOTE | 2017-10-14 07:09 | PN- Housestaff ---
EddieMajestic 10/14/17 0708: Subjective Follow-up For: Acute on chronic kidney injury Acute on chronic anemia Right leg cellulitis Decubitus ulcers Subjective: No overnight events. Patient remained afebrile. Seen and examined this morning. He denied any chest pain, short of breath, nausea, vomiting, abdominal pain, chills, fever and dysuria. Patient reported having numbness in the right foot that's going on since his admission probably due to diabetic neuropathy. Patient's right leg is still having weeping wounds and he is getting daily dressing but it's not foul-smelling. Patient is on 3L of oxygen and maintaining saturation 99%. Review of Systems Constitutional: Reports: no symptoms. EENTM: Reports: no symptoms. Cardiovascular: Reports: no symptoms. Respiratory: Reports: no symptoms. Gastrointestinal: Reports: no symptoms. Genitourinary: Reports: no symptoms. Musculoskeletal: Reports: see HPI. Neurological/Psychological: Reports: no symptoms. Objective Last 24 Hrs of Vital Signs/I&O Vital Signs Date Time Temp Pulse Resp B/P B/P Pulse O2 O2 Flow FiO2 Mean Ox Delivery Rate 10/14 0639 97.6 96 20 136/68 99 Nasal 3.0L Cannula 10/14 0040 98.3 100 20 138/70 10/14 0000 98 Nasal 2.5L Cannula 10/13 2220 Nasal Cannula 10/13 1452 98.5 99 20 134/70 93 Intake & Output 10/14 0800 10/14 0000 10/13 1600 Intake Total 600 650 Output Total 200 1100 900 Balance -200 -500 -250 Intake, Oral 600 650 Output, Urine 200 1100 900 Physical Exam General Appearance: Alert, Oriented X3, Cooperative, No Acute Distress Skin Temp/Moisture Exam: Warm/Dry HEENT: Atraumatic, PERRLA, EOMI Neck: Supple Cardiovascular: Normal S1, Normal S2 Lungs: Clear to Auscultation Abdomen: Soft, No Tenderness Neurological: Normal Speech, Normal Tone, right foot numbness Extremities: b/l pedal edema with chronic venous changes, right leg cellulitis with tenderness, right leg chronic diabetic ulcers with dressing., right foot numbness Assessment/Plan Assessment: 51-year-old gentleman with a past medical significan for CAD s/p PCI (LAD, RCA) & CABG(2013), HTN, HLD, paroxysmal A.fib not on anticoagulation,chronic diastolic heart failure, , TIA, ANA (not on CPAP),chronic leg wound status post skin grafting, diabetes complicated with neuropathy, obesity presented from [facility] with a chief complaints of worsening weakness and lethargy for last 2 days. Patient had a history of fever 101.5 and diarrhea 2 days back which resolved with Tylenol and Lomotil respectively. History of ESRD Escherichia coli in urine and worsening of kidney function. Patient's baseline creatinine is 2.3. Fecal occult blood positive and patient is on aspirin and Plavix With Eliquis. Patient already got one blood transfusion in ED due to acute on chronic anemia. We will admit the patient under medicine floor to treat his cellulitis and acute on Chronic kidney injury. Acute on chronic kidney injury; -Possibly due to prerenal, due to dehydration and use of Lasix. -We will hold the Lasix for now that patient was using for CHF. -We'll follow nephrology recommendation. -Avoid nephrotoxins medication -Patient creatinine level is 2.7 it's coming down towards baseline. -We will check input and output -Patient is getting Epogen on Fridays but he is not on dialysis. -Renal ultrasound is negative for any obstructive uropathy. Acute on chronic anemia: -Possibly multifactorial considering chronic kidney injury, iron deficiency for chronic blood loss. -We will follow the iron studies.(Iron 27, total iron binding capacity 443, ferritin 66.1) -Patient already received 1 unit of blood in ED. -We will keep the HP more than 8. -A she'll refuse to see educational interpreter while in the hospital. -Stool guaiac is positive. Right leg cellulitis: -Patient has chronic venous insufficiency with wounds on right leg. Possibility of secondary infection and its ascending to thigh. There is redness and tenderness of right leg. -We'll follow the wound care consult -ID recommended yesterday to start 3 g of IV Unasyn to cover the infection. -We will follow the blood cultures results. -Daily dressing -Leg elevation -Patient had recent vascular procedure and he is following wound care at [facility] for once a week. -Right leg Doppler study for DVT is negative. Soft tissue x-ray of right leg is negative for gas gangrene. Arterial Doppler study showed patent popliteal artery but no visibility of the dorsalis pedis and posterior tibial. Asymptomatic bacteriuria: -Patient has ESBL positive urine culture. -There are no patient is asymptomatic. History of paroxysmal A. fib; -Patient is on 2.5 Eliquis twice a day -Patient is on rate control with Cardizem and metoprolol. we will continue that. History of coronary artery disease status post stent placement and CABG: -We'll discontinue his aspirin and Plavix considering his recent acute on chronic anemia as recommended by Dr. Loaiza. -Last echo was done in 2006 that showing 60% ejection fraction with moderate left ventricular hypertrophy. History of obstructive sleep apnea: -Patient is using 2.5 L of oxygen usually at nighttime and on exertion. -He is intolerant to CPAP. History of diabetes with neuropathy: -We will hold the oral medications. -We will start NovoLog on sliding scale with Levemir 25 units twice a day -Accu-Cheks Decubitus ulcers: -Patient has decubitus ulcers on buttock and thighs. -We will follow the wound care consultation recommendations. DVT prophylaxis: -Patient is already on Eliquis CODE STATUS: -Full code Problem List: 1. Anemia 2. Cellulitis 3. [id number] kidney injury Pain Ratin Pain Location: right leg Pain Goal: Pain 4 or less Pain Plan: tylenol for mild pain percocet for moderate pain Tomorrow's Labs & Rationales: bep/cbc Jim Clark MD 10/14/171936: Attending MD Review Statement Attending Statement Attending MD Statement: examined this patient, discuss w/resident/PA/WELDING MACHINE TENDER, agreed w/resident/PA/WELDING MACHINE TENDER, discussed with family, reviewed EMR data (avail), discussed with nursing, amended to note Attending Assessment/Plan: The patient was seen and discussed with house staff and ID (Dr. Carlos). Appreciate ID input. Will continue with Unasyn. Cr today 1.8. Agree with bone scan (3-phase limited bone scan of RLE) to evaluate for underlying osteomyelitis (cannot to MRI). Patient wants vascular surgery follow-up as well. Continue to follow renal function.
[2017-10-14 09:42] LABS: ABSOLUTE BASOPHIL COUNT 0.1 /CUMM (0.0-0.2); ABSOLUTE EOSINOPHIL COUNT 0.3 /CUMM (0.0-0.7); ABSOLUTE GRANULOCYTE CT 4.5 /CUMM (1.4-6.5); ABSOLUTE LYMPH COUNT 0.7 /CUMM (1.2-3.4); ABSOLUTE MONOCYTE COUNT 0.5 /CUMM (0.10-0.60); BASOPHIL % 1.2 % (0.0-2.0); EOSINOPHIL % 4.4 % (0-5); GRANULOCYTE % 74.9 % (42.2-75.2); HEMATOCRIT 26.1 % (42-52); MEAN CORPUSCULAR HGB 25.9 PG (27.0-31.0); MEAN CORPUSCULAR HGB CONC 31.5 G/DL (33.0-37.0); MEAN CORPUSCULAR VOLUME 82.3 FL (80.0-94.0); PLATELET COUNT 171 /CUMM (130-400); RBC DISTRIBUTION WIDTH 20.6 % (11.5-14.5); RED BLOOD CELL CT 3.18 /CUMM (4.70-6.10)
--- NOTE | 2017-10-14 13:17 | Cons- Infect Disease ---
General Information and HPI Consulting Request Date of Consult: 10/14/17 Requested By: Solitario Santos MD Reason for Consult: Cellulitis of the right leg/positive urine culture for ESBL producing Escherichia coli Source of Information: patient, old records Exam Limitations: poor historian History of Present Illness: This is a 52-year-old man, half-way resident, with a history of coronary artery disease, status post CABG, diastolic CHF, paroxysmal atrial fibrillation, status post CVA/TIA, COPD, on prn oxygen, obstructive sleep apnea, diabetes, with a chronic, nonhealing right heel wound, debrided weekly by Dr. Rodriguez in [facility], chronic venous insufficiency, with chronic lower extremity wounds, status post skin grafting, treated with Macrodantin for several days prior to admission for a positive urine culture for ESBL producing Escherichia coli, admitted on October 10 because of an increased creatinine with the complaint of several days of weakness and lethargy, several episodes of diarrhea , which resolved with Lomotil, increased weeping and erythema of both lower extremities and fever. On admission he was afebrile. Laboratory data revealed a white blood cell count of 9000, BUN/creatinine 100 and 3.5, alkaline phosphatase 155, AST/ALT 65 and 46. Urinalysis greater than 75 WBCs. Chest x- ray revealed streaky opacification within the left lower lung zone. X-ray of the right tibia and fibula revealed diffuse soft tissue edema with no evidence of soft tissue gas or osseous abnormality. Doppler of the right lower extremity was negative. Arterial Doppler of the right lower extremity, limited due to his body habitus and bandages, revealed patent femoral and tibial arteries. He was begun on Unasyn for a presumed cellulitis. He has remained afebrile and his white blood cell count has remained normal since admission. He complains of continued pain in the right heel and leg, with no improvement from admission. He also notes nausea, with no vomiting, abdominal pain or diarrhea. He denies any respiratory symptoms and has no urinary complaints. Allergies/Medications Allergies: Coded Allergies: hydromorphone (UNKNOWN PER 12/02/16) erythromycin base (Intermediate, ?GI UPSET 03/13/16) gluten (Intermediate, GI UPSET 03/13/16) venom-honey bee (BEE VENOM (HONEY BEE)) (Intermediate, VOMITING 03/13/16) lactose (Mild, GI UPSET 03/13/16) Home Med List: Acetaminophen 325 MG TABLET 2 TAB PO Q6H PRN PAIN/TEMP/>101 (Reported) Acetaminophen (Acephen) 650 MG SUPP.RECT 1 SUP ID Q6H PRN PAIN/TEMP/>101 ( Reported) Albuterol Sulfate 2.5 MG/3 ML (0.083 %) VIAL.NEB 1 Vial INH/MINI Q4P PRN SOB ( Reported) Apixaban (Eliquis) 5 MG TABLET 1 TAB PO BID BLOOD THINNER (Reported) Ascorbic Acid (Vitamin C) 500 MG CAPSULE 1 CAP PO DAILY SUPPLEMENT (Reported) Aspirin (Ecotrin*) 81 MG TABLET.DR 1 TAB PO DAILY HEART/BLOOD (Reported) Bisacodyl 10 MG SUPP.RECT 1 SUP RC PRN GI (Reported) Cholecalciferol (Vitamin D3) (Vitamin D) 2,000 UNIT TABLET 2 TAB PO DAILY SUPPLEMENT (Reported) Clopidogrel Bisulfate (Clopidogrel) 75 MG TABLET 1 TAB PO DAILY ANTICOAGULATION (Reported) Dextrose (Glucose Gel) (Unknown Strength) GEL..GRAM. (Unknown Dose) PO AD PRN HYPOGLYCEMIA (Reported) Dicyclomine HCl 20 MG TABLET 1 TAB PO Q6H PRN GERD (Reported) Diltiazem HCl (Diltiazem 24HR ER) 120 MG CAP.ER.24H 1 CAP PO DAILY HEART/BP ( Reported) Diphenoxylate HCl/Atropine (Lomotil 2.5-0.025 MG Tablet) 2.5 MG-0.025 MG TABLET 1 TAB PO Q8H PRN DIARRHEA (Reported) Epoetin Tony (Epogen) 10,000 UNIT/ML VIAL 10,000 UNIT SC QFRI CKD (Reported) Fenofibrate Nanocrystallized (Fenofibrate) 145 MG TABLET 1 TAB PO DAILY HPL ( Reported) Ferrous Sulfate 325 MG (65 MG IRON) TABLET 1 TAB PO BID SUPPLEMENT (Reported) Furosemide (Lasix) 80 MG TABLET 1 TAB PO DAILY HEART FAILURE (Reported) Furosemide (Lasix) 80 MG TABLET 1 TAB PO BID DIURETIC (Reported) Glucagon,Human Recombinant (Glucagon Emergency Kit) 1 MG KIT 1 MG IM AD PRN HYPOGLYCEMIA (Reported) Guaifenesin/Dextromethorphan (Tussin Dm Cough & Chest Liquid) 100 MG-10 MG/5 ML SYRUP 10 ML PO Q4H PRN COUGH (Reported) Insulin Glargine,Hum.rec.anlog (Lantus Solostar) 100 UNIT/ML (3 ML) INSULN.PEN 52 UNIT SC QAM DM (Reported) Insulin Lispro (Humalog) 100 UNIT/ML CARTRIDGE DM (Reported) Lactobacillus Acidophilus (Acidophilus) 1 EACH CAPSULE 1 CAP PO Q12H PROBIOTIC (Reported) Lactulose 10 GRAM/15 ML SOLUTION 15 ML PO DAILY PRN CONSTIPATION (Reported) Lidocaine (Lidoderm) 5 % ADH..PATCH 1 PAT TOP QHS LEFT HIP (Reported) may wear up to 12 hours Loperamide HCl (Loperamide) 2 MG CAPSULE 4 MG PO Q6H PRN LOOSE STOOLS ( Reported) Magnesium Hydroxide (Milk Of Magnesia) 400 MG/5 ML ORAL.SUSP 30 ML PO PRN CONSTIPATION (Reported) Magnesium Oxide 400 MG TABLET 1 TAB PO DAILY SUPPLEMENT (Reported) Metoprolol Tartrate (Lopressor) 50 MG TABLET 1 TAB PO BID HR (Reported) Miconazole 5 GM POWDER 1 AMY TOP AD AFFECTED AREA(S) (Reported) Multiple Vitamin (Multivitamins) 1 EACH TABLET 1 TAB PO DAILY SUPPLEMENT ( Reported) Na Phos,M-B/Na Phos,Di-Ba (Fleet Enema) 19 GRAM-7 GRAM/118 ML ENEMA 1 E RC PRN CONSTIPATION (Reported) Nitrofurantoin Macrocrystal (Nitrofurantoin) 50 MG CAPSULE 1 CAP PO BID UTI ( Reported) Nitroglycerin (Nitroglycerin Patch) 0.4 MG/HOUR PATCH.TD24 0.4 MG TOP DAILY CHEST PAIN APPLY FOR 12 HOURS THEN REMOVE APPLY PATCH SAME TIME EACH DAY Ondansetron HCl (Zofran) 4 MG TABLET 1 TAB PO Q8H PRN NAUSEA (Reported) Oxycodone HCl/Acetaminophen (Percocet 5-325 MG Tablet) 5 MG-325 MG TABLET 1 TAB PO Q6H PRN PAIN (Reported) Pantoprazole Sodium 40 MG TABLET.DR 1 TAB PO DAILY GERD (Reported) Potassium Chloride 20 MEQ TAB.ER.PRT 1 TAB PO DAILY SUPPLEMENT (Reported) Pregabalin (Lyrica) 100 MG CAPSULE 1 CAP PO Q12H NERVE PAIN (Reported) Ranolazine (Ranexa) 500 MG TAB.ER.12H 1 TAB PO Q12H ANGINA (Reported) Sitagliptin Phosphate (Januvia) 50 MG TABLET 1 TAB PO QAM DM (Reported) Sodium Chloride (Marissa Saline) 0.65 % DROPS 2 GTT NASB Q4H PRN CONGESTION ( Reported) Past History Travel History Traveled to [place] past 21 day No Medical History Blood Transfusion Hx: Yes Neurological: CVA, TIA, PERIPHERAL NEUROPATHY EENT: NONE Cardiovascular: AFIB (paroxysmal), CAD, diastolic CHF, hyperlipidemia, myocardial infarction (s/p ID), NSTEMI, PVD, systolic CHF Respiratory: COPD, ANA (no cpap) Gastrointestinal: GERD, lactose intolerance, ENTERITIS Hepatic: NONE Renal: nephrolithiasis, acute kidney failure CKD Musculoskeletal: hx WOUND VAC leg wounds SKIN GRAFTS TO R LEG R & L hand contractures R inner foot-st 3 ulcer gait impairment Psychiatric: anxiety, major depressive disorder Endocrine: diabetes (with neuropathy), obesity Blood Disorders: anemia Cancer(s): NONE SCRUB NURSE/Reproductive: NONE History of MRSA: No History of VRE: Yes History of CDIFF: No Isolation History: Contact Influenza Vaccine: 07/08/17 Tetanus Vaccine: 03/28/12 Surgical History Surgical History: CABG,R FOOT X9 CARDIAC STENTS tonsillectomy Family History Relations & Conditions If Any: FATHER ( in his 70's of heart disease). MOTHER (CAD, DM, DLD and HTN). Psychosocial History Where Do You Live? [facility] Who Do You Live With? sister Services at Home: Nursing, Oxygen, Physical Therapy Smoking Status: Current Everyday Smoker ETOH Use: occasional use Illicit Drug Use: marijuana (in past) Living Will? no Functional Ability ADLs Independent: eating. Needs Assist: dressing, toileting, bathing. Ambulation: walker IADLs Independent: telephone, medication admin. Needs Assist: shopping, housework, food prep, transportation. Unknown: finances. Review of Systems Review of Systems All Other Systems: Reviewed and Negative Exam & Diagnostic Data Last 24 Hrs of Vital Signs/I&O Vital Signs Date Time Temp Pulse Resp B/P B/P Pulse O2 O2 Flow FiO2 Mean Ox Delivery Rate 10/14 0639 97.6 96 20 136/68 99 Nasal 3.0L Cannula 10/14 0040 98.3 100 20 138/70 10/14 0000 98 Nasal 2.5L Cannula 10/13 2220 Nasal Cannula 10/13 1452 98.5 99 20 134/70 93 Intake & Output 10/14 1600 01/07 0800 10/14 0000 Intake Total 680 600 Output Total 200 1100 Balance 480 -500 Intake, IV 200 Intake, Oral 480 600 Output, Urine 200 1100 Physical Exam Other Physical Findings: Afebrile. He is awake and alert in no acute distress. Skin reveals no rash. HEENT negative. Neck is supple with no adenopathy. Lungs are clear. Heart irregular rhythm with no murmur. Abdomen is obese, soft, nontender with positive bowel sounds. Back no CVA tenderness. Extremities chronic venous stasis changes both lower extremities, with bilateral lower extremity edema, right greater than left, with mild erythema of the right leg, slightly tender to palpation; right heel wound clean, with no surrounding erythema, but with drainage on the dressing. Neuro neuropathy both feet. Last 24 Hours of Lab Results: Laboratory Tests 10/14 808 Chemistry Sodium (137 - 145 mmol/L) 143 Potassium (3.5 - 5.1 mmol/L) 5.7 H Chloride (98 - 107 mmol/L) 109 H Carbon Dioxide (22 - 30 mmol/L) 25 Anion Gap (5 - 16) 9 BUN (9 - 20 mg/dL) 38 H Creatinine (0.7 - 1.2 mg/dL) 1.8 H Estimated GFR (>60 ml/min) 40 L BUN/Creatinine Ratio (7 - 25 %) 21.1 Total Bilirubin (0.2 - 1.3 mg/dL) 1.0 Direct Bilirubin (< 0.4 mg/dL) 0.9 H AST (17 - 59 U/L) 53 ALT (21 - 72 U/L) 30 Alkaline Phosphatase (< 127 U/L) 165 H Total Protein (6.3 - 8.2 g/dL) 5.7 L Albumin (3.5 - 5.0 g/dL) 2.7 L Hematology CBC w Diff NO MAN DIFF REQ WBC (4.8 - 10.8 /CUMM) 6.0 RBC (4.70 - 6.10 /CUMM) 3.18 L Hgb (14.0 - 18.0 G/DL) 8.2 L Hct (42 - 52 %) 26.1 L MCV (80.0 - 94.0 FL) 82.3 MCH (27.0 - 31.0 PG) 25.9 L RDW (11.5 - 14.5 %) 20.6 H Plt Count (130 - 400 /CUMM) 171 MPV (7.4 - 10.4 FL) 9.0 Gran % (42.2 - 75.2 %) 74.9 Lymphocytes % (20.5 - 51.1 %) 11.1 L Monocytes % (1.7 - 9.3 %) 8.4 Eosinophils % (0 - 5 %) 4.4 Basophils % (0.0 - 2.0 %) 1.2 Absolute Granulocytes (1.4 - 6.5 /CUMM) 4.5 Absolute Lymphocytes (1.2 - 3.4 /CUMM) 0.7 L Absolute Monocytes (0.10 - 0.60 /CUMM) 0.5 Absolute Eosinophils (0.0 - 0.7 /CUMM) 0.3 Absolute Basophils (0.0 - 0.2 /CUMM) 0.1 PUBS MCHC (33.0 - 37.0 G/DL) 31.5 L Last 24 Hours of Tanvir Results: Blood culture October 10 negative Blood culture October 11 negative Urine culture October 11 greater than 100,000 colonies of ESBL producing Escherichia coli sensitive to Gentamicin, Meropenem and Nitrofurantoin Diagnostic Data Recent Imaging Findings: Chest x-ray October 10 revealed streaky opacification within the left lower lung zone. X-ray of the right tibia and fibula revealed diffuse soft tissue edema with no evidence of soft tissue gas or osseous abnormality. Doppler of the right lower extremity was negative. Arterial Doppler of the right lower extremity, limited due to his body habitus and bandages, revealed patent femoral and tibial arteries. Renal ultrasound October 11 negative Assessment/Plan Assessment/Plan Impression: This is a 52-year-old man, half-way resident, with a history of coronary artery disease, diastolic CHF, paroxysmal atrial fibrillation, COPD, diabetes, with a chronic, nonhealing right heel wound, debrided weekly by Dr. Rodriguez in [facility], chronic venous insufficiency, with chronic lower extremity wounds, admitted on October 10 with several days of weakness and lethargy, increased weeping and erythema of both lower extremities and fever, found to be afebrile with a normal white blood cell count and in renal failure, which has returned to his baseline. His lower extremity wounds are likely chronic but it is difficult to rule out a superimposed cellulitis, particularly of the right lower extremity. His right heel decubitus has not healed, raising concern for osteomyelitis, though the x-ray of the tibia/fibula does not suggest this. His pain may be multifactorial, related to his neuropathy and possible arterial insufficiency. The positive urine culture likely represents asymptomatic bacteriuria and should not require treatment. As he remains afebrile with a normal white blood cell count he can be continued on Unasyn pending further evaluation. Suggestion: 1. Vascular Surgery evaluation 2. Would pursue a bone scan 3. Elevation of the right leg 4. Continue Unasyn Consult Acknowledgment - Thank you for your consult request.
[2017-10-14 15:09] VITALS: BP 120/70
[2017-10-14 23:23] VITALS: BP 132/78
[2017-10-15 06:54] VITALS: BP 122/70
--- NOTE | 2017-10-15 07:35 | PN- Housestaff ---
[facility] Subjective Follow-up For: Acute on chronic kidney injury(improving) Acute on chronic anemia Right leg cellulitis Decubitus ulcers Subjective: No overnight events. Patient remained afebrile blood pressure seen and examined this morning. He was complaining of right neck pain 5/10. He denied any chest pain, short of breath, nausea, vomiting, chills, fever, abdominal pain dysuria. His right leg is red and swollen compared to left and still warm compared to left and also is getting dressing for the weeping ulcer on the right leg. Review of Systems Constitutional: Reports: no symptoms. EENTM: Reports: no symptoms. Cardiovascular: Reports: no symptoms. Respiratory: Reports: no symptoms. Gastrointestinal: Reports: no symptoms. Genitourinary: Reports: no symptoms. Musculoskeletal: Reports: see HPI. Neurological/Psychological: Reports: no symptoms. Objective Last 24 Hrs of Vital Signs/I&O Vital Signs Date Time Temp Pulse Resp B/P B/P Pulse O2 O2 Flow FiO2 Mean Ox Delivery Rate 10/15 0654 97.4 87 18 122/70 99 Nasal 3.0L Cannula 10/15 0017 98.0 95 20 132/78 10/15 0000 99 Nasal 2.5L Cannula 10/14 2323 98.0 95 20 132/78 99 10/14 1600 Nasal 2.5L Cannula 10/14 1509 98.0 66 20 120/70 96 Intake & Output 10/15 1600 10/15 0800 10/15 0000 Intake Total 900 290 Output Total 1100 500 Balance -200 -210 Intake, IV 100 150 Intake, Oral 800 140 Number 1 Bowel Movements Output, Urine 1100 500 Physical Exam General Appearance: Alert, Oriented X3, Cooperative Skin Temp/Moisture Exam: Warm/Dry Sepsis Skin Exam (color): Normal for Ethnicity HEENT: Atraumatic, PERRLA, EOMI Neck: Supple Cardiovascular: Normal S1, Normal S2 Lungs: Clear to Auscultation Abdomen: Soft, No Tenderness Neurological: Normal Speech, Normal Tone Extremities: b/l prdal edema with venous changes, right leg cellulitis with weping wounds, numbness and inability to move the toes Assessment/Plan Assessment: 51-year-old gentleman with a past medical significan for CAD s/p PCI (LAD, RCA) & CABG(2013), HTN, HLD, paroxysmal A.fib not on anticoagulation,chronic diastolic heart failure, , TIA, ANA (not on CPAP),chronic leg wound status post skin grafting, diabetes complicated with neuropathy, obesity presented from [facility] with a chief complaints of worsening weakness and lethargy for last 2 days. Patient had a history of fever 101.5 and diarrhea 2 days back which resolved with Tylenol and Lomotil respectively. History of ESRD Escherichia coli in urine and worsening of kidney function. Patient's baseline creatinine is 2.3. Fecal occult blood positive and patient is on aspirin and Plavix With Eliquis. Patient already got one blood transfusion in ED due to acute on chronic anemia. We will admit the patient under medicine floor to treat his cellulitis and acute on Chronic kidney injury. Acute on chronic kidney injury;(improving) -Possibly due to prerenal, due to dehydration and use of Lasix. -We will hold the Lasix for now that patient was using for CHF. -We'll follow nephrology recommendation. -Avoid nephrotoxins medication -We will check input and output -Patient is getting Epogen on Fridays but he is not on dialysis. -Renal ultrasound is negative for any obstructive uropathy. -Recommended to do spot urine creatinine and albumin ratio to rule out any nephrotic syndrome and also absolute Eosinophilic Count. We'll follow the results Acute on chronic anemia: -Possibly multifactorial considering chronic kidney injury, iron deficiency for chronic blood loss. -We will follow the iron studies.(Iron 27, total iron binding capacity 443, ferritin 66.1) -Patient already received 1 unit of blood in ED. -We will keep the HP more than 8. 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 -Stool guaiac is positive. Right leg cellulitis: -Patient has chronic venous insufficiency with wounds on right leg. Possibility of secondary infection and its ascending to thigh. There is redness and tenderness of right leg. -We'll follow the wound care consult -ID recommended yesterday to start 3 g of IV Unasyn to cover the infection. -We will follow the blood cultures results. -Daily dressing -Leg elevation -Patient had recent vascular procedure and he is following wound care at [facility] for once a week. -Right leg Doppler study for DVT is negative. Soft tissue x-ray of right leg is negative for gas gangrene. Arterial Doppler study showed patent popliteal artery but no visibility of the dorsalis pedis and posterior tibial. Asymptomatic bacteriuria: -Patient has ESBL positive urine culture. -There are no patient is asymptomatic. History of paroxysmal A. fib; -Patient is on 2.5 Eliquis twice a day -Patient is on rate control with Cardizem and metoprolol. we will continue that. History of coronary artery disease status post stent placement and CABG: -We'll discontinue his aspirin and Plavix considering his recent acute on chronic anemia as recommended by Dr. Loaiza. -Last echo was done in 2006 that showing 60% ejection fraction with moderate left ventricular hypertrophy. History of obstructive sleep apnea: -Patient is using 2.5 L of oxygen usually at nighttime and on exertion. -He is intolerant to CPAP. History of diabetes with neuropathy: -We will hold the oral medications. -We will start NovoLog on sliding scale with Levemir 25 units twice a day -Accu-Cheks Decubitus ulcers: -Patient has decubitus ulcers on buttock and thighs. -We will follow the wound care consultation recommendations. DVT prophylaxis: -Patient is already on Eliquis CODE STATUS: -Full code Problem List: 1. Cellulitis 2. [id number] kidney injury Pain Ratin Pain Location: none Pain Goal: Remain pain free Pain Plan: tylenol for mild pain Tomorrow's Labs & Rationales: bep/cbc Solitario Santos MD 10/15/17 1608: Attending MD Review Statement Attending Statement Attending MD Statement: examined this patient, discuss w/resident/PA/ORTHOPEDIC SHOE MAKER, agreed w/resident/PA/ORTHOPEDIC SHOE MAKER, reviewed EMR data (avail) Attending Assessment/Plan: Minimal improvement. Will continue wound care, Unasyn, vascular consult, current medications.
--- NOTE | 2017-10-15 09:43 | PN- Nephrology ---
Assessment/Plan Assessment: 1. Acute kidney injury. Serum creatinine has returned to its previous baseline. 2. Chronic kidney disease. Patient has a history of diabetes, hypertension as well as a variety of other comorbidities. As well as CVA, TIA, peripheral neuropathy, and paroxysmal atrial fibrillation (on apixaban). He also has history of coronary artery disease and is status post coronary artery bypass grafting in 2014 will stop. 3. Diabetes mellitus 4 hypertension 5. CVA 6. He has proteinuria. Currently, the most recent protein to creatinine ratio I confined, is from Spring of this past year. His degree of proteinuria was roughly 0.9 g of protein per gram of creatinine. This would not explain the degree of edema that we are seeing now. Suggestion: 1. Continue current therapy. Avoid nephrotoxic agents. 2. Would obtain an absolute eosinophil count. 3. Would likewise send at first a spot urine protein to creatinine ratio. This would be to see has he become nephrotic?, He does have a family history of end- stage renal disease, his mother was on dialysis at [facility] prior to her expiration. Subjective Subjective: Patient says he feels a bit better. Denies any difficulty voiding. He denies any urinary retention. Objective Vital Signs and I&Os Vital Signs Date Time Temp Pulse Resp B/P B/P Pulse O2 O2 Flow FiO2 Mean Ox Delivery Rate 10/15 0654 97.4 87 18 122/70 99 Nasal 3.0L Cannula 10/15 0017 98.0 95 20 132/78 10/15 0000 99 Nasal 2.5L Cannula 10/14 2323 98.0 95 20 132/78 99 10/14 1600 Nasal 2.5L Cannula 10/14 1509 98.0 66 20 120/70 96 Intake & Output 10/15 1600 10/15 0400 10/14 1600 10/14 0400 10/13 1600 10/13 0400 Intake Total 900 290 390 008 9419 500 Output Total 1100 156 952 6952 1825 801 Balance -200 -210 480 -500 -615 -301 Intake, IV 100 150 200 200 Intake, Oral 800 140 357 671 6770 500 Number 1 1 Bowel Movements Output, Stool 1 Output, Urine 1100 899 375 2540 1825 800 Physical Exam General Appearance: well developed/nourished, no apparent distress, alert, anxious, obese Head: atraumatic, normal appearance Ears, Nose, Throat: hearing grossly normal Neck: normal inspection, full range of motion, trachea mid line Respiratory: normal breath sounds, chest non-tender, no respiratory distress, lungs clear Cardiovascular: regular rate/rhythm, edema Abdomen: normal bowel sounds, soft, no organomegaly, tenderness, mass Back: normal inspection, normal range of motion Extremities: dry skin. Appears to have the remnants of the cellulitis below both knees. The left leg is bandaged Neurologic/Psychiatric: no motor/sensory deficits, awake, alert Skin: rash, seems to have a diffuse rash over his abdomen. Lymphatic: no anterior cervical charles Current Medications: Current Medications Sig/Ysabel Start time Last Medication Dose Route Stop Time Status Admin Acetaminophen 650 MG Q6H PRN 10/11 0015 AC PO Acetaminophen 650 MG Q6P PRN 10/10 2345 AC 10/12 PO 0544 Acetaminophen 1,000 MG Q6P PRN 10/10 2345 AC 10/14 IV 0046 Ampicillin Sodium/ 3,000 MG Q8 10/11 1400 AC 10/15 Sulbactam Sodium IV 0530 Sodium Chloride 100 ML Apixaban 2.5 MG BID 10/11 1000 AC 10/15 PO 0833 Dicyclomine HCl 20 MG 4 TIMES/DAY PRN 10/11 0015 PO Diltiazem HCl 120 MG DAILY 10/11 1000 AC 10/15 PO 0833 Epoetin Tony 10,000 UNIT QFRI 10/12 0700 AC 10/12 [place] 0540 Fenofibrate 48 MG DAILY 10/13 1000 AC 10/15 PO 0831 Ferrous Sulfate 325 MG BID 10/11 1000 AC 10/15 PO 0832 Guaifenesin/ 10 ML Q4H PRN 10/11 0015 Dextromethorphan PO Insulin Aspart 0 TIDAC/HS 10/11 0800 AC 10/15 [place] 0830 Insulin Detemir 25 UNITS BID 10/11 0101 10/14 [place] 2229 Lactobacillus 1 CAP DAILY 10/11 1000 AC 10/15 Acidophilus PO 0833 Magnesium Oxide 400 MG DAILY 10/11 1000 AC 10/15 PO 0831 Multivitamins 1 TAB DAILY 10/11 1000 AC 10/15 Therapeutic PO 0831 Nitroglycerin 0.4 MG DAILY 10/11 1000 AC 10/15 TOP 0831 Nystatin 1 AMY TID 10/12 2307 AC 10/14 TOP 2230 Oxycodone/ 1 TAB Q8P PRN 10/12 1445 AC 10/15 Acetaminophen PO 0530 Potassium Chloride 20 MEQ DAILY 10/11 1000 AC 10/14 PO 0848 Pregabalin 25 MG .STK-MED ONE 10/14 1241 DC PO 10/14 1242 Pregabalin 75 MG .STK-MED ONE 10/14 1241 DC PO 10/14 1242 Pregabalin 100 MG Q12H 10/11 0015 AC 10/15 PO 0017 Ramelteon 8 MG ONCE ONE 10/15 0045 DC 10/15 PO 10/15 0046 0101 Ranolazine 500 MG Q12H 10/11 001 AC 10/15 PO 0017 Results Pertinent Lab Results: Laboratory Tests 10/15 10/14 0845 0809 Chemistry Sodium (137 - 145 mmol/L) Pending 143 Potassium (3.5 - 5.1 mmol/L) Pending 5.7 H Chloride (98 - 107 mmol/L) Pending 109 H Carbon Dioxide (22 - 30 mmol/L) Pending 25 Anion Gap (5 - 16) Pending 9 BUN (9 - 20 mg/dL) Pending 38 H Creatinine (0.7 - 1.2 mg/dL) Pending 1.8 H Estimated GFR (>60 ml/min) 40 L BUN/Creatinine Ratio (7 - 25 %) Pending 21.1 Total Bilirubin (0.2 - 1.3 mg/dL) 1.0 Direct Bilirubin (< 0.4 mg/dL) 0.9 H AST (17 - 59 U/L) 53 ALT (21 - 72 U/L) 30 Alkaline Phosphatase (< 127 U/L) 165 H Total Protein (6.3 - 8.2 g/dL) 5.7 L Albumin (3.5 - 5.0 g/dL) 2.7 L Hematology CBC w Diff Pending NO MAN DIFF REQ WBC (4.8 - 10.8 /CUMM) Pending 6.0 RBC (4.70 - 6.10 /CUMM) Pending 3.18 L Hgb (14.0 - 18.0 G/DL) Pending 8.2 L Hct (42 - 52 %) Pending 26.1 L MCV (80.0 - 94.0 FL) Pending 82.3 MCH (27.0 - 31.0 PG) Pending 25.9 L RDW (11.5 - 14.5 %) Pending 20.6 H Plt Count (130 - 400 /CUMM) Pending 171 MPV (7.4 - 10.4 FL) Pending 9.0 Gran % (42.2 - 75.2 %) 74.9 Lymphocytes % (20.5 - 51.1 %) 11.1 L Monocytes % (1.7 - 9.3 %) 8.4 Eosinophils % (0 - 5 %) 4.4 Basophils % (0.0 - 2.0 %) 1.2 Absolute Granulocytes (1.4 - 6.5 /CUMM) 4.5 Absolute Lymphocytes (1.2 - 3.4 /CUMM) 0.7 L Absolute Monocytes (0.10 - 0.60 /CUMM) 0.5 Absolute Eosinophils (0.0 - 0.7 /CUMM) 0.3 Absolute Basophils (0.0 - 0.2 /CUMM) 0.1 PUBS MCHC (33.0 - 37.0 G/DL) Pending 31.5 L 10/13 0737 Chemistry Sodium (137 - 145 mmol/L) 147 H Potassium (3.5 - 5.1 mmol/L) 4.7 Chloride (98 - 107 mmol/L) 110 H Carbon Dioxide (22 - 30 mmol/L) 27 Anion Gap (5 - 16) 10 BUN (9 - 20 mg/dL) 48 H Creatinine (0.7 - 1.2 mg/dL) 1.6 H Estimated GFR (>60 ml/min) 45 L BUN/Creatinine Ratio (7 - 25 %) 30.0 H Total Bilirubin (0.2 - 1.3 mg/dL) 1.2 Direct Bilirubin (< 0.4 mg/dL) 1.0 H AST (17 - 59 U/L) 52 ALT (21 - 72 U/L) 31 Alkaline Phosphatase (< 127 U/L) 167 H Total Protein (6.3 - 8.2 g/dL) 5.8 L Albumin (3.5 - 5.0 g/dL) 2.7 L Hematology CBC w Diff NO MAN DIFF REQ WBC (4.8 - 10.8 /CUMM) 7.2 RBC (4.70 - 6.10 /CUMM) 3.31 L Hgb (14.0 - 18.0 G/DL) 8.8 L Hct (42 - 52 %) 27.0 L MCV (80.0 - 94.0 FL) 81.8 MCH (27.0 - 31.0 PG) 26.6 L RDW (11.5 - 14.5 %) 20.5 H Plt Count (130 - 400 /CUMM) 204 MPV (7.4 - 10.4 FL) 10.2 Gran % (42.2 - 75.2 %) 78.7 H Lymphocytes % (20.5 - 51.1 %) 9.2 L Monocytes % (1.7 - 9.3 %) 7.8 Eosinophils % (0 - 5 %) 3.7 Basophils % (0.0 - 2.0 %) 0.6 Absolute Granulocytes (1.4 - 6.5 /CUMM) 5.7 Absolute Lymphocytes (1.2 - 3.4 /CUMM) 0.7 L Absolute Monocytes (0.10 - 0.60 /CUMM) 0.6 Absolute Eosinophils (0.0 - 0.7 /CUMM) 0.3 Absolute Basophils (0.0 - 0.2 /CUMM) 0 PUBS MCHC (33.0 - 37.0 G/DL) 32.5 L ESR Westergren (0 - 10 MM) 108 H
[2017-10-15 10:38] LABS: ABSOLUTE BASOPHIL COUNT 0.1 /CUMM (0.0-0.2); ABSOLUTE EOSINOPHIL COUNT 0.3 /CUMM (0.0-0.7); ABSOLUTE GRANULOCYTE CT 5.7 /CUMM (1.4-6.5); ABSOLUTE LYMPH COUNT 0.9 /CUMM (1.2-3.4); ABSOLUTE MONOCYTE COUNT 0.5 /CUMM (0.10-0.60); EOSINOPHIL % 3.9 % (0-5); GRANULOCYTE % 76.1 % (42.2-75.2); HEMATOCRIT 29.2 % (42-52); MEAN CORPUSCULAR HGB 26.6 PG (27.0-31.0); MEAN CORPUSCULAR HGB CONC 32.4 G/DL (33.0-37.0); MEAN CORPUSCULAR VOLUME 82.2 FL (80.0-94.0); MEAN PLATELET VOLUME 9.8 FL (7.4-10.4); PLATELET COUNT 210 /CUMM (130-400); RBC DISTRIBUTION WIDTH 20.2 % (11.5-14.5); RED BLOOD CELL CT 3.55 /CUMM (4.70-6.10); WHITE BLOOD CELL COUNT 7.4 /CUMM (4.8-10.8)
--- NOTE | 2017-10-15 14:41 | Cons- Vascular Surgery ---
General Information and HPI Consulting Request Date of Consult: 10/15/17 Requested By: Solitario Santos MD Reason for Consult: Chronic venous stasis ulcers Source of Information: patient Exam Limitations: no limitations History of Present Illness: 52 y /o m w/ mmp including chf, copd, dm, chronic lower extremity swelling and venous stasis, pad. The patient has been followed by Dr. Rodriguez for a long time. He has had chronic lower extremity swelling. Dr. Rodriguez has peformed venous ablations and has been following for wound care and performing serial debridiments of his right lateral malleolar wound. He has also had bilateral angio/interventions. The patient was recently admitted to hospital with tori, diarrhea and fever. Also there was some concern about cellulitis as he has redness of the legs. currently afbrile vss. cre 1.5. Allergies/Medications Allergies: Coded Allergies: hydromorphone (UNKNOWN PER 12/02/16) erythromycin base (Intermediate, ?GI UPSET 03/13/16) gluten (Intermediate, GI UPSET 03/13/16) venom-honey bee (BEE VENOM (HONEY BEE)) (Intermediate, VOMITING 03/13/16) lactose (Mild, GI UPSET 03/13/16) Home Med List: Acetaminophen 325 MG TABLET 2 TAB PO Q6H PRN PAIN/TEMP/>101 (Reported) Acetaminophen (Acephen) 650 MG SUPP.RECT 1 SUP NJ Q6H PRN PAIN/TEMP/>101 ( Reported) Albuterol Sulfate 2.5 MG/3 ML (0.083 %) VIAL.NEB 1 Vial INH/MINI Q4P PRN SOB ( Reported) Apixaban (Eliquis) 5 MG TABLET 1 TAB PO BID BLOOD THINNER (Reported) Ascorbic Acid (Vitamin C) 500 MG CAPSULE 1 CAP PO DAILY SUPPLEMENT (Reported) Aspirin (Ecotrin*) 81 MG TABLET.DR 1 TAB PO DAILY HEART/BLOOD (Reported) Bisacodyl 10 MG SUPP.RECT 1 SUP RC PRN GI (Reported) Cholecalciferol (Vitamin D3) (Vitamin D) 2,000 UNIT TABLET 2 TAB PO DAILY SUPPLEMENT (Reported) Clopidogrel Bisulfate (Clopidogrel) 75 MG TABLET 1 TAB PO DAILY ANTICOAGULATION (Reported) Dextrose (Glucose Gel) (Unknown Strength) GEL..GRAM. (Unknown Dose) PO AD PRN HYPOGLYCEMIA (Reported) Dicyclomine HCl 20 MG TABLET 1 TAB PO Q6H PRN GERD (Reported) Diltiazem HCl (Diltiazem 24HR ER) 120 MG CAP.ER.24H 1 CAP PO DAILY HEART/BP ( Reported) Diphenoxylate HCl/Atropine (Lomotil 2.5-0.025 MG Tablet) 2.5 MG-0.025 MG TABLET 1 TAB PO Q8H PRN DIARRHEA (Reported) Epoetin Tony (Epogen) 10,000 UNIT/ML VIAL 10,000 UNIT SC QFRI CKD (Reported) Fenofibrate Nanocrystallized (Fenofibrate) 145 MG TABLET 1 TAB PO DAILY HPL ( Reported) Ferrous Sulfate 325 MG (65 MG IRON) TABLET 1 TAB PO BID SUPPLEMENT (Reported) Furosemide (Lasix) 80 MG TABLET 1 TAB PO DAILY HEART FAILURE (Reported) Furosemide (Lasix) 80 MG TABLET 1 TAB PO BID DIURETIC (Reported) Glucagon,Human Recombinant (Glucagon Emergency Kit) 1 MG KIT 1 MG IM AD PRN HYPOGLYCEMIA (Reported) Guaifenesin/Dextromethorphan (Tussin Dm Cough & Chest Liquid) 100 MG-10 MG/5 ML SYRUP 10 ML PO Q4H PRN COUGH (Reported) Insulin Glargine,Hum.rec.anlog (Lantus Solostar) 100 UNIT/ML (3 ML) INSULN.PEN 52 UNIT SC QAM DM (Reported) Insulin Lispro (Humalog) 100 UNIT/ML CARTRIDGE DM (Reported) Lactobacillus Acidophilus (Acidophilus) 1 EACH CAPSULE 1 CAP PO Q12H PROBIOTIC (Reported) Lactulose 10 GRAM/15 ML SOLUTION 15 ML PO DAILY PRN CONSTIPATION (Reported) Lidocaine (Lidoderm) 5 % ADH..PATCH 1 PAT TOP QHS LEFT HIP (Reported) may wear up to 12 hours Loperamide HCl (Loperamide) 2 MG CAPSULE 4 MG PO Q6H PRN LOOSE STOOLS ( Reported) Magnesium Hydroxide (Milk Of Magnesia) 400 MG/5 ML ORAL.SUSP 30 ML PO PRN CONSTIPATION (Reported) Magnesium Oxide 400 MG TABLET 1 TAB PO DAILY SUPPLEMENT (Reported) Metoprolol Tartrate (Lopressor) 50 MG TABLET 1 TAB PO BID HR (Reported) Miconazole 5 GM POWDER 1 AMY TOP AD AFFECTED AREA(S) (Reported) Multiple Vitamin (Multivitamins) 1 EACH TABLET 1 TAB PO DAILY SUPPLEMENT ( Reported) Na Phos,M-B/Na Phos,Di-Ba (Fleet Enema) 19 GRAM-7 GRAM/118 ML ENEMA 1 E RC PRN CONSTIPATION (Reported) Nitrofurantoin Macrocrystal (Nitrofurantoin) 50 MG CAPSULE 1 CAP PO BID UTI ( Reported) Nitroglycerin (Nitroglycerin Patch) 0.4 MG/HOUR PATCH.TD24 0.4 MG TOP DAILY CHEST PAIN APPLY FOR 12 HOURS THEN REMOVE APPLY PATCH SAME TIME EACH DAY Ondansetron HCl (Zofran) 4 MG TABLET 1 TAB PO Q8H PRN NAUSEA (Reported) Oxycodone HCl/Acetaminophen (Percocet 5-325 MG Tablet) 5 MG-325 MG TABLET 1 TAB PO Q6H PRN PAIN (Reported) Pantoprazole Sodium 40 MG TABLET.DR 1 TAB PO DAILY GERD (Reported) Potassium Chloride 20 MEQ TAB.ER.PRT 1 TAB PO DAILY SUPPLEMENT (Reported) Pregabalin (Lyrica) 100 MG CAPSULE 1 CAP PO Q12H NERVE PAIN (Reported) Ranolazine (Ranexa) 500 MG TAB.ER.12H 1 TAB PO Q12H ANGINA (Reported) Sitagliptin Phosphate (Januvia) 50 MG TABLET 1 TAB PO QAM DM (Reported) Sodium Chloride (Frederick Saline) 0.65 % DROPS 2 GTT NASB Q4H PRN CONGESTION ( Reported) Past History Medical History Blood Transfusion Hx: Yes Neurological: CVA, TIA, PERIPHERAL NEUROPATHY EENT: NONE Cardiovascular: AFIB (paroxysmal), CAD, diastolic CHF, hyperlipidemia, myocardial infarction (s/p GA), NSTEMI, PVD, systolic CHF Respiratory: COPD, ANA (no cpap) Gastrointestinal: GERD, lactose intolerance, ENTERITIS Hepatic: NONE Renal: nephrolithiasis, acute kidney failure CKD Musculoskeletal: hx WOUND VAC leg wounds SKIN GRAFTS TO R LEG R & L hand contractures R inner foot-st 3 ulcer gait impairment Psychiatric: anxiety, major depressive disorder Endocrine: diabetes (with neuropathy), obesity Blood Disorders: anemia Cancer(s): NONE 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 MOTHER (CAD, DM, DLD and HTN). Psychosocial History Where Do You Live? [facility] Facility Who Do You Live With? sister Services at Home: Nursing, Oxygen, Physical Therapy Smoking Status: Current Everyday Smoker ETOH Use: occasional use Illicit Drug Use: marijuana (in past) Living Will? no Functional Ability ADLs Independent: eating. Needs Assist: dressing, toileting, bathing. Ambulation: walker IADLs Independent: telephone, medication admin. Needs Assist: shopping, housework, food prep, transportation. Unknown: finances. Exam & Diagnostic Data Vital Signs and I&O Vital Signs Date Time Temp Pulse Resp B/P B/P Pulse O2 O2 Flow FiO2 Mean Ox Delivery Rate 10/15 0554 97.4 87 18 122/70 99 Nasal 3.0L Cannula 10/15 0017 98.0 95 20 132/78 10/15 0000 99 Nasal 2.5L Cannula 10/14 2323 98.0 95 20 132/78 99 10/14 1600 Nasal 2.5L Cannula 10/14 1509 98.0 66 20 120/70 96 Intake & Output 10/15 1600 10/15 0800 10/15 0000 10/14 1600 10/14 0700 10/14 0000 Intake Total 900 290 680 600 Output Total 1100 841 306 8248 Balance -200 -210 480 -500 Intake, IV 100 150 200 Intake, Oral 800 140 480 600 Number 1 Bowel Movements Output, Urine 1100 562 807 7024 Physical Exam: nad bilatera lower extremites with edema legs and thigh with brawny skin. Chronic lipodermesclerosis with flaky skin. right lateral malleloar wound clean based. pedal pulses not papable. feet are warm and perfused. Last 24 Hours of Labs: Laboratory Tests 10/15 0745 Chemistry Sodium (137 - 145 mmol/L) 146 H Potassium (3.5 - 5.1 mmol/L) 5.3 H Chloride (98 - 107 mmol/L) 108 H Carbon Dioxide (22 - 30 mmol/L) 25 Anion Gap (5 - 16) 13 BUN (9 - 20 mg/dL) 31 H Creatinine (0.7 - 1.2 mg/dL) 1.5 H Estimated GFR (>60 ml/min) 49 L BUN/Creatinine Ratio (7 - 25 %) 20.7 Hematology CBC w Diff NO MAN DIFF REQ WBC (4.8 - 10.8 /CUMM) 7.4 RBC (4.70 - 6.10 /CUMM) 3.55 L Hgb (14.0 - 18.0 G/DL) 9.4 L Hct (42 - 52 %) 29.2 L MCV (80.0 - 94.0 FL) 82.2 MCH (27.0 - 31.0 PG) 26.6 L RDW (11.5 - 14.5 %) 20.2 H Plt Count (130 - 400 /CUMM) 210 MPV (7.4 - 10.4 FL) 9.8 Gran % (42.2 - 75.2 %) 76.1 H Lymphocytes % (20.5 - 51.1 %) 11.7 L Monocytes % (1.7 - 9.3 %) 7.3 Eosinophils % (0 - 5 %) 3.9 Basophils % (0.0 - 2.0 %) 1.0 Absolute Granulocytes (1.4 - 6.5 /CUMM) 5.7 Absolute Lymphocytes (1.2 - 3.4 /CUMM) 0.9 L Absolute Monocytes (0.10 - 0.60 /CUMM) 0.5 Absolute Eosinophils (0.0 - 0.7 /CUMM) 0.3 Absolute Basophils (0.0 - 0.2 /CUMM) 0.1 PUBS MCHC (33.0 - 37.0 G/DL) 32.4 L Assessment/Plan Assessment/Plan 52 y/o m w/ mmp. -pt has chronic venous stasis. he should be managed with compression therapy. Would apply wet to dry dressing ideally with dakins to the right lateral malleloar ulcer. To the rest of the leg would use non adherent dressings and kate wrap for compression. The leg should be elevated. -The arterial duplex was in conclusive because of the swelling. I reviewed his most recent arterial duplex from [facility] and there was not any significant arterial disease at this time. He should continue to fu with Dr. Rodriguez upon discharge for wound care. I -heel off loading with multi-podus boot. -would also place unnaboot prior to discharge if one can be obtained her. please call with questions. Consult Acknowledgment - Thank you for your consult request.
[2017-10-15 14:46] VITALS: BP 120/70
--- NOTE | 2017-10-15 14:54 | PN- Infect Dx ---
Subjective Subjective: Afebrile. He continues to complain of pain in the right leg. Objective Last 24 Hrs of Vital Signs/I&O Vital Signs Date Time Temp Pulse Resp B/P B/P Pulse O2 O2 Flow FiO2 Mean Ox Delivery Rate 10/15 1446 98.2 68 20 120/70 96 10/15 0654 97.4 87 18 122/70 99 Nasal 3.0L Cannula 10/15 0017 98.0 95 20 132/78 10/15 0000 99 Nasal 2.5L Cannula 10/14 2323 98.0 95 20 132/78 99 10/14 1600 Nasal 2.5L Cannula 10/14 1509 98.0 66 20 120/70 96 Intake & Output 10/15 1600 10/15 0800 10/15 0000 Intake Total 900 290 Output Total 1100 500 Balance -200 -210 Intake, IV 100 150 Intake, Oral 800 140 Number 1 Bowel Movements Output, Urine 1100 500 Physical Exam Other Physical Findings: He appears comfortable in no acute distress Extremities right leg with minimal erythema and edema, tender to palpation, with no active drainage; chronic changes with desquamation noted; right heel dressing intact Results Last 24 Hours of Lab Results: Laboratory Tests 10/15 844 Chemistry Sodium (137 - 145 mmol/L) 146 H Potassium (3.5 - 5.1 mmol/L) 5.3 H Chloride (98 - 107 mmol/L) 108 H Carbon Dioxide (22 - 30 mmol/L) 25 Anion Gap (5 - 16) 13 BUN (9 - 20 mg/dL) 31 H Creatinine (0.7 - 1.2 mg/dL) 1.5 H Estimated GFR (>60 ml/min) 49 L BUN/Creatinine Ratio (7 - 25 %) 20.7 Hematology CBC w Diff NO MAN DIFF REQ WBC (4.8 - 10.8 /CUMM) 7.4 RBC (4.70 - 6.10 /CUMM) 3.55 L Hgb (14.0 - 18.0 G/DL) 9.4 L Hct (42 - 52 %) 29.2 L MCV (80.0 - 94.0 FL) 82.2 MCH (27.0 - 31.0 PG) 26.6 L RDW (11.5 - 14.5 %) 20.2 H Plt Count (130 - 400 /CUMM) 210 MPV (7.4 - 10.4 FL) 9.8 Gran % (42.2 - 75.2 %) 76.1 H Lymphocytes % (20.5 - 51.1 %) 11.7 L Monocytes % (1.7 - 9.3 %) 7.3 Eosinophils % (0 - 5 %) 3.9 Basophils % (0.0 - 2.0 %) 1.0 Absolute Granulocytes (1.4 - 6.5 /CUMM) 5.7 Absolute Lymphocytes (1.2 - 3.4 /CUMM) 0.9 L Absolute Monocytes (0.10 - 0.60 /CUMM) 0.5 Absolute Eosinophils (0.0 - 0.7 /CUMM) 0.3 Absolute Basophils (0.0 - 0.2 /CUMM) 0.1 PUBS MCHC (33.0 - 37.0 G/DL) 32.4 L Last 24 Hours of Tanvir Results: Blood cultures October 10 and October 11 negative Assessment/Plan Impression: Stable on Unasyn, Day 5 of treatment for presumed cellulitis of the right lower extremity, with temperatures and white blood cell count remaining normal. His chronic right heel wound raises concern for underlying osteomyelitis, and, as he is unable to fit in the MRI machine, a bone scan has been ordered. He has been evaluated by Vascular surgery, with their comments noted. Suggestion: 1. Await bone scan 2. Elevation of the right leg 3. Continue Unasyn
[2017-10-15 22:25] VITALS: BP 130/60
[2017-10-16] VITALS: BP 116/64
[2017-10-16 06:44] VITALS: BP 110/64
--- NOTE | 2017-10-16 07:29 | PN- Housestaff ---
[place]eters[place] 10/16/17 0729: Subjective Follow-up For: Acute on chronic kidney injury(improving) Acute on chronic anemia(stable) Right leg cellulitis Decubitus ulcers Subjective: No overnight events. Patient remained afebrile overnight. Seen and examined this morning. He denied any chest pain, short of breath, nausea, vomiting, chills, fever, abdominal pain dysuria. Patient blood sugar level is pretty much under control with NovoLog insulin. Today his fasting blood sugar level is 86. He is getting dressings of right leg. He is going for bone scan today to rule out any osteomyelitis. He is using 2-1/2 L of oxygen that his baseline and maintaining saturation 99%. Review of Systems Constitutional: Reports: no symptoms. EENTM: Reports: no symptoms. Cardiovascular: Reports: no symptoms. Respiratory: Reports: see HPI. Gastrointestinal: Reports: no symptoms. Genitourinary: Reports: no symptoms. Musculoskeletal: Reports: see HPI. Neurological/Psychological: Reports: no symptoms. Objective Last 24 Hrs of Vital Signs/I&O Vital Signs Date Time Temp Pulse Resp B/P B/P Pulse O2 O2 Flow FiO2 Mean Ox Delivery Rate 10/16 799 Nasal 2.5L Cannula 10/16 0644 97.9 88 18 110/64 99 Nasal 2.5L Cannula 10/16 0000 97 Nasal 2.0L Cannula 10/16 0000 98.5 78 16 116/64 96 Room Air 10/15 2225 98.1 65 20 130/60 97 Nasal Cannula 10/15 2121 65 130/60 10/15 1446 98.2 68 20 120/70 96 Intake & Output 10/16 1600 10/16 0800 10/16 0000 Intake Total 370 610 Output Total 600 400 Balance -230 210 Intake, IV 130 130 Intake, Oral 240 480 Number 1 Bowel Movements Output, Urine 600 400 Physical Exam General Appearance: Alert, Oriented X3, Cooperative, No Acute Distress Skin Temp/Moisture Exam: Warm/Dry HEENT: Atraumatic, PERRLA, EOMI Neck: Supple Cardiovascular: Normal S1, Normal S2 Lungs: Clear to Auscultation Abdomen: Soft, No Tenderness Neurological: Normal Speech, Normal Tone, right leg chronic ulcers with discharge., right leg swelling with redness and numbness Extremities: b/l leg swelling with chrinic venous status. Assessment/Plan Assessment: 51-year-old gentleman with a past medical significan for CAD s/p PCI (LAD, RCA) & CABG(2014), HTN, HLD, paroxysmal A.fib not on anticoagulation,chronic diastolic heart failure, , TIA, ANA (not on CPAP),chronic leg wound status post skin grafting, diabetes complicated with neuropathy, obesity presented from [facility] with a chief complaints of worsening weakness and lethargy for last 2 days. Patient had a history of fever 101.5 and diarrhea 2 days back which resolved with Tylenol and Lomotil respectively. History of ESRD Escherichia coli in urine and worsening of kidney function. Patient's baseline creatinine is 2.3. Fecal occult blood positive and patient is on aspirin and Plavix With Eliquis. Patient already got one blood transfusion in ED due to acute on chronic anemia. We will admit the patient under medicine floor to treat his cellulitis and acute on Chronic kidney injury. Acute on chronic kidney injury;(improving) -Possibly due to prerenal, due to dehydration and use of Lasix. -We will hold the Lasix for now that patient was using for CHF. -Avoid nephrotoxins medication -We will check input and output -Patient is getting Epogen on Fridays but he is not on dialysis. -Renal ultrasound is negative for any obstructive uropathy. -Patient's creatinine level is at the baseline. -we will follow the results of spot urine creatinine albumin ratio to rule out nephrotic syndrome. -We'll follow nephrology recommendation. Acute on chronic anemia: -Possibly multifactorial considering chronic kidney injury, iron deficiency for chronic blood loss. -We will follow the iron studies.(Iron 27, total iron binding capacity 443, ferritin 66.1) -Patient already received 1 unit of blood in ED. -We will keep the HP more than 8. -As he refused to see script coordinator while in the hospital. -Stool guaiac is positive. -His H&H is stable. Today his hemoglobin is 9.4 Right leg cellulitis: -Patient has chronic venous insufficiency with wounds on right leg. Possibility of secondary infection and its ascending to thigh. There is redness and tenderness of right leg. -We'll follow the wound care consult -Patient is getting IV Unasyn 3 g every 8 hourly for cellulitis. -We will follow the blood cultures results. -Daily dressing -Leg elevation -Patient had recent vascular procedure and he is following wound care at [facility] for once a week. -Right leg Doppler study for DVT is negative. Soft tissue x-ray of right leg is negative for gas gangrene. Arterial Doppler study showed patent popliteal artery but no visibility of the dorsalis pedis and posterior tibial. -Patient is getting dressing of the right leg wound. He is going for bone scan today to rule out osteomyelitis we will follow the results. Asymptomatic bacteriuria: -Patient has ESBL positive urine culture. -There are no patient is asymptomatic. History of paroxysmal A. fib; -Patient is on 2.5 Eliquis twice a day -Patient is on rate control with Cardizem and metoprolol. we will continue that. History of coronary artery disease status post stent placement and CABG: -We'll discontinue his aspirin and Plavix considering his recent acute on chronic anemia as recommended by Dr. Loaiza. -Last echo was done in 2006 that showing 60% ejection fraction with moderate left ventricular hypertrophy. History of obstructive sleep apnea: -Patient is using 2.5 L of oxygen usually at nighttime and on exertion. -He is intolerant to CPAP. History of diabetes with neuropathy: -We will hold the oral medications. -We will start NovoLog on sliding scale with Levemir 25 units twice a day -Accu-Cheks Decubitus ulcers: -Patient has decubitus ulcers on buttock and thighs. -We will follow the wound care consultation recommendations. DVT prophylaxis: -Patient is already on Eliquis CODE STATUS: -Full code Problem List: 1. Cellulitis 2. Anemia 3. [id number] kidney injury Pain Ratin Pain Location: none Pain Goal: Remain pain free Pain Plan: tylenol for mild pain Tomorrow's Labs & Rationales: cbc/bep Solitario Santos MD 10/16/17 1329: Attending MD Review Statement Attending Statement Attending MD Statement: examined this patient, discuss w/resident/PA/SOIL SCIENTIST, agreed w/resident/PA/SOIL SCIENTIST, reviewed EMR data (avail) Attending Assessment/Plan: 52M with extensive PMH admitted for lethargy, fever, acute kidney injury, recent diarrhea now resolved, anemia requiring transfusion, and RLE cellulitis superimposed on chronic venous stasis. Patient had some diarrhea prior to admission which resolved, had poor PO intake, was on Lasix, and presented dehydrated, like the etiology of his SPIKE. This is improving after IV hydration. His anemia is likely multifactorial and related to his CKD, with hemoccult stool positive, and ASA and Plavix have been stopped by cardiology due to bleeding. His Hgb is stable following transfusion of 1 unit pRBC. His right leg is erythematous, tender, and weeping, with a right heel ulcer appearing erythematous and likely the source of infection, with multiple lower leg ulcers present on the right side. He was febrile initially 102, afebrile since. Today he remains lethargic, answers basic questions, complains of right leg pain. Pulses are difficult to palpate on the right. 1. RLE cellulitis 2. Fever 3. Acute on chronic stage 3 kidney injury 4. Chronic anemia secondary to iron deficiency and CKD 5. Hemoccult positive stool 6. Metabolic encephalopathy 7. Bilateral lower extremity chronic venous stasis Plan - Continue on general medicine - Continue Unasyn - Wound consult - No labs tomorrow - Follow cultures - Vascular surgery consult - Continue home medications - DVT PPx
[2017-10-16 09:06] LABS: ABSOLUTE BASOPHIL COUNT 0.1 /CUMM (0.0-0.2); ABSOLUTE EOSINOPHIL COUNT 0.2 /CUMM (0.0-0.7); ABSOLUTE GRANULOCYTE CT 5.9 /CUMM (1.4-6.5); ABSOLUTE LYMPH COUNT 0.7 /CUMM (1.2-3.4); ABSOLUTE MONOCYTE COUNT 0.5 /CUMM (0.10-0.60); BASOPHIL % 1.4 % (0.0-2.0); EOSINOPHIL % 2.8 % (0-5); GRANULOCYTE % 79.4 % (42.2-75.2); HEMATOCRIT 29.5 % (42-52); MEAN CORPUSCULAR HGB 26.4 PG (27.0-31.0); MEAN CORPUSCULAR HGB CONC 31.9 G/DL (33.0-37.0); MEAN CORPUSCULAR VOLUME 82.8 FL (80.0-94.0); MEAN PLATELET VOLUME 8.8 FL (7.4-10.4); PLATELET COUNT 207 /CUMM (130-400); RBC DISTRIBUTION WIDTH 20.1 % (11.5-14.5); RED BLOOD CELL CT 3.57 /CUMM (4.70-6.10); WHITE BLOOD CELL COUNT 7.4 /CUMM (4.8-10.8)
--- NOTE | 2017-10-16 13:22 | PN- Nephrology ---
Assessment/Plan Assessment: 1. Acute kidney injury. Serum creatinine has returned to its previous baseline. 2. Chronic kidney disease. Patient has a history of diabetes, hypertension as well as a variety of other comorbidities. As well as CVA, TIA, peripheral neuropathy, and paroxysmal atrial fibrillation (on apixaban). He also has history of coronary artery disease and is status post coronary artery bypass grafting in 2014. Suspect that this is all diabetic nephropathy. Keep in mind his mother was on dialysis. The cause of her renal disease was diabetic nephropathy. 3. Diabetes mellitus 4 hypertension 5. CVA 6. He has proteinuria. Currently, the most recent protein to creatinine ratio I confined, is from Spring of this past year. His degree of proteinuria was roughly 0.9 g of protein per gram of creatinine. This would not explain the degree of edema that we are seeing now. Suggestion: 1. Continue current therapy. Avoid nephrotoxic agents. 2. Would obtain an absolute eosinophil count. 3. Would likewise send at first a spot urine protein to creatinine ratio. This would be to see has he become nephrotic?, He does have a family history of end- stage renal disease, his mother was on dialysis at [facility] prior to her expiration. 4. Would favor obtaining a random protein to creatinine ratio. Part of the increasing edema may be related to increasing proteinuria. Subjective Subjective: Patient is going downstairs for completion of a nuclear medicine study. Otherwise no shortness of breath. He was eating lunch prior to my visit. Objective Vital Signs and I&Os Vital Signs Date Time Temp Pulse Resp B/P B/P Pulse O2 O2 Flow FiO2 Mean Ox Delivery Rate 10/16 0800 Nasal 2.5L Cannula 10/16 0644 97.9 88 18 110/64 99 Nasal 2.5L Cannula 10/16 0000 97 Nasal 2.0L Cannula 10/16 0000 98.5 78 16 116/64 96 Room Air 10/15 2224 98.1 65 20 130/60 97 Nasal Cannula 10/151 65 130/60 10/15 1446 98.2 68 20 120/70 96 Intake & Output 10/16 1600 10/16 0400 10/15 1600 10/15 0400 10/14 1600 10/14 040 Intake Total 614 134 0948 290 680 600 Output Total 312 391 1313 396 447 1374 Balance 70 -90 -400 -210 480 -500 Intake, IV 130 130 100 150 200 Intake, Oral 434 756 4726 140 480 600 Number 1 1 Bowel Movements Output, Urine 289 022 8206 309 946 8560 Physical Exam: General Appearance: well developed/nourished, no apparent distress, alert, obese Head: atraumatic, normal appearance Ears, Nose, Throat: hearing grossly normal Neck: normal inspection, full range of motion, trachea mid line Respiratory: normal breath sounds, no respiratory distress, lungs clear Cardiovascular: regular rate/rhythm, he has bilateral lower extremity edema Abdomen: normal bowel sounds, soft, no organomegaly, tenderness, mass Back: normal inspection, normal range of motion Extremities: dry skin. Appears to have the remnants of the cellulitis below both knees. The left leg is bandaged Neurologic/Psychiatric: no motor/sensory deficits, awake, alert Skin: rash, seems to have a diffuse rash over his abdomen. Current Medications: Current Medications Sig/Ysabel Start time Last Medication Dose Route Stop Time Status Admin Acetaminophen 650 MG .STK-MED ONE 10/15 1702 DC PO 10/15 1703 Acetaminophen 650 MG Q6H PRN 10/11 0015 AC 10/15 PO 1706 Acetaminophen 650 MG Q6P PRN 10/10 2345 AC 10/16 PO 0821 Acetaminophen 1,000 MG Q6P PRN 10/10 2345 AC 10/14 IV 0046 Ampicillin Sodium/ 3,000 MG Q8 10/11 1400 AC 10/16 Sulbactam Sodium IV 0615 Sodium Chloride 100 ML Apixaban 2.5 MG BID 10/11 1000 AC 10/16 PO 1020 Dicyclomine HCl 20 MG 4 TIMES/DAY PRN 10/11 0015 AC PO Diltiazem HCl 120 MG DAILY 10/11 1000 AC 10/16 PO 1020 Epoetin Tony 10,000 UNIT QFRI 10/12 0700 AC 10/12 VT 0540 Fenofibrate 48 MG DAILY 10/13 1000 AC 10/16 PO 1020 Ferrous Sulfate 325 MG BID 10/11 1000 AC 10/16 PO 1020 Guaifenesin/ 10 ML Q4H PRN 10/11 0015 AC Dextromethorphan PO Insulin Aspart 0 TIDAC/HS 10/11 0800 AC 10/15 SC 1705 Insulin Detemir 25 UNITS BID 10/11 0101 AC 10/16 VT 1143 Lactobacillus 1 CAP DAILY 10/11 1000 AC 10/16 Acidophilus PO 1020 Magnesium Oxide 400 MG DAILY 10/11 1000 AC 10/16 PO 1020 Multivitamins 1 TAB DAILY 10/11 1000 AC 10/16 Therapeutic PO 1020 Nitroglycerin 0.4 MG DAILY 10/11 1000 AC 10/16 TOP 1020 Nystatin 1 AMY TID 10/12 2307 AC 10/16 TOP 1142 Oxycodone/ 1 TAB Q8P PRN 10/12 1445 AC 10/15 Acetaminophen PO 2226 Potassium Chloride 20 MEQ DAILY 10/11 1000 AC 10/14 PO 0848 Pregabalin 100 MG Q12H 10/11 0015 AC 10/16 PO 1142 Ramelteon 8 MG AT BEDTIME 10/16 220 AC PO Ranolazine 500 MG Q12H 10/11 0015 AC 10/16 PO 1142 Sodium Hypochlorite 1 AMY DAILY 10/16 1000 AC TOP Results Pertinent Lab Results: Laboratory Tests 10/16 10/15 0813 1645 Chemistry Sodium (137 - 145 mmol/L) 145 Potassium (3.5 - 5.1 mmol/L) 5.2 H Chloride (98 - 107 mmol/L) 108 H Carbon Dioxide (22 - 30 mmol/L) 26 Anion Gap (5 - 16) 11 BUN (9 - 20 mg/dL) 31 H Creatinine (0.7 - 1.2 mg/dL) 1.5 H Estimated GFR (>60 ml/min) 49 L BUN/Creatinine Ratio (7 - 25 %) 20.7 Hematology CBC w Diff NO MAN DIFF REQ WBC (4.8 - 10.8 /CUMM) 7.4 RBC (4.70 - 6.10 /CUMM) 3.57 L Hgb (14.0 - 18.0 G/DL) 9.4 L Hct (42 - 52 %) 29.5 L MCV (80.0 - 94.0 FL) 82.8 MCH (27.0 - 31.0 PG) 26.4 L RDW (11.5 - 14.5 %) 20.1 H Plt Count (130 - 400 /CUMM) 207 MPV (7.4 - 10.4 FL) 8.8 Gran % (42.2 - 75.2 %) 79.4 H Lymphocytes % (20.5 - 51.1 %) 9.7 L Monocytes % (1.7 - 9.3 %) 6.7 Eosinophils % (0 - 5 %) 2.8 Basophils % (0.0 - 2.0 %) 1.4 Absolute Granulocytes (1.4 - 6.5 /CUMM) 5.9 Absolute Lymphocytes (1.2 - 3.4 /CUMM) 0.7 L Absolute Monocytes (0.10 - 0.60 /CUMM) 0.5 Absolute Eosinophils (0.0 - 0.7 /CUMM) 0.2 Absolute Basophils (0.0 - 0.2 /CUMM) 0.1 PUBS MCHC (33.0 - 37.0 G/DL) 31.9 L Urines Ur Random Creatinine (mg/dL) 48.6 10/15 10/14 0845 0809 Chemistry Sodium (137 - 145 mmol/L) 146 H 143 Potassium (3.5 - 5.1 mmol/L) 5.3 H 5.7 H Chloride (98 - 107 mmol/L) 108 H 109 H Carbon Dioxide (22 - 30 mmol/L) 25 25 Anion Gap (5 - 16) 13 9 BUN (9 - 20 mg/dL) 31 H 38 H Creatinine (0.7 - 1.2 mg/dL) 1.5 H 1.8 H Estimated GFR (>60 ml/min) 49 L 40 L BUN/Creatinine Ratio (7 - 25 %) 20.7 21.1 Total Bilirubin (0.2 - 1.3 mg/dL) 1.0 Direct Bilirubin (< 0.4 mg/dL) 0.9 H AST (17 - 59 U/L) 53 ALT (21 - 72 U/L) 30 Alkaline Phosphatase (< 127 U/L) 165 H Total Protein (6.3 - 8.2 g/dL) 5.7 L Albumin (3.5 - 5.0 g/dL) 2.7 L Hematology CBC w Diff NO MAN DIFF REQ NO MAN DIFF REQ WBC (4.8 - 10.8 /CUMM) 7.4 6.0 RBC (4.70 - 6.10 /CUMM) 3.55 L 3.18 L Hgb (14.0 - 18.0 G/DL) 9.4 L 8.2 L Hct (42 - 52 %) 29.2 L 26.1 L MCV (80.0 - 94.0 FL) 82.2 82.3 MCH (27.0 - 31.0 PG) 26.6 L 25.9 L RDW (11.5 - 14.5 %) 20.2 H 20.6 H Plt Count (130 - 400 /CUMM) 210 171 MPV (7.4 - 10.4 FL) 9.8 9.0 Gran % (42.2 - 75.2 %) 76.1 H 74.9 Lymphocytes % (20.5 - 51.1 %) 11.7 L 11.1 L Monocytes % (1.7 - 9.3 %) 7.3 8.4 Eosinophils % (0 - 5 %) 3.9 4.4 Basophils % (0.0 - 2.0 %) 1.0 1.2 Absolute Granulocytes (1.4 - 6.5 /CUMM) 5.7 4.5 Absolute Lymphocytes (1.2 - 3.4 /CUMM) 0.9 L 0.7 L Absolute Monocytes (0.10 - 0.60 /CUMM) 0.5 0.5 Absolute Eosinophils (0.0 - 0.7 /CUMM) 0.3 0.3 Absolute Basophils (0.0 - 0.2 /CUMM) 0.1 0.1 PUBS MCHC (33.0 - 37.0 G/DL) 32.4 L 31.5 L
--- NOTE | 2017-10-16 18:06 | NUCLEAR MEDICINE REPORT ---
EXAMINATION: NM BONE SCAN 3 PHASE CLINICAL INFORMATION: Cellulitis in chronic ulcers of right leg. Suspected osteomyelitis of right distal tibia, fibula, and foot. COMPARISON: No previous bone scan is available for comparison. Radiographs of the right tibia and fibula dated 10/11/2017 are available for comparison. TECHNIQUE: Initial rapid sequence images were obtained over the distal lower extremities during the bolus injection of 53.5 mCi Tc-99m HDP. Static images of the knees to the feet were then obtained 3 hours post injection. FINDINGS: Initial rapid sequence images show a diffuse increase in flow to the visualized distal right lower extremity, in this also appears mildly swollen. Blood pool images obtained immediately following the flow study show a diffuse increase in blood pool activity in the distal right lower extremity without a significant focal component. The delayed static images show a very mild diffuse increase in activity in the right calcaneus, without a focal component. No other asymmetry in activity in the feet is present. There is minimally increased activity in the medial malleolus of the left ankle. In the knees there is moderately increased activity diffusely in the patellae. IMPRESSION: Mild diffuse abnormality in the distal right lower extremity on the flow and blood pool images is not associated with significant focal abnormality on the delayed static images and is most likely due to a diffuse cellulitis. Degenerative changes are likely responsible for bilateral diffuse abnormalities in the patellae.
[2017-10-16 21:43] VITALS: BP 150/74
[2017-10-17 06:38] VITALS: BP 130/72
--- NOTE | 2017-10-17 07:26 | PN- Housestaff ---
EddieAdrian 10/17/17 0726: Subjective Follow-up For: Acute on chronic kidney injury(resolved) Acute on chronic anemia(stable) Right leg cellulitis(improving) Decubitus ulcers Subjective: No overnight events. Patient remained afebrile overnight. Seen and examined this morning. He denied any chest pain, short of breath, nausea, vomiting, abdominal pain, diarrhea, chills, fever and dysuria. Patient still has right leg swelling and redness. He is still complaining of tenderness of the right leg with numbness. His wound on right heel looks clean. Patient was instructed to move his foot and toes well sitting in bed to prevent stiffness. Although patient is already unable to move his toes especially the right foot. His blood sugar level is pretty much under control this morning fasting blood sugar level is 78. Patient is getting daily dressings. We will follow the ID recommendations to complete the antibiotic course for cellulitis and plan to discharge the patient. Review of Systems Constitutional: Reports: no symptoms. EENTM: Reports: no symptoms. Cardiovascular: Reports: no symptoms. Respiratory: Reports: no symptoms. Gastrointestinal: Reports: no symptoms. Genitourinary: Reports: no symptoms. Musculoskeletal: Reports: see HPI. Neurological/Psychological: Reports: no symptoms. Objective Last 24 Hrs of Vital Signs/I&O Vital Signs Date Time Temp Pulse Resp B/P B/P Pulse O2 O2 Flow FiO2 Mean Ox Delivery Rate 10/17 0830 130/80 10/17 0638 97.9 96 18 130/72 97 Nasal 2.5L Cannula 10/17 0000 97 Nasal 2.5L Cannula 10/16 2143 97.7 104 20 150/74 99 Intake & Output 10/17 1600 10/17 0800 10/17 0000 Intake Total 250 220 Output Total 650 775 Balance -400 -555 Intake, IV 130 100 Intake, Oral 120 120 Output, Urine 650 775 Physical Exam General Appearance: Alert, Oriented X3, Cooperative, No Acute Distress Skin Temp/Moisture Exam: Warm/Dry HEENT: Atraumatic, PERRLA, EOMI Neck: Supple Cardiovascular: Normal S1, Normal S2 Lungs: Clear to Auscultation Abdomen: Soft, No Tenderness Neurological: Normal Speech, Normal Tone Extremities: b/l pedal edema with chronic venous status., right foot heel ulcer. looked clean base., right leg redness and tenderness still there. Assessment/Plan Assessment: 51-year-old gentleman with a past medical significan for CAD s/p PCI (LAD, RCA) & CABG(2013), HTN, HLD, paroxysmal A.fib on anticoagulation,chronic diastolic heart failure, , TIA, ANA (not on CPAP),chronic leg wound status post skin grafting, diabetes complicated with neuropathy, obesity presented from [facility] with a chief complaints of worsening weakness and lethargy for last 2 days. Patient had a history of fever 101.5 and diarrhea 2 days back which resolved with Tylenol and Lomotil respectively. History of ESRD Escherichia coli in urine and worsening of kidney function. Patient's baseline creatinine is 2.3. Fecal occult blood positive and patient is on aspirin and Plavix With Eliquis. Patient already got one blood transfusion in ED due to acute on chronic anemia. We will admit the patient under medicine floor to treat his cellulitis and acute on Chronic kidney injury. Acute on chronic kidney injury;(resolved) -Possibly due to prerenal, due to dehydration and use of Lasix. -We will hold the Lasix for now that patient was using for CHF. -Avoid nephrotoxins medication -We will check input and output -Patient is getting Epogen on Fridays but he is not on dialysis. -Renal ultrasound is negative for any obstructive uropathy. -Patient's creatinine level is at the baseline. -She having high albumin dysuria possibly due to nephrotic syndrome will follow nephrology recommendations. Acute on chronic anemia: -Possibly multifactorial considering chronic kidney injury, iron deficiency for chronic blood loss. -We will follow the iron studies.(Iron 27, total iron binding capacity 443, ferritin 66.1) -Patient already received 1 unit of blood in ED. -We will keep the HP more than 8. -As he refused to see fabrication supervisor while in the hospital. -Stool guaiac is positive. -His H&H is stable. Today his hemoglobin is 9.4 Right leg cellulitis: -Patient has chronic venous insufficiency with wounds on right leg. Possibility of secondary infection and its ascending to thigh. There is redness and tenderness of right leg. -We'll follow the wound care consult -We will follow the blood cultures results. -Daily dressing -Leg elevation -Patient had recent vascular procedure and he is following wound care at [facility] for once a week. -Right leg Doppler study for DVT is negative. Soft tissue x-ray of right leg is negative for gas gangrene. Arterial Doppler study showed patent popliteal artery but no visibility of the dorsalis pedis and posterior tibial. -Patient is getting dressing of the right leg wound. His bone scan is negative for osteomyelitis. -iv unasyn was changed to augmentin for four more days to complete ten days course. Asymptomatic bacteriuria: -Patient has ESBL positive urine culture. -There are no patient is asymptomatic. History of paroxysmal A. fib; -Patient is on 2.5 Eliquis twice a day -Patient is on rate control with Cardizem and metoprolol. we will continue that. History of coronary artery disease status post stent placement and CABG: -We'll discontinue his aspirin and Plavix considering his recent acute on chronic anemia as recommended by Dr. Loaiza. -Last echo was done in 2006 that showing 60% ejection fraction with moderate left ventricular hypertrophy. History of obstructive sleep apnea: -Patient is using 2.5 L of oxygen usually at nighttime and on exertion. -He is intolerant to CPAP. History of diabetes with neuropathy: -We will hold the oral medications. -We will start NovoLog on sliding scale with Levemir 25 units twice a day -Accu-Cheks Decubitus ulcers: -Patient has decubitus ulcers on buttock and thighs. -We will follow the wound care consultation recommendations. DVT prophylaxis: -Patient is already on Eliquis CODE STATUS: -Full code Problem List: 1. Cellulitis 2. Anemia 3. [id number] kidney injury Pain Ratin Pain Location: none Pain Goal: Remain pain free Pain Plan: aniceto, for mild pain Tomorrow's Labs & Rationales: Solitario Adams MD 10/17/17 1051: Attending MD Review Statement Attending Statement Attending MD Statement: examined this patient, discuss w/resident/PA/PRODUCTION CHECKER, agreed w/resident/PA/PRODUCTION CHECKER, reviewed EMR data (avail) Attending Assessment/Plan: 52M with extensive PMH admitted for lethargy, fever, acute kidney injury, recent diarrhea now resolved, anemia requiring transfusion, and RLE cellulitis superimposed on chronic venous stasis. Patient had some diarrhea prior to admission which resolved, had poor PO intake, was on Lasix, and presented dehydrated, like the etiology of his SPIKE. This is improving after IV hydration. His anemia is likely multifactorial and related to his CKD, with hemoccult stool positive, and ASA and Plavix have been stopped by cardiology due to bleeding. His Hgb is stable following transfusion of 1 unit pRBC. His right leg is erythematous, tender, and weeping, with a right heel ulcer appearing erythematous and likely the source of infection, with multiple lower leg ulcers present on the right side. He was febrile initially 102, afebrile since. Awake, alert. Complains of unchanged leg pain. Leg wounds appear to be steadily improving, no drainage visible. Afebrile, stable vitals. 1. RLE cellulitis 2. Fever 3. Acute on chronic stage 3 kidney injury 4. Chronic anemia secondary to iron deficiency and CKD 5. Hemoccult positive stool 6. Metabolic encephalopathy 7. Bilateral lower extremity chronic venous stasis Plan - Stable for discharge to [facility] - ID recommendations for antibiotic duration - Outpatient wound care. Include vascular recommendations for wound care in discharge instructions and W10 - Outpatient vascular surgery follow up - Continue home medications
--- NOTE | 2017-10-17 11:35 | Patient Discharge Instructions ---
Discharge Instructions General Discharge Information You were seen/treated for: Right leg cellulitis with chronic ulcer Acute on chronic kidney injury Acute on chronic anemia. Watch for these problems: Right leg pain, redness, increasing swelling, chills, fever, altered mental status, change in color of the leg, bleeding from the bone, pussy discharge coming from the wound and blood in the stool or hematemesis. If she experience any of these symptoms place come to ED or call your primary care physician. Special Instructions: -Follow-up your primary care physician in one week -Follow-up with your front line supervisor in 1 week -Follow-up with your scientific software developer in 1 week and discuss with him about the Lasix doses. Also discussed for use of aspirin and Plavix. -Follow up with your vascular surgeon in 1 week. -Follow-up with wound care clinic as outpatient. -We are holding your aspirin and plevix due to anemia. Please talk to your scientific software developer to resume these. -Take your medication regularly -Good control of blood sugars for better healing of the wound. -Daily dressing of the wound and cleaning. -Elevation of the leg to decrease swelling. -Try to move your toes, foot while sitting in bed and do physiotherapy of the legs to prevent joint stiffness. -Wet to dry dressiong with dakins to right lateral malleolar ulcer. Rest of the leg non adherent dressing and Charles wrap for compression. -Heel off load with multi-podus boot. Diet Recommended Diet: Diabetic Activity Activity Self Limited: No Acute Coronary Syndrome Inclusion Criteria At DC or during hospital stay patient has or had the following: ACS DIAGNOSIS No Discharge Core Measures Meds if any: Prescribed or Continued at Discharge Meds if any: NOT Prescribed or Continued at Discharge Congestive Heart Failure Inclusion Criteria At DC or during hospital stay patient has or had the following: CHF DIAGNOSIS No Discharge Core Measures Meds if any: Prescribed or Continued at Discharge Meds if any: NOT Prescribed or Continued at Discharge Cerebrovascular accident Inclusion Criteria At DC or during hospital stay patient has or had the following: CVA/TIA Diagnosis No Discharge Core Measures Meds if any: Prescribed or Continued at Discharge Meds if any: NOT Prescribed or Continued at Discharge Venous thromboembolism Inclusion Criteria VTE Diagnosis No VTE Type NONE VTE Confirmed by (Test) NONE Discharge Core Measures - Per Current guidelines, there needs to be overlap - treatment for the first 5 days of Warfarin therapy. - If discharged on Warfarin prior to 5 days of - overlap therapy, the patient will need to be - assessed for post discharge needs including - *Post discharge parental anticoagulation - *Warfarin and/or parental anticoagulation education - *Follow up date to check INR post discharge At least 5 days overlap therapy as Inpatient No Meds if any: Prescribed or Continued at Discharge Note: Overlap Therapy is Warfarin and Anticoagulant Meds if any: NOT Prescribed or Continued at Discharge
--- NOTE | 2017-10-17 13:50 | PN- Infect Dx ---
Subjective Subjective: Afebrile without complaints Objective Last 24 Hrs of Vital Signs/I&O Vital Signs Date Time Temp Pulse Resp B/P B/P Pulse O2 O2 Flow FiO2 Mean Ox Delivery Rate 10/17 0830 130/80 10/17 08 Nasal 2.5L Cannula 10/17 0638 97.9 96 18 130/72 97 Nasal 2.5L Cannula 10/17 0000 97 Nasal 2.5L Cannula 10/16 2143 97.7 104 20 150/74 99 Intake & Output 10/17 1600 10/17 0810/17 0000 Intake Total 250 220 Output Total 500 650 775 Balance -500 -400 -555 Intake, IV 130 100 Intake, Oral 120 120 Number 1 Bowel Movements Output, Urine 500 650 775 Physical Exam Other Physical Findings: He appears comfortable in no acute distress Extremities right leg minimal erythema and edema, nontender to palpation; desquamation of the skin persists; right heel dressing intact Results Last 24 Hours of Lab Results: Laboratory Tests 10/16 1645 Chemistry Sodium (137 - 145 mmol/L) 145 Potassium (3.5 - 5.1 mmol/L) 5.2 H Chloride (98 - 107 mmol/L) 108 H Carbon Dioxide (22 - 30 mmol/L) 26 Anion Gap (5 - 16) 11 BUN (9 - 20 mg/dL) 31 H Creatinine (0.7 - 1.2 mg/dL) 1.5 H Estimated GFR (>60 ml/min) 49 L BUN/Creatinine Ratio (7 - 25 %) 20.7 Hematology CBC w Diff NO MAN DIFF REQ WBC (4.8 - 10.8 /CUMM) 7.4 RBC (4.70 - 6.10 /CUMM) 3.57 L Hgb (14.0 - 18.0 G/DL) 9.4 L Hct (42 - 52 %) 29.5 L MCV (80.0 - 94.0 FL) 82.8 MCH (27.0 - 31.0 PG) 26.4 L RDW (11.5 - 14.5 %) 20.1 H Plt Count (130 - 400 /CUMM) 207 MPV (7.4 - 10.4 FL) 8.8 Gran % (42.2 - 75.2 %) 79.4 H Lymphocytes % (20.5 - 51.1 %) 9.7 L Monocytes % (1.7 - 9.3 %) 6.7 Eosinophils % (0 - 5 %) 2.8 Basophils % (0.0 - 2.0 %) 1.4 Absolute Granulocytes (1.4 - 6.5 /CUMM) 5.9 Absolute Lymphocytes (1.2 - 3.4 /CUMM) 0.7 L Absolute Monocytes (0.10 - 0.60 /CUMM) 0.5 Absolute Eosinophils (0.0 - 0.7 /CUMM) 0.2 Absolute Basophils (0.0 - 0.2 /CUMM) 0.1 PUBS MCHC (33.0 - 37.0 G/DL) 31.9 L Urines Ur Random Creatinine (mg/dL) 48.6 Ur Random Microalbumin (<1.7 mg/dl) 6.1 H U Cystine/Creat Ratio (mcg/mg) 125.51 Last 24 Hours of Tanvir Results: No new cultures Recent Imaging Studies: Bone scan October 16 reveals a very mild diffuse increased activity in the right calcaneus not felt to be consistent with osteomyelitis Assessment/Plan Impression: Stable on Unasyn, Day 6 of treatment for presumed cellulitis of the right lower extremity, with temperatures and white blood cell count remaining normal. His bone scan results were reviewed with Radiology, with no suspicion for osteomyelitis. Suggestion: 1. Discontinue Unasyn and begin Augmentin 875 mg po every 12 hours for 4 more days
[2017-10-17 14:01] VITALS: BP 125/70
[2017-10-17] MEDS ORDERED: AUGMENTIN 875-1 EACH PO (14:12)
--- NOTE | 2017-10-17 14:25 | Discharge Summary ---
Visit Information Visit Dates Admission Date: 10/10/17 Discharge Date: 10/17/2017 Hospital Course Course Attending Physician: Solitario Santos MD Primary Care Physician: Surinder Christianson MD Consulting Request: 1 Consulting Specialty: Cardiology Consulting Request: 2 Consulting Specialty: Infectious Disease Consulting Request: 3 Consulting Specialty: Thoracic/Vascular Surgery Hospital Course: Patient is a 51-year-old gentleman with a past medical significan for CAD s/p PCI (LAD, RCA) & CABG(2013), HTN, HLD, paroxysmal A.fib not on anticoagulation, chronic diastolic heart failure, , TIA, ANA (not on CPAP),chronic leg wound status post skin grafting, diabetes complicated with neuropathy, obesity presented from [facility] with a chief complaints of worsening weakness and lethargy. Problem list: Right lower extremity cellulitis Acute on chronic stage 3 kidney injury Hyperkalemia/diabetes mellitus Chronic anemia secondary to iron deficiency and CKD Hemoccult positive stool Metabolic encephalopathy Bilateral lower extremity chronic venous stasis Hospital course: Patient was admitted to general medicine floor, started on IV Unasyn antibiotic after receiving to IV fluid bolus in the ED. Vascular surgery consulted and wound care, arterial Doppler and venous Doppler study was done came back within acceptable limit no sign of DVT. Also renal ultrasound was done to assess for acute and chronic kidney disease no acute process noted. With that the patient home medication of by mouth Lasix due to worsening kidney function, his Lasix resumed with half of his home dose on discharge and he will follow with his prescription clerk for further adjustment, also we held his aspirin and Plavix as the patient on Eliquis Per Cardiology recommendation also to follow-up up regarding that with his prescription clerk and primary care doctor. We change his IV Unasyn to by mouth Augmentin as recommended by ID as the bone nuclear scan came back negative for any sign of osteomyelitis to complete total course of 10 days on antibiotic. Patient received Kayexalate for his mild hyperkalemia patient will need a follow-up basic electrolyte within 4-5 days after discharge for further evaluation. Also he would need to follow with his vascular surgeon after discharge. During his stay patient remained afebrile, no leukocytosis noted and on day of discharge his kidney function went back to his normal baseline.. Imaging: EXAMINATION: US TRIPLEX LOWER EXTREMITY, RIGHT CLINICAL INFORMATION: Right lower extremity edema and pain. Swelling. COMPARISON: None TECHNIQUE: Color-flow triplex imaging with spectral analysis and compression Doppler were performed on the lower extremity. FINDINGS: Evaluation is significantly limited due to patient body habitus and tolerance of compression. Respiratory variation and augmented flow are noted throughout the lower extremity. Areas of normal compression are also seen, although compression is limited due to patient tolerance. The visualized common femoral vein, superficial femoral vein, profunda femoral vein, popliteal vein and midcalf peroneal and posterior tibial venous segments show no evidence of deep venous thrombosis. There is no Rahman's cyst. IMPRESSION: No evidence of deep venous thrombosis involving the right lower extremity. EXAM TYPE: US - US-RENAL/KIDNEY EXAMINATION: RENAL ULTRASOUND CLINICAL INFORMATION: Acute renal injury. COMPARISON: None. TECHNIQUE: Real-time imaging of the kidneys and bladder. FINDINGS: RIGHT KIDNEY: There is neither hydronephrosis nor nephrolithiasis. The right kidney measures 14.7 cm. LEFT KIDNEY: There is neither hydronephrosis nor nephrolithiasis. The left kidney measures 11.4 cm. BLADDER: The urinary bladder is well distended and unremarkable. The prevoid volume is 385 mL. There is a post void residual of 0 mL. There is no wall thickening. There is no pelvic free fluid. IMPRESSION: Normal renal and bladder ultrasound. EXAM TYPE: NUC - BONE SCAN THREE PHASE Addendum: This Critical Result was discussed with Dr. Omar Carlos at 1:44 PM on 10/17/2017 and it was ascertained that the content and urgency of the report was understood at the time of direct communication. Addendum Signed by: Jared Arvizu MD 10/17/17 8266 EXAMINATION: NM BONE SCAN 3 PHASE CLINICAL INFORMATION: Cellulitis in chronic ulcers of right leg. Suspected osteomyelitis of right distal tibia, fibula, and foot. COMPARISON: No previous bone scan is available for comparison. Radiographs of the right tibia and fibula dated 10/11/2017 are available for comparison. TECHNIQUE: Initial rapid sequence images were obtained over the distal lower extremities during the bolus injection of 53.5 mCi Tc-99m HDP. Static images of the knees to the feet were then obtained 3 hours post injection. FINDINGS: Initial rapid sequence images show a diffuse increase in flow to the visualized distal right lower extremity, in this also appears mildly swollen. Blood pool images obtained immediately following the flow study show a diffuse increase in blood pool activity in the distal right lower extremity without a significant focal component. The delayed static images show a very mild diffuse increase in activity in the right calcaneus, without a focal component. No other asymmetry in activity in the feet is present. There is minimally increased activity in the medial malleolus of the left ankle. In the knees there is moderately increased activity diffusely in the patellae. IMPRESSION: Mild diffuse abnormality in the distal right lower extremity on the flow and blood pool images is not associated with significant focal abnormality on the delayed static images and is most likely due to a diffuse cellulitis. Degenerative changes are likely responsible for bilateral diffuse abnormalities in the patellae. EXAM TYPE: US - US-DUPLEX SCAN LOWER EXT ARTER EXAMINATION: US-RIGHT lower EXTREMITY ARTERIAL DOP CLINICAL INFORMATION: 52-year-old male with peripheral vascular disease and weeping wounds in the right lower extremity. COMPARISON: None TECHNIQUE: Real-time ultrasound and Doppler techniques (integrating B-mode 2-D vascular images, Doppler spectral analysis and color flow Doppler imaging) were utilized to interrogate the lower extremities. FINDINGS: Extremely limited evaluation secondary to patient body habitus and bandages overlying the lower calf and toes. Multiphasic waveforms are noted throughout the femoral arteries. There was difficulty visualizing the popliteal artery secondary to patient body habitus. The popliteal appears patent with monophasic waveforms. Posterior tibial and anterior tibial arteries were patent. Peroneal artery was not visualized. The dorsalis pedis was not visualized secondary to overlying bandages. IMPRESSION: Extremely limited evaluation secondary to patient body habitus and bandages overlying the lower calf and toes. Peroneal and dorsalis pedis arteries were not visualized. The femoral and tibial arteries are patent. Greater sensitivity and specificity can be obtained with pre-and post exercise PVRs with JANEL calculations. Also consider dedicated CTA for further anatomical detail. Allergies: Coded Allergies: hydromorphone (UNKNOWN PER 12/02/16) erythromycin base (Intermediate, ?GI UPSET 03/13/16) gluten (Intermediate, GI UPSET 03/13/16) venom-honey bee (BEE VENOM (HONEY BEE)) (Intermediate, VOMITING 03/13/16) lactose (Mild, GI UPSET 03/13/16) Pertinent Lab Results: Laboratory Tests 10/16 10/15 0813 1645 Chemistry Sodium (137 - 145 mmol/L) 145 Potassium (3.5 - 5.1 mmol/L) 5.2 H Chloride (98 - 107 mmol/L) 108 H Carbon Dioxide (22 - 30 mmol/L) 26 Anion Gap (5 - 16) 11 BUN (9 - 20 mg/dL) 31 H Creatinine (0.7 - 1.2 mg/dL) 1.5 H Estimated GFR (>60 ml/min) 49 L BUN/Creatinine Ratio (7 - 25 %) 20.7 Hematology CBC w Diff NO MAN DIFF REQ WBC (4.8 - 10.8 /CUMM) 7.4 RBC (4.70 - 6.10 /CUMM) 3.57 L Hgb (14.0 - 18.0 G/DL) 9.4 L Hct (42 - 52 %) 29.5 L MCV (80.0 - 94.0 FL) 82.8 MCH (27.0 - 31.0 PG) 26.4 L RDW (11.5 - 14.5 %) 20.1 H Plt Count (130 - 400 /CUMM) 207 MPV (7.4 - 10.4 FL) 8.8 Gran % (42.2 - 75.2 %) 79.4 H Lymphocytes % (20.5 - 51.1 %) 9.7 L Monocytes % (1.7 - 9.3 %) 6.7 Eosinophils % (0 - 5 %) 2.8 Basophils % (0.0 - 2.0 %) 1.4 Absolute Granulocytes (1.4 - 6.5 /CUMM) 5.9 Absolute Lymphocytes (1.2 - 3.4 /CUMM) 0.7 L Absolute Monocytes (0.10 - 0.60 /CUMM) 0.5 Absolute Eosinophils (0.0 - 0.7 /CUMM) 0.2 Absolute Basophils (0.0 - 0.2 /CUMM) 0.1 PUBS MCHC (33.0 - 37.0 G/DL) 31.9 L Urines Ur Random Creatinine (mg/dL) 48.6 Ur Random Microalbumin (<1.7 mg/dl) 6.1 H U Cystine/Creat Ratio (mcg/mg) 125.51 10/15 0845 Chemistry Sodium (137 - 145 mmol/L) 146 H Potassium (3.5 - 5.1 mmol/L) 5.3 H Chloride (98 - 107 mmol/L) 108 H Carbon Dioxide (22 - 30 mmol/L) 25 Anion Gap (5 - 16) 13 BUN (9 - 20 mg/dL) 31 H Creatinine (0.7 - 1.2 mg/dL) 1.5 H Estimated GFR (>60 ml/min) 49 L BUN/Creatinine Ratio (7 - 25 %) 20.7 Hematology CBC w Diff NO MAN DIFF REQ WBC (4.8 - 10.8 /CUMM) 7.4 RBC (4.70 - 6.10 /CUMM) 3.55 L Hgb (14.0 - 18.0 G/DL) 9.4 L Hct (42 - 52 %) 29.2 L MCV (80.0 - 94.0 FL) 82.2 MCH (27.0 - 31.0 PG) 26.6 L RDW (11.5 - 14.5 %) 20.2 H Plt Count (130 - 400 /CUMM) 210 MPV (7.4 - 10.4 FL) 9.8 Gran % (42.2 - 75.2 %) 76.1 H Lymphocytes % (20.5 - 51.1 %) 11.7 L Monocytes % (1.7 - 9.3 %) 7.3 Eosinophils % (0 - 5 %) 3.9 Basophils % (0.0 - 2.0 %) 1.0 Absolute Granulocytes (1.4 - 6.5 /CUMM) 5.7 Absolute Lymphocytes (1.2 - 3.4 /CUMM) 0.9 L Absolute Monocytes (0.10 - 0.60 /CUMM) 0.5 Absolute Eosinophils (0.0 - 0.7 /CUMM) 0.3 Absolute Basophils (0.0 - 0.2 /CUMM) 0.1 PUBS MCHC (33.0 - 37.0 G/DL) 32.4 L Disposition Summary Disposition Principal Diagnosis: Right lower extremity cellulitis Acute on chronic stage 3 kidney injury Hyperkalemia Additional Diagnosis: Chronic anemia secondary to iron deficiency and CKD Hemoccult positive stool Metabolic encephalopathy Bilateral lower extremity chronic venous stasis Discharge Disposition: SNF Discharge Instructions General Discharge Information Code Status: Full Code Patient's Diet: Carbohydrate consistent diet Patient's Activity: As torelated Follow-Up Instructions/Appts: -Follow-up your primary care physician in one week -Follow-up with your paraplanner in 1 week -Follow-up with your prescription clerk in 1 week and discuss with him about the Lasix doses. Also discussed for use of aspirin and Plavix. -Follow up with your vascular surgeon in 1 week. -Follow-up with wound care clinic as outpatient. -We are holding your aspirin and plevix due to anemia. Please talk to your prescription clerk to resume these. -Take your medication regularly -Good control of blood sugars for better healing of the wound. -Daily dressing of the wound and cleaning. -Elevation of the leg to decrease swelling. -Try to move your toes, foot while sitting in bed and do physiotherapy of the legs to prevent joint stiffness. -Wet to dry dressiong with dakins to right lateral malleolar ulcer. Rest of the leg non adherent dressing and Charles wrap for compression. -Heel off load with multi-podus boot. Medications at Discharge Discharge Medications: Stop taking the following medications: Diphenoxylate HCl/Atropine (Lomotil 2.5-0.025 MG Tablet) 2.5 MG-0.025 MG TABLET ORAL Q8H as needed for DIARRHEA Clopidogrel Bisulfate (Clopidogrel) 75 MG TABLET ORAL DAILY Aspirin (Ecotrin*) 81 MG TABLET. ORAL DAILY Nitrofurantoin Macrocrystal (Nitrofurantoin) 50 MG CAPSULE ORAL TWICE DAILY Furosemide (Lasix) 80 MG TABLET ORAL TWICE DAILY Dextrose (Glucose Gel) (Unknown Strength) GEL..GRAM. ORAL As Directed as needed for HYPOGLYCEMIA Continue taking these medications: Pantoprazole Sodium (Pantoprazole Sodium) 40 MG TABLET. 1 Tablet ORAL DAILY Comments: did not receive in hospital Lactulose (Lactulose) 10 GRAM/15 ML SOLUTION 15 Milliliters ORAL DAILY as needed for CONSTIPATION Comments: DID NOT RECEIVE WHILE IN HOSPITAL Loperamide HCl (Loperamide) 2 MG CAPSULE 4 Milligram ORAL Q6H as needed for LOOSE STOOLS Comments: did not recieve in hospital Insulin Lispro (Humalog) 100 UNIT/ML CARTRIDGE Units Inject into fatty tissue BEFORE MEALS AND AT BEDTIME Comments: receieved novolog in hospital per sliding scale Metoprolol Tartrate (Lopressor) 50 MG TABLET 1 Tablet ORAL TWICE DAILY Comments: did not receive in hospital Oxycodone HCl/Acetaminophen (Percocet 5-325 MG Tablet) 5 MG-325 MG TABLET 1 Tablet ORAL Q6H as needed for PAIN Comments: Last Taken: 10/17/17 Time: 8:30 am Apixaban (Eliquis) 5 MG TABLET 1 Tablet ORAL TWICE DAILY Comments: Last Taken: 10/17/17 Time: 8:30 am Na Phos,M-B/Na Phos,Di-Ba (Fleet Enema) 19 GRAM-7 GRAM/118 ML ENEMA 1 Enema RECTAL as needed for CONSTIPATION Comments: DID NOT RECEIVE WHILE IN HOSPITAL Bisacodyl (Bisacodyl) 10 MG SUPP.RECT 1 Suppository RECTAL as needed for GI Comments: DID NOT RECEIVE WHILE IN HOSPITAL Magnesium Hydroxide (Milk Of Magnesia) 400 MG/5 ML ORAL.SUSP 30 Milliliters ORAL as needed for CONSTIPATION Comments: DID NOT RECEIVE WHILE IN HOSPITAL Acetaminophen (Acetaminophen) 325 MG TABLET 2 Tablet ORAL Q6H as needed for PAIN/TEMP/>101 Comments: NOT GIVEN IN HOSPITAL Glucagon,Human Recombinant (Glucagon Emergency Kit) 1 MG KIT 1 Milligram INTRAMUSC As Directed as needed for HYPOGLYCEMIA Comments: DID NOT RECEIVE WHILE IN HOSPITAL Nitroglycerin (Nitroglycerin Patch) 0.4 MG/HOUR PATCH.TD24 0.4 Milligram On the skin DAILY Qty = 30 Instructions: APPLY FOR 12 HOURS THEN REMOVE APPLY PATCH SAME TIME EACH DAY Comments: Last Taken: 10/17/17 Time: 8 am to left chest wall Lactobacillus Acidophilus (Acidophilus) 1 EACH CAPSULE 1 Capsule ORAL Q12H Comments: Last Taken: 10/17/17 Time: 8:30 am Guaifenesin/Dextromethorphan (Tussin Dm Cough & Chest Liquid) 100 MG-10 MG/5 ML SYRUP 10 Milliliters ORAL Q4H as needed for COUGH Comments: did not receive in hospital Lidocaine (Lidoderm) 5 % ADH..PATCH 1 Patch On the skin TAKE AT BEDTIME Instructions: may wear up to 12 hours Comments: PER MAR Furosemide (Lasix) 80 MG TABLET 1 Tablet ORAL DAILY Comments: did not receive in hospital Ondansetron HCl (Zofran) 4 MG TABLET 1 Tablet ORAL Q8H as needed for NAUSEA Comments: did not receive in hospital Insulin Glargine,Hum.rec.anlog (Lantus Solostar) 100 UNIT/ML (3 ML) INSULN.PEN 52 Unit Inject into fatty tissue Every Morning Comments: received levemir in hospital: 25 units BID Fenofibrate Nanocrystallized (Fenofibrate) 145 MG TABLET 1 Tablet ORAL DAILY Comments: Last Taken: 10/17/17 Time: 8:30 am Diltiazem HCl (Diltiazem 24HR ER) 120 MG CAP.ER.24H 1 Capsule ORAL DAILY Comments: Last Taken: 10/17/17 Time: 8:30 am Dicyclomine HCl (Dicyclomine HCl) 20 MG TABLET 1 Tablet ORAL Q6H as needed for GERD Comments: did not receive in hospital Sodium Chloride ([place] Saline) 0.65 % DROPS 2 Drop Both sides of nose Q4H as needed for CONGESTION Comments: did not receive in hospital Albuterol Sulfate (Albuterol Sulfate) 2.5 MG/3 ML (0.083 %) VIAL.NEB 1 Vial Inhale Solution EVERY 4 HOURS NEEDED as needed for SOB Sitagliptin Phosphate (Januvia) 50 MG TABLET 1 Tablet ORAL Every Morning Comments: did not receive in hospita Ferrous Sulfate (Ferrous Sulfate) 325 MG (65 MG IRON) TABLET 1 Tablet ORAL TWICE DAILY Comments: Last Taken: 10/17/17 Time: 8:30 am Pregabalin (Lyrica) 100 MG CAPSULE 1 Capsule ORAL Q12H Comments: Last Taken: 10/17/17 Time: 8:30 am Epoetin Tony (Epogen) 10,000 UNIT/ML VIAL 10,000 Unit Inject into fatty tissue EVERY SUNDAY Magnesium Oxide (Magnesium Oxide) 400 MG TABLET 1 Tablet ORAL DAILY Comments: Last Taken: 10/17/17 Time: 8:30 am Cholecalciferol (Vitamin D3) (Vitamin D) 2,000 UNIT TABLET 2 Tablet ORAL DAILY Comments: did not receive in hospital Potassium Chloride (Potassium Chloride) 20 MEQ TAB.ER.PRT 1 Tablet ORAL DAILY Comments: Last Taken: 10/17/17 Time: 8:30 am Multiple Vitamin (Multivitamins) 1 EACH TABLET 1 Tablet ORAL DAILY Comments: Last Taken: 10/17/17 Time: 8:30 am Ascorbic Acid (Vitamin C) 500 MG CAPSULE 1 Capsule ORAL DAILY Comments: not given in hospital Miconazole (Miconazole) 5 GM POWDER 1 Application On the skin As Directed Comments: Last Taken: Time: 10:00 am Ranolazine (Ranexa) 500 MG TAB.ER.12H 1 Tablet ORAL Q12H Comments: Last Taken: 10/17/17 Time: 8:30 am Acetaminophen (Acephen) 650 MG SUPP.RECT 1 Suppository RECTALLY Q6H as needed for PAIN/TEMP/>101 Start taking the following new medications: Amoxicillin/Potassium Clav (Augmentin 875-125 Tablet) 875 MG-125 MG TABLET 1 Tablet ORAL TWICE DAILY Qty = 8 No Refills Comments: received IV UNASYN antibiotics in hospital. Last dose 10/17/17 9 am Copies To: Michael MARIA,Jacquelyn; Meghan MARIA,Surinder Hernandez; Breanna MARIA,Omar Hernandez; Fadia MARIA PHD, Arnav Montano
== END 2017-10-17 20:17 | DRG 469 ==
LOC: ERH 17:17 → 2NA 21:10 → ERHI 21:10 → ENRESERV 22:15 → 2NA 10-11 02:13 → ENPENDDIS 10-17 14:32 → 2NA 10-17 20:17
PROVIDERS: Physician Assistant Medical; Student in an Organized Health Care Education/Training Program
PROC: 30233N1 Transfusion of Nonautologous Red Blood Cells into Peripheral Vein, Percutaneous Approach (ICD-10-PCS; principal; 2017-10-10)
DX: N17.9 Acute kidney failure, unspecified (principal); L89.150 Pressure ulcer of sacral region, unstageable; L89.310 Pressure ulcer of right buttock, unstageable; L89.320 Pressure ulcer of left buttock, unstageable; G93.41 Metabolic encephalopathy; E11.42 Type 2 diabetes mellitus with diabetic polyneuropathy; L89.613 Pressure ulcer of right heel, stage 3; I13.0 Hypertensive heart and chronic kidney disease with heart failure and stage 1 through stage 4 chronic kidney disease, or unspecified chronic kidney disease; L03.115 Cellulitis of right lower limb; I50.32 Chronic diastolic (congestive) heart failure; E11.22 Type 2 diabetes mellitus with diabetic chronic kidney disease; E11.622 Type 2 diabetes mellitus with other skin ulcer; L97.319 Non-pressure chronic ulcer of right ankle with unspecified severity; I48.0 Paroxysmal atrial fibrillation; E66.01 Morbid (severe) obesity due to excess calories; E87.5 Hyperkalemia; Z68.42 Body mass index [BMI] 45.0-49.9, adult; D62 Acute posthemorrhagic anemia; D50.0 Iron deficiency anemia secondary to blood loss (chronic); I87.2 Venous insufficiency (chronic) (peripheral); E78.5 Hyperlipidemia, unspecified; I25.2 Old myocardial infarction; J44.9 Chronic obstructive pulmonary disease, unspecified; Z79.4 Long term (current) use of insulin; N18.3 Chronic kidney disease, stage 3 (moderate); E86.0 Dehydration; I25.10 Atherosclerotic heart disease of native coronary artery without angina pectoris; D63.1 Anemia in chronic kidney disease; K21.9 Gastro-esophageal reflux disease without esophagitis; G47.33 Obstructive sleep apnea (adult) (pediatric); F32.9 Major depressive disorder, single episode, unspecified; F41.9 Anxiety disorder, unspecified; F17.200 Nicotine dependence, unspecified, uncomplicated; Z95.1 Presence of aortocoronary bypass graft; Z86.73 Personal history of transient ischemic attack (TIA), and cerebral infarction without residual deficits
CPT/HCPCS: 2NAP; 84133; 84300; ERO; 36415; 71045; 73590-RT; 76775; 81001; 82436; 82570; 86920; 87040; 87086; 93005; 93010; 96374; 97161-GP; 97530-GO; A9561; J0131; J0885; P9016

== ENCOUNTER 2018-06-06 22:10 | Inpatient (IN) | payer OTHER ==
[~2018-06-06] VITALS: Ht 182.9 cm; Wt 153.4 kg
[~2018-06-06 22:10] MED LIST changes: +ACEPHEN650 M1 PR; +ALBUTEROL2.5 MG/3 M INH/SOL; +AYR SALINE50 M1 NASB; +DILTIAZEM 12HR120 MG PO; +EPOGEN10000 UNIT SC; +FERROUS SULFAT325 M3 PO; +JANUVIA50 M1 PO; +LYRICA100 M1 PO; +MAGNESIUM OXID400 M1 PO; +MICONAZOLE5 GM TOP; +MULTIVITAMINS1 EAC9 PO; +NITROFURANTOIN50 M1 PO; +POTASSIUM CHLO20 ME2 PO; +RANEXA500 M1 PO; +VITAMIN C500 M9 PO; +VITAMIN D2000 UNI1 PO
--- NOTE | 2018-06-06 23:47 | ED GENERAL ADULT ---
History of Present Illness General Chief Complaint: General Adult Stated Complaint: COLD LIKE S/S Source: patient Exam Limitations: no limitations Vital Signs & Intake/Output Vital Signs & Intake/Output Vital Signs Date Time Temp Pulse Resp B/P B/P Pulse O2 O2 Flow FiO2 Mean Ox Delivery Rate 06/07 0146 99 Nasal 2.0L Cannula 06/07 0146 98.6 94 18 150/65 100 Nasal 2.0L Cannula 06/06 2359 Nasal 3.0L Cannula 06/06 2225 98.7 87 18 113/56 100 Nasal 2.0L Cannula ED Intake and Output 06/07 0000 06/06 1200 Intake Total Output Total Balance Patient 250 lb Weight Weight Estimated Measurement Method Allergies Coded Allergies: hydromorphone (UNKNOWN PER 12/02/16) erythromycin base (Intermediate, ?GI UPSET 03/13/16) gluten (Intermediate, GI UPSET 03/13/16) venom-honey bee (BEE VENOM (HONEY BEE)) (Intermediate, VOMITING 03/13/16) lactose (Mild, GI UPSET 03/13/16) Reconcile Medications Acetaminophen 325 MG TABLET 2 TAB PO Q6H PRN PAIN/TEMP/>101 (Reported) Acetaminophen (Acephen) 650 MG SUPP.RECT 1 SUP VT Q6H PRN PAIN/TEMP/>101 ( Reported) Albuterol Sulfate 2.5 MG/3 ML (0.083 %) VIAL.NEB 1 Vial INH/MINI Q4P PRN SOB ( Reported) Amoxicillin/Potassium Clav (Augmentin 875-125 Tablet) 875 MG-125 MG TABLET 1 TAB PO BID CELLULITIS Apixaban (Eliquis) 5 MG TABLET 1 TAB PO BID BLOOD THINNER (Reported) Ascorbic Acid (Vitamin C) 500 MG CAPSULE 1 CAP PO DAILY SUPPLEMENT (Reported) Bisacodyl 10 MG SUPP.RECT 1 SUP RC PRN GI (Reported) Cholecalciferol (Vitamin D3) (Vitamin D) 2,000 UNIT TABLET 2 TAB PO DAILY SUPPLEMENT (Reported) Dicyclomine HCl 20 MG TABLET 1 TAB PO Q6H PRN GERD (Reported) Diltiazem HCl (Diltiazem 24HR ER) 120 MG CAP.ER.24H 1 CAP PO DAILY HEART/BP ( Reported) Epoetin Tony (Epogen) 10,000 UNIT/ML VIAL 10,000 UNIT SC QFRI CKD (Reported) Fenofibrate Nanocrystallized (Fenofibrate) 145 MG TABLET 1 TAB PO DAILY HPL ( Reported) Ferrous Sulfate 325 MG (65 MG IRON) TABLET 1 TAB PO BID SUPPLEMENT (Reported) Furosemide (Lasix) 80 MG TABLET 1 TAB PO DAILY HEART FAILURE (Reported) Glucagon,Human Recombinant (Glucagon Emergency Kit) 1 MG KIT 1 MG IM AD PRN HYPOGLYCEMIA (Reported) Guaifenesin/Dextromethorphan (Tussin Dm Cough & Chest Liquid) 100 MG-10 MG/5 ML SYRUP 10 ML PO Q4H PRN COUGH (Reported) Insulin Glargine,Hum.rec.anlog (Lantus Solostar) 100 UNIT/ML (3 ML) INSULN.PEN 52 UNIT SC QAM DM (Reported) Insulin Lispro (Humalog) 100 UNIT/ML CARTRIDGE DM (Reported) Lactobacillus Acidophilus (Acidophilus) 1 EACH CAPSULE 1 CAP PO Q12H PROBIOTIC (Reported) Lactulose 10 GRAM/15 ML SOLUTION 15 ML PO DAILY PRN CONSTIPATION (Reported) Lidocaine (Lidoderm) 5 % ADH..PATCH 1 PAT TOP QHS LEFT HIP (Reported) may wear up to 12 hours Loperamide HCl (Loperamide) 2 MG CAPSULE 4 MG PO Q6H PRN LOOSE STOOLS ( Reported) Magnesium Hydroxide (Milk Of Magnesia) 400 MG/5 ML ORAL.SUSP 30 ML PO PRN CONSTIPATION (Reported) Magnesium Oxide 400 MG TABLET 1 TAB PO DAILY SUPPLEMENT (Reported) Metoprolol Tartrate (Lopressor) 50 MG TABLET 1 TAB PO BID HR (Reported) Miconazole 5 GM POWDER 1 AMY TOP AD AFFECTED AREA(S) (Reported) Multiple Vitamin (Multivitamins) 1 EACH TABLET 1 TAB PO DAILY SUPPLEMENT ( Reported) Na Phos,M-B/Na Phos,Di-Ba (Fleet Enema) 19 GRAM-7 GRAM/118 ML ENEMA 1 E RC PRN CONSTIPATION (Reported) Nitroglycerin (Nitroglycerin Patch) 0.4 MG/HOUR PATCH.TD24 0.4 MG TOP DAILY CHEST PAIN APPLY FOR 12 HOURS THEN REMOVE APPLY PATCH SAME TIME EACH DAY Ondansetron HCl (Zofran) 4 MG TABLET 1 TAB PO Q8H PRN NAUSEA (Reported) Oxycodone HCl/Acetaminophen (Percocet 5-325 MG Tablet) 5 MG-325 MG TABLET 1 TAB PO Q6H PRN PAIN (Reported) Pantoprazole Sodium 40 MG TABLET.DR 1 TAB PO DAILY GERD (Reported) Potassium Chloride 20 MEQ TAB.ER.PRT 1 TAB PO DAILY SUPPLEMENT (Reported) Pregabalin (Lyrica) 100 MG CAPSULE 1 CAP PO Q12H NERVE PAIN (Reported) Ranolazine (Ranexa) 500 MG TAB.ER.12H 1 TAB PO Q12H ANGINA (Reported) Sitagliptin Phosphate (Januvia) 50 MG TABLET 1 TAB PO QAM DM (Reported) Sodium Chloride ([place] Saline) 0.65 % DROPS 2 GTT NASB Q4H PRN CONGESTION ( Reported) Triage Note: PT BIBA FROM [facility] IN [place] C/O OF COLD LIKE S/S. PT STATES FOR THE PAST FEW DAYS HE HAS BEEN FEELING "OUT OF IT" SOB, AND PRODUCTIVE COUGH WITH GREEN SPUTUM. PT ARRIVED A&0X3. AWAITING PROVIDER EVAL Triage Nurses Notes Reviewed? yes HPI: Pt is a 53 y/o M PMHx COPD, CHF, DM2, CKD, ID s/p CABG x 3 complaining of a cough with increased sputum x 1 week. Pt states he has had increased SOB and been using of O2 via NC 24 hours/day this week. Pt states there is an associated chest tightness exacerbated by coughing. Pt has been more dyspneic on exertion and no longer pivots from his bed to wheelchair. Pt admits to increasing orthopnea, but denies radiation of pain, dizziness, lightheadedness, palpitations. Pt states he has been taking augmentin for his bilateral LE cellulitis, and has been receiving breathing treatments at the care home without much relief. Pt denies fevers, chills,diaphoresis, abdominal pain, N/V/D , any urinary symptoms. (Dez Avalos) Past History Travel History Traveled to [place] past 21 day No Medical History Any Pertinent Medical History? see below for history Neurological: CVA, TIA, PERIPHERAL NEUROPATHY EENT: NONE Cardiovascular: AFIB (paroxysmal), CAD, diastolic CHF, hyperlipidemia, myocardial infarction (s/p ID), NSTEMI, PVD, systolic CHF Respiratory: COPD, ANA (no cpap) Gastrointestinal: GERD, lactose intolerance, ENTERITIS Hepatic: NONE Renal: nephrolithiasis, acute kidney failure CKD Musculoskeletal: hx WOUND VAC leg wounds SKIN GRAFTS TO R LEG R & L hand contractures R inner foot-st 3 ulcer gait impairment Psychiatric: anxiety, major depressive disorder Endocrine: diabetes (with neuropathy), obesity Blood Disorders: anemia Cancer(s): NONE BOOK MENDER/Reproductive: NONE History of MRSA: No History of VRE: Yes History of CDIFF: No Tetanus Vaccine: 03/28/12 Surgical History Surgical History: CABG,R FOOT X9 CARDIAC STENTS tonsillectomy Psychosocial History Who do you live with [facility] Services at Home Nursing, Oxygen, Physical Therapy What is your primary language Maldivian Tobacco Use: Never used Family History Family History, If Any: FATHER ( in his 70's of heart disease). MOTHER (CAD, DM, DLD and HTN). Hx Contributory? Yes (Dez Avalos) Review of Systems Review of Systems Constitutional: Denies: see HPI. EENTM: Denies: see HPI. Respiratory: Reports: see HPI. Cardiovascular: Reports: see HPI. GI: Denies: see HPI. Genitourinary: Denies: see HPI. Musculoskeletal: Reports: no symptoms. Skin: Reports: see HPI. Neurological/Psychological: Reports: no symptoms. Hematologic/Endocrine: Reports: no symptoms. Immunologic/Allergic: Reports: no symptoms. All Other Systems: Reviewed and Negative (Dez Avalos) Physical Exam Physical Exam General Appearance: well developed/nourished, alert, obese Head: atraumatic, normal appearance Eyes: Bilateral: normal appearance. Neck: normal inspection, supple, full range of motion Respiratory: rhonchi, wheezing Cardiovascular: regular rate/rhythm, NMRG Peripheral Pulses: 2+ radial (R), 2+ radial (L), 0 dorsalis pedis (R), 0 dorsalis pedis (L) Gastrointestinal: normal bowel sounds, non-tender, no organomegaly Extremities: tenderness, BIlateral LE swelling, induration, erythema. Tender to palpation, stasis dermatitis noted Neurologic/Psych: awake, alert, oriented x 3 Skin: pallor Core Measures ACS in differential dx? Yes CVA/TIA Diagnosis: No Sepsis Present: No Sepsis Focused Exam Completed? No (Dez Avalos) Progress Differential Diagnoses I considered the following diagnoses in my evaluation of the patient: CHF, COPD , pneumonia, ID, sepsis, Plan of Care: Orders Procedure Date/time Status EKG 06/08 1000 Active Consistent Carbohydrate 2 06/07 B Active TROPONIN LEVEL 06/07 1000 Active TROPONIN LEVEL 06/07 0400 Active EKG 06/07 0400 Active Pathway - chart 06/07 0120 Active House Staff 06/07 0120 Active Patient Data 06/07 0120 Active FingerStick- Glucose 06/07 0111 Active Vital Signs 06/07 0110 Active Intake & Output 06/07 0110 Active Patient Data 06/07 0102 Active OXYGEN SETUP (GEN) 06/07 0059 Active Saline Lock 06/07 0059 Active Admit to inpatient 06/07 0059 Active Vital Signs 06/07 0059 Active Activity/Ambulation 06/07 005 Active Code Status 06/07 005 Active TRC EVALUATION (GEN) 06/07 UNK Active OXYGEN SETUP (GEN) 06/07 UNK Active Saline Lock 06/07 UNK Active Weight 06/07 UNK Active VTE Mechanical Prophylaxis 06/07 UNK Active Telemetry/Material Engineer 06/07 UNK Active Activity/Ambulation 06/07 UNK Active TROPONIN LEVEL 06/06 2331 Complete LACTIC ACID 06/06 2331 Complete COMPREHENSIVE METABOLIC PANEL 06/06 2331 Complete CBC WITHOUT DIFFERENTIAL 06/06 2331 Complete B-TYPE NATRIURETIC PEP (BNP) 06/06 2331 Complete EKG 06/06 2331 Active Intake & Output 06/06 2217 Active Laboratory Tests 06/06/18 2342: Anion Gap 6, Estimated GFR 58 L, BUN/Creatinine Ratio 19.2, Glucose 86, Lactic Acid 1.0, Calcium 8.6, Total Bilirubin 0.7, AST 29, ALT 18 L, Alkaline Phosphatase 139 H, Troponin I < 0.01, [id number]-[id number] Pept 5340 H, Total Protein 6.1 L, Albumin 3.0 L, Globulin 3.1, Albumin/Globulin Ratio 1.0 L, CBC w Diff NO MAN DIFF REQ, RBC 3.34 L, MCV 80.2, MCH 25.9 L, MCHC 32.3 L, RDW 20.1 H, MPV 8.6, Gran % 82.3 H, Lymphocytes % 6.4 L, Monocytes % 6.7, Eosinophils % 4.0, Basophils % 0.6, Absolute Granulocytes 6.6 H, Absolute Lymphocytes 0.5 L, Absolute Monocytes 0.5, Absolute Eosinophils 0.3, Absolute Basophils 0 Diagnostic Imaging: Viewed by Me: Radiology Read. Discussed w/RAD: Radiology Read. Radiology Impression: PATIENT: WILLIAM WRIGHT PRESENT AGE: 53 PATIENT ACCOUNT NO: [id number] : 63 LOCATION: [facility] ORDERING PHYSICIAN: Dez PRIDE SERVICE DATE: 06/06/18 EXAM TYPE: RAD - XRY-PORTABLE CHEST XRAY EXAMINATION: XR PORTABLE CHEST CLINICAL INFORMATION: Shortness of breath COMPARISON: Chest x-ray 10/10/2017 TECHNIQUE: Portable frontal view of the chest was obtained. 11:27 PM FINDINGS: Status post median sternotomy. There is pulmonary vascular congestion without overt pulmonary edema. No focal consolidation. Stable linear scar in the left midlung at the lung base. There is no pleural effusion. There is no pneumothorax. IMPRESSION: Pulmonary vascular congestion without overt pulmonary edema. DICTATED BY: Navi Martines MD DATE/TIME DICTATED:06/06/182343 LSAT INSTRUCTOR:MIKAEL DATE/ TIME TRANSCRIBED:06/06/182343 CONFIDENTIAL, DO NOT COPY WITHOUT APPROPRIATE AUTHORIZATION. <Electronically signed in Other Vendor System> SIGNED BY: Navi Martines MD 06/06/18 229 Initial ED EKG: normal sinus rhythm, rate (89) (Dez Avalos) Departure Departure Disposition: STILL A PATIENT Condition: Stable Clinical Impression Primary Impression: COPD exacerbation Secondary Impressions: Cellulitis of both lower extremities Referrals: Meghan MARIA,Surinder Hernandez (PCP/Family) Departure Forms: Customer Survey General Discharge Information Admission Note Spoke With: Solitario Santos MD Documentation of Exam: Documentation of any treatments & extenuating circumstances including Concerns Regarding Discharge (functional status, medication knowledge or non-compliance, living conditions, etc.) that warrant an admission rather than observation: Patient will require steroids. Breathing treatments. Pulmonary consultation. IV diuresis. Serial troponins. Serial EKGs. Cardiac consultation. Pt has multiple cardiac risk factors. Changing chest pain here in the emergency room. Not safe for discharge. heart score moderate risk. (Dez Avalos) PA/AUTO BRAKE TECHNICIAN Co-Sign Statement Statement: ED Attending supervision documentation- x I saw and evaluated the patient. I have also reviewed all the pertinent lab results and diagnostic results. I agree with the findings and the plan of care as documented in the PA's/AUTO BRAKE TECHNICIAN's documentation. COPD with productive cough, increased work of breathing. [] I have reviewed the ED Record and agree with the PA's/AUTO BRAKE TECHNICIAN's documentation. [] Additions or exceptions (if any) to the PAs/AUTO BRAKE TECHNICIAN's note and plan are summarized below: [] (Charles MARIA,Otto) Critical Care Note Critical Care Note Critical Care Time: 30-74 min (35) (Rober PRIDE,Dez)
--- NOTE | 2018-06-06 23:50 | RADIOLOGY REPORT ---
EXAMINATION: XR PORTABLE CHEST CLINICAL INFORMATION: Shortness of breath COMPARISON: Chest x-ray 10/10/2017 TECHNIQUE: Portable frontal view of the chest was obtained. 11:27 PM FINDINGS: Status post median sternotomy. There is pulmonary vascular congestion without overt pulmonary edema. No focal consolidation. Stable linear scar in the left midlung at the lung base. There is no pleural effusion. There is no pneumothorax. IMPRESSION: Pulmonary vascular congestion without overt pulmonary edema.
[2018-06-06 23:52] LABS: ABSOLUTE BASOPHIL COUNT 0 /CUMM (0.0-0.2); ABSOLUTE EOSINOPHIL COUNT 0.3 /CUMM (0.0-0.7); ABSOLUTE GRANULOCYTE CT 6.6 /CUMM (1.4-6.5); ABSOLUTE LYMPH COUNT 0.5 /CUMM (1.2-3.4); ABSOLUTE MONOCYTE COUNT 0.5 /CUMM (0.10-0.60); BASOPHIL % 0.6 % (0.0-2.0); GRANULOCYTE % 82.3 % (42.2-75.2); HEMATOCRIT 26.8 % (42-52); MEAN CORPUSCULAR HGB 25.9 PG (27.0-31.0); MEAN CORPUSCULAR HGB CONC 32.3 G/DL (33.0-37.0); MEAN CORPUSCULAR VOLUME 80.2 FL (80.0-94.0); MEAN PLATELET VOLUME 8.6 FL (7.4-10.4); PLATELET COUNT 254 /CUMM (130-400); RBC DISTRIBUTION WIDTH 20.1 % (11.5-14.5); RED BLOOD CELL CT 3.34 /CUMM (4.70-6.10)
--- NOTE | 2018-06-07 01:14 | History & Physical ---
Asim Solomonesh 06/07/18 0112: General Information and HPI Source of Information: patient Exam Limitations: no limitations History of Present Illness: 53 yo M with PMH paroxysmal AFib (on Eliquis), CVA, TIA, CAD ([place] s/p angioplasties in 2002 and 2010, CABG in 2013), CHF (last echo EF 55%), ANA (not using CPAP), COPD (on 2.5L home oxygen via [place]), chronic stasis dermatitis s/p grafting, obesity, HTN, T2DM complicated with neuropathy, who presented to the ED from an extended care facility with complaints of worsening shortness of breath and chest pain for the past 1 week. About a week ago, it started with flulike symptoms and a productive cough of yellow sputum. He then began having shortness of breath and a feeling of chest tightening that is worsened with coughing. It is associated with a loss of appetite as he finds it hard to eat. He reported that this tightness gets worse when he exerts himself. The chest pain is described as being substernal, pressure-like, nonexertional, and is not triggered by dyspnea or exacerbation. He endorses that he does have some orthopnea. He denies lightheadedness, dizziness, radiation of pain to extremities or neck. Allergies/Medications Allergies: Coded Allergies: hydromorphone (UNKNOWN PER 12/02/16) erythromycin base (Intermediate, ?GI UPSET 03/13/16) gluten (Intermediate, GI UPSET 03/13/16) venom-honey bee (BEE VENOM (HONEY BEE)) (Intermediate, VOMITING 03/13/16) lactose (Mild, GI UPSET 03/13/16) Past History Travel History Traveled to [place] past 21 day No Medical History Neurological: CVA, TIA, PERIPHERAL NEUROPATHY EENT: NONE Cardiovascular: AFIB (paroxysmal), CAD, diastolic CHF, hyperlipidemia, myocardial infarction (s/p [place]), NSTEMI, PVD, systolic CHF Respiratory: COPD, ANA (no cpap) Gastrointestinal: GERD, lactose intolerance, ENTERITIS Hepatic: NONE Renal: nephrolithiasis, acute kidney failure CKD Musculoskeletal: hx WOUND VAC leg wounds SKIN GRAFTS TO R LEG R & L hand contractures R inner foot-st 3 ulcer gait impairment Psychiatric: anxiety, major depressive disorder Endocrine: diabetes (with neuropathy), obesity Blood Disorders: anemia Cancer(s): NONE 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 MOTHER (CAD, DM, DLD and HTN). Psychosocial History Who Do You Live With? sister Services at Home: Nursing, Oxygen, Physical Therapy Living Will? no Functional Ability ADLs Independent: eating. Needs Assist: dressing, toileting, bathing. Ambulation: walker IADLs Independent: telephone, medication admin. Needs Assist: shopping, housework, food prep, transportation. Unknown: finances. Review of Systems Review of Systems Constitutional: Reports: see HPI. Exam & Diagnostic Data Last 24 Hrs of Vital Signs/I&O Vital Signs Date Time Temp Pulse Resp B/P B/P Pulse O2 O2 Flow FiO2 Mean Ox Delivery Rate 06/07 0323 97.6 98 20 150/70 94 Nasal 2.0L Cannula 06/07 0233 95 Nasal 2.0L Cannula 06/07 0146 99 Nasal 2.0L Cannula 06/07 0146 98.6 94 18 150/65 100 Nasal 2.0L Cannula 06/06 2359 Nasal 3.0L Cannula 06/06 2225 98.7 87 18 113/56 100 Nasal 2.0L Cannula Intake & Output 06/07 0800 06/07 0000 06/06 1600 Intake Total Output Total Balance Patient 328 lb 250 lb Weight Weight Bed scale Estimated Measurement Method Physical Exam General Appearance Alert, Cooperative, No Acute Distress Skin Temp/Moisture Exam: Warm/Dry HEENT Atraumatic, PERRLA, EOMI Neck Supple, No JVD Cardiovascular Normal S1, Normal S2, No Murmurs Lungs BL diffuse wheezing Abdomen Normal Bowel Sounds, Soft, No Tenderness Extremities Normal Pulses, Swelling BL Last 24 Hrs of Labs/Tanvir: Laboratory Tests 06/07/18 0400: Troponin I Cancelled 06/07/18 0231: Lactic Acid Cancelled 06/06/18 2342: Anion Gap 6, Estimated GFR 58 L, BUN/Creatinine Ratio 19.2, Glucose 86, Lactic Acid 1.0, Calcium 8.6, Total Bilirubin 0.7, AST 29, ALT 18 L, Alkaline Phosphatase 139 H, Troponin I < 0.01, Vxw-O-Csptlacdymn Pept 5340 H, Total Protein 6.1 L, Albumin 3.0 L, Globulin 3.1, Albumin/Globulin Ratio 1.0 L, CBC w Diff NO MAN DIFF REQ, RBC 3.34 L, MCV 80.2, MCH 25.9 L, MCHC 32.3 L, RDW 20.1 H, MPV 8.6, Gran % 82.3 H, Lymphocytes % 6.4 L, Monocytes % 6.7, Eosinophils % 4.0, Basophils % 0.6, Absolute Granulocytes 6.6 H, Absolute Lymphocytes 0.5 L, Absolute Monocytes 0.5, Absolute Eosinophils 0.3, Absolute Basophils 0 Assessment/Plan Assessment: 53 yo M with PMH paroxysmal AFib (on Eliquis), CVA, TIA, CAD [place] s[place] in 2002 and 2010, CABG in 2013), CHF (last echo EF 55%), ANA (not using CPAP), COPD (on 2.5L home oxygen via [place]), chronic stasis dermatitis s/p grafting, obesity, HTN, T2DM complicated with neuropathy, who presented to the ED from an extended care facility with complaints of worsening shortness of breath and chest pain for the past 1 week. - Patient's presentation is consistent with CHF exacerbation, edematous, worsening SOB, CXR showed pulmonary venous congestion - Maybe a component of COPD, considering BL wheezing, oyxgen requirements - Unlikely infectious etiology as patient is afebrile, no leukocytosis, no infectious contacts - H/H of 8.6/26.8 and MCV of 80.2, Normocytic Anemia, 2/2 to chronic disease most likely, but can attain an iron profile to rule out iron deficiency Problem List: #Pulmonary Venous Congestion 2/2 HFpEF #COPD exacerbation #Normocytic Anemia #Chronic stasis dermatitis #T2DM #CKD #Hx of Afib #Hx of CAD #Hx of HLD #Hx of HTN #Hx of ANA Plan: - Admit to telemetry - Strict ins and outs, daily weights - Increase Lasix to 60mg BID - Continue IV Medrol, then short PO prednisone taper - TRC, Nebs - Iron Panel - Elevate legs - Wound Care - Monitor kidney function - Epogen - Accuchecks, NSS, Levemir - Eliquis 5mg - Fenofibrate - Metoprolol - CPAP at night if needed - Stop home abx - CBC, BEP DVT ppx; eliquis and ALPS Consisten Carb Diet Full Code As Ranked By This Provider Problem List: 1. COPD exacerbation 2. Cellulitis of both lower extremities Core Measures/Misc (06/24) Acute Coronary Syndrome ACS Diagnosis: No Congestive Heart Failure Congestive Heart Failure Diagnosis Yes Last Known EF % 55 Cerebrovascular Accident CVA/TIA Diagnosis: No VTE (View Protocol) VTE Risk Factors Age>40 No Mechanical VTE Prophylaxis d/t N/A MechProphylax Ordered No VTE Pharm Prophylaxis d/t NA PharmProphylax ordered Sepsis (View protocol) Sepsis Present: No If YES complete Sepsis Event Note If YES complete Sepsis Event Note Angie Martinez 06/07/18 0134: General Information and HPI MD Statement: I have seen and personally examined WILLIAM WRIGHT and documented this H&P. The patient is a 53 year old M who presented with a patient stated chief complaint of []. Allergies/Medications Home Med list Acetaminophen 325 MG TABLET 2 TAB PO Q6H PRN PAIN/TEMP/>101 (Reported) Acetaminophen (Acephen) 650 MG SUPP.RECT 1 SUP WI Q6H PRN PAIN/TEMP/>101 ( Reported) Albuterol Sulfate 2.5 MG/3 ML (0.083 %) VIAL.NEB 1 Vial INH/MINI Q4P PRN SOB ( Reported) Amoxicillin/Potassium Clav (Augmentin 875-125 Tablet) 875 MG-125 MG TABLET 1 TAB PO BID CELLULITIS Apixaban (Eliquis) 5 MG TABLET 1 TAB PO BID BLOOD THINNER (Reported) Ascorbic Acid (Vitamin C) 500 MG CAPSULE 1 CAP PO DAILY SUPPLEMENT (Reported) Atorvastatin Calcium 10 MG TABLET 1 TAB PO DAILY hl (Reported) Bisacodyl 10 MG SUPP.RECT 1 SUP RC PRN GI (Reported) Cholecalciferol (Vitamin D3) (Vitamin D) 2,000 UNIT TABLET 2 TAB PO DAILY SUPPLEMENT (Reported) Dicyclomine HCl 20 MG TABLET 1 TAB PO Q6H PRN GERD (Reported) Diltiazem HCl (Diltiazem 24HR ER) 120 MG CAP.ER.24H 1 CAP PO DAILY HEART/BP ( Reported) Epoetin Tony (Epogen) 10,000 UNIT/ML VIAL 10,000 UNIT SC QFRI CKD (Reported) Fenofibrate Nanocrystallized (Fenofibrate) 145 MG TABLET 1 TAB PO DAILY HPL ( Reported) Ferrous Sulfate 325 MG (65 MG IRON) TABLET 1 TAB PO BID SUPPLEMENT (Reported) Furosemide (Lasix) 80 MG TABLET 1 TAB PO DAILY HEART FAILURE (Reported) Glucagon,Human Recombinant (Glucagon Emergency Kit) 1 MG KIT 1 MG IM AD PRN HYPOGLYCEMIA (Reported) Guaifenesin/Dextromethorphan (Tussin Dm Cough & Chest Liquid) 100 MG-10 MG/5 ML SYRUP 10 ML PO Q4H PRN COUGH (Reported) Insulin Glargine,Hum.rec.anlog (Lantus Solostar) 100 UNIT/ML (3 ML) INSULN.PEN 52 UNIT SC QAM DM (Reported) Insulin Lispro (Humalog) 100 UNIT/ML CARTRIDGE DM (Reported) Lactobacillus Acidophilus (Acidophilus) 1 EACH CAPSULE 1 CAP PO Q12H PROBIOTIC (Reported) Lactulose 10 GRAM/15 ML SOLUTION 15 ML PO DAILY PRN CONSTIPATION (Reported) Lidocaine (Lidoderm) 5 % ADH..PATCH 1 PAT TOP QHS LEFT HIP (Reported) may wear up to 12 hours Liraglutide (Victoza 2-Rolf) 0.6 MG/0.1 ML (18 MG/3 ML) PEN.INJCTR 1.2 MG SC DAILY dm (Reported) Loperamide HCl (Loperamide) 2 MG CAPSULE 4 MG PO Q6H PRN LOOSE STOOLS ( Reported) Magnesium Hydroxide (Milk Of Magnesia) 400 MG/5 ML ORAL.SUSP 30 ML PO PRN CONSTIPATION (Reported) Magnesium Oxide 400 MG TABLET 1 TAB PO DAILY SUPPLEMENT (Reported) Metoprolol Tartrate (Lopressor) 50 MG TABLET 1 TAB PO BID HR (Reported) Miconazole 5 GM POWDER 1 AMY TOP AD AFFECTED AREA(S) (Reported) Multiple Vitamin (Multivitamins) 1 EACH TABLET 1 TAB PO DAILY SUPPLEMENT ( Reported) Na Phos,M-B/Na Phos,Di-Ba (Fleet Enema) 19 GRAM-7 GRAM/118 ML ENEMA 1 E RC PRN CONSTIPATION (Reported) Nitroglycerin (Nitroglycerin Patch) 0.4 MG/HOUR PATCH.TD24 0.4 MG TOP DAILY CHEST PAIN APPLY FOR 12 HOURS THEN REMOVE APPLY PATCH SAME TIME EACH DAY Ondansetron HCl (Zofran) 4 MG TABLET 1 TAB PO Q8H PRN NAUSEA (Reported) Oxycodone HCl/Acetaminophen (Percocet 5-325 MG Tablet) 5 MG-325 MG TABLET 1 TAB PO Q6H PRN PAIN (Reported) Pantoprazole Sodium 40 MG TABLET.DR 1 TAB PO DAILY GERD (Reported) Potassium Chloride 20 MEQ TAB.ER.PRT 1 TAB PO DAILY SUPPLEMENT (Reported) Pregabalin (Lyrica) 100 MG CAPSULE 1 CAP PO Q12H NERVE PAIN (Reported) Ranolazine (Ranexa) 500 MG TAB.ER.12H 1 TAB PO Q12H ANGINA (Reported) Sitagliptin Phosphate (Januvia) 50 MG TABLET 1 TAB PO QAM DM (Reported) Sodium Chloride ([place] Saline) 0.65 % DROPS 2 GTT NASB Q4H PRN CONGESTION ( Reported) Core Measures/Misc (06/24) Sepsis (View protocol) If YES complete Sepsis Event Note If YES complete Sepsis Event Note Resident Review Statement Resident Statement: examined this patient, discussed with internal controls analyst, agreed with internal controls analyst Other Findings: Mr Fernandez is 53-year-old gentleman with past medical history of coronary artery disease status post stent placement in LAD (2002), drug coated stent in RCA ( 2010), paroxysmal atrial fibrillation on Cardizem and Eliquis, CHF, hypercholesterolemia, hypertension, COPD on 2.5 L of home oxygen, obesity, uncontrolled diabetes mellitus complicated with neuropathy, obstructive sleep apnea (not using CPAP), hypertension, chronic leg ulcers status post skin grafting, TIA came in with chief complaint of worsening shortness of breath since 1 week prior to presentation associated with some chest pressure. Initially 1 week prior to presentation, he started with symptoms of cough and cold, he was not feeling himself for past 1 week, started to have productive cough with greenish/yellowish sputum, he also started having associated tightness of the chest that was exacerbated by coughing, worsening shortness of breath and dyspnea on exertion therefore he presented to [place] emergency department. He denied any fever, chills, nausea, vomiting, diarrhea, abdominal pain, diarrhea or constipation. Review of system positive for bilateral lower extremity swelling, erythema, stasis dermatitis of both the lower legs, rhonchi and wheezing of bilateral lungs. Physical exam. Alert, oriented, comfortably sitting in the bed, on nasal cannula. HEENT PERRLA, no JVD noted. CVS S1-S2 present, no murmur. RS bilateral rhonchi and wheezing present. PA : Soft, nontender. Lower extremity : Cyanosis no cyanosis or clubbing, however bilateral stasis dermatitis of the leg below the knee, bilateral swelling, induration and deep redness, no purulence noted, decreased sensations of bilateral leg. Vitals at the emergency department were 98.7 temperature, pulse of 87, respiration of 18, blood pressure 113/56, he was saturating 100% on 2 L of nasal cannula. Labs : White count of 8.0, H /H of 8.6/26.8, MCV of 80.2. Electrolytes within normal limit, BUN/creatinine 25/1.3 (baseline creatinine 1.3 -1.5), glucose of 86. Liver function tests within normal limit. Troponin I negative. EKG showed rate of 89, regular, normal sinus rhythm, no acute ST-T wave changes, QTC of 441. Chest x-ray showed pulmonary venous congestion. ProBNP was found to be 5340, however this has been his baseline proBNP. Nuclear stress test with nuclear images did not show any EKG evidence of myocardial ischemia done on 09/22/2016. Echocardiogram showed normal left ventricular size, normal EF and normal diastolic filling pattern, done on 09/13/2016 Last discharge in October 2017 after being treated for right lower extremity cellulitis. Problem list 1 shortness of breath most likely secondary to pulmonary venous congestion, heart failure with preserved ejection fraction. 2 COPD with mild exacerbation. 3. History of type 2 diabetes mellitus. 4. History of atrial fibrillation. 5. Microcytic anemia. 6. Chronic kidney disease. 7. Hyperlipidemia. 8. Diastolic heart failure. 9. History of hypertension. 10. Obstructive sleep apnea. 11. History of coronary artery disease. Plan. * Admit the patient to cardiac telemetry floor for continuous cardiac monitoring. * Continue to monitor vitals, intake and output, daily weight. * His home dose of Lasix is 80 mg once daily, we will start him on 60 mg IV twice daily, titrate the dose as needed in a.m. * He received 1 time of 125 mg IV prednisone, he does seem to have some wheezing on lung exam, will do a short p.o. prednisone taper. * Continue TRC nebulizations. * Continue Eliquis 5 mg twice daily, diltiazem 20 mg daily, Epogen, fenofibrate, metoprolol. * Continue to monitor fingerstick, he takes 52 units of glargine in the morning, we will substitute glargine with Levemir, will start at a lower dose 40 units every morning for now, adjust as needed. * NovoLog low-dose sliding scale. * Consistent carbohydrate diet. * Continue wound care and leg elevation for chronic bilateral lower extremity. * Continue vitamins at home dosage. * ct other home meds. * Note he was recently treated with 7 days of Augmentin twice daily at the detention for lower extremity cellulitis, the lower extremity does not seem to be infected, and the swelling seemed to be chronic therefore we will keep him off antibiotics for now. * Continue to monitor CBCs, BEP. FC CC-2 PP Dvt px Solitario Santos MD 06/07/18 0140: Core Measures/Misc (06/24) Sepsis (View protocol) If YES complete Sepsis Event Note If YES complete Sepsis Event Note Attending MD Review Statement Attending Statement Attending MD Statement: examined this patient, discuss w/resident/PA/CREW BOAT OPERATOR, agreed w/resident/PA/CREW BOAT OPERATOR, reviewed EMR data (avail) Attending Assessment/Plan: 53M PMH CAD s/p PCI (LAD, RCA) & CABG, HTN, HLD, paroxysmal A.fib on Eliquis, HFpEF, TIA, ANA not on CPAP, chronic leg wound status post skin grafting, type 2 diabetic polyneuropathy sent from [facility] with complaints of shortness of breath at rest, dyspnea on exertion, mild orthopnea, and intermittent chest pressure. Chest pressure is described as mid-sternal, mild, non-radiating, non-exertional, and not associated with worsening SOB, palpitations, diaphoresis, lightheadedness. He has also noted worsening of his lower extremity edema. Denies fever, chills, n/v/d, abdominal pain, diarrhea, dyhsuria. EKG NSR without acute changes. Labs significant for BNP 5000, creatinine 1.3 (baseline 1.5-1.7), Hgb 8.6 (chronic). CXR shows pulmonary vascular congestion. Has been taking Augmentin for presumed cellulitis, however legs appear to be more chronic than any acute infectious process. He is on Lasix 80mg PO daily. 1. Acute on chronic diastolic CHF 2. Bilateral stasis dermatitis Plan - Admit to telemetry - Serial enzymes and troponin - Lasix 60mg IV BID - Stop antibiotics - Leg elevation - Wound care and cardiology consults - I/O, daily weights - Continue home medications - DVT PPx with Eliquis
--- NOTE | 2018-06-07 01:42 | Admission Certification ---
Admission Certification Certification Statement - As attending physician, I certify that at the time of - admission, based on clinical presentation, severity of - symptoms, need for further diagnostic testing and - therapeutic interventions, and risk of adverse outcomes - without in-hospital treatment, in my clinical assessment, - this patient requires an acute hospital stay for a minimum - of two nights or longer. I have also considered psychsocial - factors such as support system, advanced age, financial - issues, cognitive issues, and failed out-patient treatments, - past re-admission history, safety of patient, and lack of - compliance as applicable. Specific rationale supporting this admission is: Acute CHF
[2018-06-07] MEDS ORDERED: VICTOZA 2-0.6 MG/0.1 SC (03:04)
[2018-06-07] MEDS ORDERED: ATORVASTATIN CA10 M1 PO (03:05)
[2018-06-07 03:23] VITALS: BP 150/70
[2018-06-07 06:36] VITALS: BP 148/78
--- NOTE | 2018-06-07 07:18 | PN- Housestaff ---
Subjective Follow-up For: Productive cough Subjective: Overnight patient was in normal sinus rhythm with heart rate ranging between 95- 100. Patient is continued to experience coughing which is productive for green phlegm, and that is his primary complaint today. Review of Systems Constitutional: Denies: chills, diaphoresis, fever. Cardiovascular: Denies: chest pain, palpitations. Respiratory: Reports: cough, sputum production. Gastrointestinal: Denies: abdominal pain, constipation, diarrhea, changes in stool. Objective Last 24 Hrs of Vital Signs/I&O Vital Signs Date Time Temp Pulse Resp B/P B/P Pulse O2 O2 Flow FiO2 Mean Ox Delivery Rate 06/07 0803 100 154/58 06/07 0803 100 154/58 06/07 0636 98.6 98 20 148/78 99 Nasal 3.0L Cannula 06/07 0323 97.6 98 20 150/70 94 Nasal 2.0L Cannula 06/07 0233 95 Nasal 2.0L Cannula 06/07 0146 99 Nasal 2.0L Cannula 06/07 0146 98.6 94 18 150/65 100 Nasal 2.0L Cannula 06/06 2359 Nasal 3.0L Cannula 06/06 2225 98.7 87 18 113/56 100 Nasal 2.0L Cannula Intake & Output 06/07 1600 06/07 0800 06/07 0000 Intake Total 360 Output Total 500 Balance -140 Intake, IV 0 Intake, Oral 360 Number 0 Bowel Movements Output, Urine 500 Patient 328 lb 250 lb Weight Weight Bed scale Estimated Measurement Method Physical Exam General Appearance: Alert, Oriented X3, Cooperative Skin: ERYTHEMA OF BILAT. LOWER EXTREMITIES. Neck: Supple, No JVD Cardiovascular: Regular Rate, Normal S1, Normal S2 Lungs: RHONCI APPRECIATED IN LOWER LUNG [place] BILAT. Abdomen: Normal Bowel Sounds, Soft, No Tenderness Extremities: No Cyanosis, Normal Pulses, +1 PITTING EDEMA BILAT. Vascular: Normal Pulses, Pulses Symmetrical Current Medications: Current Medications Sig/Ysabel Start time Last Medication Dose Route Stop Time Status Admin Acetaminophen 0 .STK-MED ONE 06/07 0748 DC PO Acetaminophen 650 MG Q6-PRN PRN 06/07 0745 AC 06/07 PO 0755 Albuterol Sulfate 3 ML ONCE ONE 06/06 2345 DC 06/06 INH 06/06 2346 2358 Apixaban 5 MG BID 06/07 09 AC 06/07 PO 0756 Apixaban 5 MG BID 06/07 0330 DC PO Apixaban 5 MG ONCE ONE 06/07 0315 DC 06/07 PO 06/07 031 0336 Ascorbic Acid 500 MG DAILY 06/07 09 AC 06/07 PO 0757 Azithromycin 250 MG DAILY 06/09 09 AC PO 06/12 0901 Azithromycin 500 MG ONCE ONE 06/07 0945 DC PO 06/07 0946 Benzonatate 100 MG Q4 06/07 1000 AC PO Benzonatate 100 MG TID 06/07 0500 DC 06/07 PO 06/10 0459 0600 Cholecalciferol 2,000 IU DAILY 06/07 09 AC 06/07 PO 0757 Diltiazem HCl 120 MG DAILY 06/07 09 AC 06/07 PO 08 Fenofibrate 145 MG DAILY 06/07 09 AC 06/07 PO 0757 Ferrous Sulfate 325 MG BID 06/07 09 AC 06/07 PO 075 Furosemide 60 MG DAILY 06/07 09 AC 06/07 IV 08 Guaifenesin/ 10 ML Q6P PRN 06/07 730 AC Dextromethorphan PO Insulin Aspart 0 TIDAC 06/07 08 AC SC Insulin Detemir 40 UNITS DAILY 06/07 09 AC 06/07 SC 075 Ipratropium [place] 2.5 ML ONCE ONE 06/06 2345 DC 06/06 INH 06/06 2346 2358 Methylprednisolone 0 .STK-MED ONE 06/06 2350 DC .ROUTE Methylprednisolone 125 MG ONCE ONE 06/06 2345 DC 06/06 IV 06/06 2346 2350 Metoprolol Tartrate 50 MG BID 06/07 900 AC 06/07 PO 08 Prednisone 40 MG DAILY 06/08 900 AC PO 06/12 0859 Prednisone 40 MG DAILY 06/07 09 DC 06/07 PO 075 Pregabalin 100 MG BID 06/07 09 AC 06/07 PO 08 Pregabalin 100 MG Q12H 06/07 0215 DC PO Ranolazine 500 MG BID 06/07 0900 AC 06/07 PO 0803 Ranolazine 500 MG Q12H 06/07 0300 DC PO Last 24 Hrs of Lab/Tanvir Results Last 24 Hrs of Labs/Mics: Laboratory Tests 06/07/18 1000: Troponin I Cancelled 06/07/18 0655: Anion Gap 8, Estimated GFR 58 L, BUN/Creatinine Ratio 16.2, Magnesium Pending, Troponin I < 0.01, CBC w Diff NO MAN DIFF REQ, RBC 3.36 L, MCV 80.1, MCH 25.9 L, MCHC 32.3 L, RDW 20.0 H, MPV 8.9, Gran % 96.0 H, Lymphocytes % 2.7 L, Monocytes % 0.9 L, Eosinophils % 0.2, Basophils % 0.2, Absolute Granulocytes 8.7 H, Absolute Lymphocytes 0.2 L, Absolute Monocytes 0.1, Absolute Eosinophils 0, Absolute Basophils 0 06/07/18 0400: Troponin I Cancelled 06/07/18 0231: Lactic Acid Cancelled 06/06/18 2342: Anion Gap 6, Estimated GFR 58 L, BUN/Creatinine Ratio 19.2, Glucose 86, Lactic Acid 1.0, Calcium 8.6, Total Bilirubin 0.7, AST 29, ALT 18 L, Alkaline Phosphatase 139 H, Troponin I < 0.01, Yaq-T-Pxzxzroyzct Pept 5340 H, Total Protein 6.1 L, Albumin 3.0 L, Globulin 3.1, Albumin/Globulin Ratio 1.0 L, CBC w Diff NO MAN DIFF REQ, RBC 3.34 L, MCV 80.2, MCH 25.9 L, MCHC 32.3 L, RDW 20.1 H, MPV 8.6, Gran % 82.3 H, Lymphocytes % 6.4 L, Monocytes % 6.7, Eosinophils % 4.0, Basophils % 0.6, Absolute Granulocytes 6.6 H, Absolute Lymphocytes 0.5 L, Absolute Monocytes 0.5, Absolute Eosinophils 0.3, Absolute Basophils 0 Microbiology 06/07 934 LOWER RESP: Respiratory Culture - ORD 06/07 934 LOWER RESP: Gram Stain - ORD Assessment/Plan Assessment: 53 yo M with PMH paroxysmal AFib (on Eliquis), CVA, TIA, CAD ([place] s/p angioplasties in 2002 and 2010, CABG in 2013), CHF (last echo EF 55%), ANA (not using CPAP), COPD (on 2.5L home oxygen via NC), chronic stasis dermatitis s/p grafting, obesity, HTN, T2DM complicated with neuropathy, who presented to the ED from an extended care facility (with complaints of worsening shortness of breath and productive cough for 1 week. Problem list: 1. Acute on chronic CHF exacerbation 2. Acute on chronic COPD exacerbation 3. Stasis dermatitis 4. Bronchitis 5. History of hypertension 6. History of diabetes mellitus 7. Peripheral neuropathy 8. History of vitamin D deficiency 9. History of atrial fibrillation 10. Acute on chronic anemia 11. Acute on chronic CKD #Acute on chronic CHF exacerbation: Patient's primary symptoms of shortness of breath, pitting edema of the lower extremities, 06/06/18 chest x-ray findings of pulmonary vascular congestion are consistent with acute acute exacerbation of CHF. Patient has preserved ejection fraction last echocardiogram. #Acute on chronic COPD exacerbation: Patient has known history of COPD is on 2.5 L of oxygen via nasal cannula at home, at this time he is experiencing increased shortness of breath while on baseline oxygen. #Acute on chronic anemia: During per prior admissions patient has been a hemoglobin of mid to high 90s, is down to mid eights during this admission patient. Could be contributing to patient's shortness of breath #Acute on chronic CKD: Creatinine during this admission is 1.3 which is lower than previous admissions where patient has been ranging between 2.0-2.7 #Bronchitis: Patient lives in a extended care facility so he has increased risk exposure, has history of COPD, has been experiencing a cough and productive phlegm for 1 week. On physical examination patient has bilateral rhonchi which clear with cough. of antibiotics -Robitussin-DM #Stasis dermatitis: There was some concern for cellulitis as there was erythema and tenderness to palpation, but bilateral involvement is very uncommon in cellulitis. #History of hypertension #History of A. fib #Diabetes mellitus type 2 #Peripheral neuropathy #Vitamin D deficiency CODE STATUS: Full code Diet: Consistent carbohydrate 2 DVT prophylaxis: Eliquis Problem List: 1. CHF (congestive heart failure) Pain Ratin Pain Location: bilat. LE Pain Goal: Remain pain free Pain Plan: tylenol Tomorrow's Labs & Rationales: cbc
[2018-06-07 07:57] LABS: ABSOLUTE BASOPHIL COUNT 0 /CUMM (0.0-0.2); ABSOLUTE EOSINOPHIL COUNT 0 /CUMM (0.0-0.7); ABSOLUTE GRANULOCYTE CT 8.7 /CUMM (1.4-6.5); ABSOLUTE LYMPH COUNT 0.2 /CUMM (1.2-3.4); ABSOLUTE MONOCYTE COUNT 0.1 /CUMM (0.10-0.60); BASOPHIL % 0.2 % (0.0-2.0); EOSINOPHIL % 0.2 % (0-5); HEMATOCRIT 26.9 % (42-52); MEAN CORPUSCULAR HGB 25.9 PG (27.0-31.0); MEAN CORPUSCULAR HGB CONC 32.3 G/DL (33.0-37.0); MEAN CORPUSCULAR VOLUME 80.1 FL (80.0-94.0); MEAN PLATELET VOLUME 8.9 FL (7.4-10.4); PLATELET COUNT 247 /CUMM (130-400); RED BLOOD CELL CT 3.36 /CUMM (4.70-6.10); WHITE BLOOD CELL COUNT 9.1 /CUMM (4.8-10.8)
--- NOTE | 2018-06-07 10:01 | PN- Att Addend ---
Attending Addendum Attending Brief Note 53-year-old male past medical history of diabetes, diabetic neuropathy, coronary artery disease with previous bypass, A. fib on anticoagulation and chronic stasis dermatitis with morbid obesity. [facility] and this cough productive of green sputum. He had been partially treated with oral Augmentin in the [facility] and was afebrile with no white count on admission and a chest x-ray that looked like pulmonary vascular congestion. We are treating him with IV Lasix for presumptive diagnosis of heart failure and will have cardiology see him, repeat his echo. Given the green sputum will check a sputum Gram stain and culture and give him a short course of p.o. azithromycin and will follow closely.
[2018-06-07 14:46] VITALS: BP 110/70
[2018-06-07 22:23] VITALS: BP 116/82
--- NOTE | 2018-06-07 22:37 | Cons- Cardiology ---
General Information and HPI Consulting Request Date of Consult: 06/07/18 Requested By: Frank Dunne MD History of Present Illness: Jim is a 53 year old male with history of hypertension, dyslipidemia, coronary artery disease status post [place] with multiple angioplasties recent CABG. He also had a recent peripheral revasculazation to help a poorly healing right leg wound. Over the past week to ten days this patient has noted a cough productive of yellow sputum and subjective fever. In the setting of this cough he has noted chest tightness but he also exerienced chest tightness with emotional stress and in particular after a verbal argument with his sister. There is no clear exacerbation by physical exertion. He has also noted a decrease in appetite. He denies lightheadedness or palpitations. At baseline, this patient is mostly in a wheelchair and otherwise walks slowly. I suspect that higher levels of activity would elicit shortness of breath. To review this patient's prior history, Kyler has been admitted to [facility] multiple times recently for chest discomfort. He also underwent a recent cardiac catheterization that showed patent grafts although he does have a long diffusely diseased OM2 branch that I did not feel would get a good angioplasty result. This is not a life-threatening lesion but is a vessel that could give him some angina. I feel the best option is to treat this medically. In that regard we started him on a NTG patch that appears to be helping. He has undergone multiple recent surgical procedures for vascular insufficiency and osteomyelitis of the right heal. After these procedures he was anemic an received mulitiple blood transfusions. A recent echo showed a normal EF with restrictive hemodynamics. A couple years ago Jim was admitted for pneumonia and ruled in to non-ST- elevation [place]. After risk stratification with a stress test, which was positive for ischemia, he underwent cardiac catheterization. This study showed 3-vessel coronary artery disease. He is now status post coronary artery bypass grafting by Dr. Perdomo. this was followed by a stress test showing inverior, apical and lateral ischemia so I placed another stent in his AV groove LCX which was noted to be patent on his most recent cardiac catheterization. He also has two lesions in his PDA after the anastomosis of the SVG with the RCA that could be limiting flow. To review this patient's past history, Jim has undergone stent placement to his mid LAD in 07/2003. This was in the setting of a myocardial infarction. In 2003, the patient was noted to have an in-stent restenosis of the LAD as well as a stenosis of the ostium of a large septal bead picker branch. At that time, the left circumference parented a first marginal branch which also harbored a 70% stenosis beginning at the ostium and extending proximally. The right coronary artery has had a 30% ostial stenosis. A 50% to 60% PDA lesion was noted, and he has no problem with the 60%. In consideration of the above, a cardiac balloon dilatation was performed on the in-stent stenosis of the LAD, and the ostial septal branch was dilated with a 2.5 x 20 mm balloon. Post catheterization, there was a 10% residual stenosis in the LAD and a 40% residual stenosis at the ostium of the septal branch. In 2010, the patient again had chest pressure radiating to his arms of moderate severity. He was noted to have ST elevations in leads II, III, and F consistent with an acute inferior [place]. He was therefore brought back to the labelling machine operator, and at that time a 3.0 x 20 mm drug-coated IM stent was placed in the patient's RCA. At that time his coronary anatomy consisted of a normal left main, 60% ostial proximal stenosis of the LAD, a 20% mid in-stent stenosis. Left circumflex had a 30% proximal jme-dnpz-rrrhonon proximal stenosis. The obtuse marginal 2 was a large patent vessel, and the right coronary artery was dominant with a 50% ostial stenosis, and a 90% distal stenosis prior to the bifurcation. Finally, there was a 40% mid PDA lesion. It was the 90% stenosis that underwent the most recent stenting. While at [facility] recently, the patient did have an echocardiogram performed. hypertrophy, and mild to moderate tricuspid regurgitation Allergies/Medications Allergies: Coded Allergies: hydromorphone (UNKNOWN PER 12/02/16) erythromycin base (Intermediate, ?GI UPSET 03/13/16) gluten (Intermediate, GI UPSET 03/13/16) venom-honey bee (BEE VENOM (HONEY BEE)) (Intermediate, VOMITING 03/13/16) lactose (Mild, GI UPSET 03/13/16) Home Med List: Acetaminophen 325 MG TABLET 2 TAB PO Q6H PRN PAIN/TEMP/>101 (Reported) Acetaminophen (Acephen) 650 MG SUPP.RECT 1 SUP DE Q6H PRN PAIN/TEMP/>101 ( Reported) Albuterol Sulfate 2.5 MG/3 ML (0.083 %) VIAL.NEB 1 Vial INH/MINI Q4P PRN SOB ( Reported) Amoxicillin/Potassium Clav (Augmentin 875-125 Tablet) 875 MG-125 MG TABLET 1 TAB PO BID CELLULITIS Apixaban (Eliquis) 5 MG TABLET 1 TAB PO BID BLOOD THINNER (Reported) Ascorbic Acid (Vitamin C) 500 MG CAPSULE 1 CAP PO DAILY SUPPLEMENT (Reported) Atorvastatin Calcium 10 MG TABLET 1 TAB PO DAILY hl (Reported) Bisacodyl 10 MG SUPP.RECT 1 SUP RC PRN GI (Reported) Cholecalciferol (Vitamin D3) (Vitamin D) 2,000 UNIT TABLET 2 TAB PO DAILY SUPPLEMENT (Reported) Dicyclomine HCl 20 MG TABLET 1 TAB PO Q6H PRN GERD (Reported) Diltiazem HCl (Diltiazem 24HR ER) 120 MG CAP.ER.24H 1 CAP PO DAILY HEART/BP ( Reported) Epoetin Tony (Epogen) 10,000 UNIT/ML VIAL 10,000 UNIT SC QFRI CKD (Reported) Fenofibrate Nanocrystallized (Fenofibrate) 145 MG TABLET 1 TAB PO DAILY HPL ( Reported) Ferrous Sulfate 325 MG (65 MG IRON) TABLET 1 TAB PO BID SUPPLEMENT (Reported) Furosemide (Lasix) 80 MG TABLET 1 TAB PO DAILY HEART FAILURE (Reported) Glucagon,Human Recombinant (Glucagon Emergency Kit) 1 MG KIT 1 MG IM AD PRN HYPOGLYCEMIA (Reported) Guaifenesin/Dextromethorphan (Tussin Dm Cough & Chest Liquid) 100 MG-10 MG/5 ML SYRUP 10 ML PO Q4H PRN COUGH (Reported) Insulin Glargine,Hum.rec.anlog (Lantus Solostar) 100 UNIT/ML (3 ML) INSULN.PEN 52 UNIT SC QAM DM (Reported) Insulin Lispro (Humalog) 100 UNIT/ML CARTRIDGE DM (Reported) Lactobacillus Acidophilus (Acidophilus) 1 EACH CAPSULE 1 CAP PO Q12H PROBIOTIC (Reported) Lactulose 10 GRAM/15 ML SOLUTION 15 ML PO DAILY PRN CONSTIPATION (Reported) Lidocaine (Lidoderm) 5 % ADH..PATCH 1 PAT TOP QHS LEFT HIP (Reported) may wear up to 12 hours Liraglutide (Victoza 2-Rolf) 0.6 MG/0.1 ML (18 MG/3 ML) PEN.INJCTR 1.2 MG SC DAILY dm (Reported) Loperamide HCl (Loperamide) 2 MG CAPSULE 4 MG PO Q6H PRN LOOSE STOOLS ( Reported) Magnesium Hydroxide (Milk Of Magnesia) 400 MG/5 ML ORAL.SUSP 30 ML PO PRN CONSTIPATION (Reported) Magnesium Oxide 400 MG TABLET 1 TAB PO DAILY SUPPLEMENT (Reported) Metoprolol Tartrate (Lopressor) 50 MG TABLET 1 TAB PO BID HR (Reported) Miconazole 5 GM POWDER 1 AMY TOP AD AFFECTED AREA(S) (Reported) Multiple Vitamin (Multivitamins) 1 EACH TABLET 1 TAB PO DAILY SUPPLEMENT ( Reported) Na Phos,M-B/Na Phos,Di-Ba (Fleet Enema) 19 GRAM-7 GRAM/118 ML ENEMA 1 E RC PRN CONSTIPATION (Reported) Nitroglycerin (Nitroglycerin Patch) 0.4 MG/HOUR PATCH.TD24 0.4 MG TOP DAILY CHEST PAIN APPLY FOR 12 HOURS THEN REMOVE APPLY PATCH SAME TIME EACH DAY Ondansetron HCl (Zofran) 4 MG TABLET 1 TAB PO Q8H PRN NAUSEA (Reported) Oxycodone HCl/Acetaminophen (Percocet 5-325 MG Tablet) 5 MG-325 MG TABLET 1 TAB PO Q6H PRN PAIN (Reported) Pantoprazole Sodium 40 MG TABLET.DR 1 TAB PO DAILY GERD (Reported) Potassium Chloride 20 MEQ TAB.ER.PRT 1 TAB PO DAILY SUPPLEMENT (Reported) Pregabalin (Lyrica) 100 MG CAPSULE 1 CAP PO Q12H NERVE PAIN (Reported) Ranolazine (Ranexa) 500 MG TAB.ER.12H 1 TAB PO Q12H ANGINA (Reported) Sitagliptin Phosphate (Januvia) 50 MG TABLET 1 TAB PO QAM DM (Reported) Sodium Chloride (Mcdonough Saline) 0.65 % DROPS 2 GTT NASB Q4H PRN CONGESTION ( Reported) Review of Systems Review of Systems: Lower extremity erythema. Past History Travel History Traveled to [place] past 21 day No Medical History Blood Transfusion Hx: Yes Neurological: CVA, TIA, PERIPHERAL NEUROPATHY EENT: NONE Cardiovascular: AFIB (paroxysmal), CAD, diastolic CHF, hyperlipidemia, myocardial infarction (s/p [place]), NSTEMI, PVD, systolic CHF Respiratory: COPD, ANA (no cpap) Gastrointestinal: GERD, lactose intolerance, ENTERITIS Hepatic: NONE Renal: nephrolithiasis, acute kidney failure CKD Musculoskeletal: hx WOUND VAC leg wounds SKIN GRAFTS TO R LEG R & L hand contractures R inner foot-st 3 ulcer gait impairment Psychiatric: anxiety, major depressive disorder Endocrine: diabetes (with neuropathy), obesity Blood Disorders: anemia Cancer(s): NONE LIVING ADVISOR/Reproductive: NONE Surgical History Surgical History: CABG,R FOOT X9 CARDIAC STENTS tonsillectomy Family History Relations & Conditions If Any: FATHER ( in his 70's of heart disease). MOTHER (CAD, DM, DLD and HTN). Psychosocial History Where Do You Live? Extended Care Facility Who Do You Live With? sister Services at Home: Nursing, Oxygen, Physical Therapy Smoking Status: Former Smoker Living Will? no Functional Ability ADLs Independent: eating. Needs Assist: dressing, toileting, bathing. Ambulation: walker IADLs Independent: telephone, medication admin. Needs Assist: shopping, housework, food prep, transportation. Unknown: finances. Exam & Diagnostic Data Vital Signs and I&O Vital Signs Date Time Temp Pulse Resp B/P B/P Pulse O2 O2 Flow FiO2 Mean Ox Delivery Rate 06/073 97.6 70 20 116/82 99 Nasal 2.5L Cannula 06/07 2108 86 110/70 06/07 2108 86 110/70 06/07 1937 99 Nasal 2.5L Cannula 06/07 1446 98.2 86 20 110/70 96 Nasal Cannula 06/07 1030 Nasal 2.0L Cannula 06/07 0803 100 154/58 06/07 0803 100 154/58 06/07 0800 Nasal 2.0L Cannula 06/07 0636 98.6 98 20 148/78 99 Nasal 3.0L Cannula 06/07 0323 97.6 98 20 150/70 94 Nasal 2.0L Cannula 06/07 0233 95 Nasal 2.0L Cannula 06/07 0146 99 Nasal 2.0L Cannula 06/07 0146 98.6 94 18 150/65 100 Nasal 2.0L Cannula 06/06 2359 Nasal 3.0L Cannula Intake & Output 06/07 1600 06/07 0800 06/07 0000 06/06 1600 06/06 0800 06/06 0000 Intake Total 810 360 Output Total 1275 500 Balance -465 -140 Intake, IV 10 0 Intake, Oral 800 360 Number 1 0 Bowel Movements Output, Urine 1275 500 Patient 328 lb 250 lb Weight Weight Bed scale Estimated Measurement Method Physical Exam: General: WD/obese male in NAD; alert and oriented x 3 HEENT: NC/AT, PERRL, EOMI Neck: no JVD, no carotid bruit Heart: RRR w/o murmur Lungs: clear bilaterally Abdomen: soft, obese, NT, +ve bowel sounds Extremities: 2+ bilateral leg edema with venous stasis changes and tenderness to palpation Assessment/Plan Assessment/Plan * This patient is much improved following bypass surgery and his angioplasty to his OM. He nevertheless continues to harbor some PDA disease that could potentially cause ischemic chest pain. He also has a diffusely diseased OM2. This will undoubtedly also cause his inferior reversible ischemia. These lesions may not be easily amenable to PCI. In the setting of strong emotional distress or physical distress this patient may well have some angina but I do not think he is having an acute coronary syndrome. The patient is currently pain free and the ischemia is not in a life threatening territory. He should continue on his current drug regimen including NTG, a beta dylon and Ranexa. He is moderately anemic which will elicit angina and he will need to get his Epogen. Some of his current pain is musculoskeletal from coughing. * He has significant peripheral edema but this may be dependent edema due to his morbid obesity along with inflammation from cellulitis. Weight loss has been strongly recommended. His echo was consistent with restrictive heart disease which can also cause leg edema from increased RV pressures. Gentle diurestics are recommended with monitoring of his BUN, creatinine and potassium. Change Lasix to 80mg IV daily. * This patient carries a history of atrial fibrillation but is in a sinus rhythm at the present time. * I suspect that this patient has a viral bronchitis causing his cough which will likely run its course. Antibiotics may not be helpful. The cough may be causing some chest discomfort and some shortness of breath is to be expected. I do not see convincing evidence of any significant decompensated CHF but due to his weight he is a difficult exam and a trial of IV Lasix as above is reasonable with careful monitoring of his creatinine. Consult Acknowledgment - Thank you for your consult request.
[2018-06-08 05:54] VITALS: BP 112/82
--- NOTE | 2018-06-08 08:29 | PN- Housestaff ---
Erika Coles 06/08/18 0829: Subjective Follow-up For: Productive cough Subjective: Afebrile overnight. Patient is seen and examined in bed this morning. Patient is currently having his ECHO performed this morning. Patient states he had recurrent bouts of chest pain last night associated with coughing spells. Patient states this morning his pain has decreased to 6 out of 10. Patient also notes some mild leg tenderness to palpation. Patient has venous stasis dermatitis of the bilateral lower extremities. Patient otherwise has no new complaints. Review of Systems Constitutional: Reports: see HPI. Objective Last 24 Hrs of Vital Signs/I&O Vital Signs Date Time Temp Pulse Resp B/P B/P Pulse O2 O2 Flow FiO2 Mean Ox Delivery Rate 06/08 0828 95 Nasal 2.5L Cannula 06/08 0827 83 132/62 06/08 0826 83 132/62 06/08 0554 97.8 83 20 112/82 99 Nasal Cannula 06/08 0005 99 Nasal 2.5L Cannula 06/08 0000 Nasal 2.5L Cannula 06/07 2223 97.6 70 20 116/82 99 Nasal 2.5L Cannula 06/07 2108 86 110/70 06/07 2108 86 110/70 06/07 1937 99 Nasal 2.5L Cannula 06/07 1600 Nasal 2.0L Cannula 06/07 1446 98.2 86 20 110/70 96 Nasal Cannula 06/07 1030 Nasal 2.0L Cannula Intake & Output 06/08 1600 06/08 0800 06/08 0000 Intake Total 400 500 Output Total 750 Balance -350 500 Intake, Oral 400 500 Output, Urine 750 Patient 325 lb Weight Weight Bed scale Measurement Method Physical Exam General Appearance: Alert, Oriented X3, Cooperative, No Acute Distress Skin: ERYTHEMA OF BILAT. LOWER EXTREMITIES. HEENT: Atraumatic Neck: Supple, No JVD Cardiovascular: Regular Rate, Normal S1, Normal S2 Lungs: rhonchi lower bases b/l Neurological: Normal Speech Extremities: +1 PITTING EDEMA BILAT. Assessment/Plan Assessment: 53 yo M with PMH paroxysmal AFib (on Eliquis), CVA, TIA, CAD ([place] s/p angioplasties in 2002 and 2010, CABG in 2013), CHF (last echo EF 55%), ANA (not using CPAP), COPD (on 2.5L home oxygen via [place]), chronic stasis dermatitis s/p grafting, obesity, HTN, T2DM complicated with neuropathy, who presented to the ED from an extended care facility (with complaints of worsening shortness of breath and productive cough for 1 week. Problem list: 1. Acute on chronic CHF exacerbation 2. Acute on chronic COPD exacerbation 3. Stasis dermatitis 4. Bronchitis 5. History of hypertension 6. History of diabetes mellitus 7. Peripheral neuropathy 8. History of vitamin D deficiency 9. History of atrial fibrillation 10. Acute on chronic anemia 11. Acute on chronic CKD #Acute on chronic CHF exacerbation: Patient's primary symptoms of shortness of breath, pitting edema of the lower extremities, 06/06/18 chest x-ray findings of pulmonary vascular congestion are consistent with acute acute exacerbation of CHF. Patient has preserved ejection fraction last echocardiogram. #Acute on chronic COPD exacerbation: Patient has known history of COPD is on 2.5 L of oxygen via nasal cannula at home, at this time he is experiencing increased shortness of breath while on baseline oxygen. -Azithromycin 250 mg PO daily starting 06/09 to receive total of 4 doses #Acute on chronic anemia: During per prior admissions patient has been a hemoglobin of mid to high 90s, is down to mid eights during this admission patient. Could be contributing to patient's shortness of breath #Acute on chronic CKD: Creatinine during this admission is 1.3 which is lower than previous admissions where patient has been ranging between 2.0-2.7 #Bronchitis: Patient lives in a extended care facility so he has increased risk exposure, has history of COPD, has been experiencing a cough and productive phlegm for 1 week. On physical examination patient has bilateral rhonchi which clear with cough. of antibiotics -Robitussin-DM #Stasis dermatitis: There was some concern for cellulitis as there was erythema and tenderness to palpation, but bilateral involvement is very uncommon in cellulitis. include the following: apply nystatin powder to the groin, apply Vitamin A+D & Desitin to the coccyx, buttocks, scrotal rectal junction, posterior thigh, etc; offload heels off of the bed; catergory 2 mattress, application of barrier cream to the bilateral lower extremity #History of hypertension #History of A. fib #Diabetes mellitus type 2 #Peripheral neuropathy #Vitamin D deficiency CODE STATUS: Full code Diet: Consistent carbohydrate 2 DVT prophylaxis: Eliquis Problem List: 1. CHF (congestive heart failure) Pain Ratin Pain Location: na Pain Goal: Remain pain free Pain Plan: na Tomorrow's Labs & Rationales: Bruce Tate MD 06/08/18 1245: Subjective Review of Systems Constitutional: Reports: see HPI. Objective Last 24 Hrs of Vital Signs/I&O Vital Signs Date Time Temp Pulse Resp B/P B/P Pulse O2 O2 Flow FiO2 Mean Ox Delivery Rate 06/08 828 95 Nasal 2.5L Cannula 06/08 08 83 132/62 06/08 0826 83 132/62 06/08 0554 97.8 83 20 112/82 99 Nasal Cannula 06/08 0005 99 Nasal 2.5L Cannula 06/08 0000 Nasal 2.5L Cannula 06/07 2223 97.6 70 20 116/82 99 Nasal 2.5L Cannula 06/07 2108 86 110/70 06/07 2108 86 110/70 06/07 1937 99 Nasal 2.5L Cannula 06/07 1600 Nasal 2.0L Cannula 06/07 1446 98.2 86 20 110/70 96 Nasal Cannula Intake & Output 06/08 1600 06/08 0806/08 0000 Intake Total 400 500 Output Total 750 Balance -350 500 Intake, Oral 400 500 Output, Urine 750 Patient 325 lb Weight Weight Bed scale Measurement Method Physical Exam General Appearance: Alert, Oriented X3, Cooperative, No Acute Distress Skin: ERYTHEMA OF BILAT. LOWER EXTREMITIES. HEENT: Atraumatic, PERRLA, EOMI Neck: Supple, No JVD Cardiovascular: Regular Rate, Normal S1, Normal S2 Lungs: rhonchi lower bases b/l Neurological: Normal Speech Extremities: +1 PITTING EDEMA BILAT. Current Medications: Current Medications Sig/Ysabel Start time Last Medication Dose Route Stop Time Status Admin Acetaminophen 650 MG Q6-PRN PRN 06/07 0745 AC 06/07 PO 2120 Albuterol Sulfate 3 ML BID 06/07 2100 AC 06/08 INH 08 Apixaban 5 MG BID 06/07 900 AC 06/08 PO 08 Ascorbic Acid 500 MG DAILY 06/07 900 AC 06/08 PO 08 Azithromycin 250 MG DAILY 06/09 900 AC PO 06/12 901 Benzonatate 100 MG Q4 06/07 1000 AC 06/08 PO 103 Cholecalciferol 2,000 IU DAILY 06/07 900 AC 06/08 PO 0825 Diltiazem HCl 120 MG DAILY 06/07 900 AC 06/08 PO 0827 Epoetin Tony 10,000 UNIT QFRI 06/08 1000 06/08 SC 1039 Fenofibrate 145 MG DAILY 06/07 900 AC 06/08 PO 0826 Ferrous Sulfate 325 MG BID 06/07 900 AC 06/08 PO 0825 Furosemide 80 MG DAILY 06/08 900 AC 06/08 IV 1058 Furosemide 60 MG DAILY 06/07 09 DC 06/07 IV 0806 Guaifenesin/Codeine 10 ML Q6P PRN 06/07 1330 AC 06/08 Phosphate PO 0611 Guaifenesin/ 10 ML Q6P PRN 06/07 0730 DC 06/07 Dextromethorphan PO 0803 Insulin Aspart 0 TIDAC 06/07 800 06/08 W[place] 1221 Insulin Detemir 40 UNITS DAILY 06/07 900 AC 06/08 SC 0830 Metoprolol Tartrate 50 MG BID 06/07 900 06/08 PO 0827 Nitroglycerin 0.4 MG DAILY 06/08 1009 06/08 TOP 1157 Nystatin 1 AMY BID 06/07 2100 06/08 TOP 1040 Patient Medication 1 ED ONE ONE 06/07 1315 DC Teaching ED 06/07 1316 Prednisone 40 MG DAILY 06/08 900 06/08 PO 06/12 0859 0827 Pregabalin 100 MG BID 06/07 900 06/08 PO 0827 Ranolazine 500 MG BID 06/07 900 06/08 PO 0826 Vitamin A/Vitamin D 1 AMY BID 06/07 2100 06/08 TOP 1040 Zinc Oxide 1 AMY BID 06/07 2100 06/08 TOP 1040 Last 24 Hrs of Lab/Tanvir Results Last 24 Hrs of Labs/Mics: Laboratory Tests 06/08/18 0640: Anion Gap 7, Estimated GFR 58 L, BUN/Creatinine Ratio 23.1, CBC w Diff NO MAN DIFF REQ, RBC 3.38 L, MCV 80.9, MCH 26.4 L, MCHC 32.6 L, RDW 20.3 H, MPV 9.2 , Gran % 92.7 H, Lymphocytes % 2.7 L, Monocytes % 4.5, Eosinophils % 0, Basophils % 0.1, Absolute Granulocytes 13.0 H, Absolute Lymphocytes 0.4 L, Absolute Monocytes 0.6, Absolute Eosinophils 0, Absolute Basophils 0 06/07/182021: Troponin I < 0.01 Microbiology 06/08 1130 LOWER RESP: Respiratory Culture - ORD 06/08 1130 LOWER RESP: Gram Stain - ORD Attending MD Review Statement Attending Statement Attending MD Statement: examined this patient, discuss w/resident/PA/[employer], discussed with nursing, amended to note Attending Assessment/Plan: This patient is a 53-year-old white male with diabetes, diabetic neuropathy, coronary artery disease chronic stasis dermatitis and morbid obesity. The patient presents with shortness of breath and chest pain. He had an elevation in his white blood cell count today but does not have any associated fevers chills. The patient underwent an echo this morning with results pending. Continue azithromycin. Will need a case management evaluation the patient does not want to return to [facility].
[2018-06-08 08:59] LABS: ABSOLUTE BASOPHIL COUNT 0 /CUMM (0.0-0.2); ABSOLUTE EOSINOPHIL COUNT 0 /CUMM (0.0-0.7); ABSOLUTE LYMPH COUNT 0.4 /CUMM (1.2-3.4); ABSOLUTE MONOCYTE COUNT 0.6 /CUMM (0.10-0.60); BASOPHIL % 0.1 % (0.0-2.0); EOSINOPHIL % 0 % (0-5); GRANULOCYTE % 92.7 % (42.2-75.2); HEMATOCRIT 27.3 % (42-52); MEAN CORPUSCULAR HGB 26.4 PG (27.0-31.0); MEAN CORPUSCULAR HGB CONC 32.6 G/DL (33.0-37.0); MEAN CORPUSCULAR VOLUME 80.9 FL (80.0-94.0); MEAN PLATELET VOLUME 9.2 FL (7.4-10.4); PLATELET COUNT 265 /CUMM (130-400); RBC DISTRIBUTION WIDTH 20.3 % (11.5-14.5); RED BLOOD CELL CT 3.38 /CUMM (4.70-6.10)
--- NOTE | 2018-06-08 12:07 | PN- Cardiology ---
Subjective Subjective: Cardiac status appears stable. Continued episodes of atypical chest pain worse with inspiration and coughing. No overt evidence of ischemia. Rhythm status unchanged on ekg monitor. Objective Vital Signs and I&Os Vital Signs Date Time Temp Pulse Resp B/P B/P Pulse O2 O2 Flow FiO2 Mean Ox Delivery Rate 06/08 0828 95 Nasal 2.5L Cannula 06/08 0827 83 132/62 06/08 0826 83 132/62 06/08 0554 97.8 83 20 112/82 99 Nasal Cannula 06/08 0005 99 Nasal 2.5L Cannula 06/08 0000 Nasal 2.5L Cannula 06/07 2223 97.6 70 20 116/82 99 Nasal 2.5L Cannula 06/07 2108 86 110/70 06/07 2108 86 110/70 06/07 1937 99 Nasal 2.5L Cannula 06/07 1600 Nasal 2.0L Cannula 06/07 1446 98.2 86 20 110/70 96 Nasal Cannula Intake & Output 06/08 1600 06/08 0806/08 0000 06/07 1600 06/07 0800 06/07 0000 Intake Total 400 500 810 360 Output Total 750 1275 500 Balance -350 500 -465 -140 Intake, IV 10 0 Intake, Oral 400 500 800 360 Number 1 0 Bowel Movements Output, Urine 750 1275 500 Patient 325 lb 328 lb 250 lb Weight Weight Bed scale Bed scale Estimated Measurement Method Physical Exam: General: WD/obese male in NAD; alert and oriented x 3 HEENT: NC/AT, PERRL, EOMI Neck: no JVD, no carotid bruit Heart: RRR w/o murmur Lungs: clear bilaterally Abdomen: soft, obese, NT, +ve bowel sounds Extremities: 2+ bilateral leg edema with venous stasis changes and tenderness to palpation Current Medications: Current Medications Sig/Ysabel Start time Last Medication Dose Route Stop Time Status Admin Acetaminophen 650 MG Q6-PRN PRN 06/07 0745 AC 06/07 PO 2120 Albuterol Sulfate 3 ML BID 06/07 2100 AC 06/08 INH 0807 Apixaban 5 MG BID 06/07 900 AC 06/08 PO 0826 Ascorbic Acid 500 MG DAILY 06/07 900 AC 06/08 PO 0826 Azithromycin 250 MG DAILY 06/09 900 AC PO 06/12 09 Benzonatate 100 MG Q4 06/07 1000 AC 06/08 PO 1039 Cholecalciferol 2,000 IU DAILY 06/07 900 AC 06/08 PO 0825 Diltiazem HCl 120 MG DAILY 06/07 900 AC 06/08 PO 0827 Epoetin Tony 10,000 UNIT QFRI 06/08 1000 AC 06/08 SC 1039 Fenofibrate 145 MG DAILY 06/07 900 AC 06/08 PO 0826 Ferrous Sulfate 325 MG BID 06/07 900 AC 06/08 PO 0825 Furosemide 80 MG DAILY 06/08 900 AC 06/08 IV 1058 Furosemide 60 MG DAILY 06/07 09 DC 06/07 IV 0806 Guaifenesin/Codeine 10 ML Q6P PRN 06/07 1330 AC 06/08 [place] PO 0611 Guaifenesin/ 10 ML Q6P PRN 06/07 0730 DC 06/07 Dextromethorphan PO 0803 Insulin Aspart 0 TIDAC 06/07 800 AC 06/08 SC 0830 Insulin Detemir 40 UNITS DAILY 06/07 900 AC 06/08 SC 0830 Metoprolol Tartrate 50 MG BID 06/07 900 AC 06/08 PO 0827 Nitroglycerin 0.4 MG DAILY 06/08 1009 AC 06/08 TOP 1157 Nystatin 1 AMY BID 06/07 2100 06/08 TOP 1040 Patient Medication 1 ED ONE ONE 06/07 1315 DC Teaching ED 06/07 1316 Prednisone 40 MG DAILY 06/08 900 AC 06/08 PO 06/12 0859 0827 Pregabalin 100 MG BID 06/07 900 AC 06/08 PO 0827 Ranolazine 500 MG BID 06/07 900 AC 06/08 PO 0826 Vitamin A/Vitamin D 1 AMY BID 06/07 2100 AC 06/08 TOP 1040 Zinc Oxide 1 AMY BID 06/07 2100 06/08 TOP 1040 Results Last 48 Hrs of Labs/Mics: Laboratory Tests 06/08/18 0640: Anion Gap 7, Estimated GFR 58 L, BUN/Creatinine Ratio 23.1, CBC w Diff NO MAN DIFF REQ, RBC 3.38 L, MCV 80.9, MCH 26.4 L, MCHC 32.6 L, RDW 20.3 H, MPV 9.2 , Gran % 92.7 H, Lymphocytes % 2.7 L, Monocytes % 4.5, Eosinophils % 0, Basophils % 0.1, Absolute Granulocytes 13.0 H, Absolute Lymphocytes 0.4 L, Absolute Monocytes 0.6, Absolute Eosinophils 0, Absolute Basophils 0 06/07/18 2022: Troponin I < 0.01 06/07/18 1215: Troponin I < 0.01 06/07/18 1000: Troponin I Cancelled 06/07/18 0655: Anion Gap 8, Estimated GFR 58 L, BUN/Creatinine Ratio 16.2, Magnesium 1.6, Troponin I < 0.01, CBC w Diff NO MAN DIFF REQ, RBC 3.36 L, MCV 80.1, MCH 25.9 L, MCHC 32.3 L, RDW 20.0 H, MPV 8.9, Gran % 96.0 H, Lymphocytes % 2.7 L, Monocytes % 0.9 L, Eosinophils % 0.2, Basophils % 0.2, Absolute Granulocytes 8.7 H, Absolute Lymphocytes 0.2 L, Absolute Monocytes 0.1, Absolute Eosinophils 0, Absolute Basophils 0 06/07/18 0400: Troponin I Cancelled 06/07/18 0231: Lactic Acid Cancelled 06/06/18 2342: Anion Gap 6, Estimated GFR 58 L, BUN/Creatinine Ratio 19.2, Glucose 86, Lactic Acid 1.0, Calcium 8.6, Total Bilirubin 0.7, AST 29, ALT 18 L, Alkaline Phosphatase 139 H, Troponin I < 0.01, [id number]-[id number]-Elqrbqqfafa Pept 5340 H, Total Protein 6.1 L, Albumin 3.0 L, Globulin 3.1, Albumin/Globulin Ratio 1.0 L, CBC w Diff NO MAN DIFF REQ, RBC 3.34 L, MCV 80.2, MCH 25.9 L, MCHC 32.3 L, RDW 20.1 H, MPV 8.6, Gran % 82.3 H, Lymphocytes % 6.4 L, Monocytes % 6.7, Eosinophils % 4.0, Basophils % 0.6, Absolute Granulocytes 6.6 H, Absolute Lymphocytes 0.5 L, Absolute Monocytes 0.5, Absolute Eosinophils 0.3, Absolute Basophils 0 Assessment/Plan Assessment/Plan Assessment: 1. Acute on chronic COPD exacerbation 2. Possible acute on chronic exacerbation of HFpEF 3. Atypical chest discomfort 4. History of known coronary artery disease, status post bypass and prior interventions with residual small vessel coronary disease 5. Lower extremity edema with stasis dermatitis likely related to venous insufficiency 6. History of hypertension 7. History of diabetes mellitus with peripheral neuropathy 8. History of vitamin D deficiency 9. History of atrial fibrillation 10. Acute on chronic anemia 11. Acute on chronic renal failure Recommendations: -For now, in the absence of any overt ischemia, I would continue recommendations as outlined by Dr. Loaiza yesterday. -Continue current medication regimen. -Out of bed with ambulation as tolerated -Continue other management as currently per the medical team. Continue telemetry? Yes
[2018-06-08 14:28] VITALS: BP 118/70
[2018-06-08 21:52] VITALS: BP 128/70
[2018-06-09 06:05] VITALS: BP 128/66
--- NOTE | 2018-06-09 08:42 | PN- Housestaff ---
Vern Stroud 06/09/18 0841: Subjective Follow-up For: Acute on chronic diastolic congestive heart failure Subjective: Overnight patient was in normal sinus rhythm with heart rate ranging between 70 and 84. Patient states he feels terrible this morning, states that he felt like he has some goop in his right eye. Patient states he has a history of undergoing Lasix surgery on eyes and was never prescribed eyedrops following the surgery. Patient is complaining of just generalized not feeling well uncertain of any particular reason, continues to complain of a cough. Review of Systems Constitutional: Denies: chills, diaphoresis, fever. Cardiovascular: Denies: chest pain, palpitations. Respiratory: Reports: cough, sputum production. Gastrointestinal: Denies: abdominal pain, constipation, diarrhea, bloody stool. Objective Last 24 Hrs of Vital Signs/I&O Vital Signs Date Time Temp Pulse Resp B/P B/P Pulse O2 O2 Flow FiO2 Mean Ox Delivery Rate 06/09 0903 99 Nasal 2.5L Cannula 06/09 0605 98.3 73 20 128/66 99 Nasal Cannula 06/09 0217 98 Nasal 2.5L Cannula 06/09 0000 Nasal 2.5L Cannula 06/08 2152 98.4 80 20 128/70 96 Nasal Cannula 06/08 2143 86 18 122/60 06/08 2141 86 18 122/60 06/08 1919 95 Nasal 2.5L Cannula 06/08 1428 98.2 80 20 118/70 99 Nasal 2.5L Cannula Intake & Output 06/09 1600 06/09 0800 06/09 0000 Intake Total 400 120 Output Total 500 Balance -100 120 Intake, Oral 400 120 Output, Urine 500 Patient 329 lb Weight Physical Exam General Appearance: Alert, Oriented X3, Cooperative Skin: ERYTHEMA OF BILAT. LE. NO WARMTH, TENDERNESS APPRECIATED Cardiovascular: Regular Rate, Normal S1, Normal S2 Lungs: SCATTERED RHONCI APPRECIATED Abdomen: Normal Bowel Sounds, Soft, No Tenderness Extremities: No Cyanosis, Normal Pulses, +1 PITTING EDEMA Assessment/Plan Assessment: 53 yo M with PMH paroxysmal AFib (on Eliquis), CVA, TIA, CAD ([place] s/p angioplasties in 2002 and 2010, CABG in 2013), CHF (last echo EF 55%), ANA (not using CPAP), COPD (on 2.5L home oxygen via [place]), chronic stasis dermatitis s/p grafting, obesity, HTN, T2DM complicated with neuropathy, who presented to the ED from an extended care facility (with complaints of worsening shortness of breath and productive cough for 1 week. Problem list: 1. Acute on chronic CHF exacerbation 2. Acute on chronic COPD exacerbation 3. Stasis dermatitis 4. Bronchitis 5. History of hypertension 6. History of diabetes mellitus 7. Peripheral neuropathy 8. History of vitamin D deficiency 9. History of atrial fibrillation 10. Acute on chronic anemia 11. Acute on chronic CKD #Acute on chronic CHF exacerbation: Patient's primary symptoms of shortness of breath, pitting edema of the lower extremities, 06/06/18 chest x-ray findings of pulmonary vascular congestion are consistent with acute acute exacerbation of CHF. Patient has preserved ejection fraction last echocardiogram. #Acute on chronic COPD exacerbation: Patient has known history of COPD is on 2.5 L of oxygen via nasal cannula at home, at this time he is experiencing increased shortness of breath while on baseline oxygen. -Azithromycin 250 mg PO daily starting 06/09 to receive total of 4 doses #Acute on chronic anemia: During per prior admissions patient has been a hemoglobin of mid to high 90s, is down to mid eights during this admission patient. Could be contributing to patient's shortness of breath #Acute on chronic CKD: Creatinine during this admission is 1.3 which is lower than previous admissions where patient has been ranging between 2.0-2.7 -continue to monitor #Bronchitis: Patient lives in a extended care facility so he has increased risk exposure, has history of COPD, has been experiencing a cough and productive phlegm for 1 week. On physical examination patient has bilateral rhonchi which clear with cough. WBC trending down -Robitussin-DM #Stasis dermatitis: There was some concern for cellulitis as there was erythema and tenderness to palpation, but bilateral involvement is very uncommon in cellulitis. include the following: apply nystatin powder to the groin, apply Vitamin A+D & Desitin to the coccyx, buttocks, scrotal rectal junction, posterior thigh, etc; offload heels off of the bed; catergory 2 mattress, application of barrier cream to the bilateral lower extremity #History of hypertension #History of A. fib #Diabetes mellitus type 2 #Peripheral neuropathy #Vitamin D deficiency CODE STATUS: Full code Diet: Consistent carbohydrate 2 DVT prophylaxis: Eliquis Problem List: 1. Bronchitis Pain Ratin Pain Location: n/a Pain Goal: Remain pain free (tylenol) Pain Plan: tylenol Tomorrow's Labs & Rationales: none Bruce Douglass MD 06/09/18 1037: Attending MD Review Statement Attending Statement Attending MD Statement: examined this patient, discussed with nursing, discussed with case mgmt Attending Assessment/Plan: This patient is a 53-year-old white male with diabetes, diabetic neuropathy, coronary artery disease chronic stasis dermatitis and morbid obesity. The patient presents with shortness of breath and chest pain. He had an elevation in his white blood cell count yesterday, slightly lower today on Azithromycin. Countinues with a dry cough. Hemoglobin is stable at 9.0. Significant skin breakdown on his buttock. Wound care consult if not already ordered. Will need a case management evaluation the patient does not want to return to [facility].
[2018-06-09 10:00] VITALS: BP 136/70
[2018-06-09 10:32] LABS: ABSOLUTE BASOPHIL COUNT 0 /CUMM (0.0-0.2); ABSOLUTE EOSINOPHIL COUNT 0 /CUMM (0.0-0.7); ABSOLUTE GRANULOCYTE CT 10.3 /CUMM (1.4-6.5); ABSOLUTE LYMPH COUNT 0.6 /CUMM (1.2-3.4); ABSOLUTE MONOCYTE COUNT 0.7 /CUMM (0.10-0.60); BASOPHIL % 0 % (0.0-2.0); EOSINOPHIL % 0.1 % (0-5); GRANULOCYTE % 88.5 % (42.2-75.2); MEAN CORPUSCULAR HGB 26.1 PG (27.0-31.0); MEAN CORPUSCULAR HGB CONC 32.1 G/DL (33.0-37.0); MEAN CORPUSCULAR VOLUME 81.2 FL (80.0-94.0); MEAN PLATELET VOLUME 8.9 FL (7.4-10.4); PLATELET COUNT 248 /CUMM (130-400); RED BLOOD CELL CT 3.45 /CUMM (4.70-6.10); WHITE BLOOD CELL COUNT 11.6 /CUMM (4.8-10.8)
[2018-06-09 14:41] VITALS: BP 106/72
[2018-06-09 22:01] VITALS: BP 138/76
[2018-06-10 06:30] VITALS: BP 142/70
--- NOTE | 2018-06-10 09:06 | PN- Housestaff ---
EddieSecaucus 06/10/18 0906: Subjective Tele-Events Since Last Visit: No overnight events. Patient remained in sinus rhythm with heart rate between 6774 Review of Systems EENTM: Reports: no symptoms. Cardiovascular: Denies: chest pain, palpitations. Respiratory: Reports: cough, sputum production. Denies: short of breath. Gastrointestinal: Denies: abdominal pain, diarrhea, nausea, vomiting. Genitourinary: Reports: no symptoms. Neurological/Psychological: Reports: no symptoms. Objective Last 24 Hrs of Vital Signs/I&O Vital Signs Date Time Temp Pulse Resp B/P B/P Pulse O2 O2 Flow FiO2 Mean Ox Delivery Rate 06/10 0901 96 Nasal 2.5L Cannula 06/10 0856 140/70 06/10 0855 140/70 06/10 0630 97.9 81 22 142/70 97 Nasal Cannula 06/09 2201 97.8 80 24 138/76 98 06/09 2121 Nasal 2.5L Cannula 06/09 2031 77 106/72 06/09 2031 77 106/72 06/09 1938 98 Nasal 2.5L Cannula 06/09 1600 Nasal 2.5L Cannula 06/09 1441 98.2 77 20 106/72 98 Nasal Cannula Intake & Output 06/10 1600 06/10 0800 06/10 0000 Intake Total 450 280 Output Total 800 250 Balance -350 30 Intake, Oral 450 280 Output, Urine 800 250 Patient 224 lb 335 lb Weight Physical Exam Skin Temp/Moisture Exam: Warm/Dry Sepsis Skin Exam (color): Normal for Ethnicity Cardiovascular: Normal S1, Normal S2 Lungs: Clear to Auscultation Abdomen: Soft, No Tenderness Neurological: Normal Speech, Normal Tone Extremities: B/L PEDAL EDEMA WITH CHRONIC VENOUS CHANGES., Healing chronic wounds on right foot and buttock. Assessment/Plan Assessment: Acute on chronic CHF exacerbation: Patient's primary symptoms of shortness of breath, pitting edema of the lower extremities, 06/06/18 chest x-ray findings of pulmonary vascular congestion are consistent with acute acute exacerbation of CHF. Patient has preserved ejection fraction last echocardiogram. Acute on chronic COPD exacerbation: Patient has known history of COPD is on 2.5 L of oxygen via nasal cannula at home, at this time he is experiencing increased shortness of breath while on baseline oxygen. His COPD exacerbation could be due to acute bronchitis. -Azithromycin 250 mg PO daily starting 06/09 to receive total of 4 doses -Continue Tessalon Perles for cough. -Continue monitoring his leukocyte count although patient remained afebrile. His leukocytosis could be due to steroid use. Acute on chronic anemia: During per prior admissions patient has been a hemoglobin of mid to high 90s, is down to mid eights during this admission patient. Could be contributing to patient's shortness of breath Acute on chronic CKD: Creatinine during this admission is 1.3 which is lower than previous admissions where patient has been ranging between 2.0-2.7 -continue to monitor Stasis dermatitis: There was some concern for cellulitis as there was erythema and tenderness to palpation, but bilateral involvement is very uncommon in cellulitis. include the following: apply nystatin powder to the groin, apply Vitamin A+D & Desitin to the coccyx, buttocks, scrotal rectal junction, posterior thigh, etc; offload heels off of the bed; catergory 2 mattress, application of barrier cream to the bilateral lower extremity History of hypertension: History of A. fib: History of Diabetes mellitus type 2: -Continue Levemir 45 units subcu Peripheral neuropathy: Vitamin D deficiency: Diet: -Diabetic,Consistent carbohydrate 2 DVT prophylaxis: Mechanical and Eliqui CODE STATUS: Full code Problem List: 1. Bronchitis Pain Ratin Pain Location: nonr Pain Goal: Remain pain free Pain Plan: pain pathway Tomorrow's Labs & Rationales: cbc/bep Bruce Douglass MD 06/10/18 1000: Subjective Follow-up For: Cough, chest pain and wound care Complaints: Persistent cough/ clearing Subjective: This patient is a 53-year-old white male with diabetes, diabetic neuropathy, coronary artery disease chronic stasis dermatitis and morbid obesity. The patient presents with shortness of breath and chest pain. Countinues with a dry cough no more chest pain. Loks better and clearly improving. Review of Systems Constitutional: Reports: see HPI. Objective Last 24 Hrs of Vital Signs/I&O Vital Signs Date Time Temp Pulse Resp B/P B/P Pulse O2 O2 Flow FiO2 Mean Ox Delivery Rate 06/10 0901 96 Nasal 2.5L Cannula 06/10 0856 140/70 06/10 0855 140/70 06/10 0630 97.9 81 22 142/70 97 Nasal Cannula 06/09 2201 97.8 80 24 138/76 98 06/09 2121 Nasal 2.5L Cannula 06/09 2031 77 106/72 06/09 2031 77 106/72 06/09 1938 98 Nasal 2.5L Cannula 06/09 1600 Nasal 2.5L Cannula 06/09 1441 98.2 77 20 /72 98 Nasal Cannula Intake & Output 06/10 1600 06/10 0800 06/10 0000 Intake Total 450 280 Output Total 800 250 Balance -350 30 Intake, Oral 450 280 Output, Urine 800 250 Patient 224 lb 335 lb Weight Physical Exam General Appearance: Alert, Oriented X3 HEENT: Atraumatic, PERRLA, EOMI Neck: Supple Cardiovascular: Regular Rate, Normal S1, Normal S2 Lungs: Clear to Auscultation Abdomen: Normal Bowel Sounds, Soft, No Tenderness Current Medications: Current Medications Sig/Ysabel Start time Last Medication Dose Route Stop Time Status Admin Acetaminophen 650 MG Q6-PRN PRN 06/07 0745 AC 06/09 PO 1029 Albuterol Sulfate 3 ML BID 06/07 2100 AC 06/10 INH 0813 Apixaban 5 MG BID 06/07 09 AC 06/10 PO 0854 Ascorbic Acid 500 MG DAILY 06/07 900 AC 06/10 PO 0854 Azithromycin 250 MG DAILY 06/09 900 AC 06/10 PO 06/12 0901 0855 Benzonatate 100 MG Q4 06/07 1000 AC 06/10 PO 0854 Cholecalciferol 2,000 IU DAILY 06/07 900 AC 06/10 PO 0854 Diltiazem HCl 120 MG DAILY 06/07 09 AC 06/10 PO 0854 Epoetin Tony 10,000 UNIT QFRI 06/08 1000 AC 06/08 SC 1039 Fenofibrate 145 MG DAILY 06/07 0900 AC 06/10 PO 0855 Ferrous Sulfate 325 MG BID 06/07 09 AC 06/10 PO 0855 Furosemide 80 MG DAILY 06/08 09 AC 06/10 IV 0856 Guaifenesin/Codeine 10 ML Q6P PRN 06/07 1330 AC 06/10 Phosphate PO 0241 Insulin Aspart 0 TIDAC 06/07 0800 AC 06/10 SC 0853 Insulin Detemir 45 UNITS DAILY 06/10 09 AC 06/10 SC 0854 Insulin Detemir 40 UNITS DAILY 06/07 0900 DC 06/09 NV 1032 Metoprolol Tartrate 50 MG BID 06/07 900 AC 06/10 PO 0856 Nitroglycerin 0.4 MG DAILY 06/08 1009 AC 06/10 TOP 0856 Nystatin 1 AMY BID 06/07 2100 AC 06/10 TOP 0903 Prednisone 20 MG DAILY 06/08 900 AC 06/10 PO 06/12 0859 0855 Pregabalin 100 MG BID 06/07 900 AC 06/10 PO 0902 Ranolazine 500 MG BID 06/07 900 AC 06/10 PO 0855 Vitamin A/Vitamin D 1 AMY BID 06/07 2100 AC 06/10 TOP 0903 Zinc Oxide 1 AMY BID 06/07 2100 AC 06/10 TOP 0903 Assessment/Plan Assessment: This patient is a 53-year-old white male with diabetes, diabetic neuropathy, coronary artery disease chronic stasis dermatitis and morbid obesity. The patient presents with shortness of breath and chest pain. He had an elevation in his white blood cell count can recheck tomorrow. Countinues with a dry cough on azithro. Significant skin breakdown on his buttock. Awaitng Wound care consult. Will need a case management evaluation the patient does not want to return to [facility]. Attending MD Review Statement Attending Statement Attending MD Statement: examined this patient, reviewed EMR data (avail) Attending Assessment/Plan: See A/P
[2018-06-10 14:44] VITALS: BP 132/74
[2018-06-10 22:02] VITALS: BP 130/84
[2018-06-11 06:29] VITALS: BP 146/78
--- NOTE | 2018-06-11 07:08 | PN- Housestaff ---
MaximusJohnmikhail 06/11/18 0707: Subjective Follow-up For: Shortness of breath Subjective: Overnight patient was in normal sinus rhythm heart rate ranging between 67-73. Patient has no medical complaints today however patient is complaining that he does not want to go back to [facility]. Patient states that he would like to get placed in a home in [place], contributes to his bedsores from being at [facility]. Patient has improvement in his cough, decreased sputum production denies fever, night sweats, chills. Review of Systems Constitutional: Denies: chills, diaphoresis, fever. Cardiovascular: Denies: chest pain, orthopena. Respiratory: Reports: cough, sputum production. Gastrointestinal: Denies: abdominal pain, constipation, diarrhea, bloody stool. Objective Last 24 Hrs of Vital Signs/I&O Vital Signs Date Time Temp Pulse Resp B/P B/P Pulse O2 O2 Flow FiO2 Mean Ox Delivery Rate 06/11 0850 99 Nasal 2.5L Cannula 06/11 0807 140/72 06/11 0807 140/72 06/11 0629 97.6 73 12 146/78 98 Nasal 2.0L Cannula 06/11 0000 Nasal 2.5L Cannula 06/10 2202 97.6 78 19 130/84 97 06/10 2149 81 18 130/84 06/10 2148 81 18 130/84 06/10 1847 Nasal 2.5L Cannula 06/10 1632 99 Nasal 2.5L Cannula 06/10 1444 98.1 76 22 132/74 98 Nasal 2.0L Cannula Intake & Output 06/11 1600 06/11 0800 06/11 0000 Intake Total 1000 120 Output Total 1200 Balance -200 120 Intake, Oral 1000 120 Number 2 Bowel Movements Output, Urine 1200 Patient 338 lb Weight Physical Exam General Appearance: Alert, Oriented X3, Cooperative HEENT: Atraumatic Cardiovascular: Regular Rate, Normal S1, Normal S2 Lungs: Clear to Auscultation, Normal Air Movement Abdomen: Normal Bowel Sounds, Soft, No Tenderness Vascular: Normal Pulses, Pulses Symmetrical Assessment/Plan Assessment: 53 yo M with PMH paroxysmal AFib (on Eliquis), CVA, TIA, CAD ([place] s/p angioplasties in 2002 and 2010, CABG in 2013), CHF (last echo EF 55%), ANA (not using CPAP), COPD (on 2.5L home oxygen via NC), chronic stasis dermatitis s/p grafting, obesity, HTN, T2DM complicated with neuropathy, who presented to the ED from an extended care facility (with complaints of worsening shortness of breath and productive cough for 1 week. Problem list: 1. Acute on chronic CHF exacerbation 2. Acute on chronic COPD exacerbation 3. Stasis dermatitis 4. Bronchitis 5. History of hypertension 6. History of diabetes mellitus 7. Peripheral neuropathy 8. History of vitamin D deficiency 9. History of atrial fibrillation 10. Acute on chronic anemia - stable 11. Acute on chronic CKD- resolved Acute on chronic CHF exacerbation: Patient's primary symptoms of shortness of breath, pitting edema of the lower extremities, 06/06/18 chest x-ray findings of pulmonary vascular congestion are consistent with acute acute exacerbation of CHF. Patient has preserved ejection fraction last echocardiogram. Acute on chronic COPD exacerbation: Patient has known history of COPD is on 2.5 L of oxygen via nasal cannula at home, at this time he is experiencing increased shortness of breath while on baseline oxygen. His COPD exacerbation could be due to acute bronchitis. -Azithromycin 250 mg PO daily patient has received 4/5 doses -Continue Tessalon Perles for cough. Acute on chronic anemia: During per prior admissions patient has been a hemoglobin of mid to high 90s, is down to mid eights during this admission patient. Could be contributing to patient's shortness of breath Acute on chronic CKD: Creatinine during this admission is 1.3 which is lower than previous admissions where patient has been ranging between 2.0-2.7 -continue to monitor Stasis dermatitis: There was some concern for cellulitis as there was erythema and tenderness to palpation, but bilateral involvement is very uncommon in cellulitis. include the following: apply nystatin powder to the groin, apply Vitamin A+D & Desitin to the coccyx, buttocks, scrotal rectal junction, posterior thigh, etc; offload heels off of the bed; catergory 2 mattress, application of barrier cream to the bilateral lower extremity History of hypertension: History of A. fib: History of Diabetes mellitus type 2: -Continue Levemir 45 units subcu Peripheral neuropathy: Vitamin D deficiency: Diet: -Diabetic,Consistent carbohydrate 2 DVT prophylaxis: Mechanical and Eliqui CODE STATUS: Full code Patient does not have any need for telemetry monitoring. Patient's discharge is pending placement into [facility]. Patient is medically stable, his cough and shortness of breath have improved, patient states he does not wish to go back to [facility] Case management is working on finding placement in [place]. Problem List: 1. Bronchitis Pain Ratin Pain Location: n/a Pain Goal: Remain pain free Pain Plan: tylenol Tomorrow's Labs & Rationales: none Uzair MARIA,Delmiskerrie 06/11/18 1103: Attending MD Review Statement Attending Statement Attending MD Statement: examined this patient, discuss w/resident/PA/SPEEDER OPERATOR, agreed w/resident/PA/SPEEDER OPERATOR, reviewed EMR data (avail), discussed with nursing, discussed with case mgmt, reviewed images, amended to note Attending Assessment/Plan: Patient seen and examined. Resting comfortably and not in acute distress. Complains of mild cough on occasion. Reports poor sleep last night. Denies chest pain. Denies palpitations. No events on telemetry monitoring. He is maintaining negative fluid balance on current Lasix dose. He continues to have bilateral lower extremity edema. His medication regimen shows that he was on Lasix 80 mg orally daily at the [facility] facility. He however reports that recently prior to hospitalization he was receiving an additional 60 mg daily. He continues to have lower extremity edema with the intravenous Lasix however denies any difficulty breathing and is maintaining negative fluid balance. Recommendations: -Transition to Lasix 80 mg orally twice daily. -Medically stable to be discharged however patient wishes to return to a different [facility] facility. This is being addressed by the case management service. -Recommend elevation of legs at all times when possible. -He has chronic healed ulcers on the right lower extremity. Back in October he was here with a cellulitis of lower extremity. Bone scan at that time was no suggestion of osteomyelitis. Arterial Doppler was done with no gross evidence of disease. At that time it was recommended that he should follow-up with the vascular surgery service as an outpatient. We will reinforce the need for vascular surgery follow-up upon discharge. -Blood glucose levels are not well controlled here. He is on a lower dose of insulin here. Recommend increasing patient back to his home insulin dose. Upon discharge he should also resume his oral diabetic regimen. -Discontinue telemetry monitoring.
[2018-06-11 08:00] LABS: ABSOLUTE BASOPHIL COUNT 0 /CUMM (0.0-0.2); ABSOLUTE EOSINOPHIL COUNT 0.2 /CUMM (0.0-0.7); ABSOLUTE GRANULOCYTE CT 8.7 /CUMM (1.4-6.5); ABSOLUTE LYMPH COUNT 0.8 /CUMM (1.2-3.4); ABSOLUTE MONOCYTE COUNT 0.6 /CUMM (0.10-0.60); BASOPHIL % 0 % (0.0-2.0); EOSINOPHIL % 1.5 % (0-5); HEMATOCRIT 26.5 % (42-52); MEAN CORPUSCULAR HGB 26.3 PG (27.0-31.0); MEAN CORPUSCULAR HGB CONC 32.7 G/DL (33.0-37.0); MEAN CORPUSCULAR VOLUME 80.5 FL (80.0-94.0); MEAN PLATELET VOLUME 9.3 FL (7.4-10.4); PLATELET COUNT 239 /CUMM (130-400); RBC DISTRIBUTION WIDTH 19.4 % (11.5-14.5); WHITE BLOOD CELL COUNT 10.2 /CUMM (4.8-10.8)
[2018-06-11 09:04] LABS: GRANULOCYTE % 85.2 % (42.2-75.2)
--- NOTE | 2018-06-11 09:05 | Discharge Summary ---
Visit Information Visit Dates Admission Date: 06/07/18 Discharge Date: 06/11/2018 Hospital Course Course Attending Physician: Frank Dunne MD Primary Care Physician: Meghan MARIA,Surinder Hernandez Consulting Request: Consulting Specialty: Cardiology Consulting Physician: Dr. Loaiza Reason for Consult: Chest pain Hospital Course: This is a 53 yo M with PMH paroxysmal AFib (on Eliquis), CVA, TIA, CAD ([place] s/p angioplasties in 2002 and 2010, CABG in 2013), CHF (last echo EF 55%), ANA (not using CPAP), COPD (on 2.5L home oxygen via [place]), chronic stasis dermatitis s/p grafting, obesity, HTN, T2DM complicated with neuropathy, who presented to the ED from an extended care facility with complaints of worsening shortness of breath and chest pain for the past 1 week. On presentation the patient was found to have mild fluid overload with edema of the lower limbs without JVD overt crackles on the chest, she had mild wheezing with recurrent cough that was productive of brownish/greenish phlegm. Chest pain was reproducible on the chest wall. Chest pain This patient has extensive cardiac history however the chest pain was reproducible and to be attributed to repeated coughing spells the patient has been having on presentation. We trended to troponin with 3 negative values without observed EKG changes and because of that ruled out acute coronary syndrome. COPD exacerbation Patient was found to have mildly wheezes bilaterally mostly expirational wheezes and was given nebulization and a peak taper of prednisone to address his shortness of breath. He also received azithromycin causes for 5 days and sputum culture did not grow any organisms. The shortness of breath improved with oxygen requirement going to baseline but continued to have coughing spells despite being on Mucinex with codeine. Lower limb edema with venous stasis Patient has peripheral vascular disease and on presentation was noted to have venous stasis changes in the bilateral lower limbs. The lower limbs were also tender but had no evidence of infection no obvious discharge. This patient has had extensive workup of his peripheral vascular disease and follows up with vascular surgeon. Is being discharged with instructions to continue to follow- up with his vascular surgeon as an outpatient. Patient was also seen by wound care and will need to continue to follow up with wound care at home. History of atrial fibrillation Patient has history of atrial fibrillation. During the course of the stay the patient heart rate was controlled and continue to be on anticoagulation with Eliquis. Is being discharged to continue with his rate control medication and anticoagulation at home dose levels. Diabetes mellitus Patient has history of diabetes mellitus. We maintain him on insulin during the course of the stay and sugars were well controlled was also kept on diabetic diet. Continue with home dose of insulin and close monitoring of his sugars. Peripheral neuropathy Patient has history of peripheral neuropathy probably secondary to chronic diabetes mellitus. He is on Lyrica 100 mg twice a day which we will continue during the course of the stay and we are discharging him home to continue with medication at the same level. Complications: None Allergies: Coded Allergies: hydromorphone (UNKNOWN PER 12/02/16) erythromycin base (Intermediate, ?GI UPSET 03/13/16) gluten (Intermediate, GI UPSET 03/13/16) venom-honey bee (BEE VENOM (HONEY BEE)) (Intermediate, VOMITING 03/13/16) lactose (Mild, GI UPSET 03/13/16) Significant Procedures: None Pertinent Lab Results: Laboratory Tests 06/11 06/09 0625 0935 Chemistry Sodium (137 - 145 mmol/L) 139 141 Potassium (3.5 - 5.1 mmol/L) 4.5 4.4 Chloride (98 - 107 mmol/L) 100 101 Carbon Dioxide (22 - 30 mmol/L) 31 H 32 H Anion Gap (5 - 16) 7 8 BUN (9 - 20 mg/dL) 40 H 38 H Creatinine (0.7 - 1.2 mg/dL) 1.2 1.4 H Estimated GFR (>60 ml/min) > 60 53 L BUN/Creatinine Ratio (7 - 25 %) 33.3 H 27.1 H Hematology CBC w Diff NO MAN DIFF REQ NO MAN DIFF REQ WBC (4.8 - 10.8 /CUMM) 10.2 11.6 H RBC (4.70 - 6.10 /CUMM) 3.30 L 3.45 L Hgb (14.0 - 18.0 G/DL) 8.7 L 9.0 L Hct (42 - 52 %) 26.5 L 28.0 L MCV (80.0 - 94.0 FL) 80.5 81.2 MCH (27.0 - 31.0 PG) 26.3 L 26.1 L MCHC (33.0 - 37.0 G/DL) 32.7 L 32.1 L RDW (11.5 - 14.5 %) 19.4 H 20.0 H Plt Count (130 - 400 /CUMM) 239 248 MPV (7.4 - 10.4 FL) 9.3 8.9 Gran % (42.2 - 75.2 %) 85.2 H 88.5 H Lymphocytes % (20.5 - 51.1 %) 7.9 L 5.3 L Monocytes % (1.7 - 9.3 %) 5.4 6.1 Eosinophils % (0 - 5 %) 1.5 0.1 Basophils % (0.0 - 2.0 %) 0 0 Absolute Granulocytes (1.4 - 6.5 /CUMM) 8.7 H 10.3 H Absolute Lymphocytes (1.2 - 3.4 /CUMM) 0.8 L 0.6 L Absolute Monocytes (0.10 - 0.60 /CUMM) 0.6 0.7 H Absolute Eosinophils (0.0 - 0.7 /CUMM) 0.2 0 Absolute Basophils (0.0 - 0.2 /CUMM) 0 0 Disposition Summary Disposition Principal Diagnosis: Acute bronchitis COPD exacerbation CHF exacerbation Additional Diagnosis: Diabetes mellitus Peripheral neuropathy A. fib on anticoagulation Discharge Disposition: SNF Discharge Instructions General Discharge Information Code Status: Full Code Patient's Diet: Consistent carbohydrate 3 diet Patient's Activity: As tolerated Follow-Up Instructions/Appts: Please call and make a follow-up with your primary care physician within 1 week after discharge Please call and make a follow-up with your vascular surgeon about chronic venous stasis of bilateral lower limbs Medications at Discharge Discharge Medications: Stop taking the following medications: Loperamide HCl (Loperamide) 2 MG CAPSULE ORAL Q6H as needed for LOOSE STOOLS Oxycodone HCl/Acetaminophen (Percocet 5-325 MG Tablet) 5 MG-325 MG TABLET ORAL Q6H as needed for PAIN Furosemide (Lasix) 80 MG TABLET ORAL DAILY Ondansetron HCl (Zofran) 4 MG TABLET ORAL Q8H as needed for NAUSEA Acetaminophen (Acephen) 650 MG SUPP.RECT RECTALLY Q6H as needed for PAIN/TEMP/> 101 Continue taking these medications: Pantoprazole Sodium (Pantoprazole Sodium) 40 MG TABLET. 1 Tablet ORAL DAILY Comments: did not receive in hospital Lactulose (Lactulose) 10 GRAM/15 ML SOLUTION 15 Milliliters ORAL DAILY as needed for CONSTIPATION Comments: DID NOT RECEIVE WHILE IN HOSPITAL Insulin Lispro (Humalog) 100 UNIT/ML CARTRIDGE Units SC BEFORE MEALS AND AT BEDTIME Comments: receieved novolog in hospital per sliding scale Metoprolol Tartrate (Lopressor) 50 MG TABLET 1 Tablet ORAL TWICE DAILY Comments: did not receive in hospital Apixaban (Eliquis) 5 MG TABLET 1 Tablet ORAL TWICE DAILY Comments: Last Taken: 06/11/18 Time: 8:30 am Na Phos,M-B/Na Phos,Di-Ba (Fleet Enema) 19 GRAM-7 GRAM/118 ML ENEMA 1 Enema RECTAL as needed for CONSTIPATION Comments: DID NOT RECEIVE WHILE IN HOSPITAL Bisacodyl (Bisacodyl) 10 MG SUPP.RECT 1 Suppository RECTAL as needed for GI Comments: DID NOT RECEIVE WHILE IN HOSPITAL Magnesium Hydroxide (Milk Of Magnesia) 400 MG/5 ML ORAL.SUSP 30 Milliliters ORAL as needed for CONSTIPATION Comments: DID NOT RECEIVE WHILE IN HOSPITAL Acetaminophen (Acetaminophen) 325 MG TABLET 2 Tablet ORAL Q6H as needed for PAIN/TEMP/>101 Comments: Last Taken:06/11/18 Time:0900 Glucagon,Human Recombinant (Glucagon Emergency Kit) 1 MG KIT 1 Milligram INTRAMUSC As Directed as needed for HYPOGLYCEMIA Comments: DID NOT RECEIVE WHILE IN HOSPITAL Nitroglycerin (Nitroglycerin Patch) 0.4 MG/HOUR PATCH.TD24 0.4 Milligram On the skin DAILY Qty = 30 Instructions: APPLY FOR 12 HOURS THEN REMOVE APPLY PATCH SAME TIME EACH DAY Comments: Last Taken: 06/11/18 Time: 8 am to left chest wall Lactobacillus Acidophilus (Acidophilus) 1 EACH CAPSULE 1 Capsule ORAL Q12H Comments: Last Taken: 10/17/17 Time: 8:30 am Guaifenesin/Dextromethorphan (Tussin Dm Cough & Chest Liquid) 100 MG-10 MG/5 ML SYRUP 10 Milliliters ORAL Q4H as needed for COUGH Comments: did not receive in hospital Lidocaine (Lidoderm) 5 % ADH..PATCH 1 Patch On the skin TAKE AT BEDTIME Instructions: may wear up to 12 hours Comments: PER MAR Insulin Glargine,Hum.rec.anlog (Lantus Solostar) 100 UNIT/ML (3 ML) INSULN.PEN 52 Unit SC Every Morning Comments: received levemir in hospital: 25 units BID Fenofibrate Nanocrystallized (Fenofibrate) 145 MG TABLET 1 Tablet ORAL DAILY Comments: Last Taken: 06/11/18 Time: 8:30 am Diltiazem HCl (Diltiazem 24HR ER) 120 MG CAP.ER.24H 1 Capsule ORAL DAILY Comments: Last Taken: 06/11/18 Time: 8:30 am Dicyclomine HCl (Dicyclomine HCl) 20 MG TABLET 1 Tablet ORAL Q6H as needed for GERD Comments: did not receive in hospital Sodium Chloride (Hunter Saline) 0.65 % DROPS 2 Drop Both sides of nose Q4H as needed for CONGESTION Comments: did not receive in hospital Albuterol Sulfate (Albuterol Sulfate) 2.5 MG/3 ML (0.083 %) VIAL.NEB 1 Vial Inhale Solution EVERY 4 HOURS NEEDED as needed for SOB Sitagliptin Phosphate (Januvia) 50 MG TABLET 1 Tablet ORAL Every Morning Comments: did not receive in hospita Ferrous Sulfate (Ferrous Sulfate) 325 MG (65 MG IRON) TABLET 1 Tablet ORAL TWICE DAILY Comments: Last Taken: 06/11/18 Time: 8:30 am Pregabalin (Lyrica) 100 MG CAPSULE 1 Capsule ORAL Q12H Comments: Last Taken: 06/11/18 Time: 8:30 am Epoetin Tony (Epogen) 10,000 UNIT/ML VIAL 10,000 Unit SC EVERY SUNDAY Magnesium Oxide (Magnesium Oxide) 400 MG TABLET 1 Tablet ORAL DAILY Comments: Last Taken: 06/11/18 Time: 8:30 am Cholecalciferol (Vitamin D3) (Vitamin D) 2,000 UNIT TABLET 2 Tablet ORAL DAILY Comments: did not receive in hospital Potassium Chloride (Potassium Chloride) 20 MEQ TAB.ER.PRT 1 Tablet ORAL DAILY Comments: Last Taken: 06/11/18 Time: 8:30 am Multiple Vitamin (Multivitamins) 1 EACH TABLET 1 Tablet ORAL DAILY Comments: Last Taken: 10/17/17 Time: 8:30 am Ascorbic Acid (Vitamin C) 500 MG CAPSULE 1 Capsule ORAL DAILY Comments: Last Taken:06/11/18 Time:0900 Miconazole (Miconazole) 5 GM POWDER 1 Application On the skin As Directed Comments: Last Taken: Time: 10:00 am Ranolazine (Ranexa) 500 MG TAB.ER.12H 1 Tablet ORAL Q12H Comments: Last Taken: 06/11/18 Time: 8:30 am Liraglutide (Victoza 2-Rolf) 0.6 MG/0.1 ML (18 MG/3 ML) PEN.INJCTR 1.2 Milligram SC DAILY Atorvastatin Calcium (Atorvastatin Calcium) 10 MG TABLET 1 Tablet ORAL DAILY Comments: Last Taken:06/11/18 Time:1700 Start taking the following new medications: Furosemide (Lasix) 40 MG TABLET 80 Milligram ORAL 7:30AM & 4:30PM Qty = 60 No Refills Comments: Last Taken:06/11/18 Time:1545 Copies To: Meghan MARIA,Surinder Hernandez; Fadia MARIA PHD,Arnav Montano Attending MD Review Statement Documenting Attending: Uzair MARIA,Frank Other Findings: Discharged in stable condition In stable condition
--- NOTE | 2018-06-11 12:13 | Patient Discharge Instructions ---
Discharge Instructions General Discharge Information You were seen/treated for: Acute bronchitis COPD exacerbation CHF exacerbation Special Instructions: Please call and make a follow-up with her primary care physician within 1 week after discharge Please call and make a follow-up with her vascular surgeon Acute Coronary Syndrome Inclusion Criteria At DC or during hospital stay patient has or had the following: ACS DIAGNOSIS No Discharge Core Measures Meds if any: Prescribed or Continued at Discharge Meds if any: NOT Prescribed or Continued at Discharge Congestive Heart Failure Inclusion Criteria At DC or during hospital stay patient has or had the following: CHF DIAGNOSIS No Discharge Core Measures Meds if any: Prescribed or Continued at Discharge Meds if any: NOT Prescribed or Continued at Discharge Cerebrovascular accident Inclusion Criteria At DC or during hospital stay patient has or had the following: CVA/TIA Diagnosis No Discharge Core Measures Meds if any: Prescribed or Continued at Discharge Meds if any: NOT Prescribed or Continued at Discharge Venous thromboembolism Inclusion Criteria VTE Diagnosis No VTE Type NONE VTE Confirmed by (Test) NONE Discharge Core Measures - Per Current guidelines, there needs to be overlap - treatment for the first 5 days of Warfarin therapy. - If discharged on Warfarin prior to 5 days of - overlap therapy, the patient will need to be - assessed for post discharge needs including - *Post discharge parental anticoagulation - *Warfarin and/or parental anticoagulation education - *Follow up date to check INR post discharge At least 5 days overlap therapy as Inpatient No Meds if any: Prescribed or Continued at Discharge Note: Overlap Therapy is Warfarin and Anticoagulant Meds if any: NOT Prescribed or Continued at Discharge
[2018-06-11 14:10] VITALS: BP 120/70
[2018-06-11] MEDS ORDERED: LASIX40 M1 PO (14:27)
[2018-06-11 16:05] VITALS: BP 120/70
--- NOTE | 2018-06-11 16:43 | PN- Cardiology ---
Subjective Subjective: * Minimal chest discomfort that is unchanged. * sinus rhythm Objective Vital Signs and I&Os Vital Signs Date Time Temp Pulse Resp B/P B/P Pulse O2 O2 Flow FiO2 Mean Ox Delivery Rate 06/11 1605 98.3 75 18 120/70 06/11 1410 98.3 75 18 120/70 97 Nasal Cannula 06/11 1049 98 Nasal 2.5L Cannula 06/11 0850 99 Nasal 2.5L Cannula 06/11 0807 140/72 06/11 0807 140/72 06/11 0629 97.6 73 12 146/78 98 Nasal 2.0L Cannula 06/11 0000 Nasal 2.5L Cannula 06/10 2202 97.6 78 19 130/84 97 06/10 2149 81 18 130/84 06/10 2148 81 18 130/84 06/10 1847 Nasal 2.5L Cannula Intake & Output 06/11 1600 06/11 0800 06/11 0000 06/10 1600 06/10 0800 06/10 0000 Intake Total 420 1000 120 420 450 280 Output Total 2500 1200 1400 800 250 Balance -2080 -200 120 -980 -350 30 Intake, IV 20 20 Intake, Oral 400 1000 120 400 450 280 Number 2 2 2 Bowel Movements Output, Urine 2500 1200 1400 800 250 Patient 338 lb 224 lb 335 lb Weight Physical Exam: General: WD/obese male in NAD; alert and oriented x 3 HEENT: NC/AT, PERRL, EOMI Neck: no JVD, no carotid bruit Heart: RRR w/o murmur Lungs: clear bilaterally Abdomen: soft, obese, NT, +ve bowel sounds Extremities: 2+ bilateral leg edema with venous stasis changes and tenderness to palpation Assessment/Plan Assessment/Plan * This patient is much improved following bypass surgery and his angioplasty to his OM. He nevertheless continues to harbor some PDA disease that could potentially cause ischemic chest pain. He also has a diffusely diseased OM2. These lesions will undoubtedly also cause his inferior reversible ischemia but may not be easily amenable to PCI. In the setting of strong emotional distress or physical distress this patient may well have some angina but I do not think he is having an acute coronary syndrome. The patient is currently pain free and the ischemia is not in a life threatening territory. He should continue on his current drug regimen including NTG, a beta dylon and Ranexa. He is moderately anemic which will elicit angina and he will need to get his Epogen. Some of his current pain is musculoskeletal from coughing. * He has significant peripheral edema but this may be dependent edema due to his morbid obesity along with inflammation from cellulitis. Weight loss has been strongly recommended. His echo was consistent with restrictive heart disease which can also cause leg edema from increased RV pressures. Gentle diurestics are recommended with monitoring of his BUN, creatinine and potassium. Change Lasix to 80mg PO BID. * This patient carries a history of atrial fibrillation but is in a sinus rhythm at the present time. * I suspect that this patient had a viral bronchitis causing his cough which will likely run its course. Antibiotics may not be helpful. The cough may be causing some chest discomfort and some shortness of breath is to be expected. I do not see convincing evidence of any significant decompensated CHF. He is stable for discharge from a cardiac standpoint. Continue telemetry? No
--- NOTE | 2018-06-11 18:47 | ECHOCARDIOGRAM REPORT ---
WILLIAM WRIGHT Age: 53 : 1965 Gender: M Exam Date: 06/08/2018 09:17 Exam Location: 1 [address] Ht (in): 72 Wt (lb): 328 BSA: 2.82 BP: 154 / 58 Ordering Physician: Vern Stroud MD Referring Physician: Vern Stroud MD Technologist: Lara Bullard [facility] Room Number: 184-1 Indications: Heart failure, unspecified Rhythm: Sinus Technical Quality: Good FINDINGS Left Ventricle Normal global left ventricular size, wall thickness, systolic function with no obvious regional wall motion abnormalities. Left ventricular ejection fraction is estimated at >65 %. Right Ventricle Mild right ventricular dilatation. Right Atrium Mild right atrial dilatation. Left Atrium Mild to moderate left atrial dilatation. Mitral Valve Mild thickening/calcification of the mitral valve leaflets. Mild mitral annular calcification. Trace mitral regurgitation. Aortic Valve Focal thickening of the aortic valve cusps. No aortic stenosis. No aortic regurgitation. Tricuspid Valve Tricuspid valve not well visualized, grossly normal. Moderate tricuspid regurgitation. Right ventricular systolic pressure estimated to be elevated at 55-60 mmHg. Moderate to severe pulmonary hypertension. Pulmonic Valve Structurally normal pulmonic valve. There is trace pulmonic regurgitation. Pericardium Normal pericardium without effusion. No pleural effusion. Great Vessels Normal aortic root dimension. The aortic arch and great vessels are not well seen. CONCLUSIONS Normal global left ventricular size, wall thickness, systolic function with no obvious regional wall motion abnormalities. Left ventricular ejection fraction is estimated at >65 %. Mild right ventricular dilatation. Mild right atrial dilatation. Mild to moderate left atrial dilatation. Mild thickening/calcification of the mitral valve leaflets. Mild mitral annular calcification. Focal thickening of the aortic valve cusps. No aortic stenosis. Moderate tricuspid regurgitation. Right ventricular systolic pressure estimated to be elevated at 55-60 mmHg. Moderate to severe pulmonary hypertension. The aortic arch and great vessels are not well seen. Arnav De Luna M.D. (Electronically Signed) Final Date: 11 June 2018 18:45 MEASUREMENTS (Male / Female) Normal Values 2D ECHO LV Diastolic Diameter PLAX 5.0 cm 4.2 - 5.9 / 3.9 - 5.3 cm LV Systolic Diameter PLAX 3.3 cm 2.1 - 4.0 cm LV Fractional Shortening PLAX 34.0 % 25 - 46 % LV Ejection Fraction 2D Teich 62.7 % IVS Diastolic Thickness 1.0 cm LVPW Diastolic Thickness 1.1 cm LV Relative Wall Thickness 0.4 LVOT Diameter 2.0 cm Aortic Root Diameter 3.0 cm LA Systolic Diameter LX 4.5 cm 3.0 - 4.0 / 2.7 - 3.8 cm LA Volume 95.0 cm 18 - 58 / 22 - 52 cm DOPPLER AV Peak Velocity 147.0 cm/s AV Peak Gradient 8.6 mmHg LVOT Peak Velocity 74.5 cm/s LVOT Peak Gradient 2.2 mmHg AV Area Cont Eq pk 1.6 cm Mitral E Point Velocity 113.0 cm/s Mitral A Point Velocity 31.6 cm/s Mitral E to A Ratio 3.6 MV Deceleration Time 219.0 ms TR Peak Velocity 391.0 cm/s TR Peak Gradient 61.2 mmHg PV Peak Velocity 92.3 cm/s PV Peak Gradient 3.4 mmHg LV E' Lateral Velocity 12.7 cm/s Mitral E to LV E' Lateral Ratio 8.9 LV E' Septal Velocity 7.4 cm/s Mitral E to LV E' Septal Ratio 15.2
== END 2018-06-11 18:55 | DRG 140 ==
LOC: ERH 22:10 → ERHI 06-07 00:59 → 1NO 06-07 00:59 → CANRESERV 06-07 01:14 → ENRESERV 06-07 01:14 → 1NO 06-07 01:52 → ENPENDDIS 06-11 16:01 → 1NO 06-11 18:55
PROVIDERS: Hospitalist; Internal Medicine; Physician Assistant Medical; Preventive Medicine Public Health & General Preventive Medicine; Student in an Organized Health Care Education/Training Program
DX: J44.0 Chronic obstructive pulmonary disease with (acute) lower respiratory infection (principal); I11.0 Hypertensive heart disease with heart failure; Z79.01 Long term (current) use of anticoagulants; E66.01 Morbid (severe) obesity due to excess calories; Z68.41 Body mass index [BMI] 40.0-44.9, adult; I87.2 Venous insufficiency (chronic) (peripheral); I48.0 Paroxysmal atrial fibrillation; Z86.73 Personal history of transient ischemic attack (TIA), and cerebral infarction without residual deficits; I25.10 Atherosclerotic heart disease of native coronary artery without angina pectoris; I25.2 Old myocardial infarction; Z95.1 Presence of aortocoronary bypass graft; G47.33 Obstructive sleep apnea (adult) (pediatric); Z88.1 Allergy status to other antibiotic agents; Z88.5 Allergy status to narcotic agent; K21.9 Gastro-esophageal reflux disease without esophagitis; F41.9 Anxiety disorder, unspecified; F32.9 Major depressive disorder, single episode, unspecified; Z98.61 Coronary angioplasty status; D64.9 Anemia, unspecified; Z79.51 Long term (current) use of inhaled steroids; I50.33 Acute on chronic diastolic (congestive) heart failure; E78.5 Hyperlipidemia, unspecified; Z87.891 Personal history of nicotine dependence; E55.9 Vitamin D deficiency, unspecified; E11.42 Type 2 diabetes mellitus with diabetic polyneuropathy; E11.40 Type 2 diabetes mellitus with diabetic neuropathy, unspecified; J44.1 Chronic obstructive pulmonary disease with (acute) exacerbation; J20.9 Acute bronchitis, unspecified; B96.3 Hemophilus influenzae [H. influenzae] as the cause of diseases classified elsewhere
CPT/HCPCS: 1NP; 36415; 36592; 71045; 82436; 87070; 93005; 93010; 93306; 96374; 97161-GP; 97530-GO; J0456; J0885-EC; J1940; J2930